=== PATIENT | male | born 1980 | race Caucasian/White ===

== ENCOUNTER → 2018-03-02 | Outpatient (CLI) | payer BC ==
--- NOTE | 2018-03-02 18:40 | CONS ---
"CONSULTATION REASON FOR CONSULTATION: Sleep apnea. This is a 37-year-old morbidly obese diabetic, type 1, male patient coming in for sleep apnea evaluation. He has loud snoring, witnessed apneas, excessive daytime somnolence and sleepiness, sleep fragmentation and chronic fatigue and tiredness. 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 He occasionally falls asleep while driving his vehicle. He wants to be further investigated for sleep apnea. PAST MEDICAL HISTORY: 1. Obesity. 2. Diabetes mellitus, type 1. PAST SURGICAL HISTORY: Past surgical history includes right knee surgery. DRUG ALLERGIES: NOT KNOWN. MEDICATIONS: 1. Lantus. 2. NovoLog. 3. Ibuprofen on a p.r.n. basis. SOCIAL HISTORY: Nonsmoker. No history of alcoholism. No history of IV drugs. FAMILY HISTORY: Negative for sleep apnea. REVIEW OF SYSTEMS: Twelve-point review of systems was done. No history of insomnia. No history of nocturia. No grinding of the teeth. No sleepwalking. No anxiety or panic attacks. No palpitation. No depression. Current [place] score is 14. PHYSICAL EXAMINATION: BP is 118/75, pulse 78, respirations 16, temperature 98.3, saturation 95% on room air. Weight is 339, height 6 feet 1 inch. BMI is 44.4. Neck size is 19-1/4 inches. [place] score is 14. GENERAL APPEARANCE: Calm, comfortable, obese. Head is atraumatic, normocephalic. NECK: Short, supple. Crowding of the posterior pharynx. Mallampati class 4. No goiter or neck masses. LUNGS: Diminished; otherwise clear. HEART: Heart sounds are regular rate and rhythm. Normal S1, S2. No S3, S4. No murmurs. ABDOMEN: Soft, non-tender. No organomegaly. EXTREMITIES: No edema. No cyanosis or clubbing. NEUROLOGIC: Alert and oriented x3. There is no focal neurological deficit. PSYCHIATRIC: Negative for anxiety or depression. IMPRESSION: 1. Obstructive sleep apnea, clinically suspected. Overall clinical suspicion is high. 2. Loud snoring. 3. Chronic hypersomnia. [place] score of 14. 4. Witnessed apneas. 5. Obesity with a body mass index of 44.4. 6. Type 1 diabetes mellitus. PLAN: High suspicion for obstructive sleep apnea. Proceed with a screening polysomnogram and treat accordingly. Encourage weight loss. Suggest not to drive, especially if feeling drowsy or sleepy. Implement good sleep hygiene measures. Will follow. MMODL / IJN: [id number] / "
== END | disposition home or self-care (01) ==
LOC: SLEEP 16:41
PROVIDERS: ATTEND Internal Medicine Critical Care Medicine
DX: G47.30 Sleep apnea, unspecified (principal); G47.19 Other hypersomnia; E66.01 Morbid (severe) obesity due to excess calories; E10.9 Type 1 diabetes mellitus without complications; R53.82 Chronic fatigue, unspecified; Z98.890 Other specified postprocedural states; Z79.4 Long term (current) use of insulin; Z79.1 Long term (current) use of non-steroidal anti-inflammatories (NSAID); Z68.41 Body mass index [BMI] 40.0-44.9, adult
CPT/HCPCS: 99211

== ENCOUNTER → 2020-05-14 | Outpatient (CLI) | payer BC ==
--- NOTE | 2020-05-14 11:16 | MR ---
EXAMINATION TYPE: MR knee RT wo con DATE OF EXAM: 05/14/2020 COMPARISON: None HISTORY: M 25.561, right knee pain TECHNIQUE: Multiplanar, multisequence imaging of the right knee is performed without IV contrast. FINDINGS: There is some artifact on the exam, [id number] ratio is not optimal MEDIAL MENISCUS: Linear increased signal is present within the posterior horn of the medial meniscus, questionable extension to the undersurface on coronal image #23, peripheral margin, sagittal image 7 LATERAL MENISCUS: Anterior and posterior horns are intact without tear. CRUCIATE LIGAMENTS: The anterior and posterior cruciate ligaments are intact and unremarkable. COLLATERAL LIGAMENTS: The medial collateral ligament and lateral collateral ligament complex are inta ct and unremarkable. EXTENSOR MECHANISM: Visualized quadriceps and patellar tendons are intact. EFFUSION: There is a suprapatellar joint effusion POPLITEAL CYST: No popliteal/street cyst. TRICOMPARTMENT SPACES: Joint space loss is suspected patellofemoral joint, there is some mild tricomp artmental marginal spurring CARTILAGE: Grade 3 to grade IV chondromalacia present at the posterior patella, grade II chondromalac ia suspected greater than the lateral compartment and medial BONE MARROW SIGNAL: Some minimal subchondral signal change present in the posterior patella, axial im age #26. OTHER: There is a T2 bright focus, T1 intermediate signal at the posterior aspect of the posterior c ruciate ligament insertion measuring 15 mm x 6 mm x 13 mm which may represent ganglion cyst or possib le meniscal cyst extending from the posterior margin of the posterior horn of the medial meniscus. Solis bcutaneous edema changes are present anteriorly in the medial lateral aspect of the knee. IMPRESSION: Osteoarthritis. Findings suspicious for tear of the posterior horn the medial meniscus. Possible gang lion cyst or meniscal cyst as described, joint effusion.
== END | disposition home or self-care (01) ==
LOC: RADMRIMAIN 06:56
PROVIDERS: ATTEND Orthopaedic Surgery Sports Medicine
DX: M17.11 Unilateral primary osteoarthritis, right knee (principal)

== ENCOUNTER → 2021-02-21 | Outpatient (CLI) | payer BC ==
--- NOTE | 2021-02-21 11:09 | XR ---
EXAMINATION TYPE: XR foot complete LT DATE OF EXAM: 02/21/2021 COMPARISON: NONE HISTORY: Pain and swelling TECHNIQUE: Three views are submitted. FINDINGS: The osseous structures are intact. There is no acute fracture or dislocation. Joint spaces are p reserved. Calcaneal spurs are noted. IMPRESSION: 1. No acute fracture or dislocation. If symptoms persist, follow-up exam in 7 to 10 days could be ob tained.
== END | disposition home or self-care (01) ==
LOC: RADXRMAIN 09:42
PROVIDERS: ATTEND Internal Medicine
DX: M79.89 Other specified soft tissue disorders (principal)

== ENCOUNTER → 2022-10-02 | Outpatient (CLI) | payer BC ==
[2022-10-02 12:53] VITALS: BP 143/86; PULSE 97; RESP 18
== END ==
LOC: PNWHC3 12:17
PROVIDERS: ATTEND Specialist
DX: M14.679 Charcot's joint, unspecified ankle and foot (principal)
CPT/HCPCS: 99211

== ENCOUNTER → 2022-11-08 | Outpatient (CLI) | payer BC ==
--- NOTE | 2022-11-17 00:21 | MR ---
EXAMINATION TYPE: MR ankle RT wo con, MR ankle LT wo con DATE OF EXAM: 11/08/2022 COMPARISON: NONE HISTORY: 42-year-old male Right foot/ankle pain, no trauma, diabetic. ( Left foot /ankle pain, hx fx going down steps, diabetic. ( TECHNIQUE: Multiplanar, multisequence images of the right ankle and left ankle were obtained without IV contrast. FINDINGS: RIGHT: Diffuse midfoot soft tissue swelling and extensive midfoot osseous edema. Associated osseous sclerosi s given the low signal intensity. There is dorsal capsular hypertrophy and joint effusion at the fabrice cular cuneiform joints. Additional effusion at the calcaneocuboid joint. Extensive edema along the plantar foot musculature Scattered debris over the patient's skin surface. Mild tenosynovial fluid along the lateral peroneal tendons. There is infra malleolar split tear of th e peroneus longus from the level of the peroneal tubercle and distally. Lateral ligamentous complex a ppears intact. The syndesmosis and anterior extensor tendons appear intact. Deltoid spring ligament complex as well as the medial flexor tendons appear intact. Small plantar heel spur. Severe thickening at the origin of the plantar fascia up to 1.5 cm with deep sided partial-thickness tear involving over 50% of the fascial thickness. Achilles tendon is intact. Preserved fatty signal within the sinus Tarsi. Tarsal tunnel is clear. LEFT: There is severe mid foot deformity with large erosions, bony fragmentation, midfoot malalignment, bon y debris, common areas of sclerosis, and effusions. There may be secondary early rocker-bottom foot d eformity. [id number] sized plantar heel spur. There is thickening of the plantar fascia to 8 mm without tear. Achilles tendon is well delineated. Diffuse atrophy of the plantar musculature. Tibiotalar joint shows moderate posterior joint effusion. There is the appearance of a short segment split tear of the Proteus longus along the cuboid tunnel. Lateral ligamentous complex appears grossly intact. The medial flexor tendons appear intact. Low-grade versus chronic sprain deep posterior fibers of the deltoid ligament. The syndesmosis and anterior extensor tendons appear satisfactory. IMPRESSION: RIGHT: 1. In the absence of any overlying ulcer, the extensive soft tissue, muscular, and osseous edema thro ughout the midfoot is suspected to relate to early neuropathic/Charcot arthropathy. Recommend radiogr aphic follow-up. 2. Inframalleolar split tear of the peroneus longus beginning at the peroneal tubercle. 3. Correlate for plantar fasciitis. There is a deep sided partial-thickness tear involving over 50% o f the fascial thickness. LEFT: 4. Endstage midfoot arthropathy, with extensive marrow edema, bony fragmentation, erosions, sclerosi s, and malalignment. In the absence of any overlying ulcer, findings favored to represent advanced [place] arthropathy and developing rocker-bottom foot deformity. 5. Short segment split tear of the peroneus longus along the cuboid tunnel.
== END | disposition home or self-care (01) ==
LOC: RADMRIMAIN 12:05
PROVIDERS: ATTEND Specialist
DX: S86.312A Strain of muscle(s) and tendon(s) of peroneal muscle group at lower leg level, left leg, initial encounter (principal); S86.311A Strain of muscle(s) and tendon(s) of peroneal muscle group at lower leg level, right leg, initial encounter; M14.671 Charcot's joint, right ankle and foot; E11.9 Type 2 diabetes mellitus without complications; R60.0 Localized edema

== ENCOUNTER 2023-01-06 14:32 | Inpatient (IN) | payer MEDICAID ==
--- NOTE | 2023-01-06 14:37 | ED ---
General Adult HPI - General Source: patient, RN notes reviewed Mode of arrival: ambulatory Limitations: no limitations <Anshul Scruggs - Last Filed: 01/06/23 14:36> <Kenyetta Stanley - Last Filed: 01/06/23 23:56> - General Stated complaint: Toe Ulcer Time Seen by Provider: 01/06/23 14:36 - History of Present Illness Initial comments: 6-year-old male presents emergency Department with chief complaint of right foot toe infection. Patient was sent in by his PCP today as a has rapidly worsened. Patient has a appointment with wound center but due to declining condition he was advised him today to be admitted. (Anshul Scruggs) 42-year-old male presenting with chief complaint of toe infection. History of type 1 diabetes. Patient states that he has had an ulceration to the right third toe for several weeks. He states that over the last 2 weeks the infection has been rapidly worsening. He admits to discharge and increasing surrounding redness. Patient sees jira developer Dr. Yung. He denies any fever, chills, nausea, vomiting. Patient does have bilateral neuropathy. (Kenyetta Stanley) - Related Data Home Medications Medication Instructions Recorded Confirmed Ascorbic Acid [Vitamin C] 1,000 mg PO DAILY 01/06/23 01/06/23 Atorvastatin [Lipitor] 80 mg PO HS 01/06/23 01/06/23 Gabapentin 600 mg PO BID 01/06/23 01/06/23 Insulin Glargine,Hum.rec.anlog 70 units SQ HS 01/06/23 01/06/23 [Lantus Solostar Pen] Insulin Lispro [humaLOG Kwikpen] 0 - 30 unit SQ AC-TID 01/06/23 01/06/23 Loratadine 20 mg PO DAILY 01/06/23 01/06/23 Omeprazole 40 mg PO DAILY 01/06/23 01/06/23 Tirzepatide [Mounjaro] 5 mg SQ Q7D 01/06/23 01/06/23 clindamycin HCL [Cleocin] 300 mg PO Q8H 01/06/23 01/06/23 metFORMIN HCL ER [Glucophage XR] 1,000 mg PO DAILY 01/06/23 01/06/23 Allergies Allergy/AdvReac Type Severity Reaction Status Date / Time No Known Allergies Allergy Verified 01/06/23 20:13 Review of Systems ROS Other: All systems not noted in ROS Statement are negative. <Anshul Scruggs - Last Filed: 01/06/23 14:36> ROS Other: All systems not noted in ROS Statement are negative. <Kenyetta Stanley - Last Filed: 01/06/23 23:56> ROS Statement: Those systems with pertinent positive or pertinent negative responses have been documented in the HPI. Past Medical History History of Any Multi-Drug Resistant Organisms: None Reported Smoking Status: Never smoker <Anshul Scruggs - Last Filed: 01/06/23 14:36> General Exam General appearance: alert, in no apparent distress <Anshul Scruggs - Last Filed: 01/06/23 14:36> Limitations: no limitations General appearance: alert, in no apparent distress Head exam: Present: atraumatic, normocephalic, normal inspection Eye exam: Present: normal appearance, EOMI Neck exam: Present: normal inspection, full ROM Respiratory exam: Absent: respiratory distress Right Foot/Toe exam: Present: erythema (Erythema and ulcer with purulent discharge to the right third toe) Neurological exam: Present: alert, oriented X3 Psychiatric exam: Present: normal affect, normal mood <Kenyetta Stanley - Last Filed: 01/06/23 23:56> - General Exam Comments Initial Comments: Visual Physical Exam Vital signs reviewed General: Well-appearing, nontoxic, no acute distress. Head: Normocephalic, atraumatic Eyes: PERRLA, EOMI ENT: Airway patent Chest: Nonlabored breathing Skin: No visual rash, normal skin tone Neuro: Alert and oriented 3 Musculoskeletal: No gross abnormalities (Anshul Scruggs) Course Vital Signs 01/06/23 01/06/23 14:42 19:50 Temperature 98.1 F Pulse Rate 54 L 99 Respiratory 16 18 Rate Blood Pressure 150/84 127/82 O2 Sat by Pulse 97 94 L Oximetry Medical Decision Making <Anshul Scruggs - Last Filed: 01/06/23 14:36> - Lab Data Result diagrams: 01/06/23 15:45 01/06/23 16:01 <Kenyetta Stanley - Last Filed: 01/06/23 23:56> - Medical Decision Making I performed the quick note portion of this chart signed Anshul Scruggs PA-C (Anshul Scruggs) Was pt. sent in by a medical professional or institution (, PA, ASSISTANT CLINICAL DIRECTOR, urgent care, hospital, or [place] health care facility...) When possible be specific @ -Sent by PCP Did you speak to anyone other than the patient for history (EMS, parent, family, police, friend...)? What history was obtained from this source @ -No Did you review nursing and triage notes (agree or disagree)? Why? @ -I reviewed and agree with nursing and triage notes Were old charts reviewed (outside hosp., previous admission, EMS record, old EKG, old radiological studies, urgent care reports/EKG's, [place] health care facility records)? Report findings @ -No old charts were reviewed Differential Diagnosis (chest pain, altered mental status, abdominal pain women, abdominal pain men, vaginal bleeding, weakness, fever, dyspnea, syncope, headache, dizziness, GI bleed, back pain, seizure, CVA, palpatations, mental health, musculoskeletal)? @ -Differential Musculoskeletal Muscular strain, contusion, ligament sprain, fracture, arthritis, septic arthritis, bursitis, cellulitis, muscle spasm, nerve compression, DVT, arterial occlusion, herpes zoster, electrolyte abnormality, tumor.... This is not meant to be in all inclusive list EKG interpreted by me (3pts min.). @ -As above X-rays interpreted by me (1pt min.). @ -Soft tissue edema with fracture tuft distal phalanx third digit possibly pathologic secondary to osteomyelitis CT interpreted by me (1pt min.). @ -None done U/S interpreted by me (1pt. min.). @ -None done What testing was considered but not performed or refused? (CT, X-rays, U/S, labs)? Why? @ -None What meds were considered but not given or refused? Why? @ -None Did you discuss the management of the patient with other professionals (professionals i.e. TIANNA Champagne, ASSISTANT CLINICAL DIRECTOR, lab, RT, psych nurse, social sciences professor, ssrs developer, teacher, medical officer, egg caser)? Give summary @ -I spoke with Dr. Holbrook who accepted admission Was smoking cessation discussed for >3mins.? @ -No Was critical care preformed (if so, how long)? @ -No Were there social determinants of health that impacted care today? How? (Homelessness, low income, unemployed, alcoholism, drug addiction, transportation, low edu. Level, literacy, decrease access to med. care, senior living, rehab)? @ -No Was there de-escalation of care discussed even if they declined (Discuss DNR or withdrawal of care, Hospice)? DNR status @ -No What co-morbidities impacted this encounter? (DM, HTN, Smoking, COPD, CAD, Cancer, CVA, ARF, Chemo, Hep., AIDS, mental health diagnosis, sleep apnea, m orbid obesity)? @ -None Was patient admitted / discharged? Hospital course, mention meds given and route, prescriptions, significant lab abnormalities, going to OR and other pertinent info. @ -42-year-old male presenting with chief complaint of worsening ulceration to the right third toe. [facility] P[facility]. On examination there is purulent d ischarge and surrounding erythema. No leukocytosis. X-ray shows pathologic fracture secondary to osteomyelitis. Patient is started on vancomycin and Rocephin. He is admitted with vascular surgery consult. Follow-up with PCP. Report back to ER with any new or worsening symptoms. Discussed return parameters and answered all questions. Patient conveyed verbal understanding an d agreed to the plan. I discussed this case in detail with my attending Dr. Rodriguez Undiagnosed new problem with uncertain prognosis? @ -No Drug Therapy requiring intensive monitoring for toxicity (Heparin, Nitro, Insulin, Cardizem)? @ -No Were any procedures done? @ -No Diagnosis/symptom? @ -Osteomyelitis Acute, or Chronic, or Acute on Chronic? @ -Acute Uncomplicated (without systemic symptoms) or Complicated (systemic symptoms)? @ -Complicated Side effects of treatment? @ -No Exacerbation, Progression, or Severe Exacerbation? @ -No Poses a threat to life or bodily function? How? (Chest pain, [place], [place], pneumonia, PE, COPD, DKA, ARF, appy, cholecystitis, CVA, Diverticulitis, Homicidal, Suicidal, threat to staff... and all critical care pts) @ -yes (Kenyetta Stanley) - Lab Data Lab Results 01/06/23 01/06/23 01/06/23 Range/Units 15:45 16:01 16:01 WBC 8.0 (3.8-10.6) k/uL RBC 5.56 (4.30-5.90) m/uL Hgb 15.1 (13.0-17.5) gm/dL Hct 46.5 (39.0-53.0) % MCV 83.6 (80.0-100.0) fL MCH 27.2 (25.0-35.0) pg MCHC 32.5 (31.0-37.0) g/dL RDW 13.8 (11.5-15.5) % Plt Count 211 (150-450) k/uL MPV 8.1 Neutrophils % 68 % Lymphocytes % 23 % Monocytes % 5 % Eosinophils % 3 % Basophils % 0 % Neutrophils # 5.5 (1.3-7.7) k/uL Lymphocytes # 1.9 (1.0-4.8) k/uL Monocytes # 0.4 (0-1.0) k/uL Eosinophils # 0.3 (0-0.7) k/uL Basophils # 0.0 (0-0.2) k/uL Hypochromasia Slight Sodium 134 L (137-145) mmol/L Potassium 4.4 (3.5-5.1) mmol/L Chloride 98 (98-107) mmol/L Carbon Dioxide 24 (22-30) mmol/L Anion Gap 12 mmol/L BUN 14 (9-20) mg/dL Creatinine 0.63 L (0.66-1.25) mg/dL Est GFR (CKD-EPI)AfAm >90 (>60 ml/min/1.73 sqM) Est GFR (CKD-EPI)NonAf >90 (>60 ml/min/1.73 sqM) Glucose 431 H (74-99) mg/dL Plasma Lactic Acid Jesus 1.2 (0.7-2.0) mmol/L Calcium 9.0 (8.4-10.2) mg/dL Total Bilirubin 0.6 (0.2-1.3) mg/dL AST 25 (17-59) U/L ALT 29 (4-49) U/L Alkaline Phosphatase 147 H (38-126) U/L C-Reactive Protein 1.5 H (<1.0) mg/dL Total Protein 6.9 (6.3-8.2) g/dL Albumin 3.7 (3.5-5.0) g/dL Disposition <Dedoe,Anshul M - Last Filed: 01/06/23 14:36> Time of Disposition: 19:06 <Kenyetta Stanley - Last Filed: 01/06/23 23:56> Clinical Impression: Osteomyelitis Disposition: ADMITTED IP TO THIS HOSP Condition: Fair
--- NOTE | 2023-01-06 15:34 | XR ---
EXAMINATION TYPE: XR foot complete RT DATE OF EXAM: 01/06/2023 COMPARISON: NONE HISTORY: Pain TECHNIQUE: Three views are submitted. FINDINGS: Soft tissue edema involving the right third digit with fracture of the tuft distal phalanx which coul d be pathologic secondary to osteomyelitis. Remaining osseous structures intact. Mild hypertrophic ar thropathy. AP. Ossification along the dorsum of foot adjacent to the tarsal bones is nonspecific. Lar ge calcaneal spurs. Slight widening of the distance between the base of first and second tarsal. IMPRESSION: 1. Soft tissue edema with fracture tuft distal phalanx third digit possibly pathologic secondary to o steomyelitis. 2. There is soft tissue ossification and edema overlying the dorsum of foot at the level of the tarsa l bones likely near the tarsal navicular articulation with the most medial cuneiform. Most likely chr onic rather than recent fracture. However, slight widening of the distance between the base of first and second tarsal. Correlate with MRI or CT scan to exclude a Lisfranc injury.
[2023-01-06 16:27] LABS: Basophils % (A) 0 %; Eosinophils # (A) 0.3 k/uL (0-0.7); Eosinophils % (A) 3 %; HCT 46.5 % (39.0-53.0); HGB 15.1 gm/dL (13.0-17.5); Hypochromasia Slight; Lymphocytes # (A) 1.9 k/uL (1.0-4.8); Lymphocytes % (A) 23 %; MCH 27.2 pg (25.0-35.0); MCHC 32.5 g/dL (31.0-37.0); MCV 83.6 fL (80.0-100.0); Mean Platelet Volume 8.1; Monocytes # (A) 0.4 k/uL (0-1.0); Monocytes % (A) 5 %; Neutrophils # (A) 5.5 k/uL (1.3-7.7); Neutrophils % (A) 68 %; Platelet Count 211 k/uL (150-450); RBC 5.56 m/uL (4.30-5.90); RDW 13.8 % (11.5-15.5)
[2023-01-06 17:07] LABS: ALT 29 U/L (4-49); AST 25 U/L (17-59); African American GFR (CKD) >90 (>60 ml/min/1.73 sqM); Albumin 3.7 g/dL (3.5-5.0); Alkaline Phosphatase 147 U/L (38-126); Anion Gap 12 mmol/L; Blood Urea Nitrogen 14 mg/dL (9-20); C Reactive Protein 1.5 mg/dL (<1.0); Carbon Dioxide 24 mmol/L (22-30); Chloride 98 mmol/L (98-107); Glucose 431 mg/dL (74-99); Non-African American GFR(CKD) >90 (>60 ml/min/1.73 sqM); Potassium 4.4 mmol/L (3.5-5.1); Sodium 134 mmol/L (137-145); Total Bilirubin 0.6 mg/dL (0.2-1.3); Total Protein 6.9 g/dL (6.3-8.2)
[2023-01-06] MEDS ORDERED: VANCOMYCIN IV PER PHARMACY 1 EACH MISC MISCELLANE PRN (18:58)
[2023-01-06] MEDS ORDERED: cefTRIAXone IN SWFI 1,000 MG/10 ML SYRINGE IVP SCH (19:00)
[2023-01-06] MEDS ORDERED: ACETAMINOPHEN TAB 325 MG TAB PO PRN (19:02)
[2023-01-06] MEDS ORDERED: NALOXONE 0.4 MG/ML 1 ML VIAL IV PRN (19:02)
[2023-01-06] MEDS ORDERED: VANCOMYCIN 2,250 MG in SODIUM CHLORIDE 0.9% 500 ML 500 ML IVPB STA (19:04)
[2023-01-06] MEDS ORDERED: INSULIN REGULAR 100 UNIT/ML VIAL (IV) IV ONE (19:05)
[2023-01-06] MEDS ORDERED: DEXTROSE 50% SYRINGE 50 ML IVP PRN ×2 (19:23)
[2023-01-06] MEDS: SODIUM CHLORIDE 0.9% 1,000 ML IV SCH (19:57)
[2023-01-06 20:27] LABS: Glucose,Whole Blood 379 mg/dL (70-110)
[2023-01-06] MEDS ORDERED: INSULIN DETEMIR (LEVEMIR) 100 UNIT/ML SYR SQ SCH (21:00)
[2023-01-06] MEDS: ATORVASTATIN 80 MG TAB PO SCH (22:12)
[2023-01-06] MEDS: INSULIN ASPART (NovoLOG) 100 UNIT/ML VIAL SQ SCH (22:12)
[2023-01-06] MEDS: CEFEPIME 2 GM in SODIUM CHLORIDE 0.9% 100 ML IVPB SCH (22:13)
[2023-01-07] MEDS: SODIUM CHLORIDE 0.9% 1,000 ML IV SCH ×3 (03:17→20:54)
[2023-01-07] MEDS: VANCOMYCIN 2,250 MG in SODIUM CHLORIDE 0.9% 500 ML 500 ML IVPB SCH ×3 (05:18→22:36)
[2023-01-07] MEDS: CEFEPIME 2 GM in SODIUM CHLORIDE 0.9% 100 ML IVPB SCH ×3 (05:19→20:18)
[2023-01-07 07:16] LABS: Glucose,Whole Blood 172 mg/dL (70-110)
[2023-01-07] MEDS: INSULIN ASPART (NovoLOG) 100 UNIT/ML VIAL SQ SCH ×7 (08:20→20:51)
[2023-01-07] MEDS: ENOXAPARIN 40 MG/0.4 ML SYRINGE SQ SCH (08:20)
[2023-01-07] MEDS: PANTOPRAZOLE 40 MG TABLET PO SCH (08:20)
[2023-01-07] MEDS: metFORMIN 500 MG TAB PO SCH ×3 (08:20→18:03)
--- NOTE | 2023-01-07 09:59 | P.CONS ---
History of Present Illness - Reason for Consult Consult date: 01/07/23 wound care - History of Present Illness This is a 42-year-old gentleman with history of diabetes being seen on 5 N. for a diabetic foot ulceration of the third digit with ostial. Patient had been following with podiatry however the ulceration has progressively gotten worse. Patient was seen by his PCP who instructed him to go to the emergency room for evaluation. Ulceration is noted to the plantar aspect of the third digit with significant amount of slough and nonviable tissue present. Ulceration measures approximately 1 x 1.4 x 0.5cm. The periwound shows erythema edema and deformity. Patient is being followed by vascular surgery with possible amputation. Review Of Systems: Constitutional: No fever, no chills, no night sweats. No weight change. No weakness, fatigue or lethargy. No daytime sleepiness. Integumentary:reports wounds, no lesions. No rash or pruritus. No unusual bruising. No change in hair or nails. Physical exam: General Appearance: Alert, cooperative, no distress, appears stated age. Skin: See HPI all other Skin color, texture, tugor normal, no rashes or lesions. Neurologic: Alert oriented x3 Assessment: 1. Nonhealing ulceration with necrosis of bone other part of right foot 2. Diabetic foot ulcer 3. Osteomyelitis Plan: 1. We'll await decision by the vascular surgeon for advanced wound care. At this time apply a dry gauze to the site. Changes daily. Nonweightbearing to the right forefoot. We will be happy to see the patient after discharge if continued advance wound care is needed. Thank you for the consultation any questions contact the wound care center DNP note has been reviewed and discussed with Dr. Shah and the impression and plan of care has been directed as dictated. Past Medical History Past Medical History: Diabetes Mellitus Additional Past Medical History / Comment(s): neuropathy History of Any Multi-Drug Resistant Organisms: None Reported Past Surgical History: Orthopedic Surgery Past Psychological History: No Psychological Hx Reported Smoking Status: Never smoker Past Alcohol Use History: None Reported Past Drug Use History: None Reported Medications and Allergies Home Medications Medication Instructions Recorded Confirmed Type Ascorbic Acid [Vitamin C] 1,000 mg PO DAILY 01/06/23 01/06/23 History Atorvastatin [Lipitor] 80 mg PO HS 01/06/23 01/06/23 History Gabapentin 600 mg PO BID 01/06/23 01/06/23 History Insulin Glargine,Hum.rec.anlog 70 units SQ HS 01/06/23 01/06/23 History [Lantus Solostar Pen] Insulin Lispro [humaLOG Kwikpen] 0 - 30 unit SQ AC-TID 01/06/23 01/06/23 History Loratadine 20 mg PO DAILY 01/06/23 01/06/23 History Omeprazole 40 mg PO DAILY 01/06/23 01/06/23 History Tirzepatide [Mounjaro] 5 mg SQ Q7D 01/06/23 01/06/23 History clindamycin HCL [Cleocin] 300 mg PO Q8H 01/06/23 01/06/23 History metFORMIN HCL ER [Glucophage XR] 1,000 mg PO DAILY 01/06/23 01/06/23 History Allergies Allergy/AdvReac Type Severity Reaction Status Date / Time No Known Allergies Allergy Verified 01/06/23 20:13 Physical Exam Vitals: Vital Signs Temp Pulse Pulse Resp BP BP Pulse Ox 01/07/23 08:00 97.9 F 77 18 155/83 98 01/07/23 01:32 97.9 F 91 19 121/71 96 01/06/23 22:28 84 18 01/06/23 21:51 97.7 F 84 18 136/82 94 L 01/06/23 19:50 99 18 127/82 94 L 01/06/23 14:42 98.1 F 54 L 16 150/84 97 Intake and Output 01/06/23 01/07/23 01/07/23 22:59 06:59 14:59 Intake Total 222 444 Balance 222 444 Intake: Oral 222 444 Other: Voiding Method Toilet # Voids 1 Weight 154.221 kg Results CBC & Chem 7: 01/06/23 15:45 01/06/23 16:01 Labs: Abnormal Lab Results - Last 24 Hours (Table) 01/06/23 01/06/23 01/07/23 Range/Units 16:01 20:24 07:15 Sodium 134 L (137-145) mmol/L Creatinine 0.63 L (0.66-1.25) mg/dL Glucose 431 H (74-99) mg/dL POC Glucose (mg/dL) 379 H 172 H (70-110) mg/dL Alkaline Phosphatase 147 H (38-126) U/L C-Reactive Protein 1.5 H (<1.0) mg/dL Assessment and Plan (1) Non-pressure chronic ulcer of other part of right foot with necrosis of bone Current Visit: Yes Status: Acute Code(s): L97.514 - NON-PRS CHRONIC ULCER OTH PRT RIGHT FOOT W NECROSIS OF BONE SNOMED Code(s): 11388886915620108 (2) Type 2 diabetes mellitus with foot ulcer Current Visit: Yes Status: Acute Code(s): E11.621 - TYPE 2 DIABETES MELLITUS WITH FOOT ULCER; L97.509 - NON-PRESSURE CHRONIC ULCER OTH PRT UNSP FOOT W UNSP SEVERITY SNOMED Code(s): 614981979 (3) Osteomyelitis Current Visit: Yes Status: Acute Code(s): M86.9 - OSTEOMYELITIS, UNSPECIFIED SNOMED Code(s): 35627650
[2023-01-07 11:00] LABS: Basophils # (A) 0.06 X 10*3/uL (0.00-0.10); Basophils % (A) 0.8 %; Eosinophils # (A) 0.28 X 10*3/uL (0.04-0.35); Eosinophils % (A) 3.8 %; HCT 44.9 % (39.6-50.0); HGB 14.2 d/dL (13.0-17.0); Lymphocytes # (A) 2.24 X 10*3/uL (0.90-5.00); Lymphocytes % (A) 30.1 %; MCH 26.4 pg (27.0-32.0); MCHC 31.6 d/dL (32.0-37.0); MCV 83.6 FL (80.0-97.0); Mean Platelet Volume 11.6 FL (9.5-12.2); Monocytes # (A) 0.56 X 10*3/uL (0.20-1.00); Monocytes % (A) 7.5 %; NRBC Per 100 WBC 0 X 10*3/uL (0.00-0.01); Neutrophils # (A) 4.27 X 10*3/uL (1.80-7.70); Neutrophils % (A) 57.5 %; Platelet Count 225 X 10*3/uL (140-440); RBC 5.37 X 10*6/uL (4.40-5.60); RDW 13.5 % (11.5-14.5); WBC 7.43 X 10*3/uL (4.50-10.00)
[2023-01-07 11:11] LABS: ALT 26 U/L (10-49); AST 16 U/L (14-35); Albumin 3.5 d/dL (3.8-4.9); Alkaline Phosphatase 119 U/L (41-126); BUN/Creat Ratio 20.43 Ratio (12.00-20.00); Blood Urea Nitrogen 14.3 mg/dL (9.0-27.0); Calcium 8.6 mg/dL (8.7-10.3); Carbon Dioxide 26.7 mmol/L (21.6-31.8); Chloride 104 mmol/L (96-109); Globulin 2.5 d/dL (1.6-3.3); Glucose 199 mg/dL (70-110); Potassium 3.9 mmol/L (3.5-5.5); Sodium 141 mmol/L (135-145); Total Bilirubin 0.3 mg/dL (0.3-1.2)
[2023-01-07 12:05] LABS: Glucose,Whole Blood 191 mg/dL (70-110)
[2023-01-07] MEDS: GABAPENTIN 300 MG CAP PO SCH ×2 (12:56→20:19)
--- NOTE | 2023-01-07 13:42 | P.GSCN ---
History of Present Illness Consult date: 01/07/23 Reason for Consult: Osteomyelitis Requesting physician: Siri Holbrook History of present illness: This is a 42-year-old male who presented to the emergency department with concerns for infected right toe. Patient has a past medical history including type 1 diabetes diagnosed at age 18 and peripheral neuropathy. Patient states he had surgery on his right second toe where his hosted services analyst cut the ligament. That healed well. He thinks while he was having wound care that and was having his nails clipped that he possibly had skin clipped on his right third toe. He has been since developed a wound. He has been seeing his hosted services analyst who has been doing some local wound care. They were concerned as the wound is getting worse and the toe swelling he came to the emergency department for further evaluation. He states wound started about 3 weeks ago. He was put on clindamycin with no improvement. He denies any pain in his feet he states that he has a little bit of peeling on the dorsal aspect of his foot only. Denies any fevers, chills, abdominal pain, nausea, vomiting or diarrhea. Review of Systems A 14 point review systems was completed all pertinent positives and negatives as stated in the HPI. Past Medical History Past Medical History: Diabetes Mellitus Additional Past Medical History / Comment(s): neuropathy History of Any Multi-Drug Resistant Organisms: None Reported Past Surgical History: Orthopedic Surgery Past Psychological History: No Psychological Hx Reported Smoking Status: Never smoker Past Alcohol Use History: None Reported Past Drug Use History: None Reported Medications and Allergies Home Medications Medication Instructions Recorded Confirmed Type Ascorbic Acid [Vitamin C] 1,000 mg PO DAILY 01/06/23 01/06/23 History Atorvastatin [Lipitor] 80 mg PO HS 01/06/23 01/06/23 History Gabapentin 600 mg PO BID 01/06/23 01/06/23 History Insulin Glargine,Hum.rec.anlog 70 units SQ HS 01/06/23 01/06/23 History [Lantus Solostar Pen] Insulin Lispro [humaLOG Kwikpen] 0 - 30 unit SQ AC-TID 01/06/23 01/06/23 History Loratadine 20 mg PO DAILY 01/06/23 01/06/23 History Omeprazole 40 mg PO DAILY 01/06/23 01/06/23 History Tirzepatide [Mounjaro] 5 mg SQ Q7D 01/06/23 01/06/23 History clindamycin HCL [Cleocin] 300 mg PO Q8H 01/06/23 01/06/23 History metFORMIN HCL ER [Glucophage XR] 1,000 mg PO DAILY 01/06/23 01/06/23 History Allergies Allergy/AdvReac Type Severity Reaction Status Date / Time No Known Allergies Allergy Verified 01/06/23 20:13 Surgical - Exam Vital Signs Temp Pulse Resp BP Pulse Ox 98.1 F 54 L 16 150/84 97 01/06/23 14:42 01/06/23 14:42 01/06/23 14:42 01/06/23 14:42 01/06/23 14:42 General appearance: The patient is alert, oriented, appears in no acute distress. HET: Head is normocephalic and atraumatic. Pupils are equal and reactive. Neck: Supple. Heart: Regular. Lungs: Equal expansion, normal respiratory effort. Abdomen: Soft, obese, nontender, nondistended. Extremities: Bilateral lower extremity edema. Bilateral palpable PT and DP pulses. Right third toe with diabetic ulcer with bone exposure. Neurological: No focal deficits. Decreased sensory to bilateral feet. Results - Labs 01/07/23 05:30 01/08/23 05:23 Abnormal Lab Results - Last 24 Hours (Table) 01/06/23 01/06/23 01/07/23 Range/Units 16:01 20:24 07:15 Sodium 134 L (137-145) mmol/L Creatinine 0.63 L (0.66-1.25) mg/dL Glucose 431 H (74-99) mg/dL POC Glucose (mg/dL) 379 H 172 H (70-110) mg/dL Alkaline Phosphatase 147 H (38-126) U/L C-Reactive Protein 1.5 H (<1.0) mg/dL Diabetes panel 01/06/23 Range/Units 16:01 Sodium 134 L (137-145) mmol/L Potassium 4.4 (3.5-5.1) mmol/L Chloride 98 (98-107) mmol/L Carbon Dioxide 24 (22-30) mmol/L BUN 14 (9-20) mg/dL Creatinine 0.63 L (0.66-1.25) mg/dL Glucose 431 H (74-99) mg/dL Calcium 9.0 (8.4-10.2) mg/dL AST 25 (17-59) U/L ALT 29 (4-49) U/L Alkaline Phosphatase 147 H (38-126) U/L Total Protein 6.9 (6.3-8.2) g/dL Albumin 3.7 (3.5-5.0) g/dL Calcium panel 01/06/23 Range/Units 16:01 Calcium 9.0 (8.4-10.2) mg/dL Albumin 3.7 (3.5-5.0) g/dL Pituitary panel 01/06/23 Range/Units 16:01 Sodium 134 L (137-145) mmol/L Potassium 4.4 (3.5-5.1) mmol/L Chloride 98 (98-107) mmol/L Carbon Dioxide 24 (22-30) mmol/L BUN 14 (9-20) mg/dL Creatinine 0.63 L (0.66-1.25) mg/dL Glucose 431 H (74-99) mg/dL Calcium 9.0 (8.4-10.2) mg/dL Adrenal panel 01/06/23 Range/Units 16:01 Sodium 134 L (137-145) mmol/L Potassium 4.4 (3.5-5.1) mmol/L Chloride 98 (98-107) mmol/L Carbon Dioxide 24 (22-30) mmol/L BUN 14 (9-20) mg/dL Creatinine 0.63 L (0.66-1.25) mg/dL Glucose 431 H (74-99) mg/dL Calcium 9.0 (8.4-10.2) mg/dL Total Bilirubin 0.6 (0.2-1.3) mg/dL AST 25 (17-59) U/L ALT 29 (4-49) U/L Alkaline Phosphatase 147 H (38-126) U/L Total Protein 6.9 (6.3-8.2) g/dL Albumin 3.7 (3.5-5.0) g/dL - Imaging Comments: Right foot x-ray report soft tissue edema with fracture tuft distal phalanx third digit possibly pathologic secondary to osteomyelitis. Soft tissue ossification and edema overlying the dorsum of foot at the level of the tarsal bones likely near the tarsal navicular articulation with the most medial cuneifo rm. Most likely chronic rather than recent fracture. However slight widening of the distance between the base of the first and second tarsal. Correlate with MRI or CT to exclude Lisfranc injury. Assessment and Plan Assessment: 1. Diabetic ulcer right third toe with osteomyelitis 2. Type 1 diabetes mellitus 3. Peripheral neuropathy Plan: 1. Continue antibiotics per medical team 2. Nothing by mouth after midnight 3. Plan for right third toe amputation with deep tissue cultures tentatively scheduled tomorrow 4. Consult to wound care Thank you for this consultation, we will continue to follow. The impression and plan of care has been dictated as directed. I performed a history and examination of this patient, discussed the same with the dictator. I agree with the dictator's note ,documented as a scribe. Any additional findings or plans will be noted.
[2023-01-07 17:07] LABS: Glucose,Whole Blood 231 mg/dL (70-110)
--- NOTE | 2023-01-07 17:07 | P.HPIM ---
History of Present Illness H&P Date: 01/06/23 Chief Complaint: Osteomyelitis of right third toe with bone exposure HISTORY OF PRESENT ILLNESS: This is a 42-year-old male with a previous medical history significant for hypertension and hypertensive cardiovascular disease, hyperlipidemia, obesity with obstructive sleep apnea and obesity hypoventilation syndrome,diabetes mellitus type 2 with daibetic polyneuropathy, has been doing better with diabtes care as a matter of fact his HBA1C is down to 9 fom 11.7 % and patient has lost quite a bit of weight since the addition of Mounjaro to his medical regimen that he was out off for the past 4 [place] due to insurance issues, patient has had diabetic foot ulcer with charcot feet has been following with from Podiatry and has had multiple visit for non healing ulcer on the right third toe, and over the last 2 days he had noticed increased swelling and that the bone is sticking out of the bottom of his toe, he was supposed to go to the wound center but I advised his to take him to the ER at [facility] where he was found to have osteomyelitis of the right 3rd toe, he was started on vancomycin and Cefepime and blood cultures were sent and consulted vascular surgery for amputation of the right 3rd toe, REVIEW OF SYSTEMS: Constitutional: No documented fever, no chills, no night sweats. No weight change. No weakness, fatigue or lethargy. No daytime sleepiness. HEENT: No headache. No blurred vision or double vision, no loss of vision. No loss of Hearing, no ringing in the ears, no dizziness. No nasal drainage or congestion. No epistaxis. No sore throat. Lungs: no shortness of breath, no cough, or sputum production. No wheezing. Reports no dyspnea with activity. Cardiovascular: positive for chest pain, positive for lower extremity edema. No palpitations. positive for paroxysmal nocturnal dyspnea. positive for orthopnea. No lightheadedness or dizziness. No syncopal episodes. Abdominal: Reports no abdominal pain. No nausea, vomiting. No diarrhea. No constipation. No bloody or tarry stools Genitourinary: No dysuria, increased frequency, urgency, Musculoskeletal: No myalgias, weakness, bilateral charcot feet Integumentary: right third toe with disbetic foot ulcer with bone sticking out. No rash or pruritus. No unusual bruising. No change in hair or nails. Neurologic: No aphasia. No facial droop. No change in mentation. No head injury. No headache. No paralysis. No paresthesia. Psychiatric: No depression. No anxiety. No mood swings. Endocrine: positive for abnormal blood sugars. positive for weight change. PAST MEDICAL HISTORY: Hypertension and hypertensive cardiovascular disease. Hyperlipidemia. Diabetes Mellitus type 2. Diabetic Polyneuropathy Obesity with SHERI and OHS. Bilateral charcot feet. PAST SURGICAL HISTORY: Right knee surgery 1999 Right Knee Meniscal tear repair 05/2020 Right second toe tendon surgery 10/27/2022 SOCIAL HISTORY: She used to smoke about pack every day he smoked for many years and quit years ago, he denies any alcohol ingestion, no drug use or abuse. FAMILY HISTORY: Father at age of 62 from PAD and had amputations, Mother is 62 with breast cancer, patient has one brother alive and well,2 sisters one with DM2, patient has 2 daughters ok PHYSICAL EXAMINATION: General: 42 year male sitting up in bed in no distress. HEENT: Head is atraumatic, normocephalic, pupils were equal round reactive to light and recommendation, extraocular muscle movement were intact, sclera nonicteric, conjunctivae were pale, mucous membranes of the mouth are somewhat dry. Neck: Supple, no JVP, normal carotid upstroke bilaterally, no lymphadenopathy. Chest: Decreased breath sounds at the bases, few rhonchi, no expiratory wheezes or intercostal retractions Heart: First heart sound is normal, second heart sound is normal, there is no gallop or murmur Abdomen: Soft, nontender, nondistended, positive bowel sounds, obese. Extremities: There is +1 edema no calf tenderness DP +2 bilaterally, positive for neuropathy and charcot feet , right 3rd toe with ulcer and bone sticking out of his toe Neurologic examination: Patient is awake alert and oriented X 3, cranial nerves II-12 appear grossly intact, muscle power were 5 out of 5 in upper extremities and 5/5 in bilateral lower extremities ASSESSMENT AND PLAN: 1. Acute Osteomyelitis of the right 3rd toe duet diabetic non healing ulcer and with bone exposure. we will check wound cultures, blood cultures, start Vancomnycin with pharmacy to dose its peak and trough. we will start Cefepime 2 gr IVPB Q8 hours and we will consult vascular surgery for amputations and deep cultures. 2. Diabetes Mellitustype 2 non controlled. we will continue with Levemir 50 units SC at bedtime along with SSI , has been off GLP_1 RA ( Mounjaro) for 4 weeks due to insurance reasons, we will continue with Metformin 500 mg po bid and we will continue with BGM AC HS. 3. Diabetic Polyneuropathy with charcot feet. we will continue with Gabapentin 600 mg po bid 4. Hyperlipidemnia. we will continue with Atorvastatin 80 mg po daily, keep LDL- c 55-70. 5. Hypertension and hypertensive cardiovascular disease. has bee off Lisinopril himself. 6. Obesity with OS and OHS. we will continue with weight loss, never made it for a sleep study. 7. DVT prophylaxis. we will use Lovenox 40 mg SC daily. 8. GI Prophylaxis. we will continue with PPI. 9. Admits to inpatient, estimated length of stay 2 midnights. 10. Full Code . Past Medical History Past Medical History: Diabetes Mellitus Additional Past Medical History / Comment(s): neuropathy History of Any Multi-Drug Resistant Organisms: None Reported Past Surgical History: Orthopedic Surgery Past Psychological History: No Psychological Hx Reported Smoking Status: Never smoker Past Alcohol Use History: None Reported Past Drug Use History: None Reported Medications and Allergies Home Medications Medication Instructions Recorded Confirmed Type Ascorbic Acid [Vitamin C] 1,000 mg PO DAILY 01/06/23 01/06/23 History Atorvastatin [Lipitor] 80 mg PO HS 01/06/23 01/06/23 History Gabapentin 600 mg PO BID 01/06/23 01/06/23 History Insulin Glargine,Hum.rec.anlog 70 units SQ HS 01/06/23 01/06/23 History [Lantus Solostar Pen] Insulin Lispro [humaLOG Kwikpen] 0 - 30 unit SQ AC-TID 01/06/23 01/06/23 History Loratadine 20 mg PO DAILY 01/06/23 01/06/23 History Omeprazole 40 mg PO DAILY 01/06/23 01/06/23 History Tirzepatide [Mounjaro] 5 mg SQ Q7D 01/06/23 01/06/23 History clindamycin HCL [Cleocin] 300 mg PO Q8H 01/06/23 01/06/23 History metFORMIN HCL ER [Glucophage XR] 1,000 mg PO DAILY 01/06/23 01/06/23 History Allergies Allergy/AdvReac Type Severity Reaction Status Date / Time No Known Allergies Allergy Verified 01/06/23 20:13 Physical Exam Vitals: Vital Signs Temp Pulse Resp BP Pulse Ox 01/06/23 14:42 98.1 F 54 L 16 150/84 97 Intake and Output 01/06/23 01/06/23 01/06/23 06:59 14:59 22:59 Other: Weight 154.221 kg Results CBC & Chem 7: 01/07/23 05:30 01/07/23 05:30 Labs: Abnormal Lab Results - Last 24 Hours (Table) 01/06/23 Range/Units 16:01 Sodium 134 L (137-145) mmol/L Creatinine 0.63 L (0.66-1.25) mg/dL Glucose 431 H (74-99) mg/dL Alkaline Phosphatase 147 H (38-126) U/L C-Reactive Protein 1.5 H (<1.0) mg/dL
[2023-01-07] MEDS: ATORVASTATIN 80 MG TAB PO SCH (20:19)
[2023-01-07 20:25] LABS: Glucose,Whole Blood 262 mg/dL (70-110)
[2023-01-07] MEDS ORDERED: INSULIN DETEMIR (LEVEMIR) 100 UNIT/ML SYR SQ SCH (21:00)
[2023-01-08] MEDS: VANCOMYCIN 2,250 MG in SODIUM CHLORIDE 0.9% 500 ML 500 ML IVPB SCH ×2 (05:53→16:23)
[2023-01-08] MEDS: CEFEPIME 2 GM in SODIUM CHLORIDE 0.9% 100 ML IVPB SCH ×3 (05:53→20:02)
[2023-01-08] MEDS: SODIUM CHLORIDE 0.9% 1,000 ML IV SCH ×3 (05:55→16:23)
[2023-01-08 06:40] LABS: African American GFR (CKD) >90 (>60 ml/min/1.73 sqM); Non-African American GFR(CKD) >90 (>60 ml/min/1.73 sqM)
[2023-01-08 07:10] LABS: Glucose,Whole Blood 194 mg/dL (70-110)
--- NOTE | 2023-01-08 07:37 | P.PN ---
Subjective Progress Note Date: 01/07/23 HISTORY OF PRESENT ILLNESS: This is a 42-year-old male with a previous medical history significant for hypertension and hypertensive cardiovascular disease, hyperlipidemia, obesity with obstructive sleep apnea and obesity hypoventilation syndrome,diabetes mellitus type 2 with daibetic polyneuropathy, has been doing better with diabtes care as a matter of fact his HBA1C is down to 9 fom 11.7 % and patient has lost quite a bit of weight since the addition of Mounjaro to his medical regimen that he was out off for the past 4 [place] due to insurance issues, patient has had diabetic foot ulcer with charcot feet has been following with from Podiatry and has had multiple visit for non healing ulcer on the right third toe, and over the last 2 days he had noticed increased swelling and that the bone is sticking out of the bottom of his toe, he was supposed to go to the wound center but I advised his to take him to the ER at [facility] where he was found to have osteomyelitis of the right 3rd toe, he was started on vancomycin and Cefepime and blood cultures were sent and consulted vascular surgery for amputation of the right 3rd toe, 01/07: Patient is seen today on the Medr floor. He remains afebrile, heart rate in the 70s to 90s, blood pressure 160/96 and pulse ox 90% on room air. Patient has been maintained on cefepime 2 g IV piggyback every 8 hours and vancomycin, pharmacy dosing. Repeat blood work reveals WBC 7.4, hemoglobin 14.2, platelet count 225. Electrolytes renal function are normal. With blood glucose running between 172 and 191. Patient has been seen by the wound care team and waiting for vascular surgery to address. Patient is to be nonweightbearing on the right forefoot. Patient has been seen by vascular surgery and scheduled for right third toe amputation tomorrow with Dr. Esparza. No new concerns from the patient. REVIEW OF SYSTEMS: Constitutional: No documented fever, no chills, no night sweats. No weight change. No weakness, fatigue or lethargy. No daytime sleepiness. HEENT: No headache. No blurred vision or double vision, no loss of vision. No loss of Hearing, no ringing in the ears, no dizziness. No nasal drainage or congestion. No epistaxis. No sore throat. Lungs: no shortness of breath, no cough, or sputum production. No wheezing. Reports no dyspnea with activity. Cardiovascular: positive for chest pain, positive for lower extremity edema. No palpitations. positive for paroxysmal nocturnal dyspnea. positive for orthopnea. No lightheadedness or dizziness. No syncopal episodes. Abdominal: Reports no abdominal pain. No nausea, vomiting. No diarrhea. No constipation. No bloody or tarry stools Genitourinary: No dysuria, increased frequency, urgency, Musculoskeletal: No myalgias, weakness, bilateral charcot feet Integumentary: right third toe with disbetic foot ulcer with bone sticking out. No rash or pruritus. No unusual bruising. No change in hair or nails. Neurologic: No aphasia. No facial droop. No change in mentation. No head injury. No headache. No paralysis. No paresthesia. Psychiatric: No depression. No anxiety. No mood swings. Endocrine: positive for abnormal blood sugars. positive for weight change. PHYSICAL EXAMINATION: General: 42 year male sitting up in bed in no distress. HEENT: Head is atraumatic, normocephalic, pupils were equal round reactive to light and recommendation, extraocular muscle movement were intact, sclera nonicteric, conjunctivae were pale, mucous membranes of the mouth are somewhat dry. Neck: Supple, no JVP, normal carotid upstroke bilaterally, no lymphadenopathy. Chest: Decreased breath sounds at the bases, few rhonchi, no expiratory wheezes or intercostal retractions Heart: First heart sound is normal, second heart sound is normal, there is no gallop or murmur Abdomen: Soft, nontender, nondistended, positive bowel sounds, obese. Extremities: There is +1 edema no calf tenderness DP +2 bilaterally, positive for neuropathy and charcot feet , right 3rd toe with ulcer and bone sticking out of his toe Neurologic examination: Patient is awake alert and oriented X 3, cranial nerves II-12 appear grossly intact, muscle power were 5 out of 5 in upper extremities and 5/5 in bilateral lower extremities ASSESSMENT AND PLAN: 1. Acute Osteomyelitis of the right 3rd toe duet diabetic non healing ulcer and with bone exposure. Continue to monitor wound cultures, blood cultures, continue patient on Vancomnycin with pharmacy to dose its peak and trough. Continue patient on Cefepime 2 gr IVPB Q8 hours. Consult with vascular surgery appreciated, patient is scheduled for amputation on . 2. Diabetes Mellitustype 2 non controlled. we will continue with Levemir 50 units SC at bedtime along with SSI , has been off GLP_1 RA ( Mounjaro) for 4 weeks due to insurance reasons, we will continue with Metformin 500 mg po bid and we will continue with BGM AC HS. 3. Diabetic Polyneuropathy with charcot feet. we will continue with Gabapentin 600 mg po bid 4. Hyperlipidemnia. we will continue with Atorvastatin 80 mg po daily, keep LDL- c 55-70. 5. Hypertension and hypertensive cardiovascular disease. has bee off Lisinopril himself. 6. Obesity with OS and OHS. we will continue with weight loss, never made it for a sleep study. 7. DVT prophylaxis. we will use Lovenox 40 mg SC daily. 8. GI Prophylaxis. we will continue with PPI. 9. Full Code Impression and plan of care have been directed as dictated by the signing physician. Mellissa Joseph nurse practitioner acting as scribe for signing oscar leal. Objective - Vital Signs Vital signs: Vital Signs Temp 97.9 F 01/07/23 08:00 Pulse 77 01/07/23 08:00 Resp 18 01/07/23 08:00 BP 155/83 01/07/23 08:00 Pulse Ox 98 01/07/23 08:00 FiO2 Intake & Output 01/06/23 01/07/23 01/07/23 18:59 06:59 18:59 Intake Total 666 Balance 666 Weight 154.221 kg 154.221 kg Intake: Oral 666 Other: Voiding Method Toilet # Voids 1 - Labs CBC & Chem 7: 01/07/23 05:30 01/08/23 05:23 Labs: Abnormal Lab Results - Last 24 Hours (Table) 01/06/23 01/06/23 01/07/23 Range/Units 16:01 20:24 05:30 MCH 26.4 L (27.0-32.0) pg MCHC 31.6 L (32.0-37.0) d/dL Sodium 134 L (137-145) mmol/L Creatinine 0.63 L (0.66-1.25) mg/dL BUN/Creatinine Ratio (12.00-20.00) Ratio Glucose 431 H (74-99) mg/dL POC Glucose (mg/dL) 379 H (70-110) mg/dL Calcium (8.7-10.3) mg/dL Alkaline Phosphatase 147 H (38-126) U/L C-Reactive Protein 1.5 H (<1.0) mg/dL Total Protein (6.2-8.2) d/dL Albumin (3.8-4.9) d/dL Albumin/Globulin Ratio (1.60-3.17) Ratio 01/07/23 01/07/23 Range/Units 05:30 07:15 MCH (27.0-32.0) pg MCHC (32.0-37.0) d/dL Sodium (137-145) mmol/L Creatinine (0.66-1.25) mg/dL BUN/Creatinine Ratio 20.43 H (12.00-20.00) Ratio Glucose 199 H (74-99) mg/dL POC Glucose (mg/dL) 172 H (70-110) mg/dL Calcium 8.6 L (8.7-10.3) mg/dL Alkaline Phosphatase (38-126) U/L C-Reactive Protein (<1.0) mg/dL Total Protein 6.0 L (6.2-8.2) d/dL Albumin 3.5 L (3.8-4.9) d/dL Albumin/Globulin Ratio 1.40 L (1.60-3.17) Ratio
[2023-01-08] MEDS: INSULIN ASPART (NovoLOG) 100 UNIT/ML VIAL SQ SCH ×7 (07:46→20:44)
[2023-01-08] MEDS: PANTOPRAZOLE 40 MG TABLET PO SCH (07:47)
[2023-01-08] MEDS: GABAPENTIN 300 MG CAP PO SCH ×2 (07:47→20:44)
[2023-01-08 11:46] LABS: Glucose,Whole Blood 215 mg/dL (70-110)
[2023-01-08] MEDS ORDERED: VANCOMYCIN TROUGH DUE 1 EACH MISC MISCELLANE ONE (12:00)
[2023-01-08] MEDS ORDERED: LACTATED RINGERS 1,000 ML IV ONE (12:58)
[2023-01-08] MEDS ORDERED: ONDANSETRON 4 MG/2 ML VIAL ONE (12:58)
[2023-01-08] MEDS ORDERED: ONDANSETRON 4 MG/2 ML VIAL IVP ONE (12:59)
[2023-01-08] MEDS: ENOXAPARIN 40 MG/0.4 ML SYRINGE SQ SCH (13:56)
[2023-01-08] MEDS ORDERED: ROCURONIUM 10 MG/ML (5 ML VIAL) IV ONE (14:12)
[2023-01-08] MEDS ORDERED: LIDOCAINE 1% INJ 10MG/ML (20 ML MDV) ONE (14:12)
[2023-01-08] MEDS ORDERED: SUCCINYLCHOLINE CHLORIDE 200 MG/10 ML VIAL IV ONE (14:12)
[2023-01-08] MEDS ORDERED: MIDAZOLAM 2 MG/2 ML VIAL ONE (14:12)
[2023-01-08] MEDS ORDERED: fentaNYL (PF) 50 MCG/ML 2 ML AMP ONE (14:12)
[2023-01-08] MEDS ORDERED: PROPOFOL 10 MG/ML 20 ML VIAL IV ONE (14:12)
[2023-01-08 15:25] LABS: Glucose,Whole Blood 270 mg/dL (70-110)
[2023-01-08] MEDS ORDERED: HYDROmorphone 0.5 MG/0.5 ML SYRINGE IVP ONE (15:30)
[2023-01-08] MEDS ORDERED: INSULIN ASPART (NovoLOG) 100 UNIT/ML VIAL SQ ONE (15:42)
--- NOTE | 2023-01-08 15:49 | P.OP ---
Date of Procedure: 01/08/23 Description of Procedure: DATE OF SERVICE: SURGEON: Maine Hua DO DRUG ABUSE TECHNICIAN: None PREOPERATIVE DIAGNOSIS: Diabetic foot ulceration, osteomyelitis right third toe POSTOPERATIVE DIAGNOSIS: Same OPERATION: Right third toe amputation. ANESTHESIA: Gen. endotracheal ESTIMATED BLOOD LOSS: Less than 5 mL SPECIMENS REMOVED: Right third toe COMPLICATIONS: None OPERATIVE FINDINGS: Patient is a 42-year-old diabetic male who has history of toe abnormalities and hammertoe. He has had an issue with a wound on his right third toe and subsequently has had worsening has not been amenable to oral antibiotics. Due to this was recommended he undergo right third toe amputation. Risks and benefits were discussed. He seemingly understood and was willing to proceed. DESCRIPTION OF PROCEDURE: The patient was bught to the opering rooplaced in supine position and per anesthesia Gen. endotracheal tube was induced. The right lower extremity is prepped and draped in usual sterile fashion, preprocedure timeout was performed and all parties in agreement. An elliptical incision was made at the middle interphalangeal joint , deepened through the skin, fat, and tendons. Tendons were divided prior to plantar and dorsal aspect of thethirdtoe. After that, proximal phalanx was Dislocated from the middle interphalangeal, and we took deep culture from the toe. It was sent for culture and sensitivity. Hemostasis was well controlled and incision was approximated with 3-0Vicryl and 4-0 nylonnterrupted suture. Dressing applied. The patient tolerated the procedure well.
[2023-01-08 17:08] LABS: Glucose,Whole Blood 213 mg/dL (70-110)
[2023-01-08] MEDS: metFORMIN 500 MG TAB PO SCH (18:18)
[2023-01-08] MEDS: HYDROcodone/APAP 5-325MG 1 EACH TAB PO PRN (18:19)
[2023-01-08 20:35] LABS: Glucose,Whole Blood 306 mg/dL (70-110)
[2023-01-08] MEDS: ATORVASTATIN 80 MG TAB PO SCH (20:44)
[2023-01-08] MEDS: INSULIN DETEMIR (LEVEMIR) 100 UNIT/ML SYR SQ SCH (20:45)
[2023-01-08] MEDS: HYDROmorphone 0.5 MG/0.5 ML SYRINGE IVP PRN (20:45)
[2023-01-09] MEDS: HYDROcodone/APAP 5-325MG 1 EACH TAB PO PRN ×2 (00:50→19:45)
[2023-01-09] MEDS: VANCOMYCIN 2,000 MG in SODIUM CHLORIDE 0.9% 500 ML 500 ML IVPB SCH ×3 (00:50→17:40)
[2023-01-09] MEDS ORDERED: VANCOMYCIN 2,250 MG in SODIUM CHLORIDE 0.9% 500 ML 500 ML IVPB SCH (01:00)
[2023-01-09] MEDS: CEFEPIME 2 GM in SODIUM CHLORIDE 0.9% 100 ML IVPB SCH ×3 (04:42→20:32)
[2023-01-09] MEDS: HYDROmorphone 0.5 MG/0.5 ML SYRINGE IVP PRN (05:13)
[2023-01-09 07:01] LABS: African American GFR (CKD) >90 (>60 ml/min/1.73 sqM); Non-African American GFR(CKD) >90 (>60 ml/min/1.73 sqM)
[2023-01-09 07:03] LABS: Glucose,Whole Blood 208 mg/dL (70-110)
[2023-01-09] MEDS: metFORMIN 500 MG TAB PO SCH ×2 (08:10→17:40)
[2023-01-09] MEDS: ENOXAPARIN 40 MG/0.4 ML SYRINGE SQ SCH (08:10)
[2023-01-09] MEDS: GABAPENTIN 300 MG CAP PO SCH ×2 (08:10→19:46)
[2023-01-09] MEDS: PANTOPRAZOLE 40 MG TABLET PO SCH (08:10)
[2023-01-09] MEDS: INSULIN ASPART (NovoLOG) 100 UNIT/ML VIAL SQ SCH ×7 (08:10→20:33)
[2023-01-09] MEDS: SODIUM CHLORIDE 0.9% 1,000 ML IV SCH (08:11)
--- NOTE | 2023-01-09 10:53 | P.PN ---
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, has been doing better with diabtes care as a matter of fact his HBA1C is down to 9 fom 11.7 % and patient has lost quite a bit of weight since the addition of Mounjaro to his medical regimen that he was out off for the past 4 [place] due to insurance issues, patient has had diabetic foot ulcer with charcot feet has been following with from Podiatry and has had multiple visit for non healing ulcer on the right third toe, and over the last 2 days he had noticed increased swelling and that the bone is sticking out of the bottom of his toe, he was supposed to go to the wound center but I advised his to take him to the ER at [facility] where he was found to have osteomyelitis of the right 3rd toe, he was started on vancomycin and Cefepime and blood cultures were sent and consulted vascular surgery for amputation of the right 3rd toe, 01/07: Patient is seen today on the MedSur floor. He remains afebrile, heart rate in the 70s to 90s, blood pressure 160/96 and pulse ox 90% on room air. Patient has been maintained on cefepime 2 g IV piggyback every 8 hours and vancomycin, pharmacy dosing. Repeat blood work reveals WBC 7.4, hemoglobin 14.2, platelet count 225. Electrolytes renal function are normal. With blood glucose running between 172 and 191. Patient has been seen by the wound care team and waiting for vascular surgery to address. Patient is to be nonweightbearing on the right forefoot. Patient has been seen by vascular surgery and scheduled for right third toe amputation tomorrow with Dr. Esparza. No new concerns from the patient. 01/08:patient remains afebrile, heart rate in the 70s and 80s, blood pressure running between 133/81-166/82.pulse ox is 98% on room air. Repeat blood work reveals creatinine 0.59. Capillary blood glucose running between 194 and 262.yesterday, Levemir was decreased to 30 units at bedtime as patient would be nothing by mouth today. He is status post right third toe amputation with Dr. Hua. Dressing in place to right foot. Deep tissue cultures were obtained in OR. REVIEW OF SYSTEMS: Constitutional: No documented fever, no chills, no night sweats. No weight change. No weakness, fatigue or lethargy. No daytime sleepiness. HEENT: No headache. No blurred vision or double vision, no loss of vision. No loss of Hearing, no ringing in the ears, no dizziness. No nasal drainage or congestion. No epistaxis. No sore throat. Lungs: no shortness of breath, no cough, or sputum production. No wheezing. Reports no dyspnea with activity. Cardiovascular: positive for chest pain, positive for lower extremity edema. No palpitations. positive for paroxysmal nocturnal dyspnea. positive for orth opnea. No lightheadedness or dizziness. No syncopal episodes. Abdominal: Reports no abdominal pain. No nausea, vomiting. No diarrhea. No constipation. No bloody or tarry stools Genitourinary: No dysuria, increased frequency, urgency, Musculoskeletal: No myalgias, weakness, bilateral charcot feet Integumentary: right third toe with disbetic foot ulcer with bone sticking out. No rash or pruritus. No unusual bruising. No change in hair or nails. Neurologic: No aphasia. No facial droop. No change in mentation. No head injury. No headache. No paralysis. No paresthesia. Psychiatric: No depression. No anxiety. No mood swings. Endocrine: positive for abnormal blood sugars. positive for weight change. PHYSICAL EXAMINATION: General: 42 year male sitting up in bed in no distress. HEENT: Head is atraumatic, normocephalic, pupils were equal round reactive to light and recommendation, extraocular muscle movement were intact, sclera nonicteric, conjunctivae were pale, mucous membranes of the mouth are somewhat dry. Neck: Supple, no JVP, normal carotid upstroke bilaterally, no lymphadenopathy. Chest: Decreased breath sounds at the bases, few rhonchi, no expiratory wheezes or intercostal retractions Heart: First heart sound is normal, second heart sound is normal, there is no gallop or murmur Abdomen: Soft, nontender, nondistended, positive bowel sounds, obese. Extremities: There is +1 edema no calf tenderness DP +2 bilaterally, positive for neuropathy and charcot feet , right 3rd toe amputation with dressing in place Neurologic examination: Patient is awake alert and oriented X 3, cranial nerves II-12 appear grossly intact, muscle power were 5 out of 5 in upper extremities and 5/5 in bilateral lower extremities ASSESSMENT AND PLAN: 1. Acute Osteomyelitis of the right 3rd toe due to diabetic non healing ulcer and with bone exposure s/p amputation of 3rd toe on 01/[address] Hua. Continue to monitor wound cultures, blood cultures, continue patient on Vancomnycin with pharmacy to dose its peak and trough. Continue patient on Cefepime 2 gr IVPB Q8 hours. 2. Diabetes Mellitustype 2 non controlled. we will continue with Levemir 50 units SC at bedtime along with SSI , has been off GLP_1 RA ( Mounjaro) for 4 weeks due to insurance reasons, we will continue with Metformin 500 mg po bid and we will continue with BGM AC HS. 3. Diabetic Polyneuropathy with charcot feet. we will continue with Gabapentin 600 mg po bid 4. Hyperlipidemnia. we will continue with Atorvastatin 80 mg po daily, keep LDL- c 55-70. 5. Hypertension and hypertensive cardiovascular disease. has bee off Lisinopril himself. 6. Obesity with OS and OHS. we will continue with weight loss, never made it for a sleep study. 7. DVT prophylaxis. we will use Lovenox 40 mg SC daily. 8. GI Prophylaxis. we will continue with PPI. 9. Full Code Impression and plan of care have been directed as dictated by the signing physician. Mellissa Joseph nurse practitioner acting as scribe for signing physician. Objective - Vital Signs Vital signs: Vital Signs Temp 97.8 F 01/08/23 07:45 Pulse 87 01/08/23 07:45 Resp 14 01/08/23 07:45 BP 133/81 01/08/23 07:45 Pulse Ox 98 01/08/23 07:45 FiO2 Intake & Output 01/07/23 01/08/23 01/08/23 18:59 06:59 18:59 Intake Total 1330 Balance 1330 Intake: Intake, IV Titration 1330 Amount Sodium Chloride 0.9% 1, 780 000 ml @ 130 mls/hr IV . [id number] [facility] Rx#:[id number] Vancomycin 2,250 mg In 500 Sodium Chloride 0.9% 500 ml 500 ml @ 167 mls/hr IVPB Q8H [facility] Rx#: [id number] cefTRIAXone 2 gm In 50 Sodium Chloride 0.9% 50 ml @ 100 mls/hr IVPB DAILY [facility] Rx#:[id number] Other: Voiding Method Toilet Toilet - Labs CBC & Chem 7: 01/07/23 05:30 01/09/23 06:19 Labs: Abnormal Lab Results - Last 24 Hours (Table) 01/07/23 01/07/23 01/07/23 Range/Units 05:30 12:03 17:06 Creatinine (0.66-1.25) mg/dL BUN/Creatinine Ratio 20.43 H (12.00-20.00) Ratio Glucose 199 H (70-110) mg/dL POC Glucose (mg/dL) 191 H 231 H (70-110) mg/dL Calcium 8.6 L (8.7-10.3) mg/dL Total Protein 6.0 L (6.2-8.2) d/dL Albumin 3.5 L (3.8-4.9) d/dL Albumin/Globulin Ratio 1.40 L (1.60-3.17) Ratio 01/07/23 01/08/23 01/08/23 Range/Units 20:23 05:23 07:08 Creatinine 0.59 L (0.66-1.25) mg/dL BUN/Creatinine Ratio (12.00-20.00) Ratio Glucose (70-110) mg/dL POC Glucose (mg/dL) 262 H 194 H (70-110) mg/dL Calcium (8.7-10.3) mg/dL Total Protein (6.2-8.2) d/dL Albumin (3.8-4.9) d/dL Albumin/Globulin Ratio (1.60-3.17) Ratio Microbiology - Last 24 Hours (Table) 01/06/23 15:45 Blood Culture - Preliminary Blood 01/06/23 16:01 Blood Culture - Preliminary Blood
--- NOTE | 2023-01-09 10:58 | P.PN ---
Subjective Progress Note Date: 01/09/23 HISTORY OF PRESENT ILLNESS: This is a 42-year-old male with a previous medical history significant for hypertension and hypertensive cardiovascular disease, hyperlipidemia, obesity with obstructive sleep apnea and obesity hypoventilation syndrome,diabetes mellitus type 2 with daibetic polyneuropathy, has been doing better with diabtes care as a matter of fact his HBA1C is down to 9 fom 11.7 % and patient has lost quite a bit of weight since the addition of Mounjaro to his medical regimen that he was out off for the past 4 [place] due to insurance issues, patient has had diabetic foot ulcer with charcot feet has been following with from Podiatry and has had multiple visit for non healing ulcer on the right third toe, and over the last 2 days he had noticed increased swelling and that the bone is sticking out of the bottom of his toe, he was supposed to go to the wound center but I advised his to take him to the ER at [facility] where he was found to have osteomyelitis of the right 3rd toe, he was started on vancomycin and Cefepime and blood cultures were sent and consulted vascular surgery for amputation of the right 3rd toe, 01/07: Patient is seen today on the MedSur floor. He remains afebrile, heart rate in the 70s to 90s, blood pressure 160/96 and pulse ox 90% on room air. Patient has been maintained on cefepime 2 g IV piggyback every 8 hours and vancomycin, pharmacy dosing. Repeat blood work reveals WBC 7.4, hemoglobin 14.2, platelet count 225. Electrolytes renal function are normal. With blood glucose running between 172 and 191. Patient has been seen by the wound care team and waiting for vascular surgery to address. Patient is to be nonweightbearing on the right forefoot. Patient has been seen by vascular surgery and scheduled for right third toe amputation tomorrow with Dr. Esparza. No new concerns from the patient. 01/08:patient remains afebrile, heart rate in the 70s and 80s, blood pressure running between 133/81-166/82.pulse ox is 98% on room air. Repeat blood work reveals creatinine 0.59. Capillary blood glucose running between 194 and 262.yesterday, Levemir was decreased to 30 units at bedtime as patient would be nothing by mouth today. He is status post right third toe amputation with Dr. Hua. Dressing in place to right foot. Deep tissue cultures were obtained in OR. 01/09: Patient's blood sugars were running high last evening and Levemir was increased to 50units. Deep tissue cultures are status received. Patient has been afebrile, BP 134/85, HR 80, PO 95%, afebrile. IV Fluids will be discontinued. Creat 0.57. Patient is continued on Cefepime and Vancomycin while waiting for cultures to be finalized. REVIEW OF SYSTEMS: Constitutional: No documented fever, no chills, no night sweats. No weight change. No weakness, fatigue or lethargy. No daytime sleepiness. HEENT: No headache. No blurred vision or double vision, no loss of vision. No loss of Hearing, no ringing in the ears, no dizziness. No nasal drainage or congestion. No epistaxis. No sore throat. Lungs: no shortness of breath, no cough, or sputum production. No wheezing. Reports no dyspnea with activity. Cardiovascular: positive for chest pain, positive for lower extremity edema. No palpitations. positive for paroxysmal nocturnal dyspnea. positive for orthopnea. No lightheadedness or dizziness. No syncopal episodes. Abdominal: Reports no abdominal pain. No nausea, vomiting. No diarrhea. No constipation. No bloody or tarry stools Genitourinary: No dysuria, increased frequency, urgency, Musculoskeletal: No myalgias, weakness, bilateral charcot feet Integumentary: right third toe amputation. No rash or pruritus. No unusual bruising. No change in hair or nails. Neurologic: No aphasia. No facial droop. No change in mentation. No head injury. No headache. No paralysis. No paresthesia. Psychiatric: No depression. No anxiety. No mood swings. Endocrine: positive for abnormal blood sugars. positive for weight change. PHYSICAL EXAMINATION: General: 42 year male sitting up in bed in no distress. HEENT: Head is atraumatic, normocephalic, pupils were equal round reactive to light and recommendation, extraocular muscle movement were intact, sclera nonicteric, conjunctivae were pale, mucous membranes of the mouth are somewhat dry. Neck: Supple, no JVP, normal carotid upstroke bilaterally, no lymphadenopathy. Chest: Decreased breath sounds at the bases, few rhonchi, no expiratory wheezes or intercostal retractions Heart: First heart sound is normal, second heart sound is normal, there is no gallop or murmur Abdomen: Soft, nontender, nondistended, positive bowel sounds, obese. Extremities: There is +1 edema no calf tenderness DP +2 bilaterally, positive for neuropathy and charcot feet , right 3rd toe amputation with dressing in place Neurologic examination: Patient is awake alert and oriented X 3, cranial nerves II-12 appear grossly intact, muscle power were 5 out of 5 in upper extremities and 5/5 in bilateral lower extremities ASSESSMENT AND PLAN: 1. Acute Osteomyelitis of the right 3rd toe due to diabetic non healing ulcer and with bone exposure s/p amputation of 3rd toe on 01/[address] Hua. Continue to monitor wound cultures, blood cultures, continue patient on Vancomnycin with pharmacy to dose its peak and trough. Continue patient on Cefepime 2 gr IVPB Q8 hours. 2. Diabetes Mellitustype 2 non controlled. we will continue with Levemir 50 units SC at bedtime along with SSI , has been off GLP_1 RA ( Mounjaro) for 4 weeks due to insurance reasons, we will continue with Metformin 500 mg po bid and we will continue with BGM AC HS. 3. Diabetic Polyneuropathy with charcot feet. we will continue with Gabapentin 600 mg po bid 4. Hyperlipidemnia. we will continue with Atorvastatin 80 mg po daily, keep LDL- c 55-70. 5. Hypertension and hypertensive cardiovascular disease. has bee off Lisinopril himself. 6. Obesity with OS and OHS. we will continue with weight loss, never made it for a sleep study. 7. DVT prophylaxis. we will use Lovenox 40 mg SC daily. 8. GI Prophylaxis. we will continue with PPI. 9. Full Code Impression and plan of care have been directed as dictated by the signing physician. Mellissa Joseph nurse practitioner acting as scribe for signing physician. Objective - Vital Signs Vital signs: Vital Signs Temp 98.4 F 01/09/23 07:02 Pulse 80 01/09/23 07:02 Resp 16 01/09/23 07:02 BP 134/85 01/09/23 07:02 Pulse Ox 95 01/09/23 07:02 FiO2 Intake & Output 1001/09/23 01/09/23 18:59 06:59 18:59 Intake Total 1870 Output Total 5 Balance 1865 Weight 154.221 kg Intake: IV 750 Intake, IV Titration 1120 Amount Cefepime 2 gm In Sodium 100 Chloride 0.9% 100 ml @ 25 mls/hr IVPB Q8H [facility] Rx#: [id number] Sodium Chloride 0.9% 1, 520 000 ml @ 75 mls/hr IV . [id number] [facility] Rx#:[id number] Vancomycin 2,000 mg In 500 Sodium Chloride 0.9% 500 ml 500 ml @ 167 mls/hr IVPB Q8H [facility] Rx#: [id number] Output: Estimated Blood Loss 5 Other: Voiding Method Toilet # Voids 2 - Labs CBC & Chem 7: 01/07/23 05:30 01/09/23 06:19 Labs: Abnormal Lab Results - Last 24 Hours (Table) 01/08/23 01/08/23 01/08/23 Range/Units 11:45 15:24 17:06 Creatinine (0.66-1.25) mg/dL POC Glucose (mg/dL) 215 H 270 H 213 H (70-110) mg/dL 01/08/23 01/09/23 01/09/23 Range/Units 20:33 06:19 07:01 Creatinine 0.57 L (0.66-1.25) mg/dL POC Glucose (mg/dL) 306 H 208 H (70-110) mg/dL Microbiology - Last 24 Hours (Table) 01/06/23 15:45 Blood Culture - Preliminary Blood 01/06/23 16:01 Blood Culture - Preliminary Blood
--- NOTE | 2023-01-09 11:51 | P.PN ---
Subjective Progress Note Date: 01/09/23 Principal diagnosis: Osteomyelitis right third toe Patient is status post amputation of right third toe. States pain is well controlled. No fevers or chills. Currently on IV vancomycin and Maxipime. Patient is afebrile. Objective - Vital Signs Vital signs: Vital Signs Temp 98.4 F 01/09/23 07:02 Pulse 80 01/09/23 07:02 Resp 16 01/09/23 07:02 BP 134/85 01/09/23 07:02 Pulse Ox 95 01/09/23 07:02 FiO2 Intake & Output 01/08/23 01/09/23 01/09/23 18:59 06:59 18:59 Intake Total 1870 Output Total 5 Balance 1865 Weight 154.221 kg Intake: IV 750 Intake, IV Titration 1120 Amount Cefepime 2 gm In Sodium 100 Chloride 0.9% 100 ml @ 25 mls/hr IVPB Q8H [facility] Rx#: [id number] Sodium Chloride 0.9% 1, 520 000 ml @ 75 mls/hr IV . [id number] [facility] Rx#:[id number] Vancomycin 2,000 mg In 500 Sodium Chloride 0.9% 500 ml 500 ml @ 167 mls/hr IVPB Q8H [facility] Rx#: [id number] Output: Estimated Blood Loss 5 Other: Voiding Method Toilet # Voids 2 - Exam General appearance: The patient is alert, oriented, appears in no acute distress. HET: Head is normocephalic and atraumatic. Pupils are equal and reactive. Neck: Supple. Abdomen: Soft, nondistended. Extremities: The right lower extremity with dressing clean dry and intact. Neurological: No focal deficits. Decreased sensory to bilateral feet. - Labs CBC & Chem 7: 01/07/23 05:30 01/09/23 06:19 Labs: Abnormal Lab Results - Last 24 Hours (Table) 01/08/23 01/08/23 01/08/23 Range/Units 11:45 15:24 17:06 Creatinine (0.66-1.25) mg/dL POC Glucose (mg/dL) 215 H 270 H 213 H (70-110) mg/dL 01/08/23 01/09/23 01/09/23 Range/Units 20:33 06:19 07:01 Creatinine 0.57 L (0.66-1.25) mg/dL POC Glucose (mg/dL) 306 H 208 H (70-110) mg/dL Microbiology - Last 24 Hours (Table) 01/06/23 15:45 Blood Culture - Preliminary Blood 01/06/23 16:01 Blood Culture - Preliminary Blood Assessment and Plan Assessment: 1. Diabetic ulcer right third toe with osteomyelitis status post amputation 2. Type 1 diabetes mellitus 3. Peripheral neuropathy Plan: 1. Antibiotics per medical team 2. Patient is status post amputation of right third toe. Keep dressing in place until Thursday. Then may change daily or as needed with Adaptic 4 x 4 and Kerlix. 3. Wound care was consulted however likely not needed at this time as wound was able to be closed. 4. Patient is cleared by vascular surgery for discharge. Follow-up in [address] Hua. Thank you for this consultation. The impression and plan of care has been dictated as directed. Dr. Hua I performed a history and examination of this patient, discussed the same with the dictator. I agree with the dictator's note ,documented as a scribe. Any additional findings or plans will be noted.
[2023-01-09 11:58] LABS: Glucose,Whole Blood 273 mg/dL (70-110)
[2023-01-09 17:19] LABS: Glucose,Whole Blood 336 mg/dL (70-110)
[2023-01-09] MEDS: ATORVASTATIN 80 MG TAB PO SCH (19:46)
[2023-01-09 20:27] LABS: Glucose,Whole Blood 252 mg/dL (70-110)
[2023-01-09] MEDS: INSULIN DETEMIR (LEVEMIR) 100 UNIT/ML SYR SQ SCH (20:33)
[2023-01-10] MEDS: VANCOMYCIN 2,000 MG in SODIUM CHLORIDE 0.9% 500 ML 500 ML IVPB SCH ×3 (00:56→17:30)
[2023-01-10] MEDS: HYDROcodone/APAP 5-325MG 1 EACH TAB PO PRN ×2 (02:50→21:09)
[2023-01-10] MEDS: CEFEPIME 2 GM in SODIUM CHLORIDE 0.9% 100 ML IVPB SCH ×3 (04:14→20:31)
[2023-01-10 08:19] LABS: Glucose,Whole Blood 245 mg/dL (70-110)
[2023-01-10] MEDS: GABAPENTIN 300 MG CAP PO SCH ×2 (08:43→21:07)
[2023-01-10] MEDS: PANTOPRAZOLE 40 MG TABLET PO SCH (08:43)
[2023-01-10] MEDS: INSULIN ASPART (NovoLOG) 100 UNIT/ML VIAL SQ SCH ×7 (08:43→21:07)
[2023-01-10] MEDS: ENOXAPARIN 40 MG/0.4 ML SYRINGE SQ SCH (08:43)
[2023-01-10] MEDS: metFORMIN 500 MG TAB PO SCH ×2 (08:43→17:27)
--- NOTE | 2023-01-10 12:17 | P.PN ---
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, admitted for diabetic foot infe ction unit patient is status post right third toe amputation, deep tissue cultures from OR pending * 01/10/23: Patient seen and evaluated bedside, care plan discussed in detail discharge planning discussed, requested infectious disease evaluation for discharge antibiotics at the moment patient [place] cefepime and vancomycin, continue wound care follow up on CBC and basic metabolic panel Objective - Vital Signs Vital signs: Vital Signs Temp 98.2 F 01/10/23 08:00 Pulse 92 01/10/23 08:45 Resp 18 01/10/23 08:45 BP 152/94 01/10/23 08:00 Pulse Ox 94 L 01/10/23 08:00 FiO2 Intake & Output 01/09/23 01/10/23 01/10/23 18:59 06:59 18:59 Intake Total 1150 1660 237 Balance 1150 1660 237 Intake: Intake, IV Titration 1150 940 Amount Cefepime 2 gm In Sodium 150 200 Chloride 0.9% 100 ml @ 25 mls/hr IVPB Q8H [facility] Rx#: [id number] Sodium Chloride 0.9% 1, 240 000 ml @ 75 mls/hr IV . [id number] [facility] Rx#:[id number] Vancomycin 2,000 mg In 1000 500 Sodium Chloride 0.9% 500 ml 500 ml @ 167 mls/hr IVPB Q8H [facility] Rx#: [id number] Oral 720 237 Other: Voiding Method Toilet Toilet # Voids 1 - Exam PHYSICAL EXAMINATION: GENERAL: The patient is alert and oriented x3, ill appearance HEENT: Pupils are round and equally reacting to light. EOMI. CARDIOVASCULAR: S1 and S2 present. No murmurs, rubs, or gallops. PULMONARY: Chest is clear to auscultation, no wheezing or crackles. ABDOMEN: Soft, nontender, nondistended, normoactive bowel sounds. No palpable organomegaly. MUSCULOSKELETAL: Right foot bandage is post amputation of right third toe, EXTREMITIES: No cyanosis, clubbing, or pedal edema. NEUROLOGICAL: Gross neurological examination did not reveal any focal deficits. - Labs CBC & Chem 7: 01/07/23 05:30 01/09/23 06:19 Labs: Abnormal Lab Results - Last 24 Hours (Table) 01/09/23 01/09/23 01/10/23 Range/Units 17:18 20:25 08:17 POC Glucose (mg/dL) 336 H 252 H 245 H (70-110) mg/dL Microbiology - Last 24 Hours (Table) 01/08/23 15:00 Gram Stain - Preliminary Toe - Right Third Wound Culture - Preliminary 01/06/23 15:45 Blood Culture - Preliminary Blood 01/06/23 16:01 Blood Culture - Preliminary Blood Assessment and Plan Assessment: Assessment and plan * Acute Osteomellitus right third toe with diabetic foot ulcer status post amputation third toe postoperative day 3 * Diabetes mellitus type 2 * Diabetic neuropathy * Hypertension * Hyperlipidemia * Obstructive sleep apnea * In regards to osteomyelitis, patient is status post amputation, continue with wound care, continue IV antibiotic cefepime and vancomycin follow-up on OR cultures * In regards to diabetes mellitus, continue NovoLog, continue NovoLog, and dose adjusted to 7 units before meals 3 times a day, continue Levemir 50 units daily at bedtime monitor for hypoglycemia, continue metformin * In regards to up her lipidemia, continue Lipitor * Discharge planning per primary, waiting on infectious disease recommendations as well
[2023-01-10 12:33] LABS: Glucose,Whole Blood 251 mg/dL (70-110)
[2023-01-10] MEDS ORDERED: VANCOMYCIN TROUGH DUE 1 EACH MISC MISCELLANE ONE (16:00)
[2023-01-10 16:11] LABS: African American GFR (CKD) >90 (>60 ml/min/1.73 sqM); Non-African American GFR(CKD) >90 (>60 ml/min/1.73 sqM)
[2023-01-10 17:09] LABS: Glucose,Whole Blood 258 mg/dL (70-110)
[2023-01-10 21:02] LABS: Glucose,Whole Blood 226 mg/dL (70-110)
[2023-01-10] MEDS: INSULIN DETEMIR (LEVEMIR) 100 UNIT/ML SYR SQ SCH (21:07)
[2023-01-10] MEDS: ATORVASTATIN 80 MG TAB PO SCH (21:07)
--- NOTE | 2023-01-10 21:44 | P.CONS ---
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 and did have trimming of his callus however a week or 2 before presentation to the hospital patient noticed to have worsening swelling redness and some drainage patient did have peripheral neuropathy has denies significant pain patient on presentation to the hospital did have a extra bone exposed to the right third toe was evaluated by vascular surgery patient did have a right third toe amputation completed on 01/08/2023 cultures has been obtained which are negative so far patient did not have any fever during this hospital stay patient did have a normal white count kidney function has been normal CRP was 1.5 patient has been treated with the cefepime and vancomycin infectious disease was consulted today for further management of antibiotic therapy, patient did mention overall improvement with swelling redness of the right foot however the third toe partial amputation site still swollen and red there is no foul-smelling drainage Past Medical History Past Medical History: Diabetes Mellitus Additional Past Medical History / Comment(s): neuropathy History of Any Multi-Drug Resistant Organisms: None Reported Past Surgical History: Orthopedic Surgery Past Psychological History: No Psychological Hx Reported Smoking Status: Never smoker Past Alcohol Use History: None Reported Past Drug Use History: None Reported Medications and Allergies Home Medications Medication Instructions Recorded Confirmed Type Ascorbic Acid [Vitamin C] 1,000 mg PO DAILY 01/06/23 01/06/23 History Atorvastatin [Lipitor] 80 mg PO HS 01/06/23 01/06/23 History Gabapentin 600 mg PO BID 01/06/23 01/06/23 History Insulin Glargine,Hum.rec.anlog 70 units SQ HS 01/06/23 01/06/23 History [Lantus Solostar Pen] Insulin Lispro [humaLOG Kwikpen] 0 - 30 unit SQ AC-TID 01/06/23 01/06/23 History Loratadine 20 mg PO DAILY 01/06/23 01/06/23 History Omeprazole 40 mg PO DAILY 01/06/23 01/06/23 History Tirzepatide [Mounjaro] 5 mg SQ Q7D 01/06/23 01/06/23 History clindamycin HCL [Cleocin] 300 mg PO Q8H 01/06/23 01/06/23 History metFORMIN HCL ER [Glucophage XR] 1,000 mg PO DAILY 01/06/23 01/06/23 History Allergies Allergy/AdvReac Type Severity Reaction Status Date / Time No Known Allergies Allergy Verified 01/06/23 20:13 Physical Exam Vitals: Vital Signs Temp Pulse Resp BP Pulse Ox 01/10/23 08:00 98.2 F 92 152/94 94 L 01/10/23 02:43 97.8 F 74 18 128/90 92 L 01/09/23 19:13 98.3 F 77 18 149/84 95 01/09/23 13:12 97.7 F 89 123/80 99 Intake and Output 01/09/23 01/10/23 01/10/23 22:59 06:59 14:59 Intake Total 1390 1420 237 Balance 1390 1420 237 Intake: Intake, IV Titration 1150 940 Amount Cefepime 2 gm In Sodium 150 200 Chloride 0.9% 100 ml @ 25 mls/hr IVPB Q8H [facility] Rx#: [id number] Sodium Chloride 0.9% 1, 240 000 ml @ 75 mls/hr IV . [id number] [facility] Rx#:[id number] Vancomycin 2,000 mg In 1000 500 Sodium Chloride 0.9% 500 ml 500 ml @ 167 mls/hr IVPB Q8H [facility] Rx#: [id number] Oral 240 480 237 Other: Voiding Method Toilet # Voids 1 Results CBC & Chem 7: 01/07/23 05:30 01/10/23 15:43 Labs: Abnormal Lab Results - Last 24 Hours (Table) 01/09/23 01/09/23 01/09/23 Range/Units 11:57 17:18 20:25 POC Glucose (mg/dL) 273 H 336 H 252 H (70-110) mg/dL 01/10/23 Range/Units 08:17 POC Glucose (mg/dL) 245 H (70-110) mg/dL Microbiology - Last 24 Hours (Table) 01/08/23 15:00 Gram Stain - Preliminary Toe - Right Third Wound Culture - Preliminary 01/06/23 15:45 Blood Culture - Preliminary Blood 01/06/23 16:01 Blood Culture - Preliminary Blood Assessment and Plan Plan: 1patient presented to hospital with right third toe diabetic foot infection in this patient who apparently did have a hammertoe deformity he did have a bone exposed on presentation the hospital and the patient s/p amputation of the distal phalanx of the right third toe he did have cultures obtained which are negative so far still have cementing and redness to the remainder of the right third toe and no foul-smelling drainage 2-we will discontinue vancomycin and cefepime 3-start the patient on Unasyn 3 g every 6 hours We will follow on clinical condition and cultures to further adjust medication if needed Thank you for this consultation we will follow the patient along with you Dictation was produced using [employer] dictation software. please excuse any grammatical, word or spelling errors. Time with Patient: Greater than 30
[2023-01-10] MEDS: AMPICILLIN-SULBACTAM 3 GM in SODIUM CHLORIDE 0.9% 100 ML IVPB SCH (23:24)
[2023-01-11] MEDS: AMPICILLIN-SULBACTAM 3 GM in SODIUM CHLORIDE 0.9% 100 ML IVPB SCH ×4 (05:31→23:44)
[2023-01-11 06:16] LABS: Glucose,Whole Blood 306 mg/dL (70-110)
[2023-01-11] MEDS: metFORMIN 500 MG TAB PO SCH ×2 (08:04→17:57)
[2023-01-11] MEDS: PANTOPRAZOLE 40 MG TABLET PO SCH (08:04)
[2023-01-11] MEDS: GABAPENTIN 300 MG CAP PO SCH ×2 (08:05→21:03)
[2023-01-11] MEDS: ENOXAPARIN 40 MG/0.4 ML SYRINGE SQ SCH (08:05)
[2023-01-11] MEDS: INSULIN ASPART (NovoLOG) 100 UNIT/ML VIAL SQ SCH ×7 (08:05→21:04)
[2023-01-11 12:10] LABS: Glucose,Whole Blood 240 mg/dL (70-110)
--- NOTE | 2023-01-11 12:43 | P.PN ---
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 Antibiotics adjusted per infectious disease. Remains afebrile, cultures negative Objective - Vital Signs Vital signs: Vital Signs Temp 97.8 F 01/11/23 12:05 Pulse 81 01/11/23 12:05 Resp 17 01/11/23 12:05 BP 128/90 01/11/23 12:05 Pulse Ox 95 01/11/23 12:05 FiO2 Intake & Output 01/10/23 01/11/23 01/11/23 18:59 06:59 18:59 Intake Total 597 1640 Balance 597 1640 Intake: Intake, IV Titration 100 Amount Ampicillin-Sulbactam 3 gm 100 In Sodium Chloride 0.9% 100 ml @ 200 mls/hr IVPB Q6HR [facility] Rx#:[id number] Oral 597 1540 Other: Voiding Method Toilet Toilet Toilet # Voids 2 2 1 - Exam PHYSICAL EXAMINATION: GENERAL: The patient is alert and oriented x3, ill appearance HEENT: Pupils are round and equally reacting to light. EOMI. CARDIOVASCULAR: S1 and S2 present. No murmurs, rubs, or gallops. PULMONARY: Chest is clear to auscultation, no wheezing or crackles. ABDOMEN: Soft, nontender, nondistended, normoactive bowel sounds. No palpable organomegaly. MUSCULOSKELETAL: Right foot bandage is post amputation of right third toe, EXTREMITIES: No cyanosis, clubbing, or pedal edema. NEUROLOGICAL: Gross neurological examination did not reveal any focal deficits. - Labs CBC & Chem 7: 01/07/23 05:30 01/10/23 15:43 Labs: Abnormal Lab Results - Last 24 Hours (Table) 01/10/23 01/10/23 01/11/23 Range/Units 17:08 21:01 06:15 POC Glucose (mg/dL) 258 H 226 H 306 H (70-110) mg/dL 01/11/23 Range/Units 12:09 POC Glucose (mg/dL) 240 H (70-110) mg/dL Microbiology - Last 24 Hours (Table) 01/08/23 15:00 Anaerobic Culture - Preliminary Toe - Right Third 01/08/23 15:00 Gram Stain - Final Toe - Right Third Wound Culture - Final Assessment and Plan Assessment: Assessment and plan * Acute Osteomellitus right third toe with diabetic foot ulcer status post amputation third toe postoperative day 4 * Diabetes mellitus type 2 * Diabetic neuropathy * Hypertension * Hyperlipidemia * Obstructive sleep apnea * In regards to osteomyelitis, patient is status post amputation, continue with wound care, continue IV antibiotic cefepime and vancomycin, transitioned to Unasyn by infectious disease follow-up on OR cultures * In regards to diabetes mellitus, continue NovoLog, continue NovoLog, and dose adjusted to 7 units before meals 3 times a day, continue Levemir 50 units daily at bedtime monitor for hypoglycemia, continue metformin * In regards to up her lipidemia, continue Lipitor
[2023-01-11 13:27] LABS: BUN/Creat Ratio 18.25 Ratio (12.00-20.00); Blood Urea Nitrogen 14.6 mg/dL (9.0-27.0); Calcium 9.2 mg/dL (8.7-10.3); Carbon Dioxide 31.7 mmol/L (21.6-31.8); Chloride 97 mmol/L (96-109); Glucose 291 mg/dL (70-110); Potassium 4.2 mmol/L (3.5-5.5); Sodium 138 mmol/L (135-145)
[2023-01-11 13:29] LABS: HCT 46.2 % (39.6-50.0); HGB 14.6 d/dL (13.0-17.0); MCH 26.4 pg (27.0-32.0); MCHC 31.6 d/dL (32.0-37.0); MCV 83.7 FL (80.0-97.0); Mean Platelet Volume 11.2 FL (9.5-12.2); NRBC Per 100 WBC 0 X 10*3/uL (0.00-0.01); Platelet Count 223 X 10*3/uL (140-440); RBC 5.52 X 10*6/uL (4.40-5.60); RDW 13.6 % (11.5-14.5); WBC 7.97 X 10*3/uL (4.50-10.00)
--- NOTE | 2023-01-11 15:11 | P.PN ---
Subjective Progress Note Date: 01/11/23 Principal diagnosis: Right third toe diabetic foot infection Patient is 42-year-old male with a past medical history significant for diabetes mellitus patient presenting to the ER for evaluation of worsening of his right third toe , patient did have bone exposed diagnosed with ostial/hammertoe deformity status post distal and middle phalanx amputation. On today's evaluation that is01/11/2023, the patient remains to be afebrile, the patient is breathing comfortably on room air without the need for supplemental oxygen , the patient denies chest pain or cough, patient denies nausea/vomiting or diarrhea and denies any abdominal pain, patient denies any pain to the right third toe amputation site. Patient did have white count is 7.97, creatinine 0.8 Objective - Vital Signs Vital signs: Vital Signs Temp 97.8 F 01/11/23 12:05 Pulse 81 01/11/23 12:05 Resp 17 01/11/23 12:05 BP 128/90 01/11/23 12:05 Pulse Ox 95 01/11/23 12:05 FiO2 Intake & Output 01/10/23 01/11/23 01/11/23 18:59 06:59 18:59 Intake Total 597 1640 Balance 597 1640 Intake: Intake, IV Titration 100 Amount Ampicillin-Sulbactam 3 gm 100 In Sodium Chloride 0.9% 100 ml @ 200 mls/hr IVPB Q6HR [facility] Rx#:[id number] Oral 597 1540 Other: Voiding Method Toilet Toilet Toilet # Voids 2 2 1 - Exam GENERAL DESCRIPTION: Middle-age male lying in bed in no distress RESPIRATORY SYSTEM: Unlabored breathing , clear to auscultation anteriorly HEART: S1 S2 regular rate and rhythm , ABDOMEN: Soft , no tenderness EXTREMITIES: Right third toe amputation site did have some redness and discoloration - Labs CBC & Chem 7: 01/11/23 05:54 01/11/23 05:54 Labs: Abnormal Lab Results - Last 24 Hours (Table) 01/10/23 01/10/23 01/11/23 Range/Units 17:08 21:01 05:54 MCH 26.4 L (27.0-32.0) pg MCHC 31.6 L (32.0-37.0) d/dL Glucose (70-110) mg/dL POC Glucose (mg/dL) 258 H 226 H (70-110) mg/dL 01/11/23 01/11/23 01/11/23 Range/Units 05:54 06:15 12:09 MCH (27.0-32.0) pg MCHC (32.0-37.0) d/dL Glucose 291 H (70-110) mg/dL POC Glucose (mg/dL) 306 H 240 H (70-110) mg/dL Microbiology - Last 24 Hours (Table) 01/08/23 15:00 Anaerobic Culture - Preliminary Toe - Right Third 01/08/23 15:00 Gram Stain - Final Toe - Right Third Wound Culture - Final Assessment and Plan (1) Osteomyelitis Current Visit: Yes Status: Acute Code(s): M86.9 - OSTEOMYELITIS, UNSPECIFIED SNOMED Code(s): 56552708 (2) Type 2 diabetes mellitus with foot ulcer Current Visit: Yes Status: Acute Code(s): E11.621 - TYPE 2 DIABETES MELLITUS WITH FOOT ULCER; L97.509 - NON-PRESSURE CHRONIC ULCER OTH PRT UNSP FOOT W UNSP SEVERITY SNOMED Code(s): 015278218 Plan: 1patient presented to hospital with right third toe diabetic foot infection in this patient who apparently did have a hammertoe deformity he did have a bone exposed on presentation the hospital and the patient s/p amputation of the distal phalanx of the right third toe he did have cultures obtained which are negative so far still have cementing and redness to the remainder of the right third toe and no foul-smelling drainage 2-we will continue the patient on Unasyn 3 g every 6 hours, will benefit from v ascular surgery evaluation before discharge Questions concerned were answered Dictation was produced using [employer] software. please excuse any grammatical, word or spelling errors. Time with Patient: Less than 30
[2023-01-11] MEDS: FLUCONAZOLE 100 MG TAB PO SCH (16:16)
[2023-01-11 17:00] LABS: Glucose,Whole Blood 306 mg/dL (70-110)
[2023-01-11 20:49] LABS: Glucose,Whole Blood 262 mg/dL (70-110)
[2023-01-11] MEDS: ATORVASTATIN 80 MG TAB PO SCH (21:03)
[2023-01-11] MEDS: INSULIN DETEMIR (LEVEMIR) 100 UNIT/ML SYR SQ SCH (21:04)
[2023-01-11] MEDS: HYDROcodone/APAP 5-325MG 1 EACH TAB PO PRN (21:11)
[2023-01-12] MEDS: AMPICILLIN-SULBACTAM 3 GM in SODIUM CHLORIDE 0.9% 100 ML IVPB SCH (06:03)
[2023-01-12 07:40] LABS: Glucose,Whole Blood 125 mg/dL (70-110)
[2023-01-12 07:49] VITALS: RESP 18
[2023-01-12] MEDS: INSULIN ASPART (NovoLOG) 100 UNIT/ML VIAL SQ SCH ×2 (07:58→08:05)
[2023-01-12] MEDS: ENOXAPARIN 40 MG/0.4 ML SYRINGE SQ SCH (08:05)
[2023-01-12] MEDS: FLUCONAZOLE 100 MG TAB PO SCH (08:05)
[2023-01-12] MEDS: GABAPENTIN 300 MG CAP PO SCH (08:05)
[2023-01-12] MEDS: metFORMIN 500 MG TAB PO SCH (08:06)
[2023-01-12] MEDS: PANTOPRAZOLE 40 MG TABLET PO SCH (08:06)
--- NOTE | 2023-01-12 09:18 | P.PN ---
Subjective Progress Note Date: 01/12/23 Principal diagnosis: Osteomyelitis right third toe Patient was seen and examined today as a follow-up. Apparently he has been awaiting final culture results. He is being seen by infectious disease and currently on Unasyn. He's been afebrile. No complaints. Objective - Vital Signs Vital signs: Vital Signs Temp 97.9 F 01/12/23 07:15 Pulse 95 01/12/23 07:15 Resp 18 01/12/23 07:15 BP 147/74 01/12/23 07:15 Pulse Ox 91 L 01/12/23 07:15 FiO2 Intake & Output 01/11/23 01/12/23 01/12/23 18:59 06:59 18:59 Intake Total 500 Balance 500 Intake: Oral 500 Other: Voiding Method Toilet Toilet # Voids 1 2 - Exam General appearance: The patient is alert, oriented, appears in no acute distress. HET: Head is normocephalic and atraumatic. Pupils are equal and reactive. Neck: Supple. Abdomen: Soft, nondistended. Extremities: Palpable DP pulse. With good capillary refill. The right lower extremity with dressing clean dry and intact. Right third toe amputation site with distal tip with ischemic tissue, scant amount of serosanguineous drainage. Sutures well approximated. Neurological: No focal deficits. Decreased sensory to bilateral feet. - Labs CBC & Chem 7: 01/11/23 05:54 01/11/23 05:54 Labs: Abnormal Lab Results - Last 24 Hours (Table) 01/11/23 01/11/23 01/11/23 Range/Units 05:54 05:54 12:09 MCH 26.4 L (27.0-32.0) pg MCHC 31.6 L (32.0-37.0) d/dL Glucose 291 H (70-110) mg/dL POC Glucose (mg/dL) 240 H (70-110) mg/dL 01/11/23 01/11/23 01/12/23 Range/Units 16:58 20:20 07:18 MCH (27.0-32.0) pg MCHC (32.0-37.0) d/dL Glucose (70-110) mg/dL POC Glucose (mg/dL) 306 H 262 H 125 H (70-110) mg/dL Microbiology - Last 24 Hours (Table) 01/06/23 15:45 Blood Culture - Final Blood 01/06/23 16:01 Blood Culture - Final Blood Assessment and Plan Assessment: 1. Diabetic ulcer right third toe with osteomyelitis status post amputation 2. Type 1 diabetes mellitus 3. Peripheral neuropathy Plan: 1. Antibiotics per recommendations from infectious disease 2. Daily dressing change with Adaptic 4 x 4 and Kerlix. 3. Patient is cleared by vascular surgery for discharge. Patient will follow-up with Dr. Hua next week. Likely will need outpatient wound care. Thank you for this consultation. The impression and plan of care has been dictated as directed. Dr. Hua I performed a history and examination of this patient, discussed the same with the dictator. I agree with the dictator's note ,documented as a scribe. Any additional findings or plans will be noted.
--- NOTE | 2023-01-12 10:58 | P.DS ---
Providers Date of admission: 01/06/23 18:41 Expected date of discharge: 01/12/23 Attending physician: Siri Holbrook Consults: 01/06/23 19:04 Consult Physician Urgent Consulting Provider: Maine Hua Consult Reason/Comments: osteomyelitis Do you want consulting provider notified?: Yes, Notify in am 01/10/23 10:06 Consult Physician Routine Consulting Provider: Zuleyma Armstrong Consult Reason/Comments: Diabetic foot ulcer, posterior mellitus right third toe Do you want consulting provider notified?: Yes Primary care physician: Siri Holbrook Hospital Course: * 42-year-old male with a previous medical history significant for hypertension and hypertensive cardiovascular disease, hyperlipidemia, obesity with obstructive sleep apnea and obesity hypoventilation syndrome,diabetes mellitus type 2 with daibetic polyneuropathy, admitted for diabetic foot infection unit patient is status post right third toe amputation, deep tissue cultures from OR pending * 01/10/23: Patient seen and evaluated bedside, care plan discussed in detail discharge planning discussed, requested infectious disease evaluation for discharge antibiotics at the moment patient [place] cefepime and vancomycin, continue wound care follow up on CBC and basic metabolic panel * 01/11/23: Patient seen and evaluated bedside, patient denies of any acute medical issues at this point. Antibiotics adjusted per infectious disease. Remains afebrile, cultures negative * 01/12/23; patient was seen and evaluated by vascular and cleared for discharge. K plan discussed with infectious disease recommended discharge on Augmentin and Diflucan to complete 10 day course. Patient given prescription for [place] prior to discharge PHYSICAL EXAMINATION: GENERAL: The patient is alert and oriented x3, ill appearance HEENT: Pupils are round and equally reacting to light. EOMI. CARDIOVASCULAR: S1 and S2 present. No murmurs, rubs, or gallops. PULMONARY: Chest is clear to auscultation, no wheezing or crackles. ABDOMEN: Soft, nontender, nondistended, normoactive bowel sounds. No palpable organomegaly. MUSCULOSKELETAL: Right foot bandage is post amputation of right third toe, EXTREMITIES: No cyanosis, clubbing, or pedal edema. NEUROLOGICAL: Gross neurological examination did not reveal any focal deficits. Assessment: Assessment and plan * Acute Osteomellitus right third toe with diabetic foot ulcer status post amputation third toe postoperative day 4 * Diabetes mellitus type 2 * Diabetic neuropathy * Hypertension * Hyperlipidemia * Obstructive sleep apnea * In regards to osteomyelitis, patient is status post amputation, continue with wound care, continue IV antibiotic cefepime and vancomycin, transitioned to Unasyn by infectious disease follow-up on OR cultures, discharge on Augmentin and Diflucan * In regards to diabetes mellitus, continue home regimen * In regards to up dyslipidemia, continue Lipitor * Regards to diabetic neuropathy continue gabapentin * Outpatient follow-up with infectious disease, primary care and vascular Plan - Discharge Summary New Discharge Prescriptions: New Amoxic-Pot Clav 875-125Mg [Augmentin 875-125] 1 tab PO Q12HR 10 Days #20 tab Fluconazole [Diflucan] 100 mg PO DAILY 10 Days #10 tab HYDROcodone/APAP 5-325MG [[place] 5-325] 1 each PO Q6HR PRN 3 Days #12 tab PRN Reason: Pain Scale 1 To 5 Continue Insulin Lispro [humaLOG Kwikpen] 0 - 30 unit SQ AC-TID metFORMIN HCL ER [Glucophage XR] 1,000 mg PO DAILY Omeprazole 40 mg PO DAILY Tirzepatide [Mounjaro] 5 mg SQ Q7D Atorvastatin [Lipitor] 80 mg PO HS Ascorbic Acid [Vitamin C] 1,000 mg PO DAILY Insulin Glargine,Hum.rec.anlog [Lantus Solostar Pen] 70 units SQ HS Gabapentin 600 mg PO BID Loratadine 20 mg PO DAILY Discontinued clindamycin HCL [Cleocin] 300 mg PO Q8H Discharge Medication List Ascorbic Acid [Vitamin C] 1,000 mg PO DAILY 01/06/23 [History] Atorvastatin [Lipitor] 80 mg PO HS 01/06/23 [History] Gabapentin 600 mg PO BID 01/06/23 [History] Insulin Glargine,Hum.rec.anlog [Lantus Solostar Pen] 70 units SQ HS 01/06/23 [History] Insulin Lispro [humaLOG Kwikpen] 0 - 30 unit SQ AC-TID 01/06/23 [History] Loratadine 20 mg PO DAILY 01/06/23 [History] Omeprazole 40 mg PO DAILY 01/06/23 [History] Tirzepatide [Mounjaro] 5 mg SQ Q7D 01/06/23 [History] metFORMIN HCL ER [Glucophage XR] 1,000 mg PO DAILY 01/06/23 [History] Amoxic-Pot Clav 875-125Mg [Augmentin 875-125] 1 tab PO Q12HR 10 Days #20 tab 01/12/23 [Rx] Fluconazole [Diflucan] 100 mg PO DAILY 10 Days #10 tab 01/12/23 [Rx] HYDROcodone/APAP 5-325MG [[place] 5-325] 1 each PO Q6HR PRN 3 Days #12 tab 01/12/23 [Rx] Follow up Appointment(s)/Referral(s): Siri Holbrook MD [Primary Care Provider] - 1-2 days Maine Hua DO [STAFF PHYSICIAN] - 1 Week
[2023-01-12 12:02] VITALS: BP 121/80; PULSE 91; TEMP 98.1
== END 2023-01-12 12:22 | disposition home or self-care (01) | DRG 617 ==
LOC: EC 14:32 → 4SSUR 18:41 → 5NMEDONC 19:46
PROVIDERS: ADMIT Internal Medicine; ATTEND Internal Medicine
PROC: 0Y6T0Z0 Detachment at Right 3rd Toe, Complete, Open Approach (ICD-10-PCS; principal; 2023-01-08 13:15)
DX: E10.69 Type 1 diabetes mellitus with other specified complication (principal); E66.2 Morbid (severe) obesity with alveolar hypoventilation; M86.171 Other acute osteomyelitis, right ankle and foot; Z68.41 Body mass index [BMI] 40.0-44.9, adult; M84.674A Pathological fracture in other disease, right foot, initial encounter for fracture; Z79.4 Long term (current) use of insulin; Z79.84 Long term (current) use of oral hypoglycemic drugs; E10.622 Type 1 diabetes mellitus with other skin ulcer; E10.621 Type 1 diabetes mellitus with foot ulcer; E10.42 Type 1 diabetes mellitus with diabetic polyneuropathy; I11.9 Hypertensive heart disease without heart failure; E78.5 Hyperlipidemia, unspecified; L97.514 Non-pressure chronic ulcer of other part of right foot with necrosis of bone; M14.671 Charcot's joint, right ankle and foot; M14.672 Charcot's joint, left ankle and foot; M20.40 Other hammer toe(s) (acquired), unspecified foot; Z83.3 Family history of diabetes mellitus
CPT/HCPCS: 36415; 80048; 80053; 80202; 82565; 83605; 85025; 85027; 86140; 87040; 87070; 87075; 87205; 96361; 96374; 99284

== ENCOUNTER → 2023-04-10 | Outpatient (CLI) | payer MEDICAID ==
--- NOTE | 2023-04-10 11:14 | XR ---
EXAMINATION TYPE: XR foot complete RT DATE OF EXAM: 04/10/2023 COMPARISON: 01/06/2023 HISTORY: Ulcer right foot TECHNIQUE: Three views are submitted. FINDINGS: There is a large calcaneal spurs. There is soft tissue ossification along the dorsum of the foot and there is widening of the space between the first and second metatarsals. Lisfranc injury in the diffe rential diagnosis. Mild hypertrophic arthropathy first MTP. Postsurgical changes suggestive of amputa tion third digit. There is diffuse soft tissue edema correlate for cellulitis. Other subtle erosion a long the base of the calcaneus. IMPRESSION: 1. Cellulitis. There is subtle erosion of the base of the calcaneus along the plantar surface. Osteom yelitis in the differential diagnosis recommend correlation with triple phase bone scan. 2. Widening of the distance between the base of the first and second tarsal and metatarsal stable can be associated with Lisfranc ligament injury.
== END | disposition home or self-care (01) ==
LOC: RADXRMAIN 10:19
PROVIDERS: ATTEND Podiatrist
DX: L97.514 Non-pressure chronic ulcer of other part of right foot with necrosis of bone (principal); M86.9 Osteomyelitis, unspecified; E11.621 Type 2 diabetes mellitus with foot ulcer

== ENCOUNTER 2023-05-30 07:00 | Emergency (ER) | payer MEDICAID ==
--- NOTE | 2023-05-30 07:16 | ED ---
Fever HPI - General Stated Complaint: Fever/Nausea Time Seen by Provider: 05/30/23 07:10 Source: patient, RN notes reviewed Mode of arrival: ambulatory - History of Present Illness Initial Comments: 42-year-old male with past medical history of type 1 diabetes, presents to ED with chief complaint of fever, nausea, vomiting. Patient states that his symptoms started on evening with bodyaches and chills. Yesterday patient states that he had a fever and this morning woke up with severe nausea and vomiting. has been cycling Tylenol and Motrin at home with his last dose at 6 PM yesterday. denies cough, runny nose, chest pain, dizziness, dyspnea, diarrhea, dysuria, hematuria. Patient admits that he has been feeling overall well after his partial amputation last week, and denies symptoms of nausea, vomiting, fever until evening. Patient underwent right toe amputation last week, and has followed up with wound care. 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 - Related Data Home Medications Medication Instructions Recorded Confirmed Ascorbic Acid [Vitamin C] 1,000 mg PO DAILY 01/06/23 05/22/23 Atorvastatin [Lipitor] 80 mg PO HS 01/06/23 05/22/23 Gabapentin 600 mg PO BID 01/06/23 05/22/23 Insulin Glargine,Hum.rec.anlog 70 units SQ HS 01/06/23 05/22/23 [Lantus Solostar Pen] Insulin Lispro [humaLOG Kwikpen] 0 - 30 unit SQ AC-TID 01/06/23 05/22/23 Loratadine 20 mg PO DAILY 01/06/23 05/22/23 Omeprazole 40 mg PO QAM 01/06/23 05/22/23 Tirzepatide [Mounjaro] 5 mg SQ SA 01/06/23 05/22/23 metFORMIN HCL ER [Glucophage XR] 1,000 mg PO DAILY 01/06/23 05/22/23 Previous Rx's Medication Instructions Recorded HYDROcodone/APAP 5-325MG [[place] 1 each PO Q6HR PRN 3 Days #12 tab 01/12/23 5-325] Allergies Allergy/AdvReac Type Severity Reaction Status Date / Time No Known Allergies Allergy Verified 05/22/23 07:39 Review of Systems ROS Statement: Those systems with pertinent positive or pertinent negative responses have been documented in the HPI. ROS Other: All systems not noted in ROS Statement are negative. Past Medical History Past Medical History: Diabetes Mellitus Additional Past Medical History / Comment(s): neuropathy History of Any Multi-Drug Resistant Organisms: None Reported Past Surgical History: Orthopedic Surgery Past Psychological History: No Psychological Hx Reported Smoking Status: Never smoker Past Alcohol Use History: None Reported Past Drug Use History: None Reported General Exam General appearance: alert, in no apparent distress Head exam: Present: atraumatic, normocephalic, normal inspection Eye exam: Present: normal appearance, PERRL, EOMI. Absent: scleral icterus, conjunctival injection, periorbital swelling ENT exam: Present: normal exam, mucous membranes moist Neck exam: Present: normal inspection. Absent: tenderness, meningismus, lymphadenopathy Respiratory exam: Present: normal lung sounds bilaterally. Absent: respiratory distress, wheezes, rales, rhonchi, stridor Cardiovascular Exam: Present: regular rate, normal rhythm, tachycardia GI/Abdominal exam: Present: soft, normal bowel sounds. Absent: distended, tenderness, guarding, rebound, rigid Extremities exam: Present: normal inspection, full ROM, normal capillary refill. Absent: tenderness, pedal edema, joint swelling, calf tenderness Right Ankle exam: Present: normal inspection, full ROM. Absent: tenderness, swelling Foot/Toe exam: Present: tenderness, swelling, erythema, amputation (partial amputation of right second toe) Neurovascular tendon exam: Absent: pulse deficit (1+ pedal pulse intact) Back exam: Present: normal inspection Neurological exam: Present: alert, oriented X3, CN II-XII intact Psychiatric exam: Present: normal affect, normal mood Skin exam: Present: other (right second toe partial amputation with erythema) Course Vital Signs 05/30/23 05/30/23 07:13 09:00 Temperature 103.0 F H 102.7 F H Pulse Rate 126 H 133 H Respiratory 18 18 Rate Blood Pressure 115/74 100/60 O2 Sat by Pulse 97 92 L Oximetry Medical Decision Making - Medical Decision Making Was pt. sent in by a medical professional or institution (, PA, BRAID FOLDER, urgent care, hospital, or jail...) When possible be specific @ -No Did you speak to anyone other than the patient for history (EMS, parent, family, police, friend...)? What history was obtained from this source @ -No Did you review nursing and triage notes (agree or disagree)? Why? @ -I reviewed and agree with nursing and triage notes Were old charts reviewed (outside hosp., previous admission, EMS record, old EKG, old radiological studies, urgent care reports/EKG's, jail records)? Report findings @ -Previous admission notes reviewed, patient has been hospitalized for osteomyelitis in the past and received IV antibiotics. Differential Diagnosis (chest pain, altered mental status, abdominal pain women, abdominal pain men, vaginal bleeding, weakness, fever, dyspnea, syncope, headache, dizziness, GI bleed, back pain, seizure, CVA, palpatations, mental health, musculoskeletal)? @ -Differential Fever: Pneumonia, viral URI, endocarditis, myocarditis, pericarditis, otitis, sinusitis, peritonsillar Abscess, retropharyngeal Abscess, epiglottitis, peritonitis, appendicitis, Analisa cystitis, diverticulitis, hepatitis, colitis, UTI, PID, TOA, pyelonephritis, prostatitis, epididymitis, meningitis, encephalitis, pulmonary embolism, CVA, thyroid storm, pancreatitis, adrenal crisis, cavernous sinus thrombosis, this is not meant to be an all-inclusive list. EKG interpreted by me (3pts min.). @ -None X-rays interpreted by me (1pt min.). @ -None done CT interpreted by me (1pt min.). @ -None done U/S interpreted by me (1pt. min.). @ -None done What testing was considered but not performed or refused? (CT, X-rays, U/S, labs)? Why? @ -None What meds were considered but not given or refused? Why? @ -None Did you discuss the management of the patient with other professionals (professionals i.e. , PA, BRAID FOLDER, lab, RT, psych nurse, social science analyst, glass silverer, teacher, equal opportunity officer, case planner)? Give summary @ -No Was smoking cessation discussed for >3mins.? @ -No Was critical care preformed (if so, how long)? @ -No Were there social determinants of health that impacted care today? How? (Homelessness, low income, unemployed, alcoholism, drug addiction, transportation, low edu. Level, literacy, decrease access to med. care, halfway, rehab)? @ -No Was there de-escalation of care discussed even if they declined (Discuss DNR or withdrawal of care, Hospice)? DNR status @ -No What co-morbidities impacted this encounter? (DM, HTN, Smoking, COPD, CAD, Cancer, CVA, ARF, Chemo, Hep., AIDS, mental health diagnosis, sleep apnea, morbid obesity)? @ -DM, obesity Was patient admitted / discharged? Hospital course, mention meds given and route, prescriptions, significant lab abnormalities, going to OR and other pertinent info. @ -Discharged. 42-year-old male presents to ED with chief complaint of bodyaches, fever, vomiting. Patient underwent partial right second toe amputation last week. Patient febrile upon ED arrival, 103. Patient given 1000 mg p.o. Tylenol, 600 mg p.o. Motrin, 4 mg p.o. Zofran, and 1000 mL fluid bolus. No leukocytosis, CMP unremarkable. Symptoms have improved since administration of Zofran and fluids. With patient's symptoms are likely due to a gastroenteritis. Patient to be sent home with Zofran. Instruct patient to cycle Tylenol and Motrin at home for symptomatic and fever relief. Discussed importance of oral rehydration. Undiagnosed new problem with uncertain prognosis? @ -No Drug Therapy requiring intensive monitoring for toxicity (Heparin, Nitro, Insulin, Cardizem)? @ -No Were any procedures done? @ -No Diagnosis/symptom? @ -Gastroenteritis Acute, or Chronic, or Acute on Chronic? @ -Acute Uncomplicated (without systemic symptoms) or Complicated (systemic symptoms)? @ -Unomplicated Side effects of treatment? @ -No Exacerbation, Progression, or Severe Exacerbation? @ -No Poses a threat to life or bodily function? How? (Chest pain, USA, [place], pneumonia, PE, COPD, DKA, ARF, appy, cholecystitis, CVA, Diverticulitis, Homicidal, Suicidal, threat to staff... and all critical care pts) @ -No - Lab Data Result diagrams: 05/30/23 07:30 05/30/23 07:30 Lab Results 05/30/23 05/30/23 05/30/23 Range/Units 07:30 07:30 07:30 WBC 9.6 (3.8-10.6) k/uL RBC 5.87 (4.30-5.90) m/uL Hgb 16.0 (13.0-17.5) gm/dL Hct 48.6 (39.0-53.0) % MCV 82.7 (80.0-100.0) fL MCH 27.3 (25.0-35.0) pg MCHC 33.0 (31.0-37.0) g/dL RDW 13.9 (11.5-15.5) % Plt Count 169 (150-450) k/uL MPV 8.7 Neutrophils % 81 % Lymphocytes % 10 % Monocytes % 7 % Eosinophils % 1 % Basophils % 1 % Neutrophils # 7.7 (1.3-7.7) k/uL Lymphocytes # 0.9 L (1.0-4.8) k/uL Monocytes # 0.7 (0-1.0) k/uL Eosinophils # 0.1 (0-0.7) k/uL Basophils # 0.1 (0-0.2) k/uL Sodium 139 (137-145) mmol/L Potassium 4.3 (3.5-5.1) mmol/L Chloride 100 (98-107) mmol/L Carbon Dioxide 29 (22-30) mmol/L Anion Gap 10 mmol/L BUN 17 (9-20) mg/dL Creatinine 0.88 (0.66-1.25) mg/dL Est GFR (CKD-EPI)AfAm >90 (>60 ml/min/1.73 sqM) Est GFR (CKD-EPI)NonAf >90 (>60 ml/min/1.73 sqM) Glucose 116 H (74-99) mg/dL Plasma Lactic Acid Jesus 2.4 H* (0.7-2.0) mmol/L Calcium 9.2 (8.4-10.2) mg/dL Total Bilirubin 1.1 (0.2-1.3) mg/dL AST 45 (17-59) U/L ALT 39 (4-49) U/L Alkaline Phosphatase 125 (38-126) U/L Total Protein 7.2 (6.3-8.2) g/dL Albumin 4.1 (3.5-5.0) g/dL Influenza Type A (PCR) (Not Detectd) Influenza Type B (PCR) (Not Detectd) RSV (PCR) (Not Detectd) SARS-CoV-2 (PCR) (Not Detectd) 05/30/23 Range/Units 07:30 WBC (3.8-10.6) k/uL RBC (4.30-5.90) m/uL Hgb (13.0-17.5) gm/dL Hct (39.0-53.0) % MCV (80.0-100.0) fL MCH (25.0-35.0) pg MCHC (31.0-37.0) g/dL RDW (11.5-15.5) % Plt Count (150-450) k/uL MPV Neutrophils % % Lymphocytes % % Monocytes % % Eosinophils % % Basophils % % Neutrophils # (1.3-7.7) k/uL Lymphocytes # (1.0-4.8) k/uL Monocytes # (0-1.0) k/uL Eosinophils # (0-0.7) k/uL Basophils # (0-0.2) k/uL Sodium (137-145) mmol/L Potassium (3.5-5.1) mmol/L Chloride (98-107) mmol/L Carbon Dioxide (22-30) mmol/L Anion Gap mmol/L BUN (9-20) mg/dL Creatinine (0.66-1.25) mg/dL Est GFR (CKD-EPI)AfAm (>60 ml/min/1.73 sqM) Est GFR (CKD-EPI)NonAf (>60 ml/min/1.73 sqM) Glucose (74-99) mg/dL Plasma Lactic Acid Jesus (0.7-2.0) mmol/L Calcium (8.4-10.2) mg/dL Total Bilirubin (0.2-1.3) mg/dL AST (17-59) U/L ALT (4-49) U/L Alkaline Phosphatase (38-126) U/L Total Protein (6.3-8.2) g/dL Albumin (3.5-5.0) g/dL Influenza Type A (PCR) Not Detected (Not Detectd) Influenza Type B (PCR) Not Detected (Not Detectd) RSV (PCR) Not Detected (Not Detectd) SARS-CoV-2 (PCR) Not Detected (Not Detectd) Disposition Clinical Impression: Gastroenteritis Narrative: Please return to the Emergency Department if symptoms worsen or any other concerns. Patient to continue cycling Tylenol and Motrin at home for symptomatic and fever relief. Disposition: HOME SELF-CARE Condition: Good Instructions (If sedation given, give patient instructions): Gastroenteritis (E D) Is patient prescribed a controlled substance at d/c from ED?: No Referrals: Siri Holbrook MD [Primary Care Provider] - 1-2 days Time of Disposition: 08:50
[2023-05-30 07:26] VITALS: RESP 18
[2023-05-30 07:46] LABS: Basophils # (A) 0.1 k/uL (0-0.2); Basophils % (A) 1 %; Eosinophils # (A) 0.1 k/uL (0-0.7); Eosinophils % (A) 1 %; HCT 48.6 % (39.0-53.0); Lymphocytes # (A) 0.9 k/uL (1.0-4.8); Lymphocytes % (A) 10 %; MCH 27.3 pg (25.0-35.0); MCV 82.7 fL (80.0-100.0); Mean Platelet Volume 8.7; Monocytes # (A) 0.7 k/uL (0-1.0); Monocytes % (A) 7 %; Neutrophils # (A) 7.7 k/uL (1.3-7.7); Neutrophils % (A) 81 %; Platelet Count 169 k/uL (150-450); RBC 5.87 m/uL (4.30-5.90); RDW 13.9 % (11.5-15.5); WBC 9.6 k/uL (3.8-10.6)
[2023-05-30] MEDS: ONDANSETRON ODT 4 MG TAB PO STA (07:52)
[2023-05-30] MEDS: IBUPROFEN 600 MG TAB PO STA (07:52)
[2023-05-30] MEDS: ACETAMINOPHEN TAB 500 MG TAB PO STA (07:53)
[2023-05-30] MEDS: SODIUM CHLORIDE 0.9% 1,000 ML IV STA (07:56)
[2023-05-30 08:00] LABS: ALT 39 U/L (4-49); AST 45 U/L (17-59); African American GFR (CKD) >90 (>60 ml/min/1.73 sqM); Albumin 4.1 g/dL (3.5-5.0); Alkaline Phosphatase 125 U/L (38-126); Anion Gap 10 mmol/L; Blood Urea Nitrogen 17 mg/dL (9-20); Calcium 9.2 mg/dL (8.4-10.2); Carbon Dioxide 29 mmol/L (22-30); Chloride 100 mmol/L (98-107); Glucose 116 mg/dL (74-99); Non-African American GFR(CKD) >90 (>60 ml/min/1.73 sqM); Potassium 4.3 mmol/L (3.5-5.1); Sodium 139 mmol/L (137-145); Total Bilirubin 1.1 mg/dL (0.2-1.3); Total Protein 7.2 g/dL (6.3-8.2)
[2023-05-30] MEDS: ONDANSETRON 4 MG ODT STARTER PACK 2 TAB BTL PO STA (08:45)
[2023-05-30 09:10] VITALS: BP 100/60; PULSE 133; TEMP 102.7
== END 2023-05-30 09:58 | disposition home or self-care (01) ==
LOC: EC 07:00
DX: K52.9 Noninfective gastroenteritis and colitis, unspecified (principal); E11.9 Type 2 diabetes mellitus without complications; Z79.4 Long term (current) use of insulin; Z79.84 Long term (current) use of oral hypoglycemic drugs; Z20.822 Contact with and (suspected) exposure to COVID-19
CPT/HCPCS: 36415; 80053; 83605; 85025; 87636; 99284; 96360; 96361; S0119

== ENCOUNTER 2023-05-31 12:53 | Inpatient (IN) | payer MEDICAID ==
[2023-05-31] MEDS ORDERED: VANCOMYCIN IV PER PHARMACY 1 EACH MISC MISCELLANE PRN (13:12)
--- NOTE | 2023-05-31 13:16 | ED ---
General Adult HPI - General Chief complaint: Recheck/Abnormal Lab/Rx Stated complaint: R toe/foot post op complications Time Seen by Provider: 05/31/23 13:00 Source: patient, RN notes reviewed, old records reviewed Mode of arrival: ambulatory Limitations: no limitations - History of Present Illness Initial comments: This is a 42-year-old male who presents to the emergency department after having had an amputated right second toe. Patient states since then has become more red tender and draining. Patient was seen in the emergency department yesterday here as well as [facility]. Patient states also on Thursday he fell and hurt his left foot is extremely swollen he said he had x-rays yesterday and they were negative but he cannot walk on it so both feet are giving him problems at this point. Patient states he also had a fever at home. Patient denies a fever currently. Patient denies any chest pain or difficulty breathing or shortness of breath the patient has a headache. Patient denies any other symptoms at this time - Related Data Home Medications Medication Instructions Recorded Confirmed Ascorbic Acid [Vitamin C] 1,000 mg PO DAILY 01/06/23 05/22/23 Atorvastatin [Lipitor] 80 mg PO HS 01/06/23 05/22/23 Gabapentin 600 mg PO BID 01/06/23 05/22/23 Insulin Glargine,Hum.rec.anlog 70 units SQ HS 01/06/23 05/22/23 [Lantus Solostar Pen] Insulin Lispro [humaLOG Kwikpen] 0 - 30 unit SQ AC-TID 01/06/23 05/22/23 Loratadine 20 mg PO DAILY 01/06/23 05/22/23 Omeprazole 40 mg PO QAM 01/06/23 05/22/23 Tirzepatide [Mounjaro] 5 mg SQ SA 01/06/23 05/22/23 metFORMIN HCL ER [Glucophage XR] 1,000 mg PO DAILY 01/06/23 05/22/23 Previous Rx's Medication Instructions Recorded HYDROcodone/APAP 5-325MG [[place] 1 each PO Q6HR PRN 3 Days #12 tab 01/12/23 5-325] Allergies Allergy/AdvReac Type Severity Reaction Status Date / Time No Known Allergies Allergy Verified 05/31/23 13:00 Review of Systems ROS Statement: Those systems with pertinent positive or pertinent negative responses have been documented in the HPI. ROS Other: All systems not noted in ROS Statement are negative. Past Medical History Past Medical History: Diabetes Mellitus Additional Past Medical History / Comment(s): neuropathy History of Any Multi-Drug Resistant Organisms: None Reported Past Surgical History: Orthopedic Surgery Additional Past Surgical History / Comment(s): 2nd and 3rd partial digit removed to right foot, Past Psychological History: No Psychological Hx Reported Smoking Status: Never smoker Past Alcohol Use History: None Reported Past Drug Use History: None Reported General Exam - General Exam Comments Initial Comments: GENERAL: Patient is well-developed and well-nourished. Patient is nontoxic and well- hydrated and is in mild distress. ENT: Neck is soft and supple. No significant lymphadenopathy is noted. Oropharynx is clear. Moist mucous membranes. Neck has full range of motion without eliciting any pain. EYES: The sclera were anicteric and conjunctiva were pink and moist. Extraocular movements were intact and pupils were equal round and reactive to light. Eyelids were unremarkable. PULMONARY: Unlabored respirations. Good breath sounds bilaterally. No audible rales rhonchi or wheezing was noted. CARDIOVASCULAR: There is a regular rate and rhythm without any murmurs gallops or rubs. ABDOMEN: Soft and nontender with normal bowel sounds. SKIN: Skin is clear with no lesions or rashes and otherwise unremarkable. NEUROLOGIC: Patient is alert and oriented x3. Cranial nerves II through XII are grossly intact. Motor and sensory are also intact. Normal speech, volume and content. Symmetrical smile. MUSCULOSKELETAL: Normal extremities with adequate strength and full range of motion. Left ankle and foot are swollen very tender to touch in the lateral and medial malleolus. Patient's right foot has an amputated second toe the area is extremely red tender and draining what appears to be some pus LYMPHATICS: No significant lymphadenopathy is noted PSYCHIATRIC: Normal psychiatric evaluation. Limitations: no limitations Course Vital Signs 05/31/23 05/31/23 05/31/23 12:58 13:37 14:45 Temperature 98.6 F 100.4 F H 99.3 F Pulse Rate 114 H Respiratory 20 Rate Blood Pressure 118/66 O2 Sat by Pulse 96 Oximetry 05/31/23 15:17 Temperature 100.3 F H Pulse Rate Respiratory Rate Blood Pressure O2 Sat by Pulse Oximetry Medical Decision Making - Medical Decision Making Was pt. sent in by a medical professional or institution (, [facility], [employer], urgent care, hospital, or fci...) When possible be specific @ -Dr. Holbrook sent the patient to the emergency department Did you speak to anyone other than the patient for history (EMS, parent, family, police, friend...)? What history was obtained from this source @ -No Did you review nursing and triage notes (agree or disagree)? Why? @ -I reviewed and agree with nursing and triage notes Were old charts reviewed (outside hosp., previous admission, EMS record, old EKG, old radiological studies, urgent care reports/EKG's, fci records)? Report findings @ -I reviewed prior charts and prior lab work on this patient Differential Diagnosis (chest pain, altered mental status, abdominal pain women, abdominal pain men, vaginal bleeding, weakness, fever, dyspnea, syncope, headache, dizziness, GI bleed, back pain, seizure, CVA, palpatations, mental health, musculoskeletal)? @ -Differential Fever: Pneumonia, viral URI, endocarditis, myocarditis, pericarditis, osteomyelitis, otitis, sinusitis, peritonsillar Abscess, retropharyngeal Abscess, epiglottitis, peritonitis, appendicitis, Analisa cystitis, diverticulitis, hepatitis, colitis, UTI, PID, TOA, pyelonephritis, prostatitis, epididymitis, meningitis, encephalitis, pulmonary embolism, CVA, thyroid storm, pancreatitis, adrenal crisis, cavernous sinus thrombosis, this is not meant to be an all-inclusive list. EKG interpreted by me (3pts min.). @ -As above X-rays interpreted by me (1pt min.). @ -None done CT interpreted by me (1pt min.). @ -None done U/S interpreted by me (1pt. min.). @ -None done What testing was considered but not performed or refused? (CT, X-rays, U/S, labs)? Why? @ -None What meds were considered but not given or refused? Why? @ -None Did you discuss the management of the patient with other professionals (professionals i.e. , [facility], [employer], lab, RT, psych nurse, social service worker, associate dean of women, teacher, first officer, patient case coordinator)? Give summary @ -I spoke with Dr. Holbrook to admit the patient agreed to admission Was smoking cessation discussed for >3mins.? @ -No Was critical care preformed (if so, how long)? @ -No Were there social determinants of health that impacted care today? How? (Ho melessness, low income, unemployed, alcoholism, drug addiction, transportation, low edu. Level, literacy, decrease access to med. care, [facility], rehab)? @ -No Was there de-escalation of care discussed even if they declined (Discuss DNR or withdrawal of care, Hospice)? DNR status @ -No What co-morbidities impacted this encounter? (DM, HTN, Smoking, COPD, CAD, Cancer, CVA, ARF, Chemo, Hep., AIDS, mental health diagnosis, sleep apnea, morbid obesity)? @ -None Was patient admitted / discharged? Hospital course, mention meds given and route, prescriptions, significant lab abnormalities, going to OR and other pertinent info. @ -Patient was given pain medications and that made him more comfortable. P atient also started on vancomycin and admitted to Dr. Holbrook Undiagnosed new problem with uncertain prognosis? @ -No Drug Therapy requiring intensive monitoring for toxicity (Heparin, Nitro, Insulin, Cardizem)? @ -No Were any procedures done? @ -No Diagnosis/symptom? @ -Postsurgical infection toe Acute, or Chronic, or Acute on Chronic? @ -Acute Uncomplicated (without systemic symptoms) or Complicated (systemic symptoms)? @ -Complicated Side effects of treatment? @ -No Exacerbation, Progression, or Severe Exacerbation? @ -No Poses a threat to life or bodily function? How? (Chest pain, USA, [place], pneumonia, PE, COPD, DKA, ARF, appy, cholecystitis, CVA, Diverticulitis, Homicidal, Suicidal, threat to staff... and all critical care pts) @ -Yes this could lead to sepsis and endorgan dysfunction Diagnosis/symptom? @ -Charcot ankle Acute, or Chronic, or Acute on Chronic? @ -Acute Uncomplicated (without systemic symptoms) or Complicated (systemic symptoms)? @ -Uncomplicated Side effects of treatment? @ -None Exacerbation, Progression, or Severe Exacerbation] @ -No Poses a threat to life or bodily function? @ -No - Lab Data Result diagrams: 05/31/23 13:50 05/31/23 13:50 Lab Results 05/31/23 05/31/23 05/31/23 Range/Units 13:50 13:50 13:50 WBC 13.0 H (3.8-10.6) k/uL RBC 5.43 (4.30-5.90) m/uL Hgb 14.9 (13.0-17.5) gm/dL Hct 45.6 (39.0-53.0) % MCV 84.0 (80.0-100.0) fL MCH 27.5 (25.0-35.0) pg MCHC 32.8 (31.0-37.0) g/dL RDW 13.8 (11.5-15.5) % Plt Count 159 (150-450) k/uL MPV 8.7 Neutrophils % 90 % Lymphocytes % 5 % Monocytes % 4 % Eosinophils % 1 % Basophils % 0 % Neutrophils # 11.8 H (1.3-7.7) k/uL Lymphocytes # 0.6 L (1.0-4.8) k/uL Monocytes # 0.5 (0-1.0) k/uL Eosinophils # 0.1 (0-0.7) k/uL Basophils # 0.0 (0-0.2) k/uL Sodium 136 L (137-145) mmol/L Potassium 4.3 (3.5-5.1) mmol/L Chloride 99 (98-107) mmol/L Carbon Dioxide 29 (22-30) mmol/L Anion Gap 8 mmol/L BUN 23 H (9-20) mg/dL Creatinine 0.97 (0.66-1.25) mg/dL Est GFR (CKD-EPI)AfAm >90 (>60 ml/min/1.73 sqM) Est GFR (CKD-EPI)NonAf >90 (>60 ml/min/1.73 sqM) Glucose 240 H (74-99) mg/dL Plasma Lactic Acid Jesus 1.8 (0.7-2.0) mmol/L Calcium 8.6 (8.4-10.2) mg/dL Total Bilirubin 1.9 H (0.2-1.3) mg/dL AST 32 (17-59) U/L ALT 36 (4-49) U/L Alkaline Phosphatase 119 (38-126) U/L Total Protein 6.1 L (6.3-8.2) g/dL Albumin 3.3 L (3.5-5.0) g/dL Disposition Clinical Impression: Postoperative infection, Charcot ankle Disposition: ADMITTED IP TO THIS HOSP Referrals: Siri Holbrook MD [Primary Care Provider] - 1-2 days Time of Disposition: 15:28
[2023-05-31] MEDS: IBUPROFEN 600 MG TAB PO STA (13:44)
[2023-05-31] MEDS: ACETAMINOPHEN TAB 500 MG TAB PO STA ×2 (13:44→15:10)
[2023-05-31] MEDS: HYDROmorphone 1 MG/ML 1 ML SYRINGE IVP STA (13:47)
[2023-05-31] MEDS: KETOROLAC 15 MG/ML 1 ML VIAL IVP STA (13:49)
[2023-05-31] MEDS: SODIUM CHLORIDE 0.9% 500 ML 500 ML IV SCH (13:53)
[2023-05-31 13:56] LABS: Basophils % (A) 0 %; Eosinophils # (A) 0.1 k/uL (0-0.7); Eosinophils % (A) 1 %; HCT 45.6 % (39.0-53.0); HGB 14.9 gm/dL (13.0-17.5); Lymphocytes # (A) 0.6 k/uL (1.0-4.8); Lymphocytes % (A) 5 %; MCH 27.5 pg (25.0-35.0); MCHC 32.8 g/dL (31.0-37.0); Mean Platelet Volume 8.7; Monocytes # (A) 0.5 k/uL (0-1.0); Monocytes % (A) 4 %; Neutrophils # (A) 11.8 k/uL (1.3-7.7); Neutrophils % (A) 90 %; Platelet Count 159 k/uL (150-450); RBC 5.43 m/uL (4.30-5.90); RDW 13.8 % (11.5-15.5)
[2023-05-31] MEDS ORDERED: VANCOMYCIN 2,500 MG in SODIUM CHLORIDE 0.9% 500 ML 500 ML IVPB ONE (14:00)
[2023-05-31] MEDS: PIPERACILLIN-TAZOBACTAM 3.375 GM in SODIUM CHLORIDE 0.9% 100 ML IVPB STA (14:01)
[2023-05-31 14:14] LABS: ALT 36 U/L (4-49); AST 32 U/L (17-59); African American GFR (CKD) >90 (>60 ml/min/1.73 sqM); Albumin 3.3 g/dL (3.5-5.0); Alkaline Phosphatase 119 U/L (38-126); Anion Gap 8 mmol/L; Blood Urea Nitrogen 23 mg/dL (9-20); Calcium 8.6 mg/dL (8.4-10.2); Carbon Dioxide 29 mmol/L (22-30); Chloride 99 mmol/L (98-107); Glucose 240 mg/dL (74-99); Non-African American GFR(CKD) >90 (>60 ml/min/1.73 sqM); Potassium 4.3 mmol/L (3.5-5.1); Sodium 136 mmol/L (137-145); Total Bilirubin 1.9 mg/dL (0.2-1.3); Total Protein 6.1 g/dL (6.3-8.2)
[2023-05-31] MEDS: VANCOMYCIN 2,500 MG in SODIUM CHLORIDE 0.9% 500 ML 500 ML IVPB ONE (14:59)
--- NOTE | 2023-05-31 15:19 | CT ---
EXAMINATION TYPE: CT left ankle and foot wo con DATE OF EXAM: 05/31/2023 COMPARISON: MRI 11/08/2022 HISTORY: 42-year-old male M79.672, pain and swelling for 2 weeks, trauma/pain TECHNIQUE: Contiguous axial scanning of the left ankle and foot without IV contrast. Coronal and sagi ttal reconstructions performed. 3 reconstructions generated on a dedicated workstation. CT DLP: 135.7 mGycm Automated exposure control for dose reduction was used. FINDINGS: There is osseous destruction of mid foot tarsal bones with bony fragmentation, extensive joint effusi ons,, subluxations, bony debris, and extensive soft tissue swelling. However, in addition, there are foci of air at the site of fluid and bony erosions. No discrete overlying ulcer is identified. The ov erall loss of bone appears relatively similar compared to the 11/08/2022 MRI. IMPRESSION: MID FOOT OSSEOUS DESTRUCTION WITH BONY DEBRIS, SUBLUXATIONS, EFFUSIONS, AND PROMINENT SOFT TISSUE SWE LLING. OVERALL BONE LOSS IS SIMILAR TO THE 11/08/2022 MRI. FINDINGS SUGGEST CHARCOT ARTHROPATHY. HOWEV ER, ON THE PRESENT EXAM, WE NOTE FOCI AIR WITHIN THE REGIONS OF BONY DESTRUCTION AND EFFUSIONS. UNABL E TO EXCLUDE SUPERIMPOSED INFECTION. FURTHER CLINICAL CORRELATION RECOMMENDED.
[2023-05-31] MEDS: SODIUM CHLORIDE 0.9% 1,000 ML IV ONE (15:45)
[2023-05-31] MEDS: CEFEPIME 2 GM in SODIUM CHLORIDE 0.9% 100 ML IVPB STA (18:31)
[2023-05-31 20:37] LABS: Glucose,Whole Blood 283 mg/dL (70-110)
[2023-05-31] MEDS: MORPHINE SULFATE 2 MG/ML SYRINGE IVP PRN (20:57)
[2023-05-31] MEDS: metFORMIN 500 MG TAB PO SCH (21:34)
[2023-05-31] MEDS: GABAPENTIN 300 MG CAP PO SCH (21:35)
[2023-05-31] MEDS: DULoxetine HCL 20 MG CAPSULE.DR PO SCH (21:35)
[2023-05-31] MEDS: ATORVASTATIN 80 MG TAB PO SCH (21:35)
[2023-05-31] MEDS: INSULIN ASPART (NovoLOG) 100 UNIT/ML VIAL SQ SCH (21:35)
[2023-05-31] MEDS: INSULIN DETEMIR (LEVEMIR) 100 UNIT/ML SYR SQ SCH (21:35)
[2023-05-31] MEDS: CEFEPIME 2 GM in SODIUM CHLORIDE 0.9% 100 ML IVPB SCH (23:03)
[2023-05-31] MEDS: VANCOMYCIN 2,000 MG in SODIUM CHLORIDE 0.9% 500 ML 500 ML IVPB SCH (23:03)
[2023-05-31] MEDS: FAMOTIDINE 20 MG TAB PO SCH (23:03)
[2023-05-31] MEDS: METOCLOPRAMIDE 5 MG TAB PO SCH (23:03)
[2023-06-01 01:23] LABS: Glucose,Whole Blood 212 mg/dL (70-110)
[2023-06-01] MEDS: ACETAMINOPHEN TAB 500 MG TAB PO PRN (01:35)
[2023-06-01] MEDS: ONDANSETRON 4 MG/2 ML VIAL IVP PRN (01:35)
[2023-06-01] MEDS: IBUPROFEN 800 MG TAB PO PRN (03:51)
[2023-06-01] MEDS: HYDROmorphone 1 MG/ML 1 ML SYRINGE IVP PRN (04:01)
[2023-06-01] MEDS ORDERED: KETOROLAC 15 MG/ML 1 ML VIAL IVP SCH (06:00)
[2023-06-01 06:40] LABS: Glucose,Whole Blood 199 mg/dL (70-110)
[2023-06-01] MEDS: PANTOPRAZOLE 40 MG TABLET PO SCH (06:51)
[2023-06-01] MEDS: KETOROLAC 15 MG/ML 1 ML VIAL IVP PRN (06:51)
[2023-06-01] MEDS: ASCORBIC ACID 500 MG TAB PO SCH (09:32)
[2023-06-01] MEDS: LORATADINE 10 MG TAB PO SCH (09:33)
[2023-06-01 11:50] LABS: Glucose,Whole Blood 236 mg/dL (70-110)
--- NOTE | 2023-06-01 14:23 | US ---
EXAMINATION TYPE: US venous doppler duplex LE LT DATE OF EXAM: 06/01/2023 1:34 PM COMPARISON: NONE CLINICAL INDICATION: Male, 42 years old with history of swelling; Left leg edema and pain SIDE PERFORMED: left TECHNIQUE: The lower extremity deep venous system is examined utilizing real time linear array sonog anastasiia with graded compression, doppler sonography and color-flow sonography. VESSELS IMAGED: Common Femoral Vein Deep Femoral Vein Greater Saphenous Vein * Femoral Vein Popliteal Vein Small Saphenous Vein * Proximal Calf Veins (* superficial vessels) *Limitations due to patient's body habitus Left Leg: No evidence of DVT as visualized IMPRESSION: Grayscale, color doppler, spectral doppler imaging performed of the deep veins of the lo wer extremities. There is normal flow, compressibility, vascular waveforms.
[2023-06-01 16:45] LABS: Glucose,Whole Blood 236 mg/dL (70-110)
[2023-06-01] MEDS: SODIUM CHLORIDE 0.9% 500 ML 500 ML IV ONE ×2 (20:04→22:51)
[2023-06-01] MEDS: METOPROLOL TARTRATE 25 MG TAB PO SCH (20:05)
[2023-06-01] MEDS: SODIUM CHLORIDE 0.9% 1,000 ML IV SCH (20:07)
--- NOTE | 2023-06-01 20:40 | P.HPIM ---
History of Present Illness H&P Date: 06/01/23 Chief Complaint: Infected right second toe amputation with cellulitis HISTORY OF PRESENT ILLNESS: This is a 42-year-old male with a previous medical history significant for hypertension and hypertensive cardiovascular disease, hyperlipidemia, obesity with obstructive sleep apnea and obesity hypoventilation syndrome,diabetes mellitus type 2 with daibetic polyneuropathy, has been doing better with diabtes care as a matter of fact his HBA1C is down to 9 fom 11.7 % and patient has lost quite a bit of weight since the addition of Mounjaro to his medical regimen that he was out off for the past 4 chipewwa due to insurance issues, patient has had diabetic foot ulcer with charcot feet, he underwent right third toe amputation by vascular surgery Dr. Hua back in December 2022, he has been following with Dr. Holguin who performed a right second toe amputation Thursday be fore last as an outpatient here at [facility], and he was seen and evaluated by him as a follow-up, he had minimal dehiscence and he ended up putting more sutures to his amputation site, apparently the patient was supposed to follow-up with the wound healing center at [facility] on this coming Thursday patient apparently was seen in the emergency department at [facility] on May 29 for increased redness and increased pain of the right second toe amputation, and at that time he was sent home he ended up going to the ER at [facility] nothing was done, and the patient was sent home as well, I received a call from his stating that the patient is not doing well he appears to be quite sick to his stomach, he has significant redness to the right second toe amputation site with increased fever and chills not able to keep anything down, he was directed to go back to the emergency department because of what appears to have a sepsis, patient was seen in the ER, patient also had fallen off his scooter and landed on his left foot, he has not been able to bear any weight on his left foot, his x-ray initially did not show any evidence of acute abnormalities, however a CT scan of the foot that was done in the ER did show evidence of air foci suggestive of infection on top of the destructive bones and subluxation with significant edema and effusion patient will be seen in consultation by orthopedic surgery, consulted Dr. Mcguire who declined the consult and send the consult back to Dr. Holguin REVIEW OF SYSTEMS: Constitutional: positive for documented fever, no chills, no night sweats. No weight change. positive for weakness, fatigue or lethargy. No daytime sleepiness. HEENT: No headache. No blurred vision or double vision, no loss of vision. No loss of Hearing, no ringing in the ears, no dizziness. No nasal drainage or congestion. No epistaxis. No sore throat. Lungs: no shortness of breath, no cough, or sputum production. No wheezing. Reports no dyspnea with activity. Cardiovascular: no chest pain, positive for lower extremity edema. positive for palpitations. negative for paroxysmal nocturnal dyspnea. negative for orthopnea. No lightheadedness or dizziness. No syncopal episodes. Abdominal: Reports no abdominal pain. positive for nausea,positive for vomiting. No diarrhea. No constipation. No bloody or tarry stools Genitourinary: No dysuria, increased frequency, urgency, Musculoskeletal: No myalgias, positive for weakness, bilateral charcot feet, left foot with severe swelling and tenderness, right foot post right second toe amputation and 3rd toe amputation Integumentary: right third toe amputation, right second toe amputation with suture in place, with increased erythema and tenderness No rash or pruritus. positive for unusual bruising. No change in hair or nails. Neurologic: No aphasia. No facial droop. No change in mentation. No head injury. No headache. No paralysis. No paresthesia. Psychiatric: positive for depression. No anxiety. No mood swings. Endocrine: positive for abnormal blood sugars. positive for weight change. PAST MEDICAL HISTORY: Hypertension and hypertensive cardiovascular disease. Hyperlipidemia. Diabetes Mellitus type 2. Uncontrolled Diabetic Polyneuropathy Obesity with SHERI and OHS. Bilateral charcot feet. PAST SURGICAL HISTORY: Right knee surgery 1999 Right Knee Meniscal tear repair 05/2020 Right second toe tendon surgery 10/27/2022 Right third toe amputation Right second toe amputation SOCIAL HISTORY: She used to smoke about pack every day he smoked for many years and quit years ago, he denies any alcohol ingestion, no drug use or abuse. FAMILY HISTORY: Father at age of 62 from PAD and had amputations, Mother is 62 with breast cancer, patient has one brother alive and well,2 sisters one with DM2, patient has 2 daughters ok PHYSICAL EXAMINATION: General: 42 year male sitting up in chair does appear to be in distress HEENT: Head is atraumatic, normocephalic, pupils were equal round reactive to light and recommendation, extraocular muscle movement were intact, sclera nonicteric, conjunctivae were pale, mucous membranes of the mouth are somewhat dry. Neck: Supple, no JVP, normal carotid upstroke bilaterally, no lymphadenopathy. Chest: Decreased breath sounds at the bases, few rhonchi, no expiratory wheezes or intercostal retractions Heart: First heart sound is normal, second heart sound is normal, tachycardic, there is no gallop or murmur. Abdomen: Soft, nontender, nondistended, positive bowel sounds, obese. Extremities: There is +1 edema no calf tenderness DP +2 bilaterally, positive for neuropathy and charcot feet , right third toe amputation, right second toe amputation with sutures in place with significant erythema and tenderness. Left foot severely swollen and severely tender to palpation Neurologic examination: Patient is awake alert and oriented X 3, cranial nerves II-12 appear grossly intact, muscle power were 5 out of 5 in upper extremities and 4/5 in right lower extremity ASSESSMENT AND PLAN: 1. Infected right second toe amputation site with cellulitis associated with MRSA bacteremia. Continue vancomycin with pharmacy to dose its peak and trough, continue cefepime 2 g every back every 8 hours, infectious disease consultation, consulted Dr. Mcguire however he sent a consult to Dr. Chelsie Holguin apparently is not available at this time, we will continue to monitor the patient very closely. Current management with Dilaudid 1 mg IV push every 4 hours, as well as Toradol 15 mg IV push every 6 hours as needed. 2. Severe tenderness in the left foot status post CT scan that showed evidence of Charcot at foot along with bony destruction with air foci suggestive of infectious process. Continue IV antibiotic, vancomycin and cefepime, consult orthopedic surgery Dr. Mcguire and if is not willing consult Dr. Holguin 3. Supraventricular tachycardia. Start the patient on IV fluid resuscitation in the form of normal saline 75 cc an hour, start the patient on metoprolol 25 m g orally twice every day, consult cardiology Dr. Guevara. 4. Diabetes Mellitustype 2 non controlled. we will continue with Levemir 80 units SC at bedtime along with SSI , has been off GLP_1 RA ( Mounjaro) , we will continue with Metformin 26808 mg po bid and we will continue with BGM AC HS. 5. Diabetic Polyneuropathy with charcot feet. we will continue with Gabapentin 600 mg po bid 6. Hyperlipidemnia. we will continue with Atorvastatin 80 mg po daily, keep LDL- c 55-70. 7. Hypertension and hypertensive cardiovascular disease. Start the patient on metoprolol 25 mg orally twice every day. 8. Obesity with OS and OHS. we will continue with weight loss, never made it for a sleep study. 9. DVT prophylaxis. we will use Lovenox 40 mg SC daily. 10. GI Prophylaxis. we will continue with famotidine 40 mg at bedtime. 11. Severe gastroparesis. Start the patient on metoclopramide 10 mg before each meal 3 times every day. 12. Major depressive disorder. Continue patient on duloxetine 20 mg orally once every day. 13. Admits to inpatient, estimated length of stay 2 midnights. 14. Full Code Past Medical History Past Medical History: Diabetes Mellitus Additional Past Medical History / Comment(s): neuropathy History of Any Multi-Drug Resistant Organisms: None Reported Past Surgical History: Orthopedic Surgery Additional Past Surgical History / Comment(s): 2nd and 3rd partial digit removed to right foot, Past Anesthesia/Blood Transfusion Reactions: No Reported Reaction Past Psychological History: No Psychological Hx Reported Smoking Status: Never smoker Past Alcohol Use History: None Reported Past Drug Use History: None Reported Medications and Allergies Home Medications Medication Instructions Recorded Confirmed Type Ascorbic Acid [Vitamin C] 1,000 mg PO DAILY 01/06/23 05/31/23 History Atorvastatin [Lipitor] 80 mg PO HS 01/06/23 05/31/23 History Gabapentin 600 mg PO BID 01/06/23 05/31/23 History Insulin Lispro [humaLOG Kwikpen] See Protocol SQ AC-TID 01/06/23 05/31/23 History Loratadine 20 mg PO DAILY 01/06/23 05/31/23 History Omeprazole 40 mg PO DAILY 01/06/23 05/31/23 History Tirzepatide [Mounjaro] 5 mg SQ SA 01/06/23 05/31/23 History metFORMIN HCL ER [Glucophage XR] 1,000 mg PO HS 01/06/23 05/31/23 History Acetaminophen [Tylenol Extra 1,000 mg PO Q4H PRN 05/31/23 05/31/23 History Strength] DULoxetine HCL [Cymbalta] 20 mg PO HS 05/31/23 05/31/23 History Ibuprofen [Motrin Ib] 800 mg PO Q4H PRN 05/31/23 05/31/23 History Insulin Glargine-Yfgn [Semglee 70 unit SQ HS 05/31/23 05/31/23 History (Yfgn) Pen] Sulfamethox-Tmp 800-160Mg [Bactrim 1 tab PO Q12HR 05/31/23 05/31/23 History DS 800-160 mg] Allergies Allergy/AdvReac Type Severity Reaction Status Date / Time No Known Allergies Allergy Verified 05/31/23 15:29 Physical Exam Vitals: Vital Signs Temp Pulse Resp BP BP Pulse Ox 06/01/23 13:44 99.9 F H 123 H 18 148/82 91 L 06/01/23 07:05 98.2 F 111 H 17 120/73 91 L 06/01/23 02:00 98.5 F 82 122/69 90 L Intake and Output 06/01/23 06/01/23 06/01/23 06:59 14:59 22:59 Intake Total 600 Output Total 500 Balance -500 600 Intake: Intake, IV Titration 600 Amount Cefepime 2 gm In Sodium 100 Chloride 0.9% 100 ml @ 25 mls/hr IVPB Q8HR PAL Rx# :[id number] Vancomycin 2,000 mg In 500 Sodium Chloride 0.9% 500 ml 500 ml @ 167 mls/hr IVPB Q8H PAL Rx#: [id number] Output: Urine 500 Other: # Voids 2 1 Results CBC & Chem 7: 05/31/23 13:50 05/31/23 13:50 Labs: Abnormal Lab Results - Last 24 Hours (Table) 05/31/23 06/01/23 06/01/23 Range/Units 20:36 01:22 06:29 POC Glucose (mg/dL) 283 H 212 H 199 H (70-110) mg/dL 06/01/23 06/01/23 Range/Units 11:42 16:44 POC Glucose (mg/dL) 236 H 236 H (70-110) mg/dL Microbiology - Last 24 Hours (Table) 05/31/23 13:45 Blood Culture Gram Stain - Preliminary Blood 05/31/23 13:30 Blood Culture Gram Stain - Preliminary Blood 05/31/23 13:37 Gram Stain - Preliminary Toe - Right Second Thrombosis Risk Factor Assmnt - Choose All That Apply Any of the Below Risk Factors Present?: Yes Each Factor Represents 1 point: Obesity (BMI >25) Thrombosis Risk Factor Assessment Total Risk Factor Score: 1 Thrombosis Risk Factor Assessment Level: Low Risk
--- NOTE | 2023-06-01 21:12 | XR ---
EXAMINATION TYPE: XR chest 1V DATE OF EXAM: 06/01/2023 8:58 PM CLINICAL INDICATION:Male, 42 years old with history of SOB; PH[facility] COMPARISON: None TECHNIQUE: XR chest 1V Frontal view of the chest. FINDINGS: Lungs/Pleura: Low lung volumes are present. There is no evidence of pleural effusion, focal consolida tion, or pneumothorax. Pulmonary vascularity: Unremarkable. Heart/mediastinum: Cardiomediastinal silhouette is unremarkable. Musculoskeletal: No acute osseous pathology. IMPRESSION: Low lung volumes with a generalized hazy appearance which could represent atelectasis.
[2023-06-01 21:16] LABS: Glucose,Whole Blood 239 mg/dL (70-110)
--- NOTE | 2023-06-01 22:48 | P.CONS ---
History of Present Illness - Reason for Consult Consult date: 06/01/23 Toe infection Requesting physician: Ramiro Rodriguez - Chief Complaint Pain and redness to the right second toe and foot x days - History of Present Illness Patient is a 42-year-old male with a past medical history significant for diabetes mellitus patient recently did have right second toe distal phalanx amputation completed by podiatry about 2 weeks ago last Thursday a week after surgery patient apparently did have a dehiscence of his wound and some of the st itches has been reapplied patient is a low presenting to the hospital increased redness and pain to the right second toe amputation site patient describes the pain to be sharp throbbing moderate to severe intensity without any deviation did have some swelling and redness to the right foot patient was evaluated the ER on May 29 subsequently discharged home and apparently afterwards has been evaluated at [facility] ER from where the patient was discharged as well patient presenting back to [facility] after he has follow-up with scooter and landing on his left foot and has been able to bear any weight on his left foot with the symptoms the patient has been evaluated on presentation to the hospital patient did have a low-grade fever 100.4 degrees for right patient was tachycardic but not hypotensive or hypoxic and no need for supplemental oxygen did have a white count of 13,000 kidney function has been normal liver enzymes are normal local cultures obtained as well as blood culture which are coming back positive for MRSA he did have a lower extremity CT to the left foot suspicious for Charcot deformity patient was started on cefepime and vancomycin infectious disease was consulted for further management of antibiotic therapy Review of Systems Positive point and negatives has been mentioned in the HPI, complete review of systems was performed and all other systems are negative Past Medical History Past Medical History: Diabetes Mellitus Additional Past Medical History / Comment(s): neuropathy History of Any Multi-Drug Resistant Organisms: None Reported Past Surgical History: Orthopedic Surgery Additional Past Surgical History / Comment(s): 2nd and 3rd partial digit removed to right foot, Past Anesthesia/Blood Transfusion Reactions: No Reported Reaction Past Psychological History: No Psychological Hx Reported Smoking Status: Never smoker Past Alcohol Use History: None Reported Past Drug Use History: None Reported Medications and Allergies Home Medications Medication Instructions Recorded Confirmed Type Ascorbic Acid [Vitamin C] 1,000 mg PO DAILY 01/06/23 05/31/23 History Atorvastatin [Lipitor] 80 mg PO HS 10/17/23 03/10/24 History Gabapentin 600 mg PO BID 01/06/23 05/31/23 History Insulin Lispro [humaLOG Kwikpen] See Protocol SQ AC-TID 01/06/23 05/31/23 History Loratadine 20 mg PO DAILY 01/06/23 05/31/23 History Omeprazole 40 mg PO DAILY 01/06/23 05/31/23 History Tirzepatide [Mounjaro] 5 mg SQ SA 01/06/23 05/31/23 History metFORMIN HCL ER [Glucophage XR] 1,000 mg PO HS 01/06/23 05/31/23 History Acetaminophen [Tylenol Extra 1,000 mg PO Q4H PRN 05/31/23 05/31/23 History Strength] DULoxetine HCL [Cymbalta] 20 mg PO HS 05/31/23 05/31/23 History Ibuprofen [Motrin Ib] 800 mg PO Q4H PRN 05/31/23 05/31/23 History Insulin Glargine-Yfgn [Semglee 70 unit SQ HS 05/31/23 05/31/23 History (Yfgn) Pen] Sulfamethox-Tmp 800-160Mg [Bactrim 1 tab PO Q12HR 05/31/23 05/31/23 History DS 800-160 mg] Allergies Allergy/AdvReac Type Severity Reaction Status Date / Time No Known Allergies Allergy Verified 05/31/23 15:29 Physical Exam Vitals: Vital Signs Temp Pulse Pulse Resp BP BP BP 06/01/23 07:05 98.2 F 111 H 17 120/73 06/01/23 02:00 98.5 F 82 122/69 05/31/23 20:00 98.8 F 117 H 115/67 05/31/23 15:48 99 F 05/31/23 15:17 100.3 F H 104 H 18 127/71 05/31/23 14:45 99.3 F 05/31/23 13:37 100.4 F H 05/31/23 12:58 98.6 F 114 H 20 118/66 Pulse Ox 06/01/23 07:05 91 L 06/01/23 02:00 90 L 05/31/23 20:00 92 L 05/31/23 15:48 05/31/23 15:17 94 L 03/10/24 14:45 05/31/23 13:37 05/31/23 12:58 96 Intake and Output 05/31/23 06/01/23 06/01/23 22:59 06:59 14:59 Output Total 500 Balance -500 Output: Urine 500 Other: Voiding Method Urinal # Voids 2 Weight 158.757 kg GENERAL DESCRIPTION: Middle-aged male lying in bed, no distress. No tachypnea or accessory muscle of respiration use. HEENT: Shows Pallor , no scleral icterus. Oral mucous membrane is dry. No pharyngeal erythema or thrush NECK: Trachea central, no thyromegaly. LUNGS: Unlabored breathing. Clear to auscultation anteriorly. No wheeze or c rackle. HEART: S1, S2, regular rate and rhythm. No loud murmur ABDOMEN: Soft, no tenderness , guarding or rigidity, no organomegaly EXTREMITIES: Right second toe tip wound he did have swelling and redness to the right second toe extending to the dorsum aspect of the right foot patient also have significant swelling to the left lower extremity especially the ankle area SKIN: No rash, no masses palpable. NEUROLOGICAL: The patient is awake, alert, oriented x3, mood and affect normal. Results CBC & Chem 7: 06/06/23 06:38 06/06/23 06:38 Labs: Abnormal Lab Results - Last 24 Hours (Table) 05/31/23 05/31/23 05/31/23 Range/Units 13:50 13:50 20:36 WBC 13.0 H (3.8-10.6) k/uL Neutrophils # 11.8 H (1.3-7.7) k/uL Lymphocytes # 0.6 L (1.0-4.8) k/uL Sodium 136 L (137-145) mmol/L BUN 23 H (9-20) mg/dL Glucose 240 H (74-99) mg/dL POC Glucose (mg/dL) 283 H (70-110) mg/dL Total Bilirubin 1.9 H (0.2-1.3) mg/dL Total Protein 6.1 L (6.3-8.2) g/dL Albumin 3.3 L (3.5-5.0) g/dL 06/01/23 06/01/23 Range/Units 01:22 06:29 WBC (3.8-10.6) k/uL Neutrophils # (1.3-7.7) k/uL Lymphocytes # (1.0-4.8) k/uL Sodium (137-145) mmol/L BUN (9-20) mg/dL Glucose (74-99) mg/dL POC Glucose (mg/dL) 212 H 199 H (70-110) mg/dL Total Bilirubin (0.2-1.3) mg/dL Total Protein (6.3-8.2) g/dL Albumin (3.5-5.0) g/dL Microbiology - Last 24 Hours (Table) 05/31/23 13:37 Gram Stain - Preliminary Toe - Right Second Assessment and Plan (1) Cellulitis of right foot Status: Acute Code(s): L03.115 - CELLULITIS OF RIGHT LOWER LIMB SNOMED Code(s): 81652226751663180 (2) Postoperative infection Status: Acute Code(s): T81.40XA - INFECTION FOLLOWING A PROCEDURE, UNSPECIFIED, INIT SNOMED Code(s): 07464810 (3) Sepsis Status: Acute Code(s): A41.9 - SEPSIS, UNSPECIFIED ORGANISM SNOMED Code(s): 92719740 (4) Type 2 diabetes mellitus with foot ulcer Status: Acute Code(s): E11.621 - TYPE 2 DIABETES MELLITUS WITH FOOT ULCER; L97.509 - NON-PRESSURE CHRONIC ULCER OTH PRT UNSP FOOT W UNSP SEVERITY SNOMED Code(s): 295122563 Plan: 1patient presented to hospital with increasing pain and swelling to the right second toe amputation site in this patient who did have features of sepsis with a fever elevated white count source is right second toe distal phalanx amputation site infection and concerning for secondary cellulitis likely from gram-positive skin torres gram-negative infection less likely but not excluded 2-patient also have a fall from his scooter landed on his left lower extremity CT suspicious for Charcot deformity did have significant swelling will need to rule out underlying DVT 3-we will check Doppler ultrasound of the left lower extremity 4-patient to continue with the vancomycin and cefepime while waiting for the workup to be completed We will follow on clinical condition and cultures to further adjust medication if needed Thank you for this consultation we will follow the patient along with you Dictation was produced using [employer] software. please excuse any grammatical, word or spelling errors. Time with Patient: Greater than 30
[2023-06-01] MEDS: INSULIN DETEMIR (LEVEMIR) 100 UNIT/ML SYR SQ SCH (23:22)
[2023-06-02 05:56] LABS: Glucose,Whole Blood 128 mg/dL (70-110)
[2023-06-02] MEDS: METOCLOPRAMIDE 10 MG TAB PO SCH (06:11)
--- NOTE | 2023-06-02 07:28 | CT ---
EXAMINATION TYPE: CT chest angio for PE DATE OF EXAM: 06/02/2023 COMPARISON: Radiograph 06/01/2023 HISTORY: 42-year-old male shortness of breath, rule out PE TECHNIQUE: Contiguous axial scanning of the chest performed with IV Contrast, patient injected with 1 00 mL of Isovue 370. Coronal and sagittal MIP reconstructions performed. CT DLP: 1318.2 mGycm Automated exposure control for dose reduction was used. FINDINGS: The heart is upper limits of normal in size without pericardial effusion. No flattening of interventr icular septum or reflux of contrast into hepatic veins. Aorta normal caliber with bovine configuration to the aortic arch. Prominent 1.2 cm left hilar lymph node. Prominent 1.4 cm subcarinal lymph node. Probably reactive/pos t inflammatory. Otherwise, no thoracic lymphadenopathy by CT size criteria. There is extensive breathing motion artifact throughout causing extensive heterogeneity of the pulmon mike arterial tree. In addition, there is suboptimal contrast bolus further limiting the evaluation. Mildly enlarged caliber to the main right and left pulmonary arteries measuring up to 2.6 cm may refl ect underlying pulmonary hypertension. No large central or saddle pulmonary embolus. Many of the loba r, segmental, and more distal arterial branches are entirely nondiagnostic due to the extensive heter ogeneity and emboli in these locations cannot be excluded on the basis of this exam. There is moderate diffuse bronchial wall thickening. Some patchy groundglass change upper lungs and l ower lungs along with some septal lines. Possible trace effusions. Spleen enlarged at 15.2 cm. Liver enlarged at 20.7 cm. Small endplate Schmorl's nodes and mild degenerative disc disease mid to lower thoracic spine. Slight levoconvex curvature upper third thoracic spine. IMPRESSION: 1. SUBOPTIMAL CONTRAST BOLUS WITH FURTHER LIMITATION THE PATIENT WAS BREATHING THROUGH THE SCAN. N O LARGE CENTRAL/SADDLE PULMONARY EMBOLUS. MANY OF THE LOBAR, SEGMENTAL, AND MORE DISTAL ARTERIAL BRAN CHES ARE ENTIRELY NONDIAGNOSTIC AND EMBOLI IN THESE LOCATIONS CANNOT BE EXCLUDED ON THE BASIS OF THIS EXAM. 2. There may be underlying pulmonary arterial hypertension. In addition, suggestion of trace effusion s and mild scattered groundglass in the upper and lower lungs with some septal lines. The constellati on of findings may reflect early CHF and pulmonary vascular congestion. Further clinical correlation advised. 3. Hepatosplenomegaly.
[2023-06-02] MEDS: ENOXAPARIN 40 MG/0.4 ML SYRINGE SQ SCH (08:01)
[2023-06-02] MEDS: FUROSEMIDE 10 MG/ML 4 ML VIAL IV STA (08:01)
[2023-06-02 08:48] LABS: Basophils # (A) 0.03 X 10*3/uL (0.00-0.10); Basophils % (A) 0.2 %; Eosinophils # (A) 0.02 X 10*3/uL (0.04-0.35); Eosinophils % (A) 0.2 %; HGB 13.5 g/dL (13.0-17.0); Lymphocytes # (A) 0.71 X 10*3/uL (0.90-5.00); Lymphocytes % (A) 5.9 %; MCH 26.1 pg (27.0-32.0); MCHC 30.7 g/dL (32.0-37.0); MCV 84.9 FL (80.0-97.0); Mean Platelet Volume 10.9 FL (9.5-12.2); Monocytes # (A) 1.04 X 10*3/uL (0.20-1.00); Monocytes % (A) 8.6 %; NRBC Per 100 WBC 0 X 10*3/uL (0.00-0.01); Neutrophils # (A) 10.23 X 10*3/uL (1.80-7.70); Neutrophils % (A) 84.5 %; Platelet Count 191 X 10*3/uL (140-440); RBC 5.18 X 10*6/uL (4.40-5.60); RDW 14.3 % (11.5-14.5)
[2023-06-02 09:23] LABS: Erythrocyte Sedimentation Rate 51 mm/Hr (0-15)
--- NOTE | 2023-06-02 10:52 | P.CRDCN ---
History of Present Illness History of present illness: HISTORY OF PRESENT ILLNESS: This is a 42-year-old male with a past medical history significant for hyperlipidemia, diabetes, morbid obesity, right third toe amputation, and recent right second toe amputation. Patient does not follow with a furniture inspector. We have been asked to see the patient in consultation for SVT. Patient examined this morning. Patient is sitting up in the chair. Patient is admitted to the hospital secondary to an infection of his right second toe amputation site. Patient does have MRSA bacteremia. He is receiving IV antibiotics. The patient also reports significant left lower extremity swelling. The patient denies any chest pain or pressure. He currently denies shortness of breath. EKG obtained yesterday reveals sinus tachycardia. Apparently there was some question of SVT. He was started on metoprolol by Dr. Seaman. Patient's telemetry this morning reveals sinus tachycardia. He denies having any palpitations. He denies any dizziness or lightheadedness. DIAGNOSTICS: - EKG reveals sinus tachycardia - Chest xray low lung volumes with generalized hazy appearance which could represent atelectasis -Chest CTA: Negative for pulmonary embolism. Pulmonary vascular congestion and trace bilateral effusions. - Laboratory data: WBC 12.10. Hemoglobin 13.5. Platelet count 191. Sodium 136. Potassium 4.3. BUN 23. Creatinine 0.97. Troponin negative x 1. Lactic acid 1.8. - Current home cardiac medications include Lipitor 80 mg at night. REVIEW OF SYSTEMS: At the time of my exam: CONSTITUTIONAL: Denies fever or chills. HEENT: Denies blurred vision, vision changes, or eye pain. Denies hemoptysis CARDIOVASCULAR: Denies chest pain. Denies orthopnea. Denies PND. Denies palpitations RESPIRATORY: Denies shortness of breath. GASTROINTESTINAL: Denies abdominal pain. Denies nausea or vomiting. HEMATOLOGIC: Denies bleeding disorders. GENITOURINARY: Denies any blood in urine. SKIN: Denies pruitis. Denies rash. PHYSICAL EXAM: VITAL SIGNS: Reviewed. GENERAL: Well-developed in no acute distress. HEENT: Head is normocephalic. Pupils are equal, round. Sclerae anicteric. Mucous membranes of the mouth are moist. Neck supple. No JVD or thyromegaly LUNGS: Respirations even and unlabored. Lungs essentially clear to auscultation bilaterally. HEART: Tachycardic. Regular rate and rhythm. S1 and S2 heard. ABDOMEN: Soft. Nondistended. Nontender. EXTREMITIES: Normal range of motion. No clubbing or cyanosis. Peripheral pulses intact. Significant left lower extremity edema. Right lower extremity with dressing noted. NEUROLOGIC: Awake and alert. Oriented x 3. ASSESSMENT: Infected right second toe amputation site with cellulitis and MRSA bacteremia Sinus tachycardia, SVT less likely Acute heart failure, type unknown, echo pending Hyperlipidemia Diabetes History of right third toe amputation Obstructive sleep apnea Morbid obesity PLAN: Obtain 2D echo to assess cardiac structure and function Continue current dose of metoprolol. Patient started on 25 mg twice a day per primary medicine Begin IV Lasix 40 mg every 12 hours Daily weights, accurate intake and output, and monitoring of kidney function Discontinue IV fluids Continue telemetry monitoring Further recommendations pending patient course Nurse practitioner note has been reviewed by physician. Signing provider agrees with the documented findings, assessment, and plan of care documented by CAMP HOUSEKEEPER as a scribe. Past Medical History Past Medical History: Diabetes Mellitus Additional Past Medical History / Comment(s): neuropathy History of Any Multi-Drug Resistant Organisms: None Reported Past Surgical History: Orthopedic Surgery Additional Past Surgical History / Comment(s): 2nd and 3rd partial digit removed to right foot, Past Anesthesia/Blood Transfusion Reactions: No Reported Reaction Past Psychological History: No Psychological Hx Reported Smoking Status: Never smoker Past Alcohol Use History: None Reported Past Drug Use History: None Reported Medications and Allergies Home Medications Medication Instructions Recorded Confirmed Type Ascorbic Acid [Vitamin C] 1,000 mg PO DAILY 01/06/23 05/31/23 History Atorvastatin [Lipitor] 80 mg PO HS 01/06/23 05/31/23 History Gabapentin 600 mg PO BID 01/06/23 05/31/23 History Insulin Lispro [humaLOG Kwikpen] See Protocol SQ AC-TID 01/06/23 05/31/23 History Loratadine 20 mg PO DAILY 01/06/23 05/31/23 History Omeprazole 40 mg PO DAILY 01/06/23 05/31/23 History Tirzepatide [Mounjaro] 5 mg SQ SA 01/06/23 05/31/23 History metFORMIN HCL ER [Glucophage XR] 1,000 mg PO HS 01/06/23 05/31/23 History Acetaminophen [Tylenol Extra 1,000 mg PO Q4H PRN 05/31/23 05/31/23 History Strength] DULoxetine HCL [Cymbalta] 20 mg PO HS 05/31/23 05/31/23 History Ibuprofen [Motrin Ib] 800 mg PO Q4H PRN 05/31/23 05/31/23 History Insulin Glargine-Yfgn [Semglee 70 unit SQ HS 05/31/23 05/31/23 History (Yfgn) Pen] Sulfamethox-Tmp 800-160Mg [Bactrim 1 tab PO Q12HR 05/31/23 05/31/23 History DS 800-160 mg] Allergies Allergy/AdvReac Type Severity Reaction Status Date / Time No Known Allergies Allergy Verified 05/31/23 15:29 Physical Exam Vitals: Vital Signs Temp Pulse Resp BP Pulse Ox 06/02/23 08:40 99.8 F H 116 H 06/02/23 08:00 100.1 F H 137 H 95 06/02/23 07:00 100.4 F H 135 H 18 141/64 95 06/02/23 00:22 98.1 F 114 H 20 128/73 96 06/01/23 23:53 98.9 F 108 H 18 118/60 95 06/01/23 19:09 101.6 F H 153 H 22 137/72 96 06/01/23 13:44 99.9 F H 123 H 18 148/82 91 L Intake and Output 06/01/23 06/02/23 06/02/23 22:59 06:59 14:59 Intake Total 600 Output Total 400 700 Balance 600 -400 -700 Intake: Intake, IV Titration 600 Amount Cefepime 2 gm In Sodium 100 Chloride 0.9% 100 ml @ 25 mls/hr IVPB Q8HR COUNTS INCLUDE 234 BEDS AT THE [facility] Rx# :[id number] Vancomycin 2,000 mg In 500 Sodium Chloride 0.9% 500 ml 500 ml @ 167 mls/hr IVPB Q8H COUNTS INCLUDE 234 BEDS AT THE [facility] Rx#: [id number] Output: Urine 400 700 Other: Voiding Method Urinal Results 06/02/23 06:19 05/31/23 13:50 Cardiac Enzymes 06/01/23 Range/Units 21:23 Troponin I <0.012 (0.000-0.034) ng/mL CBC 06/02/23 Range/Units 06:19 WBC 12.10 H (4.50-10.00) X 10*3/uL RBC 5.18 (4.40-5.60) X 10*6/uL Hgb 13.5 (13.0-17.0) g/dL Hct 44.0 (39.6-50.0) % Plt Count 191 (140-440) X 10*3/uL Current Medications Generic Name Dose Route Start Last Admin Trade Name Freq PRN Reason Stop Dose Admin Acetaminophen 1,000 mg 05/31/23 20:31 06/02/23 07:25 Acetaminophen Tab 500 Mg Tab PO 1,000 mg Q4H PRN Administration Fever and/ or Mild Pain Ascorbic Acid 1,000 mg 06/01/23 09:00 06/02/23 08:00 Ascorbic Acid 500 Mg Tab PO 1,000 mg DAILY PAL Administration Atorvastatin Calcium 80 mg 05/31/23 21:00 06/01/23 22:50 Atorvastatin 80 Mg Tab PO 80 mg HS PAL Administration Duloxetine HCl 20 mg 05/31/23 21:00 06/01/23 22:50 Duloxetine Hcl 20 Mg Capsule.Dr PO 20 mg HS PAL Administration Enoxaparin Sodium 40 mg 06/02/23 09:00 06/02/23 08:01 Enoxaparin 40 Mg/0.4 Ml Syringe SQ 40 mg DAILY PAL Administration Famotidine 40 mg 05/31/23 22:45 06/01/23 22:50 Famotidine 20 Mg Tab PO 40 mg HS PAL Administration Gabapentin 600 mg 05/31/23 21:00 06/02/23 07:59 Gabapentin 300 Mg Cap PO 600 mg BID PAL Administration Hydromorphone HCl 1 mg 06/01/23 03:55 06/02/23 00:48 Hydromorphone 1 Mg/Ml 1 Ml Syringe IVP 1 mg Q4HR PRN Administration Pain Vancomycin HCl 2,000 mg/ 500 mls @ 167 mls/hr 06/01/23 00:00 06/02/23 08:00 Sodium Chloride IVPB 167 mls/hr Q8H PAL Administration Cefepime HCl 2 gm/ Sodium 100 mls @ 25 mls/hr 06/01/23 00:00 06/02/23 08:01 Chloride IVPB 25 mls/hr Q8HR PAL Administration Protocol Sodium Chloride 1,000 mls @ 20 mls/hr 06/01/23 20:00 06/01/23 20:07 Saline 0.9% IV 75 mls/hr .Q24H PAL Administration Insulin Aspart 0 unit 05/31/23 21:00 06/02/23 05:57 Insulin Aspart (Novolog) 100 Unit/Ml Vial SQ Not Given ACHS COUNTS INCLUDE 234 BEDS AT THE [facility] Protocol Insulin Detemir 80 unit 06/01/23 21:00 06/01/23 23:22 Insulin Detemir (Levemir) 100 Unit/Ml Syr SQ 80 unit HS PAL Administration Ketorolac Tromethamine 15 mg 06/01/23 03:59 06/02/23 07:24 Ketorolac 15 Mg/Ml 1 Ml Vial IVP 06/06/23 03:56 15 mg Q6HR PRN Administration Pain Loratadine 10 mg 06/01/23 09:00 06/02/23 08:00 Loratadine 10 Mg Tab PO 10 mg DAILY PAL Administration Metformin HCl 1,000 mg 05/31/23 21:00 06/01/23 22:50 Metformin 500 Mg Tab PO 1,000 mg HS COUNTS INCLUDE 234 BEDS AT [facility] Administration Metoclopramide HCl 10 mg 06/02/23 07:30 06/02/23 06:11 Metoclopramide 10 Mg Tab PO 10 mg AC-TID PAL Administration Metoprolol Tartrate 25 mg 06/01/23 21:00 06/02/23 08:00 Metoprolol Tartrate 25 Mg Tab PO 25 mg BID PAL Administration Miscellaneous Information 0 each 06/02/23 15:00 Vancomycin Trough Due 1 Each Misc MISCELLANE 06/02/23 15:01 DIRECTED ONE Ondansetron HCl 6 mg 06/01/23 01:08 06/01/23 11:08 Ondansetron 4 Mg/2 Ml Vial IVP 6 mg Q6HR PRN Administration Nausea And Vomiting Pantoprazole Sodium 40 mg 06/01/23 07:30 06/02/23 06:11 Pantoprazole 40 Mg Tablet PO 40 mg AC-[id number] PAL Administration Intake and Output 06/01/23 06/02/23 06/02/23 22:59 06:59 14:59 Intake Total 600 Output Total 400 700 Balance 600 -400 -700 Intake: Intake, IV Titration 600 Amount Cefepime 2 gm In Sodium 100 Chloride 0.9% 100 ml @ 25 mls/hr IVPB Q8HR COUNTS INCLUDE 234 BEDS AT [facility] Rx# :[id number] Vancomycin 2,000 mg In 500 Sodium Chloride 0.9% 500 ml 500 ml @ 167 mls/hr IVPB Q8H COUNTS INCLUDE 234 BEDS AT THE [facility] Rx#: [id number] Output: Urine 400 700 Other: Voiding Method Urinal 06/02/23 06:19 05/31/23 13:50
[2023-06-02 11:25] LABS: ALT 38 U/L (10-49); AST 30 U/L (14-35); Albumin 3.3 g/dL (3.8-4.9); Albumin/Globulin Ratio 1.22 Ratio (1.60-3.17); Alkaline Phosphatase 169 U/L (41-126); Blood Urea Nitrogen 22.2 mg/dL (9.0-27.0); Calcium 8.8 mg/dL (8.7-10.3); Carbon Dioxide 28.4 mmol/L (21.6-31.8); Chloride 99 mmol/L (96-109); Globulin 2.7 g/dL (1.6-3.3); Glucose 176 mg/dL (70-110); Sodium 138 mmol/L (135-145)
[2023-06-02 11:45] LABS: Glucose,Whole Blood 169 mg/dL (70-110)
--- NOTE | 2023-06-02 11:58 | CA ---
Transthoracic Echo Report Name: David Stern Age: 42 Gender: M : 1980 Exam Date: 06/02/2023 10:22 Exam Location: [facility] Ht (in): 74 Wt (lb): 350 Ordering Physician: Francine Lundberg Attending/Referring Phys: [id number], [place]ño Roller Maker Kat Hinojosa RDCS Procedure CPT: Indications: LV function Cardiac Hx: Technical Quality: Technically difficult study Contrast 1: Total Dose (mL): Contrast 2: Total Dose (mL): MEASUREMENTS (Male / Female) Normal Values 2D ECHO LV Diastolic Diameter PLAX 5.5 cm 4.2 - 5.9 / 3.9 - 5.3 cm LV Systolic Diameter PLAX 3.9 cm IVS Diastolic Thickness 1.3 cm 0.6 - 1.0 / 0.6 - 0.9 cm LVPW Diastolic Thickness 1.3 cm 0.6 - 1.0 / 0.6 - 0.9 cm LV Relative Wall Thickness 0.5 RV Internal Dim ED PLAX 3.1 cm LA Systolic Diameter LX 4.1 cm 3.0 - 4.0 / 2.7 - 3.8 cm LV Diastolic Volume MOD BP 99.1 cm??? 67 - 155 / 56 - 104 cm??? LV Systolic Volume MOD BP 35.8 cm??? - 58 / 19 - 49 cm??? LV Ejection Fraction MOD BP 63.9 % >= 55 % LV Cardiac Index MOD BP 2359.1 cm???/min???m??? LV Diastolic Volume MOD 4C 120.5 cm??? LV Systolic Volume MOD 4C 35.3 cm??? LV Ejection Fraction MOD 4C 70.7 % LV Cardiac Index MOD 4C 3178.8 cm???/min???m??? LV Diastolic Length 4C 8.6 cm LV Systolic Length 4C 6.2 cm LV Diastolic Volume MOD 2C 62.0 cm??? LV Systolic Volume MOD 2C 36.5 cm??? LV Ejection Fraction MOD 2C 41.1 % LV Cardiac Index MOD 2C 949.0 cm???/min???m??? LV Diastolic Length 2C 6.4 cm LV Systolic Length 2C 6.2 cm LA Volume 53.0 cm??? 18 - 58 / 22 - 52 cm??? LA Volume Index 18.0 cm???/m??? 16 - 28 cm???/m??? M-MODE Aortic Root Diameter MM 3.9 cm DOPPLER AV Peak Velocity 118.0 cm/s AV Peak Gradient 5.6 mmHg MV Area PHT 10.1 cm??? TR Peak Velocity 272.7 cm/s TR Peak Gradient 29.7 mmHg Right Ventricular Systolic Press 39.9 mmHg FINDINGS Left Ventricle Left ventricular ejection fraction is estimated at 50 %. Mildly increased septal wall thickness. Left ventricular cavity size normal. Right Ventricle Normal right ventricular size. Mild pulmonary hypertension. Right Atrium Right atrium not well visualized. Left Atrium Mildly increased left atrial diameter. Mildly increased left atrial area. Mitral Valve Structurally normal mitral valve. No mitral stenosis, regurgitation or prolapse. Aortic Valve Trileaflet aortic valve. No aortic valve stenosis or regurgitation. Tricuspid Valve Structurally normal tricuspid valve. Mild tricuspid regurgitation. Pulmonic Valve Structurally normal pulmonic valve. No pulmonic regurgitation. Pericardium No pericardial effusion. Aorta Mild aortic dilatation at the level of the sinuses of valsalva 39 mm CONCLUSIONS Technically very difficult study for interpretation with poor acoustic windows Low-normal LV systolic function was EF at 50% Previewed by: Dr. Ricardo Barr MD (Electronically Signed) Final Date: 02 June 2023 11:58
--- NOTE | 2023-06-02 13:39 | P.PN ---
Progress Note - Text I was not drone operator yesterday to decline the consult. Primary orthopaedic call is being covered this week by [facility]. As I was not drone operator, I deferred the consult to the patient's established mechanical maintenance instructor, Dr. Holguin, or to the orthopaedic surgeon drone operator, Dr. Lew.
--- NOTE | 2023-06-02 15:49 | P.PN ---
Subjective Progress Note Date: 06/02/23 Principal diagnosis: Reason for follow-up is right second toe diabetic foot infection MRSA bacteremia Patient is a 42-year-old male with a past medical history significant for diabetes mellitus patient recently did have right second toe distal phalanx amputation completed by podiatry about 2 weeks ago, patient presented to the hospital with increasing swelling and discomfort to the left foot he was admitted also with increasing swelling redness to the right second toe. Patient did have CT of the left extremity concerning for significant Charcot deformity to the left foot. On today's evaluation that is 06/02/2023, the patient did spike a fever last evening of 101.6: Patient is afebrile this morning, the patient is on 2 L nasal cannula oxygen and breathing comfortably, the Pt denies having any chest pain or cough, the patient denies having any abdominal pain no vomiting or any diarrhea has been reported by the nursing staff, mention discomfort to the left foot has decreased in intensity. Patient white count is down to 12.10, creatinine is 1.0 blood culture with MRSA Objective - Vital Signs Vital signs: Vital Signs Temp 99.6 F 06/02/23 10:59 Pulse 115 H 06/02/23 10:59 Resp 16 06/02/23 10:59 BP 128/78 06/02/23 10:59 Pulse Ox 94 L 06/02/23 10:59 FiO2 Intake & Output 06/01/23 06/02/23 06/02/23 18:59 06:59 18:59 Intake Total 600 Output Total 400 700 Balance 600 -400 -700 Intake: Intake, IV Titration 600 Amount Cefepime 2 gm In Sodium 100 Chloride 0.9% 100 ml @ 25 mls/hr IVPB Q8HR PAL Rx# :[id number] Vancomycin 2,000 mg In 500 Sodium Chloride 0.9% 500 ml 500 ml @ 167 mls/hr IVPB Q8H PAL Rx#: [id number] Output: Urine 400 700 Other: Voiding Method Urinal # Voids 1 - Exam GENERAL DESCRIPTION: Young male lying in bed in no distress RESPIRATORY SYSTEM: Unlabored breathing , decreased breath sounds at bases HEART: S1 S2 regular rate and rhythm , ABDOMEN: Soft , no tenderness EXTREMITIES: Right foot is currently dressed no drainage patient has significant swelling to the left foot with erythema to the left lateral border which is warm and tender to touch - Labs CBC & Chem 7: 06/02/23 06:19 06/02/23 06:19 Labs: Abnormal Lab Results - Last 24 Hours (Table) 06/01/23 06/01/23 06/01/23 Range/Units 16:44 21:06 21:23 WBC (4.50-10.00) X 10*3/uL MCH (27.0-32.0) pg MCHC (32.0-37.0) g/dL Immature Gran # (0.00-0.04) X 10*3/uL Neutrophils # (1.80-7.70) X 10*3/uL Lymphocytes # (0.90-5.00) X 10*3/uL Monocytes # (0.20-1.00) X 10*3/uL Eosinophils # (0.04-0.35) X 10*3/uL ESR (0-15) mm/Hr D-Dimer 4.58 H (<0.60) mg/L FEU BUN/Creatinine Ratio (12.00-20.00) Ratio Glucose (70-110) mg/dL POC Glucose (mg/dL) 236 H 239 H (70-110) mg/dL Alkaline Phosphatase (41-126) U/L Total Protein (6.2-8.2) g/dL Albumin (3.8-4.9) g/dL Albumin/Globulin Ratio (1.60-3.17) Ratio 06/02/23 06/02/23 06/02/23 Range/Units 05:54 06:19 06:19 WBC 12.10 H (4.50-10.00) X 10*3/uL MCH 26.1 L (27.0-32.0) pg MCHC 30.7 L (32.0-37.0) g/dL Immature Gran # 0.07 H (0.00-0.04) X 10*3/uL Neutrophils # 10.23 H (1.80-7.70) X 10*3/uL Lymphocytes # 0.71 L (0.90-5.00) X 10*3/uL Monocytes # 1.04 H (0.20-1.00) X 10*3/uL Eosinophils # 0.02 L (0.04-0.35) X 10*3/uL ESR 51 H (0-15) mm/Hr D-Dimer (<0.60) mg/L FEU BUN/Creatinine Ratio 22.20 H (12.00-20.00) Ratio Glucose 176 H (70-110) mg/dL POC Glucose (mg/dL) 128 H (70-110) mg/dL Alkaline Phosphatase 169 H (41-126) U/L Total Protein 6.0 L (6.2-8.2) g/dL Albumin 3.3 L (3.8-4.9) g/dL Albumin/Globulin Ratio 1.22 L (1.60-3.17) Ratio 06/02/23 Range/Units 11:44 WBC (4.50-10.00) X 10*3/uL MCH (27.0-32.0) pg MCHC (32.0-37.0) g/dL Immature Gran # (0.00-0.04) X 10*3/uL Neutrophils # (1.80-7.70) X 10*3/uL Lymphocytes # (0.90-5.00) X 10*3/uL Monocytes # (0.20-1.00) X 10*3/uL Eosinophils # (0.04-0.35) X 10*3/uL ESR (0-15) mm/Hr D-Dimer (<0.60) mg/L FEU BUN/Creatinine Ratio (12.00-20.00) Ratio Glucose (70-110) mg/dL POC Glucose (mg/dL) 169 H (70-110) mg/dL Alkaline Phosphatase (41-126) U/L Total Protein (6.2-8.2) g/dL Albumin (3.8-4.9) g/dL Albumin/Globulin Ratio (1.60-3.17) Ratio Microbiology - Last 24 Hours (Table) 05/31/23 13:45 Blood Culture Gram Stain - Preliminary Blood Blood Culture - Preliminary Presumptive MRSA 05/31/23 13:30 Blood Culture Gram Stain - Preliminary Blood Blood Culture - Preliminary Presumptive MRSA 05/31/23 13:37 Gram Stain - Preliminary Toe - Right Second Wound Culture - Preliminary Presumptive MRSA Assessment and Plan (1) MRSA bacteremia Current Visit: Yes Status: Acute Code(s): R78.81 - BACTEREMIA; B95.62 - METHICILLIN RESIS STAPH INFCT CAUSING DISEASES CLASSD ELSR SNOMED Code(s): 88521687468338505 (2) Leukocytosis Current Visit: Yes Status: Acute Code(s): D72.829 - ELEVATED WHITE BLOOD CELL COUNT, UNSPECIFIED SNOMED Code(s): 031501799 (3) Type 2 diabetes mellitus with foot ulcer Current Visit: No Status: Acute Code(s): E11.621 - TYPE 2 DIABETES MELLITUS WITH FOOT ULCER; L97.509 - NON-PRESSURE CHRONIC ULCER OTH PRT UNSP FOOT W UNSP SEVERITY SNOMED Code(s): 413183049 Plan: 1patient presented to hospital with increasing pain and swelling to the right second toe amputation site in this patient who did have features of sepsis with a fever elevated white count source is right second toe distal phalanx amputation site infection and concerning for secondary cellulitis likely from gram-positive skin torres gram-negative infection less likely but not excluded 2-patient also have a fall from his scooter landed on his left lower extremity CT suspicious for Charcot deformity and also noticed to have increasing swelling and some redness and tenderness to the lateral aspect of the left foot concerning for possible left foot septic arthritis 3-patient did have a positive blood culture with MRSA right second toe tip culture growing MRSA as well 4-patient to continue with the vancomycin however discontinue cefepime awaiting orthopedic/podiatry evaluation Dictation was produced using [employer] dictation software. please excuse any grammatical, word or spelling errors. Time with Patient: Less than 30
[2023-06-02] MEDS: VANCOMYCIN TROUGH DUE 1 EACH MISC MISCELLANE ONE (16:21)
[2023-06-02 16:58] LABS: Glucose,Whole Blood 239 mg/dL (70-110)
--- NOTE | 2023-06-02 19:24 | P.PN ---
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 Hua back in December 2022, he has been following with Dr. Holguin who performed a right second toe amputation Thursday as an outpatient here at [facility], and he was seen and evaluated by him as a follow-up, he had minimal dehiscence and he ended up putting more sutures to his amputation site, apparently the patient was supposed to follow-up with the wound healing center at [facility] on this coming Thursday patient apparently was seen in the emergency department at [facility] on May 29 for increased redness and increased pain of the right second toe amputation, and at that time he was sent home he ended up going to the ER at [facility] nothing was done, and the patient was sent home as well, I received a call from his stating that the patient is not doing well he appears to be quite sick to his stomach, he has significant redness to the right second toe amputation site with increased fever and chills not able to keep anything down, he was directed to go back to the emergency department because of what appears to have a sepsis, patient was seen in the ER, patient also had fallen off his scooter and landed on his left foot, he has not been able to bear any weight on his left foot, his x-ray initially did not show any evidence of acute abnormalities, however a CT scan of the foot that was done in the ER did show evidence of air foci suggestive of infection on top of the destructive bones and subluxation with significant edema and effusion patient will be seen in consultation by orthopedic surgery, consulted Dr. Mcguire who declined the consult and send the consult back to Dr. Holguin 06/01: Patient is sitting up in bed he is feeling better today, he denies any chest pain, he is less short of breath, he did receive 2 doses of Lasix 40 mg IV push every 12 hours, he had a CTA of the chest that was negative for pulmonary embolism but did show pulmonary hypertension, minimal pulmonary vascular congestion, he was seen in consultation by cardiology recommended to continue metoprolol 25 mg orally twice every day as well as Lasix 40 mg IV push every 12 hours, discontinue IV fluid, continue IV antibiotic, blood cultures are positive for possible MRSA, ID is following, continue cefepime and vancomycin for now, cancel the consult to Dr. Mcguire and consult Dr. Mcintosh for evaluation of the left foot. REVIEW OF SYSTEMS: Constitutional: positive for documented fever, no chills, no night sweats. No weight change. positive for weakness, fatigue or lethargy. No daytime sleepiness. HEENT: No headache. No blurred vision or double vision, no loss of vision. No loss of Hearing, no ringing in the ears, no dizziness. No nasal drainage or congestion. No epistaxis. No sore throat. Lungs: no shortness of breath, no cough, or sputum production. No wheezing. Reports no dyspnea with activity. Cardiovascular: no chest pain, positive for lower extremity edema. positive for palpitations. negative for paroxysmal nocturnal dyspnea. negative for orthopnea. No lightheadedness or dizziness. No syncopal episodes. Abdominal: Reports no abdominal pain. positive for nausea,positive for vomiting. No diarrhea. No constipation. No bloody or tarry stools Genitourinary: No dysuria, increased frequency, urgency, Musculoskeletal: No myalgias, positive for weakness, bilateral charcot feet, left foot with severe swelling and tenderness, right foot post right second toe amputation and 3rd toe amputation Integumentary: right third toe amputation, right second toe amputation with suture in place, with increased erythema and tenderness No rash or pruritus. positive for unusual bruising. No change in hair or nails. Neurologic: No aphasia. No facial droop. No change in mentation. No head injury. No headache. No paralysis. No paresthesia. Psychiatric: positive for depression. No anxiety. No mood swings. Endocrine: positive for abnormal blood sugars. positive for weight change. PHYSICAL EXAMINATION: General: 42 year male sitting up in chair does appear to be in distress HEENT: Head is atraumatic, normocephalic, pupils were equal round reactive to light and recommendation, extraocular muscle movement were intact, sclera nonicteric, conjunctivae were pale, mucous membranes of the mouth are somewhat d ry. Neck: Supple, no JVP, normal carotid upstroke bilaterally, no lymphadenopathy. Chest: Decreased breath sounds at the bases, few rhonchi, no expiratory wheezes or intercostal retractions Heart: First heart sound is normal, second heart sound is normal, tachycardic, there is no gallop or murmur. Abdomen: Soft, nontender, nondistended, positive bowel sounds, obese. Extremities: There is +1 edema no calf tenderness DP +2 bilaterally, positive for neuropathy and charcot feet , right third toe amputation, right second toe amputation with sutures in place with significant erythema and tenderness. Left foot severely swollen and severely tender to palpation Neurologic examination: Patient is awake alert and oriented X 3, cranial nerves II-12 appear grossly intact, muscle power were 5 out of 5 in upper extremities and 4/5 in right lower extremity ASSESSMENT AND PLAN: 1. Infected right second toe amputation site with cellulitis associated with MRSA bacteremia. Continue vancomycin with pharmacy to dose its peak and trough, continue cefepime 2 g every back every 8 hours, infectious disease consultation, consulted Dr. Mcguire however he sent a consult to Dr. Chelsie lin is not available at this time, we will continue to monitor the patient very closely. Current management with Dilaudid 1 mg IV push every 4 hours, as well as Toradol 15 mg IV push every 6 hours as needed. 2. Severe tenderness in the left foot status post CT scan that showed evidence of Charcot at foot along with bony destruction with air foci suggestive of infectious process. Continue IV antibiotic, vancomycin and cefepime, consult orthopedic 3. Sinus tachycardia likely related to underlying sepsis with IV fluid resuscitation that was done yesterday, discontinue IV fluid, start the patient on metoprolol 25 mg orally twice every day. 4. Diabetes Mellitustype 2 non controlled. we will continue with Levemir 80 units SC at bedtime along with SSI , has been off GLP_1 RA ( Mounjaro) , Hold Metformin due to CTA and we will continue with BGM AC HS. 5. Diabetic Polyneuropathy with charcot feet. we will continue with Gabapentin 600 mg po bid 6. Hyperlipidemnia. we will continue with Atorvastatin 80 mg po daily, keep LDL- c 55-70. 7. Hypertension and hypertensive cardiovascular disease. Start the patient on metoprolol 25 mg orally twice every day. 8. Obesity with OS and OHS. we will continue with weight loss, never made it for a sleep study. 9. DVT prophylaxis. we will use Lovenox 40 mg SC daily. 10. GI Prophylaxis. we will continue with famotidine 40 mg at bedtime. 11. Severe gastroparesis. Start the patient on metoclopramide 10 mg before each meal 3 times every day. 12. Major depressive disorder. Continue patient on duloxetine 20 mg orally once every day. 13. Sinus headache. Started the patient on loratadine 10 mg orally once every day, as well as nasal saline spray 2 sprays in each nostril 3 times every day. 14. Overall prognosis is guarded. Objective - Vital Signs Vital signs: Vital Signs Temp 99.6 F 06/02/23 10:59 Pulse 115 H 06/02/23 10:59 Resp 16 06/02/23 10:59 BP 128/78 06/02/23 10:59 Pulse Ox 94 L 06/02/23 10:59 FiO2 Intake & Output 06/01/23 06/02/23 06/02/23 18:59 06:59 18:59 Intake Total 600 Output Total 400 700 Balance 600 -400 -700 Intake: Intake, IV Titration 600 Amount Cefepime 2 gm In Sodium 100 Chloride 0.9% 100 ml @ 25 mls/hr IVPB Q8HR PAL Rx# :[id number] Vancomycin 2,000 mg In 500 Sodium Chloride 0.9% 500 ml 500 ml @ 167 mls/hr IVPB Q8H PAL Rx#: [id number] Output: Urine 400 700 Other: Voiding Method Urinal # Voids 1 - Labs CBC & Chem 7: 06/02/23 06:19 06/02/23 06:19 Labs: Abnormal Lab Results - Last 24 Hours (Table) 06/01/23 06/01/23 06/01/23 Range/Units 16:44 21:06 21:23 WBC (4.50-10.00) X 10*3/uL MCH (27.0-32.0) pg MCHC (32.0-37.0) g/dL Immature Gran # (0.00-0.04) X 10*3/uL Neutrophils # (1.80-7.70) X 10*3/uL Lymphocytes # (0.90-5.00) X 10*3/uL Monocytes # (0.20-1.00) X 10*3/uL Eosinophils # (0.04-0.35) X 10*3/uL ESR (0-15) mm/Hr D-Dimer 4.58 H (<0.60) mg/L FEU BUN/Creatinine Ratio (12.00-20.00) Ratio Glucose (70-110) mg/dL POC Glucose (mg/dL) 236 H 239 H (70-110) mg/dL Alkaline Phosphatase (41-126) U/L Total Protein (6.2-8.2) g/dL Albumin (3.8-4.9) g/dL Albumin/Globulin Ratio (1.60-3.17) Ratio 06/02/23 06/02/23 06/02/23 Range/Units 05:54 06:19 06:19 WBC 12.10 H (4.50-10.00) X 10*3/uL MCH 26.1 L (27.0-32.0) pg MCHC 30.7 L (32.0-37.0) g/dL Immature Gran # 0.07 H (0.00-0.04) X 10*3/uL Neutrophils # 10.23 H (1.80-7.70) X 10*3/uL Lymphocytes # 0.71 L (0.90-5.00) X 10*3/uL Monocytes # 1.04 H (0.20-1.00) X 10*3/uL Eosinophils # 0.02 L (0.04-0.35) X 10*3/uL ESR 51 H (0-15) mm/Hr D-Dimer (<0.60) mg/L FEU BUN/Creatinine Ratio 22.20 H (12.00-20.00) Ratio Glucose 176 H (70-110) mg/dL POC Glucose (mg/dL) 128 H (70-110) mg/dL Alkaline Phosphatase 169 H (41-126) U/L Total Protein 6.0 L (6.2-8.2) g/dL Albumin 3.3 L (3.8-4.9) g/dL Albumin/Globulin Ratio 1.22 L (1.60-3.17) Ratio 06/02/23 Range/Units 11:44 WBC (4.50-10.00) X 10*3/uL MCH (27.0-32.0) pg MCHC (32.0-37.0) g/dL Immature Gran # (0.00-0.04) X 10*3/uL Neutrophils # (1.80-7.70) X 10*3/uL Lymphocytes # (0.90-5.00) X 10*3/uL Monocytes # (0.20-1.00) X 10*3/uL Eosinophils # (0.04-0.35) X 10*3/uL ESR (0-15) mm/Hr D-Dimer (<0.60) mg/L FEU BUN/Creatinine Ratio (12.00-20.00) Ratio Glucose (70-110) mg/dL POC Glucose (mg/dL) 169 H (70-110) mg/dL Alkaline Phosphatase (41-126) U/L Total Protein (6.2-8.2) g/dL Albumin (3.8-4.9) g/dL Albumin/Globulin Ratio (1.60-3.17) Ratio Microbiology - Last 24 Hours (Table) 05/31/23 13:45 Blood Culture Gram Stain - Preliminary Blood Blood Culture - Preliminary Presumptive MRSA 05/31/23 13:30 Blood Culture Gram Stain - Preliminary Blood Blood Culture - Preliminary Presumptive MRSA 05/31/23 13:37 Gram Stain - Preliminary Toe - Right Second Wound Culture - Preliminary Presumptive MRSA
[2023-06-02 19:54] LABS: Glucose,Whole Blood 226 mg/dL (70-110)
[2023-06-02] MEDS: FUROSEMIDE 10 MG/ML 4 ML VIAL IV SCH (20:44)
[2023-06-03] MEDS: HYDROmorphone 0.5 MG/0.5 ML SYRINGE IVP PRN (05:21)
[2023-06-03 05:46] LABS: Glucose,Whole Blood 175 mg/dL (70-110)
--- NOTE | 2023-06-03 10:08 | P.PN ---
Subjective HISTORY OF PRESENT ILLNESS: This is a 42-year-old male with a past medical history significant for hyperlipidemia, diabetes, morbid obesity, right third toe amputation, and recent right second toe amputation. Patient does not follow with a greens keeper. We have been asked to see the patient in consultation for SVT. Patient examined this morning. Patient is sitting up in the chair. Patient is admitted to the hospital secondary to an infection of his right second toe amputation site. Patient does have MRSA bacteremia. He is receiving IV antibiotics. The patient also reports significant left lower extremity swelling. The patient denies any chest pain or pressure. He currently denies shortness of breath. EKG obtained yesterday reveals sinus tachycardia. Apparently there was some question of SVT. He was started on metoprolol by Dr. Seaman. Patient's telemetry this morning reveals sinus tachycardia. He denies having any palpitations. He denies any dizziness or lightheadedness. DIAGNOSTICS: - EKG reveals sinus tachycardia - Chest xray low lung volumes with generalized hazy appearance which could represent atelectasis -Chest CTA: Negative for pulmonary embolism. Pulmonary vascular congestion and trace bilateral effusions. - Laboratory data: WBC 12.10. Hemoglobin 13.5. Platelet count 191. Sodium 136. Potassium 4.3. BUN 23. Creatinine 0.97. Troponin negative x 1. Lactic acid 1.8. - Current home cardiac medications include Lipitor 80 mg at night. 06/03/2023 Patient examined this morning at the bedside. Patient reports having a significant headache this morning. Patient denies chest pain or pressure. He denies shortness of breath. Patient remains on IV Lasix. Kidney function from this morning remains pending. He continues to have lower extremity edema. Telemetry reveals sinus tachycardia. Patient was febrile this morning. Echocardiogram obtained revealing ejection fraction 50%, mild pulmonary hypertension PHYSICAL EXAM: VITAL SIGNS: Reviewed. GENERAL: Well-developed in no acute distress. HEENT: Head is normocephalic. Pupils are equal, round. Sclerae anicteric. Mucous membranes of the mouth are moist. Neck supple. No JVD or thyromegaly LUNGS: Respirations even and unlabored. Lungs essentially clear to auscultation bilaterally. HEART: Tachycardic. Regular rate and rhythm. S1 and S2 heard. ABDOMEN: Soft. Nondistended. Nontender. EXTREMITIES: Normal range of motion. No clubbing or cyanosis. Peripheral pulses intact. Significant left lower extremity edema. Right lower extremity with dressing noted. NEUROLOGIC: Awake and alert. Oriented x 3. ASSESSMENT: Infected right second toe amputation site with cellulitis and MRSA bacteremia Sinus tachycardia, SVT less likely, likely physiological in response to fever and infectious process Acute heart failure with preserved EF, 50% Hyperlipidemia Diabetes History of right third toe amputation Obstructive sleep apnea Morbid obesity PLAN: Continue IV Lasix Daily weights, accurate intake and output, and monitoring of kidney function. Still awaiting labs from this morning Continue current dose of metoprolol. Anticipate improvement in heart rate with resolution of fever and infectious process Continue telemetry monitoring Further recommendations pending patient course Nurse practitioner note has been reviewed by physician. Signing provider agrees with the documented findings, assessment, and plan of care documented by BUS PERSON DISHWASHER as a scribe. Objective - Vital Signs Vital signs: Vital Signs Temp 98.9 F 06/03/23 08:53 Pulse 97 06/03/23 08:53 Resp 18 06/03/23 08:53 BP 125/77 06/03/23 08:53 Pulse Ox 95 06/03/23 08:00 FiO2 Intake & Output 06/02/23 06/03/23 06/03/23 18:59 06:59 18:59 Output Total 700 Balance -700 Output: Urine 700 Other: Voiding Method Urinal # Voids 2 - Labs CBC & Chem 7: 06/02/23 06:19 06/02/23 06:19 Labs: Abnormal Lab Results - Last 24 Hours (Table) 06/02/23 06/02/23 06/02/23 Range/Units 06:19 11:44 16:56 BUN/Creatinine Ratio 22.20 H (12.00-20.00) Ratio Glucose 176 H (70-110) mg/dL POC Glucose (mg/dL) 169 H 239 H (70-110) mg/dL Alkaline Phosphatase 169 H (41-126) U/L Total Protein 6.0 L (6.2-8.2) g/dL Albumin 3.3 L (3.8-4.9) g/dL Albumin/Globulin Ratio 1.22 L (1.60-3.17) Ratio 06/02/23 06/03/23 Range/Units 19:52 05:44 BUN/Creatinine Ratio (12.00-20.00) Ratio Glucose (70-110) mg/dL POC Glucose (mg/dL) 226 H 175 H (70-110) mg/dL Alkaline Phosphatase (41-126) U/L Total Protein (6.2-8.2) g/dL Albumin (3.8-4.9) g/dL Albumin/Globulin Ratio (1.60-3.17) Ratio Microbiology - Last 24 Hours (Table) 06/01/23 21:30 Blood Culture - Preliminary Blood 05/31/23 13:37 Gram Stain - Final Toe - Right Second Wound Culture - Final Methicillin resist S. aureus 05/31/23 13:45 Blood Culture Gram Stain - Preliminary Blood Blood Culture - Preliminary Presumptive MRSA 05/31/23 13:30 Blood Culture Gram Stain - Preliminary Blood Blood Culture - Preliminary Presumptive MRSA
[2023-06-03 11:14] LABS: Basophils # (A) 0.06 X 10*3/uL (0.00-0.10); Basophils % (A) 0.4 %; Eosinophils # (A) 0.08 X 10*3/uL (0.04-0.35); Eosinophils % (A) 0.5 %; HCT 38.6 % (39.6-50.0); HGB 11.8 g/dL (13.0-17.0); Lymphocytes # (A) 0.81 X 10*3/uL (0.90-5.00); Lymphocytes % (A) 5.5 %; MCHC 30.6 g/dL (32.0-37.0); MCV 85.2 FL (80.0-97.0); Mean Platelet Volume 11.5 FL (9.5-12.2); Monocytes # (A) 1.34 X 10*3/uL (0.20-1.00); Monocytes % (A) 9.1 %; NRBC Per 100 WBC 0 X 10*3/uL (0.00-0.01); Neutrophils # (A) 12.36 X 10*3/uL (1.80-7.70); Neutrophils % (A) 83.9 %; Platelet Count 183 X 10*3/uL (140-440); RBC 4.53 X 10*6/uL (4.40-5.60); RDW 14.3 % (11.5-14.5); WBC 14.74 X 10*3/uL (4.50-10.00)
[2023-06-03 11:24] LABS: ALT 39 U/L (10-49); AST 37 U/L (14-35); Albumin 2.9 g/dL (3.8-4.9); Albumin/Globulin Ratio 1.07 Ratio (1.60-3.17); Alkaline Phosphatase 187 U/L (41-126); Blood Urea Nitrogen 22.5 mg/dL (9.0-27.0); Calcium 8.4 mg/dL (8.7-10.3); Carbon Dioxide 28.5 mmol/L (21.6-31.8); Chloride 97 mmol/L (96-109); Globulin 2.7 g/dL (1.6-3.3); Glucose 182 mg/dL (70-110); Potassium 3.5 mmol/L (3.5-5.5); Sodium 136 mmol/L (135-145); Total Bilirubin 0.9 mg/dL (0.3-1.2); Total Protein 5.6 g/dL (6.2-8.2)
[2023-06-03 11:51] LABS: Glucose,Whole Blood 185 mg/dL (70-110)
[2023-06-03] MEDS: BUTALB/APAP/CAFF 50-325-40MG TAB PO PRN (15:24)
--- NOTE | 2023-06-03 15:27 | P.PN ---
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 Hua back in December 2022, he has been following with Dr. Holguin who performed a right second toe amputation Thursday as an outpatient here at [facility], and he was seen and evaluated by him as a follow-up, he had minimal dehiscence and he ended up putting more sutures to his amputation site, apparently the patient was supposed to follow-up with the wound healing center at [facility] on this coming Thursday patient apparently was seen in the emergency department at [facility] on May 29 for increased redness and increased pain of the right second toe amputation, and at that time he was sent home he ended up going to the ER at [facility] nothing was done, and the patient was sent home as well, I received a call from his stating that the patient is not doing well he appears to be quite sick to his stomach, he has significant redness to the right second toe amputation site with increased fever and chills not able to keep anything down, he was directed to go back to the emergency department because of what appears to have a sepsis, patient was seen in the ER, patient also had fallen off his scooter and landed on his left foot, he has not been able to bear any weight on his left foot, his x-ray initially did not show any evidence of acute abnormalities, however a CT scan of the foot that was done in the ER did show evidence of air foci suggestive of infection on top of the destructive bones and subluxation with significant edema and effusion patient will be seen in consultation by orthopedic surgery, consulted Dr. Mcguire who declined the consult and send the consult back to Dr. Holguin 06/01: Patient is sitting up in bed he is feeling better today, he denies any chest pain, he is less short of breath, he did receive 2 doses of Lasix 40 mg IV push every 12 hours, he had a CTA of the chest that was negative for pulmonary embolism but did show pulmonary hypertension, minimal pulmonary vascular congestion, he was seen in consultation by cardiology recommended to continue metoprolol 25 mg orally twice every day as well as Lasix 40 mg IV push every 12 hours, discontinue IV fluid, continue IV antibiotic, blood cultures are positive for possible MRSA, ID is following, continue cefepime and vancomycin for now, cancel the consult to Dr. Mcguire and consult Dr. Mcintosh for evaluation of the left foot. 06/02: Patient is sitting at the edge of the bed, he is feeling a bit better today, he continues to have significant sinus headache, he denies any chest pain at this time he continues to be somewhat short of breath, he is currently on 5 L nasal cannula, will try to wean his oxygen down, he is currently on Lasix 40 mg IV push every 12 hours, his family is requesting for the patient to be seen by vascular surgery we will consult Dr. Hua since the patient was seen by her in the past, will continue IV antibiotic at this time, monitor the patient very closely, patient underwent a swab for influenza AB as well as RSV along with COVID came back negative will continue with loratadine 10 mg once every day continue current treatment plan, increase activity, patient was instructed to use the incentive spirometer to reduce the incidence of atelectasis and healthcare associated pneumonia meanwhile he is currently on cefepime and vanco mycin. REVIEW OF SYSTEMS: Constitutional: positive for documented fever, no chills, no night sweats. No weight change. positive for weakness, fatigue or lethargy. No daytime sleepiness. HEENT: No headache. No blurred vision or double vision, no loss of vision. No loss of Hearing, no ringing in the ears, no dizziness. No nasal drainage or congestion. No epistaxis. No sore throat. Lungs: no shortness of breath, no cough, or sputum production. No wheezing. Reports no dyspnea with activity. Cardiovascular: no chest pain, positive for lower extremity edema. positive for palpitations. negative for paroxysmal nocturnal dyspnea. negative for orthopnea. No lightheadedness or dizziness. No syncopal episodes. Abdominal: Reports no abdominal pain. positive for nausea,positive for vomiting. No diarrhea. No constipation. No bloody or tarry stools Genitourinary: No dysuria, increased frequency, urgency, Musculoskeletal: No myalgias, positive for weakness, bilateral charcot feet, left foot with severe swelling and tenderness, right foot post right second toe amputation and 3rd toe amputation Integumentary: right third toe amputation, right second toe amputation with sutu re in place, with increased erythema and tenderness No rash or pruritus. positive for unusual bruising. No change in hair or nails. Neurologic: No aphasia. No facial droop. No change in mentation. No head injury. No headache. No paralysis. No paresthesia. Psychiatric: positive for depression. No anxiety. No mood swings. Endocrine: positive for abnormal blood sugars. positive for weight change. PHYSICAL EXAMINATION: General: 42 year male sitting up in chair does appear to be in distress HEENT: Head is atraumatic, normocephalic, pupils were equal round reactive to light and recommendation, extraocular muscle movement were intact, sclera nonicteric, conjunctivae were pale, mucous membranes of the mouth are somewhat dry. Neck: Supple, no JVP, normal carotid upstroke bilaterally, no lymphadenopathy. Chest: Decreased breath sounds at the bases, few rhonchi, no expiratory wheezes or intercostal retractions Heart: First heart sound is normal, second heart sound is normal, tachycardic, there is no gallop or murmur. Abdomen: Soft, nontender, nondistended, positive bowel sounds, obese. Extremities: There is +1 edema no calf tenderness DP +2 bilaterally, positive for neuropathy and charcot feet , right third toe amputation, right second toe amputation with sutures in place with significant erythema and tenderness. Left foot severely swollen and severely tender to palpation Neurologic examination: Patient is awake alert and oriented X 3, cranial nerves II-12 appear grossly intact, muscle power were 5 out of 5 in upper extremities and 4/5 in right lower extremity ASSESSMENT AND PLAN: 1. Infected right second toe amputation site with cellulitis associated with MRSA bacteremia. Continue vancomycin with pharmacy to dose its peak and trough, continue cefepime 2 g every back every 8 hours, infectious disease consultation, consulted Dr. Mcguire however he sent a consult to Dr. Chelsie Holguin apparently is not available at this time, we will continue to monitor the patient very closely. Current management with Dilaudid 1 mg IV push every 4 hours, as well as Toradol 15 mg IV push every 6 hours as needed. 2. Severe tenderness in the left foot status post CT scan that showed evidence of Charcot at foot along with bony destruction with air foci suggestive of infectious process. Continue IV antibiotic, vancomycin and cefepime, consult orthopedic 3. Sinus tachycardia likely related to underlying sepsis with IV fluid resuscitation that was done yesterday, discontinue IV fluid, start the patient on metoprolol 25 mg orally twice every day. 4. Diabetes Mellitustype 2 non controlled. we will continue with Levemir 80 units SC at bedtime along with SSI , has been off GLP_1 RA ( Mounjaro) , Hold Metformin due to CTA and we will continue with BGM AC HS. 5. Diabetic Polyneuropathy with charcot feet. we will continue with Gabapentin 600 mg po bid 6. Hyperlipidemnia. we will continue with Atorvastatin 80 mg po daily, keep LDL- c 55-70. 7. Hypertension and hypertensive cardiovascular disease. Start the patient on metoprolol 25 mg orally twice every day. 8. Obesity with OS and OHS. we will continue with weight loss, never made it for a sleep study. 9. DVT prophylaxis. we will use Lovenox 40 mg SC daily. 10. GI Prophylaxis. we will continue with famotidine 40 mg at bedtime. 11. Severe gastroparesis. Start the patient on metoclopramide 10 mg before each meal 3 times every day. 12. Major depressive disorder. Continue patient on duloxetine 20 mg orally once every day. 13. Sinus headache. Started the patient on loratadine 10 mg orally once every day, as well as nasal saline spray 2 sprays in each nostril 3 times every day. 14. Overall prognosis is guarded. 15. Vascular surgery consultation Dr. Hua. Objective - Vital Signs Vital signs: Vital Signs Temp 98.1 F 06/03/23 14:00 Pulse 109 H 06/03/23 14:00 Resp 17 06/03/23 14:00 BP 139/84 06/03/23 14:00 Pulse Ox 95 06/03/23 14:00 FiO2 Intake & Output 06/02/23 06/03/23 06/03/23 18:59 06:59 18:59 Output Total 700 Balance -700 Output: Urine 700 Other: Voiding Method Urinal # Voids 2 - Labs CBC & Chem 7: 06/03/23 06:36 06/03/23 06:36 Labs: Abnormal Lab Results - Last 24 Hours (Table) 06/02/23 06/02/23 06/03/23 Range/Units 16:56 19:52 05:44 WBC (4.50-10.00) X 10*3/uL Hgb (13.0-17.0) g/dL Hct (39.6-50.0) % MCH (27.0-32.0) pg MCHC (32.0-37.0) g/dL Immature Gran # (0.00-0.04) X 10*3/uL Neutrophils # (1.80-7.70) X 10*3/uL Lymphocytes # (0.90-5.00) X 10*3/uL Monocytes # (0.20-1.00) X 10*3/uL BUN/Creatinine Ratio (12.00-20.00) Ratio Glucose (70-110) mg/dL POC Glucose (mg/dL) 239 H 226 H 175 H (70-110) mg/dL Calcium (8.7-10.3) mg/dL AST (14-35) U/L Alkaline Phosphatase (41-126) U/L Total Protein (6.2-8.2) g/dL Albumin (3.8-4.9) g/dL Albumin/Globulin Ratio (1.60-3.17) Ratio 06/03/23 06/03/23 06/03/23 Range/Units 06:36 06:36 11:49 WBC 14.74 H (4.50-10.00) X 10*3/uL Hgb 11.8 L (13.0-17.0) g/dL Hct 38.6 L (39.6-50.0) % MCH 26.0 L (27.0-32.0) pg MCHC 30.6 L (32.0-37.0) g/dL Immature Gran # 0.09 H (0.00-0.04) X 10*3/uL Neutrophils # 12.36 H (1.80-7.70) X 10*3/uL Lymphocytes # 0.81 L (0.90-5.00) X 10*3/uL Monocytes # 1.34 H (0.20-1.00) X 10*3/uL BUN/Creatinine Ratio 25.00 H (12.00-20.00) Ratio Glucose 182 H (70-110) mg/dL POC Glucose (mg/dL) 185 H (70-110) mg/dL Calcium 8.4 L (8.7-10.3) mg/dL AST 37 H (14-35) U/L Alkaline Phosphatase 187 H (41-126) U/L Total Protein 5.6 L (6.2-8.2) g/dL Albumin 2.9 L (3.8-4.9) g/dL Albumin/Globulin Ratio 1.07 L (1.60-3.17) Ratio Microbiology - Last 24 Hours (Table) 05/31/23 13:30 Blood Culture Gram Stain - Final Blood Blood Culture - Final Methicillin resist S. aureus 05/31/23 13:45 Blood Culture Gram Stain - Final Blood Blood Culture - Final Methicillin resist S. aureus 06/02/23 06:19 Blood Culture Gram Stain - Preliminary Blood 06/01/23 21:30 Blood Culture Gram Stain - Preliminary Blood Blood Culture - Preliminary 05/31/23 13:37 Gram Stain - Final Toe - Right Second Wound Culture - Final Methicillin resist S. aureus
--- NOTE | 2023-06-03 15:58 | P.GSCN ---
History of Present Illness Consult date: 06/03/23 Reason for Consult: Right toe amputation Requesting physician: Siri Holbrook History of present illness: This a 42-year-old male with a history of not well-controlled diabetes mellitus, Charcot foot and previous right toe infection as well as hammertoe. He is known to vascular surgery and was seen during her last hospitalization and underwent right foot third toe amputation on 01/08/[address] Hua for [facility] er[facility]. He has history of toe deformity and hammertoe, he opted to follow with podiatry and has seen Dr. Holguin in his office and underwent amputation of the second toe on 05/22/2023. Apparently patient started having increased swelling pain fevers and chills and was concern for infection. He came into the emergency department and was admitted for right foot infection. Patient also had a fall recently and injured his left ankle. He has cellulitis and bruising to the left ankle and a CT scan that was done reporting focal air consider possible infection. Blood cultures were positive for MRSA as well as surgical site was positive for MRSA. Apparently Dr. Holguin is on vacation and vascular surgery was consulted for further evaluation. Patient currently denies any shortness of breath, chest pain, abdominal pain, nausea or vomiting. Fevers have improved. Still has leukocytosis. He is being followed by infectious disease and has on IV antibiotics. Review of Systems A 14 point review systems was completed all pertinent positives and negatives as stated in the HPI. Past Medical History Past Medical History: Diabetes Mellitus Additional Past Medical History / Comment(s): neuropathy History of Any Multi-Drug Resistant Organisms: None Reported Past Surgical History: Orthopedic Surgery Additional Past Surgical History / Comment(s): 2nd and 3rd partial digit removed to right foot, Past Anesthesia/Blood Transfusion Reactions: No Reported Reaction Past Psychological History: No Psychological Hx Reported Smoking Status: Never smoker Past Alcohol Use History: None Reported Past Drug Use History: None Reported Medications and Allergies Home Medications Medication Instructions Recorded Confirmed Type Ascorbic Acid [Vitamin C] 1,000 mg PO DAILY 01/06/23 05/31/23 History Atorvastatin [Lipitor] 80 mg PO HS 01/06/23 05/31/23 History Gabapentin 600 mg PO BID 01/06/23 05/31/23 History Insulin Lispro [humaLOG Kwikpen] See Protocol SQ AC-TID 01/06/23 05/31/23 History Loratadine 20 mg PO DAILY 01/06/23 05/31/23 History Omeprazole 40 mg PO DAILY 01/06/23 05/31/23 History Tirzepatide [Mounjaro] 5 mg SQ SA 01/06/23 05/31/23 History metFORMIN HCL ER [Glucophage XR] 1,000 mg PO HS 01/06/23 05/31/23 History Acetaminophen [Tylenol Extra 1,000 mg PO Q4H PRN 05/31/23 05/31/23 History Strength] DULoxetine HCL [Cymbalta] 20 mg PO HS 05/31/23 05/31/23 History Ibuprofen [Motrin Ib] 800 mg PO Q4H PRN 05/31/23 05/31/23 History Insulin Glargine-Yfgn [Semglee 70 unit SQ HS 05/31/23 05/31/23 History (Yfgn) Pen] Sulfamethox-Tmp 800-160Mg [Bactrim 1 tab PO Q12HR 05/31/23 05/31/23 History DS 800-160 mg] Allergies Allergy/AdvReac Type Severity Reaction Status Date / Time No Known Allergies Allergy Verified 05/31/23 15:29 Surgical - Exam Vital Signs Temp Pulse Resp BP Pulse Ox 98.6 F 114 H 20 118/66 96 05/31/23 12:58 05/31/23 12:58 05/31/23 12:58 05/31/23 12:58 05/31/23 12:58 General appearance: The patient is alert, oriented, appears in no acute distress. Obese. HET: Head is normocephalic and atraumatic. Pupils are equal and reactive. Neck: Supple. Heart: Regular. Lungs: Equal expansion, normal respiratory effort. Abdomen: Soft, nondistended. Extremities: Bilateral lower extremity swelling. Right second toe amputation site with sutures, swollen. Left medial aspect of ankle with surrounding redness. Good capillary refill bilaterally. With palpable DP pulses. Neurological: No focal deficits. Alert and oriented. Results - Labs 06/03/23 06:36 06/03/23 06:36 Abnormal Lab Results - Last 24 Hours (Table) 06/02/23 06/02/23 06/03/23 Range/Units 16:56 19:52 05:44 WBC (4.50-10.00) X 10*3/uL Hgb (13.0-17.0) g/dL Hct (39.6-50.0) % MCH (27.0-32.0) pg MCHC (32.0-37.0) g/dL Immature Gran # (0.00-0.04) X 10*3/uL Neutrophils # (1.80-7.70) X 10*3/uL Lymphocytes # (0.90-5.00) X 10*3/uL Monocytes # (0.20-1.00) X 10*3/uL BUN/Creatinine Ratio (12.00-20.00) Ratio Glucose (70-110) mg/dL POC Glucose (mg/dL) 239 H 226 H 175 H (70-110) mg/dL Calcium (8.7-10.3) mg/dL AST (14-35) U/L Alkaline Phosphatase (41-126) U/L Total Protein (6.2-8.2) g/dL Albumin (3.8-4.9) g/dL Albumin/Globulin Ratio (1.60-3.17) Ratio 06/03/23 06/03/23 06/03/23 Range/Units 06:36 06:36 11:49 WBC 14.74 H (4.50-10.00) X 10*3/uL Hgb 11.8 L (13.0-17.0) g/dL Hct 38.6 L (39.6-50.0) % MCH 26.0 L (27.0-32.0) pg MCHC 30.6 L (32.0-37.0) g/dL Immature Gran # 0.09 H (0.00-0.04) X 10*3/uL Neutrophils # 12.36 H (1.80-7.70) X 10*3/uL Lymphocytes # 0.81 L (0.90-5.00) X 10*3/uL Monocytes # 1.34 H (0.20-1.00) X 10*3/uL BUN/Creatinine Ratio 25.00 H (12.00-20.00) Ratio Glucose 182 H (70-110) mg/dL POC Glucose (mg/dL) 185 H (70-110) mg/dL Calcium 8.4 L (8.7-10.3) mg/dL AST 37 H (14-35) U/L Alkaline Phosphatase 187 H (41-126) U/L Total Protein 5.6 L (6.2-8.2) g/dL Albumin 2.9 L (3.8-4.9) g/dL Albumin/Globulin Ratio 1.07 L (1.60-3.17) Ratio Microbiology - Last 24 Hours (Table) 05/31/23 13:30 Blood Culture Gram Stain - Final Blood Blood Culture - Final Methicillin resist S. aureus 05/31/23 13:45 Blood Culture Gram Stain - Final Blood Blood Culture - Final Methicillin resist S. aureus 06/02/23 06:19 Blood Culture Gram Stain - Preliminary Blood 06/01/23 21:30 Blood Culture Gram Stain - Preliminary Blood Blood Culture - Preliminary 05/31/23 13:37 Gram Stain - Final Toe - Right Second Wound Culture - Final Methicillin resist S. aureus Diabetes panel 06/03/23 Range/Units 06:36 Sodium 136 (135-145) mmol/L Potassium 3.5 (3.5-5.5) mmol/L Chloride 97 (96-109) mmol/L Carbon Dioxide 28.5 (21.6-31.8) mmol/L BUN 22.5 (9.0-27.0) mg/dL Creatinine 0.9 (0.6-1.5) mg/dL Glucose 182 H (70-110) mg/dL Calcium 8.4 L (8.7-10.3) mg/dL AST 37 H (14-35) U/L ALT 39 (10-49) U/L Alkaline Phosphatase 187 H (41-126) U/L Total Protein 5.6 L (6.2-8.2) g/dL Albumin 2.9 L (3.8-4.9) g/dL Calcium panel 06/03/23 Range/Units 06:36 Calcium 8.4 L (8.7-10.3) mg/dL Albumin 2.9 L (3.8-4.9) g/dL Pituitary panel 06/03/23 Range/Units 06:36 Sodium 136 (135-145) mmol/L Potassium 3.5 (3.5-5.5) mmol/L Chloride 97 (96-109) mmol/L Carbon Dioxide 28.5 (21.6-31.8) mmol/L BUN 22.5 (9.0-27.0) mg/dL Creatinine 0.9 (0.6-1.5) mg/dL Glucose 182 H (70-110) mg/dL Calcium 8.4 L (8.7-10.3) mg/dL Adrenal panel 06/03/23 Range/Units 06:36 Sodium 136 (135-145) mmol/L Potassium 3.5 (3.5-5.5) mmol/L Chloride 97 (96-109) mmol/L Carbon Dioxide 28.5 (21.6-31.8) mmol/L BUN 22.5 (9.0-27.0) mg/dL Creatinine 0.9 (0.6-1.5) mg/dL Glucose 182 H (70-110) mg/dL Calcium 8.4 L (8.7-10.3) mg/dL Total Bilirubin 0.9 (0.3-1.2) mg/dL AST 37 H (14-35) U/L ALT 39 (10-49) U/L Alkaline Phosphatase 187 H (41-126) U/L Total Protein 5.6 L (6.2-8.2) g/dL Albumin 2.9 L (3.8-4.9) g/dL - Imaging Comments: CT left lower extremity reports midfoot osseous destruction with bony debris, subluxations, effusions, and prominent soft tissue swelling. Overall bone loss is similar to the 11/08/2022 MRI. Findings suggest Charcot arthropathy however on the present exam we note foci of air within the regions of the bony destruction and effusions. Unable to exclude superimposed infection. Further clinical correlation recommended. Venous duplex left lower extremity negative for DVT Assessment and Plan Assessment: 1. Recent right second toe amputation site, surgical infection 2. Charcot feet 3. History of toe deformities 4. Left ankle/foot injury 5. Diabetes mellitus 6. Obesity Plan: 1. Continue IV antibiotics per recommendations from infectious disease 2. No plans at this time for any vascular surgical intervention 3. Further recommendations forthcoming per vascular surgeon 4. Patient to follow-up with his truck hopper Dr. Holguin who did toe amputation Thank you for this consultation. The impression and plan of care has been dictated as directed. Dr. Hua I performed a history and examination of this patient, discussed the same with the dictator. I agree with the dictator's note ,documented as a scribe. Any additional findings or plans will be noted.
[2023-06-03 16:29] LABS: Glucose,Whole Blood 231 mg/dL (70-110)
[2023-06-03 20:06] LABS: Glucose,Whole Blood 284 mg/dL (70-110)
[2023-06-03] MEDS: ACETAMINOPHEN TAB 500 MG TAB PO PRN (20:40)
[2023-06-04 05:59] LABS: Glucose,Whole Blood 198 mg/dL (70-110)
[2023-06-04] MEDS: METOPROLOL TARTRATE 50 MG TAB PO SCH (09:06)
--- NOTE | 2023-06-04 09:41 | P.PN ---
Subjective HISTORY OF PRESENT ILLNESS: This is a 42-year-old male with a past medical history significant for hyperlipidemia, diabetes, morbid obesity, right third toe amputation, and recent right second toe amputation. 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 We have been asked to see the patient in consultation for SVT. Patient examined this morning. Patient is sitting up in the chair. Patient is admitted to the hospital secondary to an infection of his right second toe amputation site. Patient does have MRSA bacteremia. He is receiving IV antibiotics. The patient also reports significant left lower extremity swelling. The patient denies any chest pain or pressure. He currently denies shortness of breath. EKG obtained yesterday reveals sinus tachycardia. Apparently there was some question of SVT. He was started on metoprolol by Dr. Seaman. Patient's telemetry this morning reveals sinus tachycardia. He denies having any palpitations. He denies any dizziness or lightheadedness. DIAGNOSTICS: - EKG reveals sinus tachycardia - Chest xray low lung volumes with generalized hazy appearance which could represent atelectasis -Chest CTA: Negative for pulmonary embolism. Pulmonary vascular congestion and trace bilateral effusions. - Laboratory data: WBC 12.10. Hemoglobin 13.5. Platelet count 191. Sodium 136. Potassium 4.3. BUN 23. Creatinine 0.97. Troponin negative x 1. Lactic acid 1.8. - Current home cardiac medications include Lipitor 80 mg at night. 06/03/2023 Patient examined this morning at the bedside. Patient reports having a significant headache this morning. Patient denies chest pain or pressure. He denies shortness of breath. Patient remains on IV Lasix. Kidney function from this morning remains pending. He continues to have lower extremity edema. Telemetry reveals sinus tachycardia. Patient was febrile this morning. Echocardiogram obtained revealing ejection fraction 50%, mild pulmonary hypertension 06/04/2023 Patient examined this morning at the bedside. Patient denies chest pain or pressure. Patient denies shortness of breath. He is afebrile this morning. He remains tachycardic with heart rate around 115. He continues to have lower extremity edema. He remains on IV Lasix. Kidney function from this morning is currently pending PHYSICAL EXAM: VITAL SIGNS: Reviewed. GENERAL: Well-developed in no acute distress. HEENT: Head is normocephalic. Pupils are equal, round. Sclerae anicteric. Mucous membranes of the mouth are moist. Neck supple. No JVD or thyromegaly LUNGS: Respirations even and unlabored. Lungs essentially clear to auscultation bilaterally. HEART: Tachycardic. Regular rate and rhythm. S1 and S2 heard. ABDOMEN: Soft. Nondistended. Nontender. EXTREMITIES: Normal range of motion. No clubbing or cyanosis. Peripheral pulses intact. Significant left lower extremity edema. Right lower extremity with erythema and edema at the amputation site. NEUROLOGIC: Awake and alert. Oriented x 3. ASSESSMENT: Infected right second toe amputation site with cellulitis and MRSA bacteremia Sinus tachycardia, SVT less likely, likely physiological in response to fever and infectious process Acute heart failure with preserved EF, 50% Hyperlipidemia Diabetes History of right third toe amputation Obstructive sleep apnea Morbid obesity PLAN: Continue IV Lasix Daily weights, accurate intake and output, and monitoring of kidney function. Still awaiting labs from this morning Increase metoprolol to 50 mg twice a day. Anticipate improvement in heart rate with resolution of infectious process Continue telemetry monitoring Further recommendations pending patient course Nurse practitioner note has been reviewed by physician. Signing provider agrees with the documented findings, assessment, and plan of care documented by INSTRUCTIONAL TECHNOLOGY FACILITATOR as a scribe. Objective - Vital Signs Vital signs: Vital Signs Temp 99.0 F 06/04/23 07:25 Pulse 119 H 06/04/23 07:25 Resp 18 06/04/23 07:25 BP 148/66 06/04/23 07:25 Pulse Ox 93 L 06/04/23 07:25 FiO2 Intake & Output 06/03/23 06/04/23 06/04/23 18:59 06:59 18:59 Output Total 100 400 Balance -100 -400 Output: Urine 100 400 Other: Voiding Method Urinal - Labs CBC & Chem 7: 06/03/23 06:36 06/03/23 06:36 Labs: Abnormal Lab Results - Last 24 Hours (Table) 06/03/23 06/03/23 06/03/23 Range/Units 06:36 06:36 11:49 WBC 14.74 H (4.50-10.00) X 10*3/uL Hgb 11.8 L (13.0-17.0) g/dL Hct 38.6 L (39.6-50.0) % MCH 26.0 L (27.0-32.0) pg MCHC 30.6 L (32.0-37.0) g/dL Immature Gran # 0.09 H (0.00-0.04) X 10*3/uL Neutrophils # 12.36 H (1.80-7.70) X 10*3/uL Lymphocytes # 0.81 L (0.90-5.00) X 10*3/uL Monocytes # 1.34 H (0.20-1.00) X 10*3/uL BUN/Creatinine Ratio 25.00 H (12.00-20.00) Ratio Glucose 182 H (70-110) mg/dL POC Glucose (mg/dL) 185 H (70-110) mg/dL Calcium 8.4 L (8.7-10.3) mg/dL AST 37 H (14-35) U/L Alkaline Phosphatase 187 H (41-126) U/L Total Protein 5.6 L (6.2-8.2) g/dL Albumin 2.9 L (3.8-4.9) g/dL Albumin/Globulin Ratio 1.07 L (1.60-3.17) Ratio 06/03/23 06/03/23 06/04/23 Range/Units 16:27 20:04 05:58 WBC (4.50-10.00) X 10*3/uL Hgb (13.0-17.0) g/dL Hct (39.6-50.0) % MCH (27.0-32.0) pg MCHC (32.0-37.0) g/dL Immature Gran # (0.00-0.04) X 10*3/uL Neutrophils # (1.80-7.70) X 10*3/uL Lymphocytes # (0.90-5.00) X 10*3/uL Monocytes # (0.20-1.00) X 10*3/uL BUN/Creatinine Ratio (12.00-20.00) Ratio Glucose (70-110) mg/dL POC Glucose (mg/dL) 231 H 284 H 198 H (70-110) mg/dL Calcium (8.7-10.3) mg/dL AST (14-35) U/L Alkaline Phosphatase (41-126) U/L Total Protein (6.2-8.2) g/dL Albumin (3.8-4.9) g/dL Albumin/Globulin Ratio (1.60-3.17) Ratio Microbiology - Last 24 Hours (Table) 06/02/23 06:19 Blood Culture Gram Stain - Preliminary Blood Blood Culture - Preliminary Presumptive MRSA 06/01/23 21:30 Blood Culture Gram Stain - Preliminary Blood Blood Culture - Preliminary Presumptive MRSA 05/31/23 13:30 Blood Culture Gram Stain - Final Blood Blood Culture - Final Methicillin resist S. aureus 05/31/23 13:45 Blood Culture Gram Stain - Final Blood Blood Culture - Final Methicillin resist S. aureus
--- NOTE | 2023-06-04 11:04 | P.PN ---
Subjective Progress Note Date: 06/04/23 Principal diagnosis: Right foot infection Patient was seen and examined today as a follow-up. He is lying in bed. Pain is improved to the right foot as well as swelling and redness. He has been afebrile now for 24 hours. Objective - Vital Signs Vital signs: Vital Signs Temp 98.6 F 06/04/23 00:37 Pulse 116 H 06/04/23 00:37 Resp 16 06/04/23 00:37 BP 138/79 06/04/23 00:37 Pulse Ox 92 L 06/04/23 00:37 FiO2 Intake & Output 06/03/23 06/04/23 06/04/23 18:59 06:59 18:59 Output Total 100 400 Balance -100 -400 Output: Urine 100 400 Other: Voiding Method Urinal - Exam General appearance: The patient is alert, oriented, appears in no acute distress. Obese. HET: Head is normocephalic and atraumatic. Pupils are equal and reactive. Neck: Supple. Heart: Regular. Lungs: Equal expansion, normal respiratory effort. Abdomen: Soft, nondistended. Extremities: Bilateral lower extremity swelling. Right second toe amputation site with sutures, swollen. Left medial aspect of ankle with surrounding redness. Good capillary refill bilaterally. With palpable DP pulses. Neurological: No focal deficits. Alert and oriented. - Labs CBC & Chem 7: 06/03/23 06:36 06/03/23 06:36 Labs: Abnormal Lab Results - Last 24 Hours (Table) 06/03/23 06/03/23 06/03/23 Range/Units 06:36 06:36 11:49 WBC 14.74 H (4.50-10.00) X 10*3/uL Hgb 11.8 L (13.0-17.0) g/dL Hct 38.6 L (39.6-50.0) % MCH 26.0 L (27.0-32.0) pg MCHC 30.6 L (32.0-37.0) g/dL Immature Gran # 0.09 H (0.00-0.04) X 10*3/uL Neutrophils # 12.36 H (1.80-7.70) X 10*3/uL Lymphocytes # 0.81 L (0.90-5.00) X 10*3/uL Monocytes # 1.34 H (0.20-1.00) X 10*3/uL BUN/Creatinine Ratio 25.00 H (12.00-20.00) Ratio Glucose 182 H (70-110) mg/dL POC Glucose (mg/dL) 185 H (70-110) mg/dL Calcium 8.4 L (8.7-10.3) mg/dL AST 37 H (14-35) U/L Alkaline Phosphatase 187 H (41-126) U/L Total Protein 5.6 L (6.2-8.2) g/dL Albumin 2.9 L (3.8-4.9) g/dL Albumin/Globulin Ratio 1.07 L (1.60-3.17) Ratio 06/03/23 06/03/23 06/04/23 Range/Units 16:27 20:04 05:58 WBC (4.50-10.00) X 10*3/uL Hgb (13.0-17.0) g/dL Hct (39.6-50.0) % MCH (27.0-32.0) pg MCHC (32.0-37.0) g/dL Immature Gran # (0.00-0.04) X 10*3/uL Neutrophils # (1.80-7.70) X 10*3/uL Lymphocytes # (0.90-5.00) X 10*3/uL Monocytes # (0.20-1.00) X 10*3/uL BUN/Creatinine Ratio (12.00-20.00) Ratio Glucose (70-110) mg/dL POC Glucose (mg/dL) 231 H 284 H 198 H (70-110) mg/dL Calcium (8.7-10.3) mg/dL AST (14-35) U/L Alkaline Phosphatase (41-126) U/L Total Protein (6.2-8.2) g/dL Albumin (3.8-4.9) g/dL Albumin/Globulin Ratio (1.60-3.17) Ratio Microbiology - Last 24 Hours (Table) 06/02/23 06:19 Blood Culture Gram Stain - Preliminary Blood Blood Culture - Preliminary Presumptive MRSA 06/01/23 21:30 Blood Culture Gram Stain - Preliminary Blood Blood Culture - Preliminary Presumptive MRSA 05/31/23 13:30 Blood Culture Gram Stain - Final Blood Blood Culture - Final Methicillin resist S. aureus 05/31/23 13:45 Blood Culture Gram Stain - Final Blood Blood Culture - Final Methicillin resist S. aureus Assessment and Plan Assessment: 1. Recent right second toe amputation site, surgical infection 2. Charcot feet 3. History of toe deformities 4. Left ankle/foot injury 5. Diabetes mellitus 6. Obesity Plan: 1. Continue IV antibiotics per recommendations from infectious disease 2. No plans at this time for any vascular surgical intervention 3. We will continue to follow 4. 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 Holguin who did toe amputation 5. Offload pressure to ball of foot 6. Strict glycemic control Thank you for this consultation. The impression and plan of care has been dictated as directed. Dr. Esparza I performed a history and examination of this patient, discussed the same with the dictator. I agree with the dictator's note ,documented as a scribe. Any additional findings or plans will be noted.
[2023-06-04 11:26] LABS: Basophils # (A) 0.06 X 10*3/uL (0.00-0.10); Basophils % (A) 0.5 %; Eosinophils % (A) 1.5 %; HCT 36.3 % (39.6-50.0); HGB 11.5 g/dL (13.0-17.0); Lymphocytes # (A) 0.97 X 10*3/uL (0.90-5.00); Lymphocytes % (A) 7.5 %; MCH 26.3 pg (27.0-32.0); MCHC 31.7 g/dL (32.0-37.0); MCV 83.1 FL (80.0-97.0); Mean Platelet Volume 11.1 FL (9.5-12.2); Monocytes # (A) 1.36 X 10*3/uL (0.20-1.00); Monocytes % (A) 10.5 %; NRBC Per 100 WBC 0 X 10*3/uL (0.00-0.01); Neutrophils # (A) 10.21 X 10*3/uL (1.80-7.70); Neutrophils % (A) 78.9 %; Platelet Count 187 X 10*3/uL (140-440); RBC 4.37 X 10*6/uL (4.40-5.60); RDW 14.5 % (11.5-14.5); WBC 12.94 X 10*3/uL (4.50-10.00)
[2023-06-04 11:38] LABS: Glucose,Whole Blood 214 mg/dL (70-110)
[2023-06-04 11:54] LABS: ALT 56 U/L (10-49); AST 72 U/L (14-35); Albumin 2.8 g/dL (3.8-4.9); Albumin/Globulin Ratio 1.08 Ratio (1.60-3.17); Alkaline Phosphatase 208 U/L (41-126); BUN/Creat Ratio 22.44 Ratio (12.00-20.00); Blood Urea Nitrogen 20.2 mg/dL (9.0-27.0); Calcium 8.2 mg/dL (8.7-10.3); Carbon Dioxide 32.7 mmol/L (21.6-31.8); Chloride 94 mmol/L (96-109); Globulin 2.6 g/dL (1.6-3.3); Glucose 192 mg/dL (70-110); Potassium 3.2 mmol/L (3.5-5.5); Sodium 137 mmol/L (135-145); Total Protein 5.4 g/dL (6.2-8.2)
--- NOTE | 2023-06-04 15:47 | P.PN ---
Subjective Progress Note Date: 06/03/23 Principal diagnosis: Reason for follow-up is right second toe diabetic foot infection MRSA bacteremia Patient is a 42-year-old male with a past medical history significant for diabetes mellitus patient recently did have right second toe distal phalanx amputation completed by podiatry about 2 weeks ago, patient presented to the hospital with increasing swelling and discomfort to the left foot he was admitted also with increasing swelling redness to the right second toe. Patient did have CT of the left extremity concerning for significant Charcot deformity to the left foot. On today's evaluation that is 06/03/2023, Patient did have improvement in his fever pattern and did have a low-grade fever 100.3 this morning patient is currently on 5 L nasal cannula oxygen and denies having any shortness of breath, the patient denies any chest pain or cough, the patient denies any nausea vomiting did not have any abdominal pain and no diarrhea, discomfort to the left ankle area has decreased in intensity Patient white count is slightly up to 14.74 today, creatinine 0.9 Objective - Vital Signs Vital signs: Vital Signs Temp 98.9 F 06/03/23 08:53 Pulse 116 H 06/03/23 10:18 Resp 18 06/03/23 10:18 BP 125/77 06/03/23 08:53 Pulse Ox 95 06/03/23 08:00 FiO2 Intake & Output 06/02/23 06/03/23 06/03/23 18:59 06:59 18:59 Output Total 700 Balance -700 Output: Urine 700 Other: Voiding Method Urinal # Voids 2 - Exam GENERAL DESCRIPTION: Young male lying in bed in no distress RESPIRATORY SYSTEM: Unlabored breathing , decreased breath sounds at bases HEART: S1 S2 regular rate and rhythm , ABDOMEN: Soft , no tenderness EXTREMITIES: Right foot is currently dressed no drainage patient has significant swelling to the left foot with erythema to the left lateral border which is warm and tender to touch - Labs CBC & Chem 7: 06/04/23 05:51 06/04/23 05:51 Labs: Abnormal Lab Results - Last 24 Hours (Table) 06/02/23 06/02/23 06/03/23 Range/Units 16:56 19:52 05:44 WBC (4.50-10.00) X 10*3/uL Hgb (13.0-17.0) g/dL Hct (39.6-50.0) % MCH (27.0-32.0) pg MCHC (32.0-37.0) g/dL Immature Gran # (0.00-0.04) X 10*3/uL Neutrophils # (1.80-7.70) X 10*3/uL Lymphocytes # (0.90-5.00) X 10*3/uL Monocytes # (0.20-1.00) X 10*3/uL BUN/Creatinine Ratio (12.00-20.00) Ratio Glucose (70-110) mg/dL POC Glucose (mg/dL) 239 H 226 H 175 H (70-110) mg/dL Calcium (8.7-10.3) mg/dL AST (14-35) U/L Alkaline Phosphatase (41-126) U/L Total Protein (6.2-8.2) g/dL Albumin (3.8-4.9) g/dL Albumin/Globulin Ratio (1.60-3.17) Ratio 06/03/23 06/03/23 06/03/23 Range/Units 06:36 06:36 11:49 WBC 14.74 H (4.50-10.00) X 10*3/uL Hgb 11.8 L (13.0-17.0) g/dL Hct 38.6 L (39.6-50.0) % MCH 26.0 L (27.0-32.0) pg MCHC 30.6 L (32.0-37.0) g/dL Immature Gran # 0.09 H (0.00-0.04) X 10*3/uL Neutrophils # 12.36 H (1.80-7.70) X 10*3/uL Lymphocytes # 0.81 L (0.90-5.00) X 10*3/uL Monocytes # 1.34 H (0.20-1.00) X 10*3/uL BUN/Creatinine Ratio 25.00 H (12.00-20.00) Ratio Glucose 182 H (70-110) mg/dL POC Glucose (mg/dL) 185 H (70-110) mg/dL Calcium 8.4 L (8.7-10.3) mg/dL AST 37 H (14-35) U/L Alkaline Phosphatase 187 H (41-126) U/L Total Protein 5.6 L (6.2-8.2) g/dL Albumin 2.9 L (3.8-4.9) g/dL Albumin/Globulin Ratio 1.07 L (1.60-3.17) Ratio Microbiology - Last 24 Hours (Table) 05/31/23 13:30 Blood Culture Gram Stain - Final Blood Blood Culture - Final Methicillin resist S. aureus 05/31/23 13:45 Blood Culture Gram Stain - Final Blood Blood Culture - Final Methicillin resist S. aureus 06/02/23 06:19 Blood Culture Gram Stain - Preliminary Blood 06/01/23 21:30 Blood Culture Gram Stain - Preliminary Blood Blood Culture - Preliminary 05/31/23 13:37 Gram Stain - Final Toe - Right Second Wound Culture - Final Methicillin resist S. aureus Assessment and Plan (1) MRSA bacteremia Current Visit: Yes Status: Acute Code(s): R78.81 - BACTEREMIA; B95.62 - METHICILLIN RESIS STAPH [facility] Code(s): 70382554378875774 (2) Leukocytosis Current Visit: Yes Status: Acute Code(s): D72.829 - ELEVATED WHITE BLOOD CELL COUNT, UNSPECIFIED SNOMED Code(s): 384977882 (3) Type 2 diabetes mellitus with foot ulcer Current Visit: No Status: Acute Code(s): E11.621 - TYPE 2 DIABETES MELLITUS WITH FOOT ULCER; L97.509 - NON-PRESSURE CHRONIC ULCER OTH PRT UNSP FOOT W UNSP SEVERITY SNOMED Code(s): 000800283 Plan: 1patient presented to hospital with increasing pain and swelling to the right second toe amputation site in this patient who did have features of sepsis with a fever elevated white count source is right second toe distal phalanx amputation site infection and concerning for secondary cellulitis likely from gram-positive skin torres gram-negative infection less likely but not excluded 2-patient also have a fall from his scooter landed on his left lower extremity CT suspicious for Charcot deformity and also noticed to have increasing swelling and some redness and tenderness to the lateral aspect of the left foot concerning for possible left foot septic arthritis 3-patient did have a positive blood culture with MRSA right second toe tip culture growing MRSA as well 4-patient to continue with the vancomycin awaiting orthopedic/podiatry evaluation and need for any surgical intervention Dictation was produced using [employer] dictation software. please excuse any grammatical, word or spelling errors. Time with Patient: Less than 30
--- NOTE | 2023-06-04 15:48 | P.PN ---
Subjective Progress Note Date: 06/04/23 Principal diagnosis: Reason for follow-up is right second toe diabetic foot infection MRSA bacteremia Patient is a 42-year-old male with a past medical history significant for diabetes mellitus patient recently did have right second toe distal phalanx amputation completed by podiatry about 2 weeks ago, patient presented to the hospital with increasing swelling and discomfort to the left foot he was admitted also with increasing swelling redness to the right second toe. Patient did have CT of the left extremity concerning for significant Charcot deformity to the left foot. On today's evaluation that is 06/04/2023, patient did have a low-grade fever 100.1 this afternoon, patient is breathing comfortably and is currently on room air, patient denies having any significant cough no chest pain shortness of breath, patient denies nausea vomiting or diarrhea and no abdominal pain patient swelling redness to the right foot and discomfort to the left lateral ankle has slightly decreased intensity. Patient white count is down to 12.94, creatinine 0 point 9 repeat blood culture positive as well Objective - Vital Signs Vital signs: Vital Signs Temp 100.1 F H 06/04/23 14:00 Pulse 118 H 06/04/23 14:00 Resp 18 06/04/23 14:00 BP 138/71 06/04/23 14:00 Pulse Ox 95 06/04/23 14:00 FiO2 Intake & Output 06/03/23 06/04/23 06/04/23 18:59 06:59 18:59 Output Total 100 400 Balance -100 -400 Output: Urine 100 400 Other: Voiding Method Urinal Toilet Urinal - Exam GENERAL DESCRIPTION: Young male lying in bed in no distress RESPIRATORY SYSTEM: Unlabored breathing , decreased breath sounds at bases HEART: S1 S2 regular rate and rhythm , ABDOMEN: Soft , no tenderness EXTREMITIES: Right foot is currently dressed no drainage patient has significant swelling to the left foot with erythema to the left lateral border which is warm and tender to touch - Labs CBC & Chem 7: 06/04/23 05:51 06/04/23 05:51 Labs: Abnormal Lab Results - Last 24 Hours (Table) 06/03/23 06/03/23 06/04/23 Range/Units 16:27 20:04 05:51 WBC (4.50-10.00) X 10*3/uL RBC (4.40-5.60) X 10*6/uL Hgb (13.0-17.0) g/dL Hct (39.6-50.0) % MCH (27.0-32.0) pg MCHC (32.0-37.0) g/dL Immature Gran # (0.00-0.04) X 10*3/uL Neutrophils # (1.80-7.70) X 10*3/uL Monocytes # (0.20-1.00) X 10*3/uL Potassium 3.2 L (3.5-5.5) mmol/L Chloride 94 L (96-109) mmol/L Carbon Dioxide 32.7 H (21.6-31.8) mmol/L BUN/Creatinine Ratio 22.44 H (12.00-20.00) Ratio Glucose 192 H (70-110) mg/dL POC Glucose (mg/dL) 231 H 284 H (70-110) mg/dL Calcium 8.2 L (8.7-10.3) mg/dL AST 72 H (14-35) U/L ALT 56 H (10-49) U/L Alkaline Phosphatase 208 H (41-126) U/L Total Protein 5.4 L (6.2-8.2) g/dL Albumin 2.8 L (3.8-4.9) g/dL Albumin/Globulin Ratio 1.08 L (1.60-3.17) Ratio 06/04/23 06/04/23 06/04/23 Range/Units 05:51 05:58 11:37 WBC 12.94 H (4.50-10.00) X 10*3/uL RBC 4.37 L (4.40-5.60) X 10*6/uL Hgb 11.5 L (13.0-17.0) g/dL Hct 36.3 L (39.6-50.0) % MCH 26.3 L (27.0-32.0) pg MCHC 31.7 L (32.0-37.0) g/dL Immature Gran # 0.14 H (0.00-0.04) X 10*3/uL Neutrophils # 10.21 H (1.80-7.70) X 10*3/uL Monocytes # 1.36 H (0.20-1.00) X 10*3/uL Potassium (3.5-5.5) mmol/L Chloride (96-109) mmol/L Carbon Dioxide (21.6-31.8) mmol/L BUN/Creatinine Ratio (12.00-20.00) Ratio Glucose (70-110) mg/dL POC Glucose (mg/dL) 198 H 214 H (70-110) mg/dL Calcium (8.7-10.3) mg/dL AST (14-35) U/L ALT (10-49) U/L Alkaline Phosphatase (41-126) U/L Total Protein (6.2-8.2) g/dL Albumin (3.8-4.9) g/dL Albumin/Globulin Ratio (1.60-3.17) Ratio Microbiology - Last 24 Hours (Table) 06/02/23 06:19 Blood Culture Gram Stain - Preliminary Blood Blood Culture - Preliminary Presumptive MRSA 06/01/23 21:30 Blood Culture Gram Stain - Preliminary Blood Blood Culture - Preliminary Presumptive MRSA 05/31/23 13:30 Blood Culture Gram Stain - Final Blood Blood Culture - Final Methicillin resist S. aureus 05/31/23 13:45 Blood Culture Gram Stain - Final Blood Blood Culture - Final Methicillin resist S. aureus Assessment and Plan (1) MRSA bacteremia Current Visit: Yes Status: Acute Code(s): R78.81 - BACTEREMIA; B95.62 - METHICILLIN RESIS STAPH INFCT CAUSING DISEASES CLASSD [facility] SNOMED Code(s): 41590685018361186 (2) Leukocytosis Current Visit: Yes Status: Acute Code(s): D72.829 - ELEVATED WHITE BLOOD CELL COUNT, UNSPECIFIED SNOMED Code(s): 870321489 (3) Type 2 diabetes mellitus with foot ulcer Current Visit: No Status: Acute Code(s): E11.621 - TYPE 2 DIABETES MELLITUS WITH FOOT ULCER; L97.509 - NON-PRESSURE CHRONIC ULCER OTH PRT UNSP FOOT W UNSP SEVERITY SNOMED Code(s): 012225622 Plan: 1patient presented to hospital with increasing pain and swelling to the right second toe amputation site in this patient who did have features of sepsis with a fever elevated white count source is right second toe distal phalanx amputation site infection and concerning for secondary cellulitis likely from gram-positive skin torres gram-negative infection less likely but not excluded 2-patient also have a fall from his scooter landed on his left lower extremity CT suspicious for Charcot deformity and also noticed to have increasing swelling and some redness and tenderness to the lateral aspect of the left foot concernin g for possible left foot septic arthritis, MRI has been ordered for further workup 3-patient did have a positive blood culture with MRSA right second toe tip culture growing MRSA as well 4-patient to continue with the vancomycin we will wait for the MRI to be completed blood cultures will be repeated to document clearance of bacteremia Case discussed with the family and attending physician on the floor Dictation was produced using [employer] software. please excuse any grammatical, word or spelling errors.
[2023-06-04] MEDS: diazePAM 5 MG TAB PO STA (15:59)
[2023-06-04 16:15] LABS: Glucose,Whole Blood 321 mg/dL (70-110)
--- NOTE | 2023-06-04 17:44 | P.PN ---
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 Hua back in December 2022, he has been following with Dr. Holguin who performed a right second toe amputation Thursday as an outpatient here at [facility], and he was seen and evaluated by him as a follow-up, he had minimal dehiscence and he ended up putting more sutures to his amputation site, apparently the patient was supposed to follow-up with the wound healing center at [facility] on this coming Thursday patient apparently was seen in the emergency department at [facility] on May 29 for increased redness and increased pain of the right second toe amputation, and at that time he was sent home he ended up going to the ER at [facility] nothing was done, and the patient was sent home as well, I received a call from his stating that the patient is not doing well he appears to be quite sick to his stomach, he has significant redness to the right second toe amputation site with increased fever and chills not able to keep anything down, he was directed to go back to the emergency department because of what appears to have a sepsis, patient was seen in the ER, patient also had fallen off his scooter and landed on his left foot, he has not been able to bear any weight on his left foot, his x-ray initially did not show any evidence of acute abnormalities, however a CT scan of the foot that was done in the ER did show evidence of air foci suggestive of infection on top of the destructive bones and subluxation with significant edema and effusion patient will be seen in consultation by orthopedic surgery, consulted Dr. Mcguire who declined the consult and send the consult back to Dr. Holguin 06/01: Patient is sitting up in bed he is feeling better today, he denies any chest pain, he is less short of breath, he did receive 2 doses of Lasix 40 mg IV push every 12 hours, he had a CTA of the chest that was negative for pulmonary embolism but did show pulmonary hypertension, minimal pulmonary vascular congestion, he was seen in consultation by cardiology recommended to continue metoprolol 25 mg orally twice every day as well as Lasix 40 mg IV push every 12 hours, discontinue IV fluid, continue IV antibiotic, blood cultures are positive for possible MRSA, ID is following, continue cefepime and vancomycin for now, cancel the consult to Dr. Mcguire and consult Dr. Mcintosh for evaluation of the left foot. 06/02: Patient is sitting at the edge of the bed, he is feeling a bit better today, he continues to have significant sinus headache, he denies any chest pain at this time he continues to be somewhat short of breath, he is currently on 5 L nasal cannula, will try to wean his oxygen down, he is currently on Lasix 40 mg IV push every 12 hours, his family is requesting for the patient to be seen by vascular surgery we will consult Dr. Hua since the patient was seen by her in the past, will continue IV antibiotic at this time, monitor the patient very closely, patient underwent a swab for influenza AB as well as RSV along with COVID came back negative will continue with loratadine 10 mg once every day continue current treatment plan, increase activity, patient was instructed to use the incentive spirometer to reduce the incidence of atelectasis and healthcare associated pneumonia meanwhile he is currently on cefepime and vanco mycin. 06/03: Patient is lying down in bed in no apparent distress, he denies any chest pain, shortness of breath, he continues to be somewhat tachycardic, he continues to be on oxygen, he continues to have significant edema and swelling of the left foot/ankle with increased pain on the side of the left foot, discussed with infectious disease the possibility of osteomyelitis in the left foot, will continue IV antibiotic for now for the next 6 weeks in the form of vancomycin, continue patient on bedrest, we will obtain MRI of the left foot left ankle with and without reg, and if there is evidence of significant destruction of the bone we may consider transferring the patient to [facility] for further evaluation as there is no orthopedic service available for the foot and ankle at this time. REVIEW OF SYSTEMS: Constitutional: positive for documented fever, no chills, no night sweats. No weight change. positive for weakness, fatigue or lethargy. No daytime sleepiness. HEENT: No headache. No blurred vision or double vision, no loss of vision. No loss of Hearing, no ringing in the ears, no dizziness. No nasal drainage or congestion. No epistaxis. No sore throat. Lungs: no shortness of breath, no cough, or sputum production. No wheezing. Reports no dyspnea with activity. Cardiovascular: no chest pain, positive for lower extremity edema. positive for palpitations. negative for paroxysmal nocturnal dyspnea. negative for orthopnea. No lightheadedness or dizziness. No syncopal episodes. Abdominal: Reports no abdominal pain. positive for nausea,positive for vomiting. No diarrhea. No constipation. No bloody or tarry stools Genitourinary: No dysuria, increased frequency, urgency, Musculoskeletal: No myalgias, positive for weakness, bilateral charcot feet, left foot with severe swelling and tenderness, right foot post right second toe amputation and 3rd toe amputation Integumentary: right third toe amputation, right second toe amputation with s uture in place, with increased erythema and tenderness No rash or pruritus. positive for unusual bruising. No change in hair or nails. Neurologic: No aphasia. No facial droop. No change in mentation. No head injury. No headache. No paralysis. No paresthesia. Psychiatric: positive for depression. No anxiety. No mood swings. Endocrine: positive for abnormal blood sugars. positive for weight change. PHYSICAL EXAMINATION: General: 42 year male sitting up in chair does appear to be in distress HEENT: Head is atraumatic, normocephalic, pupils were equal round reactive to light and recommendation, extraocular muscle movement were intact, sclera nonicteric, conjunctivae were pale, mucous membranes of the mouth are somewhat dry. Neck: Supple, no JVP, normal carotid upstroke bilaterally, no lymphadenopathy. Chest: Decreased breath sounds at the bases, few rhonchi, no expiratory wheezes or intercostal retractions Heart: First heart sound is normal, second heart sound is normal, tachycardic, there is no gallop or murmur. Abdomen: Soft, nontender, nondistended, positive bowel sounds, obese. Extremities: There is +1 edema no calf tenderness DP +2 bilaterally, positive for neuropathy and charcot feet , right third toe amputation, right second toe amputation with sutures in place with significant erythema and tenderness. Left foot severely swollen and severely tender to palpation Neurologic examination: Patient is awake alert and oriented X 3, cranial nerves II-12 appear grossly intact, muscle power were 5 out of 5 in upper extremities and 4/5 in right lower extremity ASSESSMENT AND PLAN: 1. Infected right second toe amputation site with cellulitis associated with MRSA bacteremia and osteomyelitis of the left foot with underlying Charcot foot continue vancomycin with pharmacy dosing, infectious disease team is following, keep watching bilateral feet closely, we will obtain MRI of the left ankle left foot for further evaluation of the osteomyelitis, if there is significant derangement of left foot we will transfer to [facility] for orthopedic evaluation. 2. Severe tenderness in the left foot status post CT scan that showed evidence of Charcot at foot along with bony destruction with air foci suggestive of infectious process. Continue patient on IV antibiotic in the form of vancomycin with pharmacy to dose the peak and trough, obtain MRI of the left foot left ankle with and without reg, likely if there is significant obstruction patient will need to be transferred to [facility]. This was discussed with the patient and his at the bedside. 3. Sinus tachycardia likely related to underlying sepsis . Continue to treat underlying cause continue metoprolol 50 mg orally twice every day. 4. Diabetes Mellitustype 2 non controlled. we will continue with Levemir 80 units SC at bedtime along with SSI , has been off GLP_1 RA ( Mounjaro) , restart the patient metformin 1000 mg at bedtime and add NovoLog 8 units before each meal plus the sliding scale. 5. Diabetic Polyneuropathy with charcot feet. we will continue with Gabapentin 600 mg po bid 6. Hyperlipidemnia. we will continue with Atorvastatin 80 mg po daily, keep LDL- c 55-70. 7. Hypertension and hypertensive cardiovascular disease. Start the patient on metoprolol 50 mg orally twice every day. 8. Obesity with OS and OHS. we will continue with weight loss, never made it for a sleep study. 9. DVT prophylaxis. we will use Lovenox 40 mg SC daily. 10. GI Prophylaxis. we will continue with famotidine 40 mg at bedtime. 11. Severe gastroparesis. Continue patient on metoclopramide 10 mg before each meal 3 times every day. 12. Major depressive disorder. Continue patient on duloxetine 20 mg orally once every day. 13. Sinus headache. on loratadine 10 mg orally once every day, as well as nasal saline spray 2 sprays in each nostril 3 times every day. 14. Overall prognosis is guarded. 15. Vascular surgery consultation Dr. Hua. 16. Overall prognosis is guarded. Objective - Vital Signs Vital signs: Vital Signs Temp 100.1 F H 06/04/23 14:00 Pulse 118 H 06/04/23 14:00 Resp 18 06/04/23 14:00 BP 138/71 06/04/23 14:00 Pulse Ox 95 06/04/23 14:00 FiO2 Intake & Output 06/03/23 06/04/23 06/04/23 18:59 06:59 18:59 Output Total 100 400 Balance -100 -400 Output: Urine 100 400 Other: Voiding Method Urinal Toilet Urinal - Labs CBC & Chem 7: 06/04/23 05:51 06/04/23 05:51 Labs: Abnormal Lab Results - Last 24 Hours (Table) 06/03/23 06/04/23 06/04/23 Range/Units 20:04 05:51 05:51 WBC 12.94 H (4.50-10.00) X 10*3/uL RBC 4.37 L (4.40-5.60) X 10*6/uL Hgb 11.5 L (13.0-17.0) g/dL Hct 36.3 L (39.6-50.0) % MCH 26.3 L (27.0-32.0) pg MCHC 31.7 L (32.0-37.0) g/dL Immature Gran # 0.14 H (0.00-0.04) X 10*3/uL Neutrophils # 10.21 H (1.80-7.70) X 10*3/uL Monocytes # 1.36 H (0.20-1.00) X 10*3/uL Potassium 3.2 L (3.5-5.5) mmol/L Chloride 94 L (96-109) mmol/L Carbon Dioxide 32.7 H (21.6-31.8) mmol/L BUN/Creatinine Ratio 22.44 H (12.00-20.00) Ratio Glucose 192 H (70-110) mg/dL POC Glucose (mg/dL) 284 H (70-110) mg/dL Calcium 8.2 L (8.7-10.3) mg/dL AST 72 H (14-35) U/L ALT 56 H (10-49) U/L Alkaline Phosphatase 208 H (41-126) U/L Total Protein 5.4 L (6.2-8.2) g/dL Albumin 2.8 L (3.8-4.9) g/dL Albumin/Globulin Ratio 1.08 L (1.60-3.17) Ratio 06/04/23 06/04/23 06/04/23 Range/Units 05:58 11:37 16:12 WBC (4.50-10.00) X 10*3/uL RBC (4.40-5.60) X 10*6/uL Hgb (13.0-17.0) g/dL Hct (39.6-50.0) % MCH (27.0-32.0) pg MCHC (32.0-37.0) g/dL Immature Gran # (0.00-0.04) X 10*3/uL Neutrophils # (1.80-7.70) X 10*3/uL Monocytes # (0.20-1.00) X 10*3/uL Potassium (3.5-5.5) mmol/L Chloride (96-109) mmol/L Carbon Dioxide (21.6-31.8) mmol/L BUN/Creatinine Ratio (12.00-20.00) Ratio Glucose (70-110) mg/dL POC Glucose (mg/dL) 198 H 214 H 321 H (70-110) mg/dL Calcium (8.7-10.3) mg/dL AST (14-35) U/L ALT (10-49) U/L Alkaline Phosphatase (41-126) U/L Total Protein (6.2-8.2) g/dL Albumin (3.8-4.9) g/dL Albumin/Globulin Ratio (1.60-3.17) Ratio Microbiology - Last 24 Hours (Table) 06/02/23 06:19 Blood Culture Gram Stain - Preliminary Blood Blood Culture - Preliminary Presumptive MRSA 06/01/23 21:30 Blood Culture Gram Stain - Preliminary Blood Blood Culture - Preliminary Presumptive MRSA
[2023-06-04] MEDS: metFORMIN 500 MG TAB PO SCH (18:21)
[2023-06-04 20:26] LABS: Glucose,Whole Blood 263 mg/dL (70-110)
[2023-06-04] MEDS: LACTULOSE 20 GM/30 ML CUP PO SCH (21:21)
[2023-06-04] MEDS: SENNOSIDES-DOCUSATE SODIUM 1 EACH TAB PO SCH (21:21)
[2023-06-05 06:03] LABS: Glucose,Whole Blood 221 mg/dL (70-110)
[2023-06-05 07:23] LABS: ALT 81 U/L (4-49); AST 118 U/L (17-59); African American GFR (CKD) >90 (>60 ml/min/1.73 sqM); Albumin 2.7 g/dL (3.5-5.0); Albumin/Globulin Ratio 0.9; Alkaline Phosphatase 269 U/L (38-126); Anion Gap 5 mmol/L; Blood Urea Nitrogen 18 mg/dL (9-20); Calcium 8.2 mg/dL (8.4-10.2); Carbon Dioxide 40 mmol/L (22-30); Chloride 91 mmol/L (98-107); Globulin 3.1 g/dL; Glucose 214 mg/dL (74-99); Non-African American GFR(CKD) >90 (>60 ml/min/1.73 sqM); Sodium 136 mmol/L (137-145); Total Bilirubin 1.1 mg/dL (0.2-1.3); Total Protein 5.8 g/dL (6.3-8.2)
[2023-06-05] MEDS: INSULIN ASPART (NovoLOG) 100 UNIT/ML VIAL SQ SCH (08:04)
[2023-06-05] MEDS: VANCOMYCIN TROUGH DUE 1 EACH MISC MISCELLANE ONE (08:08)
[2023-06-05] MEDS ORDERED: FUROSEMIDE 10 MG/ML 10 ML VIAL IV SCH (09:45)
[2023-06-05 10:25] LABS: Basophils % (A) 0.8 %; Eosinophils # (A) 0.39 X 10*3/uL (0.04-0.35); Eosinophils % (A) 3.3 %; HCT 38.5 % (39.6-50.0); HGB 11.9 g/dL (13.0-17.0); Lymphocytes # (A) 1.29 X 10*3/uL (0.90-5.00); MCH 26.2 pg (27.0-32.0); MCHC 30.9 g/dL (32.0-37.0); MCV 84.6 FL (80.0-97.0); Mean Platelet Volume 11.2 FL (9.5-12.2); Monocytes # (A) 1.11 X 10*3/uL (0.20-1.00); Monocytes % (A) 9.4 %; NRBC Per 100 WBC 0 X 10*3/uL (0.00-0.01); Neutrophils # (A) 8.64 X 10*3/uL (1.80-7.70); Neutrophils % (A) 73.4 %; Platelet Count 227 X 10*3/uL (140-440); RBC 4.55 X 10*6/uL (4.40-5.60); RDW 14.5 % (11.5-14.5); WBC 11.78 X 10*3/uL (4.50-10.00)
[2023-06-05] MEDS: FUROSEMIDE 10 MG/ML 4 ML VIAL IV SCH (10:32)
[2023-06-05] MEDS: POTASSIUM CHLORIDE ER 20 MEQ TAB.ER PO SCH (10:32)
[2023-06-05 11:14] VITALS: BMI 44.9
[2023-06-05 11:37] LABS: Glucose,Whole Blood 218 mg/dL (70-110)
--- NOTE | 2023-06-05 11:55 | P.PN ---
Subjective HISTORY OF PRESENT ILLNESS: This is a 42-year-old male with a past medical history significant for hyperlipidemia, diabetes, morbid obesity, right third toe amputation, and recent right second toe amputation. 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 We have been asked to see the patient in consultation for SVT. Patient examined this morning. Patient is sitting up in the chair. Patient is admitted to the hospital secondary to an infection of his right second toe amputation site. Patient does have MRSA bacteremia. He is receiving IV antibiotics. The patient also reports significant left lower extremity swelling. The patient denies any chest pain or pressure. He currently denies shortness of breath. EKG obtained yesterday reveals sinus tachycardia. Apparently there was some question of SVT. He was started on metoprolol by Dr. Holbrook. Patient's telemetry this morning reveals sinus tachycardia. He denies having any palpitations. He denies any dizziness or lightheadedness. DIAGNOSTICS: - EKG reveals sinus tachycardia - Chest xray low lung volumes with generalized hazy appearance which could represent atelectasis -Chest CTA: Negative for pulmonary embolism. Pulmonary vascular congestion and trace bilateral effusions. - Laboratory data: WBC 12.10. Hemoglobin 13.5. Platelet count 191. Sodium 136. Potassium 4.3. BUN 23. Creatinine 0.97. Troponin negative x 1. Lactic acid 1.8. - Current home cardiac medications include Lipitor 80 mg at night. 06/03/2023 Patient examined this morning at the bedside. Patient reports having a significant headache this morning. Patient denies chest pain or pressure. He d enies shortness of breath. Patient remains on IV Lasix. Kidney function from this morning remains pending. He continues to have lower extremity edema. Telemetry reveals sinus tachycardia. Patient was febrile this morning. Echocardiogram obtained revealing ejection fraction 50%, mild pulmonary hypertension 06/04/2023 Patient examined this morning at the bedside. Patient denies chest pain or pressure. Patient denies shortness of breath. He is afebrile this morning. He remains tachycardic with heart rate around 115. He continues to have lower extremity edema. He remains on IV Lasix. Kidney function from this morning is currently pending 06/04/2023 Patient examined this morning at the bedside. Patient family member is present. Patient currently denies any chest pain or pressure. He denies shortness of breath. He continues to have significant lower extremity edema. He remains on IV Lasix. [place] [id number]. He remains in sinus mechanism. Patient is complaining about his nasal cannula this morning and states it is not comfortable. However the patient had an oxygen saturation of 80% on room air. PHYSICAL EXAM: VITAL SIGNS: Reviewed. GENERAL: Well-developed in no acute distress. HEENT: Head is normocephalic. Pupils are equal, round. Sclerae anicteric. Mucous membranes of the mouth are moist. Neck supple. No JVD or thyromegaly LUNGS: Respirations even and unlabored. Lungs essentially clear to auscultation bilaterally. HEART: Tachycardic. Regular rate and rhythm. S1 and S2 heard. ABDOMEN: Soft. Nondistended. Nontender. EXTREMITIES: Normal range of motion. No clubbing or cyanosis. Peripheral pulses intact. Significant left lower extremity edema. Right lower extremity with erythema and edema at the amputation site. NEUROLOGIC: Awake and alert. Oriented x 3. ASSESSMENT: Infected right second toe amputation site with cellulitis and MRSA bacteremia Sinus tachycardia, SVT less likely, likely physiological in response to fever and infectious process Acute heart failure with preserved EF, 50% Acute hypoxic respiratory failure requiring supplemental oxygen Hyperlipidemia Diabetes History of right third toe amputation Obstructive sleep apnea Morbid obesity Hypokalemia PLAN: Continue IV Lasix 40 mg every 12 hours Daily weights, accurate intake and output, and monitoring of kidney function. Metoprolol increased yesterday. Anticipate improvement in heart rate with resolution of infectious process Continue telemetry monitoring Replace potassium Further recommendations pending patient course Nurse practitioner note has been reviewed by physician. Signing provider agrees with the documented findings, assessment, and plan of care documented by POOL PLAYER as a scribe. Objective - Vital Signs Vital signs: Vital Signs Temp 98.0 F 06/05/23 08:00 Pulse 108 H 06/05/23 08:00 Resp 18 06/05/23 08:00 BP 119/75 06/05/23 08:00 Pulse Ox 95 06/05/23 09:12 FiO2 Intake & Output 06/04/23 06/05/23 06/05/23 18:59 06:59 18:59 Weight 158.757 kg Other: Voiding Method Toilet Urinal # Voids 3 4 # Bowel Movements 1 - Labs CBC & Chem 7: 06/05/23 06:48 06/05/23 06:48 Labs: Abnormal Lab Results - Last 24 Hours (Table) 06/04/23 06/04/23 06/04/23 Range/Units 05:51 16:12 20:24 WBC (4.50-10.00) X 10*3/uL Hgb (13.0-17.0) g/dL Hct (39.6-50.0) % MCH (27.0-32.0) pg MCHC (32.0-37.0) g/dL Immature Gran # (0.00-0.04) X 10*3/uL Neutrophils # (1.80-7.70) X 10*3/uL Monocytes # (0.20-1.00) X 10*3/uL Eosinophils # (0.04-0.35) X 10*3/uL Sodium (137-145) mmol/L Potassium 3.2 L (3.5-5.5) mmol/L Chloride 94 L (96-109) mmol/L Carbon Dioxide 32.7 H (21.6-31.8) mmol/L BUN/Creatinine Ratio 22.44 H (12.00-20.00) Ratio Glucose 192 H (70-110) mg/dL POC Glucose (mg/dL) 321 H 263 H (70-110) mg/dL Calcium 8.2 L (8.7-10.3) mg/dL AST 72 H (14-35) U/L ALT 56 H (10-49) U/L Alkaline Phosphatase 208 H (41-126) U/L Total Protein 5.4 L (6.2-8.2) g/dL Albumin 2.8 L (3.8-4.9) g/dL Albumin/Globulin Ratio 1.08 L (1.60-3.17) Ratio 06/05/23 06/05/23 06/05/23 Range/Units 06:02 06:48 06:48 WBC 11.78 H (4.50-10.00) X 10*3/uL Hgb 11.9 L (13.0-17.0) g/dL Hct 38.5 L (39.6-50.0) % MCH 26.2 L (27.0-32.0) pg MCHC 30.9 L (32.0-37.0) g/dL Immature Gran # 0.25 H (0.00-0.04) X 10*3/uL Neutrophils # 8.64 H (1.80-7.70) X 10*3/uL Monocytes # 1.11 H (0.20-1.00) X 10*3/uL Eosinophils # 0.39 H (0.04-0.35) X 10*3/uL Sodium 136 L (137-145) mmol/L Potassium 3.0 L (3.5-5.5) mmol/L Chloride 91 L (96-109) mmol/L Carbon Dioxide 40 H (21.6-31.8) mmol/L BUN/Creatinine Ratio (12.00-20.00) Ratio Glucose 214 H (70-110) mg/dL POC Glucose (mg/dL) 221 H (70-110) mg/dL Calcium 8.2 L (8.7-10.3) mg/dL AST 118 H (14-35) U/L ALT 81 H (10-49) U/L Alkaline Phosphatase 269 H (41-126) U/L Total Protein 5.8 L (6.2-8.2) g/dL Albumin 2.7 L (3.8-4.9) g/dL Albumin/Globulin Ratio (1.60-3.17) Ratio / Range/Units 11:36 WBC (4.50-10.00) X 10*3/uL Hgb (13.0-17.0) g/dL Hct (39.6-50.0) % MCH (27.0-32.0) pg MCHC (32.0-37.0) g/dL Immature Gran # (0.00-0.04) X 10*3/uL Neutrophils # (1.80-7.70) X 10*3/uL Monocytes # (0.20-1.00) X 10*3/uL Eosinophils # (0.04-0.35) X 10*3/uL Sodium (137-145) mmol/L Potassium (3.5-5.5) mmol/L Chloride (96-109) mmol/L Carbon Dioxide (21.6-31.8) mmol/L BUN/Creatinine Ratio (12.00-20.00) Ratio Glucose (70-110) mg/dL POC Glucose (mg/dL) 218 H (70-110) mg/dL Calcium (8.7-10.3) mg/dL AST (14-35) U/L ALT (10-49) U/L Alkaline Phosphatase (41-126) U/L Total Protein (6.2-8.2) g/dL Albumin (3.8-4.9) g/dL Albumin/Globulin Ratio (1.60-3.17) Ratio Microbiology - Last 24 Hours (Table) 06/02/23 06:19 Blood Culture Gram Stain - Final Blood Blood Culture - Final Methicillin resist S. aureus 06/01/23 21:30 Blood Culture Gram Stain - Final Blood Blood Culture - Final Methicillin resist S. aureus
--- NOTE | 2023-06-05 12:23 | P.PN ---
Subjective Progress Note Date: 06/05/23 Principal diagnosis: Reason for follow-up is right second toe diabetic foot infection MRSA bacteremia Patient is a 42-year-old male with a past medical history significant for diabetes mellitus patient recently did have right second toe distal phalanx amputation completed by podiatry about 2 weeks ago, patient presented to the hospital with increasing swelling and discomfort to the left foot he was admitted also with increasing swelling redness to the right second toe. Patient did have CT of the left extremity concerning for significant Charcot deformity to the left foot. On today's evaluation that is 06/05/2023,the patient denies any fever or any chills, patient is breathing comfortably on 3 L nasal cannula oxygen, the patient denies chest pain shortness of breath and no significant cough, patient denies abdominal pain, no nausea vomiting or diarrhea. Pain to the left ankle decreased in intensity. Patient white count is down to 11.78, creatinine 0.69 vancomycin trough is 18.3 blood culture repeat pending MRI is pending Objective - Vital Signs Vital signs: Vital Signs Temp 98.0 F 06/05/23 08:00 Pulse 108 H 06/05/23 08:00 Resp 18 06/05/23 08:00 BP 119/75 06/05/23 08:00 Pulse Ox 95 06/05/23 09:12 FiO2 Intake & Output 06/04/23 06/05/23 06/05/23 18:59 06:59 18:59 Weight 158.757 kg Other: Voiding Method Toilet Urinal # Voids 3 4 # Bowel Movements 1 - Exam GENERAL DESCRIPTION: Young male lying in bed in no distress RESPIRATORY SYSTEM: Unlabored breathing , decreased breath sounds at bases HEART: S1 S2 regular rate and rhythm , ABDOMEN: Soft , no tenderness EXTREMITIES: Right foot is currently dressed no drainage patient has significant swelling to the left foot with erythema to the left lateral border which is warm and tender to touch - Labs CBC & Chem 7: 06/05/23 06:48 06/05/23 06:48 Labs: Abnormal Lab Results - Last 24 Hours (Table) 06/04/23 06/04/23 06/04/23 Range/Units 05:51 05:51 11:37 WBC 12.94 H (4.50-10.00) X 10*3/uL RBC 4.37 L (4.40-5.60) X 10*6/uL Hgb 11.5 L (13.0-17.0) g/dL Hct 36.3 L (39.6-50.0) % MCH 26.3 L (27.0-32.0) pg MCHC 31.7 L (32.0-37.0) g/dL Immature Gran # 0.14 H (0.00-0.04) X 10*3/uL Neutrophils # 10.21 H (1.80-7.70) X 10*3/uL Monocytes # 1.36 H (0.20-1.00) X 10*3/uL Eosinophils # (0.04-0.35) X 10*3/uL Sodium (137-145) mmol/L Potassium 3.2 L (3.5-5.5) mmol/L Chloride 94 L (96-109) mmol/L Carbon Dioxide 32.7 H (21.6-31.8) mmol/L BUN/Creatinine Ratio 22.44 H (12.00-20.00) Ratio Glucose 192 H (70-110) mg/dL POC Glucose (mg/dL) 214 H (70-110) mg/dL Calcium 8.2 L (8.7-10.3) mg/dL AST 72 H (14-35) U/L ALT 56 H (10-49) U/L Alkaline Phosphatase 208 H (41-126) U/L Total Protein 5.4 L (6.2-8.2) g/dL Albumin 2.8 L (3.8-4.9) g/dL Albumin/Globulin Ratio 1.08 L (1.60-3.17) Ratio 06/04/23 06/04/23 06/05/23 Range/Units 16:12 20:24 06:02 WBC (4.50-10.00) X 10*3/uL RBC (4.40-5.60) X 10*6/uL Hgb (13.0-17.0) g/dL Hct (39.6-50.0) % MCH (27.0-32.0) pg MCHC (32.0-37.0) g/dL Immature Gran # (0.00-0.04) X 10*3/uL Neutrophils # (1.80-7.70) X 10*3/uL Monocytes # (0.20-1.00) X 10*3/uL Eosinophils # (0.04-0.35) X 10*3/uL Sodium (137-145) mmol/L Potassium (3.5-5.5) mmol/L Chloride (96-109) mmol/L Carbon Dioxide (21.6-31.8) mmol/L BUN/Creatinine Ratio (12.00-20.00) Ratio Glucose (70-110) mg/dL POC Glucose (mg/dL) 321 H 263 H 221 H (70-110) mg/dL Calcium (8.7-10.3) mg/dL AST (14-35) U/L ALT (10-49) U/L Alkaline Phosphatase (41-126) U/L Total Protein (6.2-8.2) g/dL Albumin (3.8-4.9) g/dL Albumin/Globulin Ratio (1.60-3.17) Ratio 06/05/23 06/05/23 Range/Units 06:48 06:48 WBC 11.78 H (4.50-10.00) X 10*3/uL RBC (4.40-5.60) X 10*6/uL Hgb 11.9 L (13.0-17.0) g/dL Hct 38.5 L (39.6-50.0) % MCH 26.2 L (27.0-32.0) pg MCHC 30.9 L (32.0-37.0) g/dL Immature Gran # 0.25 H (0.00-0.04) X 10*3/uL Neutrophils # 8.64 H (1.80-7.70) X 10*3/uL Monocytes # 1.11 H (0.20-1.00) X 10*3/uL Eosinophils # 0.39 H (0.04-0.35) X 10*3/uL Sodium 136 L (137-145) mmol/L Potassium 3.0 L (3.5-5.5) mmol/L Chloride 91 L (96-109) mmol/L Carbon Dioxide 40 H (21.6-31.8) mmol/L BUN/Creatinine Ratio (12.00-20.00) Ratio Glucose 214 H (70-110) mg/dL POC Glucose (mg/dL) (70-110) mg/dL Calcium 8.2 L (8.7-10.3) mg/dL AST 118 H (14-35) U/L ALT 81 H (10-49) U/L Alkaline Phosphatase 269 H (41-126) U/L Total Protein 5.8 L (6.2-8.2) g/dL Albumin 2.7 L (3.8-4.9) g/dL Albumin/Globulin Ratio (1.60-3.17) Ratio Microbiology - Last 24 Hours (Table) 06/02/23 06:19 Blood Culture Gram Stain - Final Blood Blood Culture - Final Methicillin resist S. aureus 06/01/23 21:30 Blood Culture Gram Stain - Final Blood Blood Culture - Final Methicillin resist S. aureus Assessment and Plan (1) MRSA bacteremia Current Visit: Yes Status: Acute Code(s): R78.81 - BACTEREMIA; B95.62 - METHICILLIN RESIS STAPH INFCT CAUSING DISEASES [facility]SD [facility] SNOMED Code(s): 15101035870125982 (2) Leukocytosis Current Visit: Yes Status: Acute Code(s): D72.829 - ELEVATED WHITE BLOOD CELL COUNT, UNSPECIFIED SNOMED Code(s): 927848889 (3) Type 2 diabetes mellitus with foot ulcer Current Visit: No Status: Acute Code(s): E11.621 - TYPE 2 DIABETES MELLITUS WITH FOOT ULCER; L97.509 - NON-PRESSURE CHRONIC ULCER OTH PRT UNSP FOOT W UNSP SEVERITY SNOMED Code(s): 731162486 Plan: 1patient presented to hospital with increasing pain and swelling to the right second toe amputation site in this patient who did have features of sepsis with a fever elevated white count source is right second toe distal phalanx amputation site infection and concerning for secondary cellulitis likely from gram-positive skin torres gram-negative infection less likely but not excluded 2-patient also have a fall from his scooter landed on his left lower extremity CT suspicious for Charcot deformity and also noticed to have increasing swelling and some redness and tenderness to the lateral aspect of the left foot concerning for possible left foot septic arthritis, MRI has been ordered which will be completed this afternoon results will be followed 3-patient did have a positive blood culture with MRSA right second toe tip culture growing MRSA as well, repeat blood culture currently pending 4-patient to continue with the vancomycin await MRI and monitor his kidney function and vancomycin trough closely Dictation was produced using [employer] dictation software. please excuse any grammatical, word or spelling errors. Time with Patient: Less than 30
--- NOTE | 2023-06-05 12:49 | P.PN ---
Subjective Progress Note Date: 06/05/23 Principal diagnosis: Right foot infection Patient was seen and examined today as a follow-up. He is sitting up at side of the bed. Left leg has increased in pain, swelling and redness at the ankle and up to mid calf. He said he is scheduled for an MRI of the left lower extremity. He spiked another fever through the night yesterday up to 102 Objective - Vital Signs Vital signs: Vital Signs Temp 97.7 F 06/05/23 00:37 Pulse 72 06/05/23 00:37 Resp 18 06/05/23 00:37 BP 138/89 06/05/23 00:37 Pulse Ox 95 06/05/23 00:37 FiO2 Intake & Output 06/04/23 06/05/23 06/05/23 18:59 06:59 18:59 Other: Voiding Method Toilet Urinal # Voids 3 4 # Bowel Movements 1 - Exam General appearance: The patient is alert, oriented, appears in no acute distress. Obese. HET: Head is normocephalic and atraumatic. Neck: Supple. Abdomen: Soft, nondistended. Extremities: Bilateral lower extremity swelling. Right second toe amputation site with sutures, pink, swelling has improved. Left lower extremity foot and ankle swollen and red. Tenderness to palpation. Good capillary refill bilaterally. With palpable DP pulses. Neurological: No focal deficits. Alert and oriented. - Labs CBC & Chem 7: 06/05/23 06:48 06/05/23 06:48 Labs: Abnormal Lab Results - Last 24 Hours (Table) 06/04/23 06/04/23 06/04/23 Range/Units 05:51 05:51 11:37 WBC 12.94 H (4.50-10.00) X 10*3/uL RBC 4.37 L (4.40-5.60) X 10*6/uL Hgb 11.5 L (13.0-17.0) g/dL Hct 36.3 L (39.6-50.0) % MCH 26.3 L (27.0-32.0) pg MCHC 31.7 L (32.0-37.0) g/dL Immature Gran # 0.14 H (0.00-0.04) X 10*3/uL Neutrophils # 10.21 H (1.80-7.70) X 10*3/uL Monocytes # 1.36 H (0.20-1.00) X 10*3/uL Sodium (137-145) mmol/L Potassium 3.2 L (3.5-5.5) mmol/L Chloride 94 L (96-109) mmol/L Carbon Dioxide 32.7 H (21.6-31.8) mmol/L BUN/Creatinine Ratio 22.44 H (12.00-20.00) Ratio Glucose 192 H (70-110) mg/dL POC Glucose (mg/dL) 214 H (70-110) mg/dL Calcium 8.2 L (8.7-10.3) mg/dL AST 72 H (14-35) U/L ALT 56 H (10-49) U/L Alkaline Phosphatase 208 H (41-126) U/L Total Protein 5.4 L (6.2-8.2) g/dL Albumin 2.8 L (3.8-4.9) g/dL Albumin/Globulin Ratio 1.08 L (1.60-3.17) Ratio 06/04/23 06/04/23 06/05/23 Range/Units 16:12 20:24 06:02 WBC (4.50-10.00) X 10*3/uL RBC (4.40-5.60) X 10*6/uL Hgb (13.0-17.0) g/dL Hct (39.6-50.0) % MCH (27.0-32.0) pg MCHC (32.0-37.0) g/dL Immature Gran # (0.00-0.04) X 10*3/uL Neutrophils # (1.80-7.70) X 10*3/uL Monocytes # (0.20-1.00) X 10*3/uL Sodium (137-145) mmol/L Potassium (3.5-5.5) mmol/L Chloride (96-109) mmol/L Carbon Dioxide (21.6-31.8) mmol/L BUN/Creatinine Ratio (12.00-20.00) Ratio Glucose (70-110) mg/dL POC Glucose (mg/dL) 321 H 263 H 221 H (70-110) mg/dL Calcium (8.7-10.3) mg/dL AST (14-35) U/L ALT (10-49) U/L Alkaline Phosphatase (41-126) U/L Total Protein (6.2-8.2) g/dL Albumin (3.8-4.9) g/dL Albumin/Globulin Ratio (1.60-3.17) Ratio 06/05/23 Range/Units 06:48 WBC (4.50-10.00) X 10*3/uL RBC (4.40-5.60) X 10*6/uL Hgb (13.0-17.0) g/dL Hct (39.6-50.0) % MCH (27.0-32.0) pg MCHC (32.0-37.0) g/dL Immature Gran # (0.00-0.04) X 10*3/uL Neutrophils # (1.80-7.70) X 10*3/uL Monocytes # (0.20-1.00) X 10*3/uL Sodium 136 L (137-145) mmol/L Potassium 3.0 L (3.5-5.5) mmol/L Chloride 91 L (96-109) mmol/L Carbon Dioxide 40 H (21.6-31.8) mmol/L BUN/Creatinine Ratio (12.00-20.00) Ratio Glucose 214 H (70-110) mg/dL POC Glucose (mg/dL) (70-110) mg/dL Calcium 8.2 L (8.7-10.3) mg/dL AST 118 H (14-35) U/L ALT 81 H (10-49) U/L Alkaline Phosphatase 269 H (41-126) U/L Total Protein 5.8 L (6.2-8.2) g/dL Albumin 2.7 L (3.8-4.9) g/dL Albumin/Globulin Ratio (1.60-3.17) Ratio Microbiology - Last 24 Hours (Table) 06/02/23 06:19 Blood Culture Gram Stain - Final Blood Blood Culture - Final Methicillin resist S. aureus 06/01/23 21:30 Blood Culture Gram Stain - Final Blood Blood Culture - Final Methicillin resist S. aureus Assessment and Plan Assessment: 1. Recent right second toe amputation site, surgical infection. MRSA 2. Bacteremia, MRSA 3. Charcot feet 4. Left ankle pain 5. History of toe deformities 6. Left ankle/foot injury 7. Diabetes mellitus 8. Obesity Plan: 1. Continue IV antibiotics per recommendations from infectious disease 2. No plans at this time for any vascular surgical intervention 3. We will continue to follow 4. 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 Holguin who did toe amputation 5. Offload pressure to ball of foot 6. Strict glycemic control 7. Patient is scheduled for MRI left foot and ankle Thank you for this consultation. We will continue to follow The impression and plan of care has been dictated as directed. Dr. Hua I performed a history and examination of this patient, discussed the same with the dictator. I agree with the dictator's note ,documented as a scribe. Any additional findings or plans will be noted.
--- NOTE | 2023-06-05 14:04 | P.PN ---
Subjective Progress Note Date: 06/05/23 HISTORY OF PRESENT ILLNESS: This is a 42-year-old male with a previous medical history significant for hypertension and hypertensive cardiovascular disease, hyperlipidemia, obesity with obstructive sleep apnea and obesity hypoventilation syndrome,diabetes mellitus type 2 with daibetic polyneuropathy, has been doing better with diabtes care as a matter of fact his HBA1C is down to 9 fom 11.7 % and patient has lost quite a bit of weight since the addition of Mounjaro to his medical regimen that he was out off for the past 4 [place] due to insurance issues, patient has had diabetic foot ulcer with charcot feet, he underwent right third toe amputation by vascular surgery Dr. Hua back in December 2022, he has been following with Dr. Holguin who performed a right second toe amputation Thursday as an outpatient here at [facility], and he was seen and evaluated by him as a follow-up, he had minimal dehiscence and he ended up putting more sutures to his amputation site, apparently the patient was supposed to follow-up with the wound healing center at [facility] on this coming Thursday patient apparently was seen in the emergency department at [facility] on May 29 for increased redness and increased pain of the right second toe amputation, and at that time he was sent home he ended up going to the ER at [facility] nothing was done, and the patient was sent home as well, I received a call from his stating that the patient is not doing well he appears to be quite sick to his stomach, he has significant redness to the right second toe amputation site with increased fever and chills not able to keep anything down, he was directed to go back to the emergency department because of what appears to have a sepsis, patient was seen in the ER, patient also had fallen off his scooter and landed on his left foot, he has not been able to bear any weight on his left foot, his x-ray initially did not show any evidence of acute abnormalities, however a CT scan of the foot that was done in the ER did show evidence of air foci suggestive of infection on top of the destructive bones and subluxation with significant edema and effusion patient will be seen in consultation by orthopedic surgery, consulted Dr. Mcguire who declined the consult and send the consult back to Dr. Holguin 06/01: Patient is sitting up in bed he is feeling better today, he denies any chest pain, he is less short of breath, he did receive 2 doses of Lasix 40 mg IV push every 12 hours, he had a CTA of the chest that was negative for pulmonary embolism but did show pulmonary hypertension, minimal pulmonary vascular congestion, he was seen in consultation by cardiology recommended to continue metoprolol 25 mg orally twice every day as well as Lasix 40 mg IV push every 12 hours, discontinue IV fluid, continue IV antibiotic, blood cultures are positive for possible MRSA, ID is following, continue cefepime and vancomycin for now, cancel the consult to Dr. Mcguire and consult Dr. Mcintosh for evaluation of the left foot. 06/02: Patient is sitting at the edge of the bed, he is feeling a bit better today, he continues to have significant sinus headache, he denies any chest pain at this time he continues to be somewhat short of breath, he is currently on 5 L nasal cannula, will try to wean his oxygen down, he is currently on Lasix 40 mg IV push every 12 hours, his family is requesting for the patient to be seen by vascular surgery we will consult Dr. Hua since the patient was seen by her in the past, will continue IV antibiotic at this time, monitor the patient very closely, patient underwent a swab for influenza AB as well as RSV along with COVID came back negative will continue with loratadine 10 mg once every day continue current treatment plan, increase activity, patient was instructed to use the incentive spirometer to reduce the incidence of atelectasis and healthcare associated pneumonia meanwhile he is currently on cefepime and vanco mycin. 06/03: Patient is lying down in bed in no apparent distress, he denies any chest pain, shortness of breath, he continues to be somewhat tachycardic, he continues to be on oxygen, he continues to have significant edema and swelling of the left foot/ankle with increased pain on the side of the left foot, discussed with infectious disease the possibility of osteomyelitis in the left foot, will continue IV antibiotic for now for the next 6 weeks in the form of vancomycin, continue patient on bedrest, we will obtain MRI of the left foot left ankle with and without reg, and if there is evidence of significant destruction of the bone we may consider transferring the patient to [facility] for further evaluation as there is no orthopedic service available for the foot and ankle at this time. 06/04: Patient is lying down in bed in no apparent distress, his pain is a bit better today, his blood glucose level in the range of 200s, we just added NovoLog 8 units before each meal continue with Levemir and increase the dose to 85 units at bedtime, just added metformin 1000 mg at bedtime, patient has been off Mounjaro due to his intractable nausea and sepsis beside they do not have it in the hospital, MRI of the left foot and left ankle is ordered with and without reg still pending at the time of dictation, we will continue to monitor the patient very closely, infectious diseases following, patient has been diagnosed with MRSA from the wound at the right second toe amputation as well as the blood repeated blood culture still pending at the time of dictation, monitor the jose ent kidney function test as well as vancomycin peak and trough. REVIEW OF SYSTEMS: Constitutional: positive for documented fever, no chills, no night sweats. No weight change. positive for weakness, fatigue or lethargy. No daytime sleepiness. HEENT: No headache. No blurred vision or double vision, no loss of vision. No loss of Hearing, no ringing in the ears, no dizziness. No nasal drainage or congestion. No epistaxis. No sore throat. Lungs: no shortness of breath, no cough, or sputum production. No wheezing. Reports no dyspnea with activity. Cardiovascular: no chest pain, positive for lower extremity edema. positive for palpitations. negative for paroxysmal nocturnal dyspnea. negative for orthopnea. No lightheadedness or dizziness. No syncopal episodes. Abdominal: Reports no abdominal pain. positive for nausea,positive for vomiting. No diarrhea. No constipation. No bloody or tarry stools Genitourinary: No dysuria, increased frequency, urgency, Musculoskeletal: No myalgias, positive for weakness, bilateral charcot feet, left foot with severe swelling and tenderness, right foot post right second toe amputation and 3rd toe amputation Integumentary: right third toe amputation, right second toe amputation with suture in place, with increased erythema and tenderness No rash or pruritus. positive for unusual bruising. No change in hair or nails. Neurologic: No aphasia. No facial droop. No change in mentation. No head injury. No headache. No paralysis. No paresthesia. Psychiatric: positive for depression. No anxiety. No mood swings. Endocrine: positive for abnormal blood sugars. positive for weight change. PHYSICAL EXAMINATION: General: 42 year male sitting up in chair does appear to be in distress HEENT: Head is atraumatic, normocephalic, pupils were equal round reactive to light and recommendation, extraocular muscle movement were intact, sclera nonicteric, conjunctivae were pale, mucous membranes of the mouth are somewhat dry. Neck: Supple, no JVP, normal carotid upstroke bilaterally, no lymphadenopathy. Chest: Decreased breath sounds at the bases, few rhonchi, no expiratory wheezes or intercostal retractions Heart: First heart sound is normal, second heart sound is normal, tachycardic, there is no gallop or murmur. Abdomen: Soft, nontender, nondistended, positive bowel sounds, obese. Extremities: There is +1 edema no calf tenderness DP +2 bilaterally, positive for neuropathy and charcot feet , right third toe amputation, right second toe amputation with sutures in place with significant erythema and tenderness. Left foot severely swollen and severely tender to palpation Neurologic examination: Patient is awake alert and oriented X 3, cranial nerves II-12 appear grossly intact, muscle power were 5 out of 5 in upper extremities and 4/5 in right lower extremity ASSESSMENT AND PLAN: 1. Infected right second toe amputation site with cellulitis associated with MRSA bacteremia and osteomyelitis of the left foot with underlying Charcot foot continue vancomycin with pharmacy dosing, infectious disease team is following, keep watching bilateral feet closely, we will obtain MRI of the left ankle left foot for further evaluation of the osteomyelitis, if there is significant derangement of left foot we will transfer to [facility] for orthopedic evaluation. 2. Severe tenderness in the left foot status post CT scan that showed evidence of Charcot at foot along with bony destruction with air foci suggestive of infectious process. Continue patient on IV antibiotic in the form of vancomycin with pharmacy to dose the peak and trough, obtain MRI of the left foot left ankle with and without reg, likely if there is significant obstruction patient will need to be transferred to [facility]. This was discussed with the patient and his at the bedside. 3. Sinus tachycardia likely related to underlying sepsis . Continue to treat underlying cause continue metoprolol 50 mg orally twice every day. 4. Diabetes Mellitus type 2 non controlled. we will continue with Levemir 85 units SC at bedtime along with SSI , has been off GLP_1 RA ( Mounjaro) , restart the patient metformin 1000 mg at bedtime and NovoLog 8 units before each meal plus the sliding scale. 5. Diabetic Polyneuropathy with charcot feet. we will continue with Gabapentin 600 mg po bid 6. Hyperlipidemnia. we will continue with Atorvastatin 80 mg po daily, keep LDL- c 55-70. 7. Hypertension and hypertensive cardiovascular disease. Start the patient on metoprolol 50 mg orally twice every day. 8. Obesity with OS and OHS. we will continue with weight loss, never made it for a sleep study. 9. Contraction alkalosis due to aggressive diuresis. Discontinue IV Lasix start the patient on Lasix 40 mg orally once a day to start him tomorrow and potassium supplementation 20 mill equivalent once every day. 10. Hypokalemia. Patient will be given potassium chloride 40 mill equivalent x 1. Check CMP and magnesium level tomorrow morning. 11. DVT prophylaxis. we will use Lovenox 40 mg SC daily. 12. GI Prophylaxis. we will continue with famotidine 40 mg at bedtime. 13. Severe gastroparesis. Continue patient on metoclopramide 10 mg before each meal 3 times every day. 14. Major depressive disorder. Continue patient on duloxetine 20 mg orally once every day. 15. Sinus headache. on loratadine 10 mg orally once every day, as well as nasal saline spray 2 sprays in each nostril 3 times every day. 16. Overall prognosis is guarded. 17. Vascular surgery consultation Dr. Hua. 18. Overall prognosis is guarded. Objective - Vital Signs Vital signs: Vital Signs Temp 98.0 F 06/05/23 08:00 Pulse 108 H 06/05/23 11:46 Resp 18 06/05/23 11:46 BP 119/75 06/05/23 08:00 Pulse Ox 95 06/05/23 09:12 FiO2 Intake & Output 06/04/23 06/05/23 06/05/23 18:59 06:59 18:59 Weight 158.757 kg Other: Voiding Method Toilet Urinal # Voids 3 4 # Bowel Movements 1 - Labs CBC & Chem 7: 06/05/23 06:48 06/05/23 06:48 Labs: Abnormal Lab Results - Last 24 Hours (Table) 06/04/23 06/04/23 06/05/23 Range/Units 16:12 20:24 06:02 WBC (4.50-10.00) X 10*3/uL Hgb (13.0-17.0) g/dL Hct (39.6-50.0) % MCH (27.0-32.0) pg MCHC (32.0-37.0) g/dL Immature Gran # (0.00-0.04) X 10*3/uL Neutrophils # (1.80-7.70) X 10*3/uL Monocytes # (0.20-1.00) X 10*3/uL Eosinophils # (0.04-0.35) X 10*3/uL Sodium (137-145) mmol/L Potassium (3.5-5.1) mmol/L Chloride (98-107) mmol/L Carbon Dioxide (22-30) mmol/L Glucose (74-99) mg/dL POC Glucose (mg/dL) 321 H 263 H 221 H (70-110) mg/dL Calcium (8.4-10.2) mg/dL AST (17-59) U/L ALT (4-49) U/L Alkaline Phosphatase (38-126) U/L Total Protein (6.3-8.2) g/dL Albumin (3.5-5.0) g/dL 06/05/23 06/05/23 06/05/23 Range/Units 06:48 06:48 11:36 WBC 11.78 H (4.50-10.00) X 10*3/uL Hgb 11.9 L (13.0-17.0) g/dL Hct 38.5 L (39.6-50.0) % MCH 26.2 L (27.0-32.0) pg MCHC 30.9 L (32.0-37.0) g/dL Immature Gran # 0.25 H (0.00-0.04) X 10*3/uL Neutrophils # 8.64 H (1.80-7.70) X 10*3/uL Monocytes # 1.11 H (0.20-1.00) X 10*3/uL Eosinophils # 0.39 H (0.04-0.35) X 10*3/uL Sodium 136 L (137-145) mmol/L Potassium 3.0 L (3.5-5.1) mmol/L Chloride 91 L (98-107) mmol/L Carbon Dioxide 40 H (22-30) mmol/L Glucose 214 H (74-99) mg/dL POC Glucose (mg/dL) 218 H (70-110) mg/dL Calcium 8.2 L (8.4-10.2) mg/dL AST 118 H (17-59) U/L ALT 81 H (4-49) U/L Alkaline Phosphatase 269 H (38-126) U/L Total Protein 5.8 L (6.3-8.2) g/dL Albumin 2.7 L (3.5-5.0) g/dL Microbiology - Last 24 Hours (Table) 06/02/23 06:19 Blood Culture Gram Stain - Final Blood Blood Culture - Final Methicillin resist S. aureus 06/01/23 21:30 Blood Culture Gram Stain - Final Blood Blood Culture - Final Methicillin resist S. aureus
--- NOTE | 2023-06-05 15:15 | MR ---
EXAMINATION TYPE: MR ankle/foot LT wo/w con DATE OF EXAM: 06/05/2023 COMPARISON: CT 05/31/2023 and prior MRI 11/08/2022 HISTORY: 42-year-old male Osteomyelitis. Technique: Multiplanar, multisequence images of the left ankle an left foot were obtained before and after administration of 15 mL intravenous Gadavist gadolinium contrast. FINDINGS: There is diffuse osseous edema and marrow replacement throughout the mid and hindfoot regions with la rge areas of osseous destruction, subluxations, bony displacement and agree and marked diffuse soft t issue swelling. Several areas of new marrow edema have developed whereas other areas have improved. T he overall degree of osseous destruction and midfoot malalignment appears relatively similar. However, soft tissue swelling has worsened and there are new fluid collections such as dorsolaterally measuring up to 8.2 cm wide by 3.7 cm craniocaudal by 3.3 cm long. This overlies the midfoot bones a nd this seems to be interspersed along the extensor tendons. Some of the fluid tracks up along the extensor myotendinous junctions at the upper ankle with fluid h ere measuring up to 5.2 cm craniocaudal by 4.1 cm wide by 1.1 cm thick. Additional abnormal fluid extending from the sinus tarsi measuring 2.5 cm. There is mild to moderate posterior subtalar joint effusion and synovitis. IMPRESSION: 1. Overall severe bony changes throughout the mid and hindfoot suggestive of Charcot arthropathy is f airly similar with large areas of osseous destruction, joint displacement, and bony debris. However, there may be greater degree of low signal marrow replacement which may be concerning for infection/os teomyelitis. Abnormal signal involves osseous structures posterior to the TMT joints. 2. In addition, diffuse soft tissue swelling has markedly increased and there are new fluid collectio ns particularly along the dorsolateral mid to hindfoot in the region of the extensor tendons and also tracking up the anterolateral upper ankle with fluid collections measuring up to 8.2 cm. Given the a ir on patient's CT exam, superimposed osteomyelitis/septic arthritis should be considered. Consider f luid analysis after percutaneous sampling.
[2023-06-05 16:43] LABS: Glucose,Whole Blood 229 mg/dL (70-110)
[2023-06-05] MEDS: POTASSIUM CHLORIDE ER 20 MEQ TAB.ER PO STA (17:45)
[2023-06-05 20:27] LABS: Glucose,Whole Blood 271 mg/dL (70-110)
[2023-06-05] MEDS: INSULIN DETEMIR (LEVEMIR) 100 UNIT/ML SYR SQ SCH (21:30)
[2023-06-05] MEDS: SODIUM CHLORIDE 0.65% NASAL SPRAY 44 ML BTL NASAL PRN (22:46)
[2023-06-06 06:05] LABS: Glucose,Whole Blood 93 mg/dL (70-110)
[2023-06-06 07:47] LABS: Basophils # (A) 0.1 k/uL (0-0.2); Basophils % (A) 1 %; Eosinophils # (A) 0.5 k/uL (0-0.7); Eosinophils % (A) 4 %; HCT 40.5 % (39.0-53.0); HGB 12.7 gm/dL (13.0-17.5); Hypochromasia Slight; Lymphocytes # (A) 1.4 k/uL (1.0-4.8); Lymphocytes % (A) 11 %; MCH 26.8 pg (25.0-35.0); MCHC 31.3 g/dL (31.0-37.0); MCV 85.6 fL (80.0-100.0); Mean Platelet Volume 8.2; Monocytes # (A) 0.7 k/uL (0-1.0); Monocytes % (A) 6 %; Neutrophils # (A) 9.4 k/uL (1.3-7.7); Neutrophils % (A) 76 %; Platelet Count 295 k/uL (150-450); RBC 4.73 m/uL (4.30-5.90); RDW 14.1 % (11.5-15.5); WBC 12.4 k/uL (3.8-10.6)
[2023-06-06 08:10] LABS: ALT 99 U/L (4-49); AST 124 U/L (17-59); African American GFR (CKD) >90 (>60 ml/min/1.73 sqM); Albumin 2.9 g/dL (3.5-5.0); Albumin/Globulin Ratio 0.9; Alkaline Phosphatase 314 U/L (38-126); Anion Gap 7 mmol/L; Blood Urea Nitrogen 16 mg/dL (9-20); Calcium 8.7 mg/dL (8.4-10.2); Carbon Dioxide 39 mmol/L (22-30); Chloride 92 mmol/L (98-107); Globulin 3.3 g/dL; Glucose 113 mg/dL (74-99); Magnesium 2.2 mg/dL (1.6-2.3); Non-African American GFR(CKD) >90 (>60 ml/min/1.73 sqM); Potassium 3.2 mmol/L (3.5-5.1); Sodium 138 mmol/L (137-145); Total Bilirubin 0.8 mg/dL (0.2-1.3); Total Protein 6.2 g/dL (6.3-8.2)
[2023-06-06] MEDS: POTASSIUM CHLORIDE ER 20 MEQ TAB.ER PO SCH (08:21)
[2023-06-06] MEDS: FUROSEMIDE 40 MG TAB PO SCH (08:22)
[2023-06-06] MEDS: POTASSIUM CHLORIDE ER 20 MEQ TAB.ER PO STA (11:03)
--- NOTE | 2023-06-06 11:04 | P.PN ---
Subjective Progress Note Date: 06/06/23 HISTORY OF PRESENT ILLNESS: This is a 42-year-old male with a previous medical history significant for hypertension and hypertensive cardiovascular disease, hyperlipidemia, obesity with obstructive sleep apnea and obesity hypoventilation syndrome,diabetes mellitus type 2 with daibetic polyneuropathy, has been doing better with diabtes care as a matter of fact his HBA1C is down to 9 fom 11.7 % and patient has lost quite a bit of weight since the addition of Mounjaro to his medical regimen that he was out off for the past [place] due to insurance issues, patient has had diabetic foot ulcer with charcot feet, he underwent right third toe amputation by vascular surgery Dr. Hua back in December 2022, he has been following with Dr. Holguin who performed a right second toe amputation Thursday as an outpatient here at [facility], and he was seen and evaluated by him as a follow-up, he had minimal dehiscence and he ended up putting more sutures to his amputation site, apparently the patient was supposed to follow-up with the wound healing center at [facility] on this coming Thursday patient apparently was seen in the emergency department at [facility] on May 29 for increased redness and increased pain of the right second toe amputation, and at that time he was sent home he ended up going to the ER at [facility] nothing was done, and the patient was sent home as well, I received a call from his stating that the patient is not doing well he appears to be quite sick to his stomach, he has significant redness to the right second toe amputation site with increased fever and chills not able to keep anything down, he was directed to go back to the emergency department because of what appears to have a sepsis, patient was seen in the ER, patient also had fallen off his scooter and landed on his left foot, he has not been able to bear any weight on his left foot, his x-ray initially did not show any evidence of acute abnormalities, however a CT scan of the foot that was done in the ER did show evidence of air foci suggestive of infection on top of the destructive bones and subluxation with significant edema and effusion patient will be seen in consultation by orthopedic surgery, consulted Dr. Mcguire who declined the consult and send the consult back to Dr. Holguin 06/01: Patient is sitting up in bed he is feeling better today, he denies any chest pain, he is less short of breath, he did receive 2 doses of Lasix 40 mg IV push every 12 hours, he had a CTA of the chest that was negative for pulmonary embolism but did show pulmonary hypertension, minimal pulmonary vascular congestion, he was seen in consultation by cardiology recommended to continue metoprolol 25 mg orally twice every day as well as Lasix 40 mg IV push every 12 hours, discontinue IV fluid, continue IV antibiotic, blood cultures are positive for possible MRSA, ID is following, continue cefepime and vancomycin for now, cancel the consult to Dr. Mcguire and consult Dr. Mcintosh for evaluation of the left foot. 06/02: Patient is sitting at the edge of the bed, he is feeling a bit better today, he continues to have significant sinus headache, he denies any chest pain at this time he continues to be somewhat short of breath, he is currently on 5 L nasal cannula, will try to wean his oxygen down, he is currently on Lasix 40 mg IV push every 12 hours, his family is requesting for the patient to be seen by vascular surgery we will consult Dr. Hua since the patient was seen by her in the past, will continue IV antibiotic at this time, monitor the patient very closely, patient underwent a swab for influenza AB as well as RSV along with COVID came back negative will continue with loratadine 10 mg once every day continue current treatment plan, increase activity, patient was instructed to use the incentive spirometer to reduce the incidence of atelectasis and healthcare associated pneumonia meanwhile he is currently on cefepime and vanco mycin. 06/03: Patient is lying down in bed in no apparent distress, he denies any chest pain, shortness of breath, he continues to be somewhat tachycardic, he continues to be on oxygen, he continues to have significant edema and swelling of the left foot/ankle with increased pain on the side of the left foot, discussed with infectious disease the possibility of osteomyelitis in the left foot, will continue IV antibiotic for now for the next 6 weeks in the form of vancomycin, continue patient on bedrest, we will obtain MRI of the left foot left ankle with and without reg, and if there is evidence of significant destruction of the bone we may consider transferring the patient to [facility] for further evaluation as there is no orthopedic service available for the foot and ankle at this time. 06/04: Patient is lying down in bed in no apparent distress, his pain is a bit better today, his blood glucose level in the range of 200s, we just added NovoLog 8 units before each meal continue with Levemir and increase the dose to 85 units at bedtime, just added metformin 1000 mg at bedtime, patient has been off Mounjaro due to his intractable nausea and sepsis beside they do not have it in the hospital, MRI of the left foot and left ankle is ordered with and without reg still pending at the time of dictation, we will continue to monitor the patient very closely, infectious diseases following, patient has been diagnosed with MRSA from the wound at the right second toe amputation as well as the blood repeated blood culture still pending at the time of dictation, monitor the jose ent kidney function test as well as vancomycin peak and trough. 06/05: Patient blood sugar is much better today, reviewed the MRI of the left foot and left ankle suggestive of osteomyelitis and possible septic arthritis with fluid collection about 8.5 cm with tendinitis, I will make arrangement for the patient be transferred to [facility] because we do not have any orthopedic surgeon that could sample his fluid, continue IV antibiotic at this point in time, I will speak with the family about transferring the patient to [facility] because we do not have an orthopedic ankle surgeon at this point in time. REVIEW OF SYSTEMS: Constitutional: positive for documented fever, no chills, no night sweats. No weight change. positive for weakness, fatigue or lethargy. No daytime sleepiness. HEENT: No headache. No blurred vision or double vision, no loss of vision. No loss of Hearing, no ringing in the ears, no dizziness. No nasal drainage or congestion. No epistaxis. No sore throat. Lungs: no shortness of breath, no cough, or sputum production. No wheezing. Reports no dyspnea with activity. Cardiovascular: no chest pain, positive for lower extremity edema. positive for palpitations. negative for paroxysmal nocturnal dyspnea. negative for orthopnea. No lightheadedness or dizziness. No syncopal episodes. Abdominal: Reports no abdominal pain. positive for nausea,positive for vomiting. No diarrhea. No constipation. No bloody or tarry stools Genitourinary: No dysuria, increased frequency, urgency, Musculoskeletal: No myalgias, positive for weakness, bilateral charcot feet, left foot with severe swelling and tenderness, right foot post right second toe amputation and 3rd toe amputation Integumentary: right third toe amputation, right second toe amputation with suture in place, with increased erythema and tenderness No rash or pruritus. positive for unusual bruising. No change in hair or nails. Neurologic: No aphasia. No facial droop. No change in mentation. No head injury. No headache. No paralysis. No paresthesia. Psychiatric: positive for depression. No anxiety. No mood swings. Endocrine: positive for abnormal blood sugars. positive for weight change. PHYSICAL EXAMINATION: General: 42 year male sitting up in chair does appear to be in distress HEENT: Head is atraumatic, normocephalic, pupils were equal round reactive to light and recommendation, extraocular muscle movement were intact, sclera nonicteric, conjunctivae were pale, mucous membranes of the mouth are somewhat dry. Neck: Supple, no JVP, normal carotid upstroke bilaterally, no lymphadenopathy. Chest: Decreased breath sounds at the bases, few rhonchi, no expiratory wheezes or intercostal retractions Heart: First heart sound is normal, second heart sound is normal, tachycardic, there is no gallop or murmur. Abdomen: Soft, nontender, nondistended, positive bowel sounds, obese. Extremities: There is +1 edema no calf tenderness DP +2 bilaterally, positive for neuropathy and charcot feet , right third toe amputation, right second toe amputation with sutures in place with significant erythema and tenderness. Left foot severely swollen and severely tender to palpation Neurologic examination: Patient is awake alert and oriented X 3, cranial nerves II-12 appear grossly intact, muscle power were 5 out of 5 in upper extremities and 4/5 in right lower extremity ASSESSMENT AND PLAN: 1. Infected right second toe amputation site with cellulitis associated with MRSA bacteremia and osteomyelitis of the left foot with underlying Charcot foot continue vancomycin with pharmacy dosing, infectious disease team is following, keep watching bilateral feet closely, we will obtain MRI of the left ankle left foot for further evaluation of the osteomyelitis, if there is significant derangement of left foot we will transfer to [facility] for orthopedic evaluation. 2. Severe tenderness in the left foot status post CT scan that showed evidence of Charcot at foot along with bony destruction with air foci suggestive of infectious process. Continue patient on IV antibiotic in the form of vancomycin with pharmacy to dose the peak and trough, obtain MRI of the left foot left ankle with and without reg, likely if there is significant obstruction patient will need to be transferred to [facility]. This was discussed with the patient and his at the bedside. 3. Sinus tachycardia likely related to underlying sepsis . Continue to treat underlying cause continue metoprolol 50 mg orally twice every day. 4. Diabetes Mellitus type 2 non controlled. we will continue with Levemir 85 units SC at bedtime along with SSI , has been off GLP_1 RA ( Mounjaro) , restart the patient metformin 1000 mg at bedtime and NovoLog 8 units before each meal plus the sliding scale. 5. Diabetic Polyneuropathy with charcot feet. we will continue with Gabapentin 600 mg po bid 6. Hyperlipidemnia. we will continue with Atorvastatin 80 mg po daily, keep LDL- c 55-70. 7. Hypertension and hypertensive cardiovascular disease. Start the patient on metoprolol 50 mg orally twice every day. 8. Obesity with OS and OHS. we will continue with weight loss, never made it for a sleep study. 9. Contraction alkalosis due to aggressive diuresis. Discontinue IV Lasix start the patient on Lasix 40 mg orally once a day to start him tomorrow and potassium supplementation 20 mill equivalent once every day. 10. Hypokalemia. Patient will be given potassium chloride 40 mill equivalent x 1. Check CMP and magnesium level tomorrow morning. 11. DVT prophylaxis. we will use Lovenox 40 mg SC daily. 12. GI Prophylaxis. we will continue with famotidine 40 mg at bedtime. 13. Severe gastroparesis. Continue patient on metoclopramide 10 mg before each meal 3 times every day. 14. Major depressive disorder. Continue patient on duloxetine 20 mg orally once every day. 15. Sinus headache. on loratadine 10 mg orally once every day, as well as nasal saline spray 2 sprays in each nostril 3 times every day. 16. Overall prognosis is guarded. 17. Vascular surgery consultation Dr. Hua. 18. Overall prognosis is guarded. 19. We will transfer to [facility] for evaluation by orthopedic ankle and foot surgeon due to septic arthritis and osteomyelitis of the tarsometatarsal joint with fluid collection suggestive of an abscess, rule out acute compartment syndrome. Objective - Vital Signs Vital signs: Vital Signs Temp 97.9 F 06/06/23 07:03 Pulse 93 06/06/23 07:03 Resp 17 06/06/23 07:03 BP 117/64 06/06/23 07:03 Pulse Ox 98 06/06/23 07:03 FiO2 Intake & Output 06/05/23 06/06/23 06/06/23 18:59 06:59 18:59 Intake Total 1460 Balance 1460 Weight 158.757 kg Intake: Intake, IV Titration 500 Amount Vancomycin 2,000 mg In 500 Sodium Chloride 0.9% 500 ml 500 ml @ 167 mls/hr IVPB Q8H [facility] Rx#: [id number] Oral 960 Other: # Voids 3 2 # Bowel Movements 1 - Labs CBC & Chem 7: 06/06/23 06:38 06/06/23 06:38 Labs: Abnormal Lab Results - Last 24 Hours (Table) 06/05/23 06/05/23 06/05/23 Range/Units 06:48 11:36 16:42 WBC 11.78 H (4.50-10.00) X 10*3/uL Hgb 11.9 L (13.0-17.0) g/dL Hct 38.5 L (39.6-50.0) % MCH 26.2 L (27.0-32.0) pg MCHC 30.9 L (32.0-37.0) g/dL Immature Gran # 0.25 H (0.00-0.04) X 10*3/uL Neutrophils # 8.64 H (1.80-7.70) X 10*3/uL Monocytes # 1.11 H (0.20-1.00) X 10*3/uL Eosinophils # 0.39 H (0.04-0.35) X 10*3/uL Potassium (3.5-5.1) mmol/L Chloride (98-107) mmol/L Carbon Dioxide (22-30) mmol/L Creatinine (0.66-1.25) mg/dL Glucose (74-99) mg/dL POC Glucose (mg/dL) 218 H 229 H (70-110) mg/dL AST (17-59) U/L ALT (4-49) U/L Alkaline Phosphatase (38-126) U/L Total Protein (6.3-8.2) g/dL Albumin (3.5-5.0) g/dL 06/05/23 06/06/23 06/06/23 Range/Units 20:24 06:38 06:38 WBC 12.4 H (4.50-10.00) X 10*3/uL Hgb 12.7 L (13.0-17.0) g/dL Hct (39.6-50.0) % MCH (27.0-32.0) pg MCHC (32.0-37.0) g/dL Immature Gran # (0.00-0.04) X 10*3/uL Neutrophils # 9.4 H (1.80-7.70) X 10*3/uL Monocytes # (0.20-1.00) X 10*3/uL Eosinophils # (0.04-0.35) X 10*3/uL Potassium 3.2 L (3.5-5.1) mmol/L Chloride 92 L (98-107) mmol/L Carbon Dioxide 39 H (22-30) mmol/L Creatinine 0.62 L (0.66-1.25) mg/dL Glucose 113 H (74-99) mg/dL POC Glucose (mg/dL) 271 H (70-110) mg/dL AST 124 H (17-59) U/L ALT 99 H (4-49) U/L Alkaline Phosphatase 314 H (38-126) U/L Total Protein 6.2 L (6.3-8.2) g/dL Albumin 2.9 L (3.5-5.0) g/dL Microbiology - Last 24 Hours (Table) 06/04/23 16:25 Blood Culture - Preliminary Blood
--- NOTE | 2023-06-06 11:08 | P.DS ---
Providers Date of admission: 05/31/23 15:29 Expected date of discharge: 06/06/23 Attending physician: Siri Holbrook Consults: 05/31/23 15:28 Consult Physician Urgent Consulting Provider: Zuleyma Armstrong Consult Reason/Comments: Toe infection Do you want consulting provider notified?: Yes 06/01/23 14:25 Consult Physician Routine Consulting Provider: Abebe Holguin Consult Reason/Comments: known post op patient, infection Do you want consulting provider notified?: Yes 06/01/23 20:29 Consult Physician Routine Consulting Provider: Ricardo Barr Consult Reason/Comments: SVT Do you want consulting provider notified?: Yes 06/03/23 12:51 Consult Physician Routine Consulting Provider: Maine Hua Consult Reason/Comments: right toe amputation Do you want consulting provider notified?: Yes Primary care physician: Siri Holbrook [facility] Course: HISTORY OF PRESENT ILLNESS: This is a 42-year-old male with a previous medical history significant for hypertension and hypertensive cardiovascular disease, hyperlipidemia, obesity with obstructive sleep apnea and obesity hypoventilation syndrome,diabetes mellitus type 2 with daibetic polyneuropathy, has been doing better with diabtes care as a matter of fact his HBA1C is down to 9 fom 11.7 % and patient has lost quite a bit of weight since the addition of Mounjaro to his medical regimen that he was out off for the past 4 [place] due to insurance issues, patient has had diabetic foot ulcer with charcot feet, he underwent right third toe amputation by vascular surgery Dr. Hua back in December 2022, he has been following with Dr. Holguin who performed a right second toe amputation Thursday before last as an outpatient here at [facility], and he was seen and evaluated by him as a follow-up, he had minimal dehiscence and he ended up putting more sutures to his amputation site, apparently the patient was supposed to follow-up with the wound healing center at [facility] on this coming Thursday patient apparently was seen in the emergency department at [facility] on May 29 for increased redness and increased pain of the right second toe amputation, and at that time he was sent home he ended up going to the ER at [facility] nothing was done, and the patient was sent home as well, I received a call from his stating that the patient is not doing well he appears to be quite sick to his stomach, he has significant redness to the right second toe amputation site with increased fever and chills not able to keep anything down, he was directed to go back to the emergency department because of what appears to have a sepsis, patient was seen in the ER, patient also had fallen off his scooter and landed on his left foot, he has not been able to bear any weight on his left foot, his x-ray initially did not show any evidence of acute abnormalities, however a CT scan of the foot that was done in the ER did show evidence of air foci suggestive of infection on top of the destructive bones and subluxation with significant edema and effusion patient will be seen in consultation by orthopedic surgery, consulted Dr. Mcguire who declined the consult and send the consult back to Dr. Holguin 06/01: Patient is sitting up in bed he is feeling better today, he denies any chest pain, he is less short of breath, he did receive 2 doses of Lasix 40 mg IV push every 12 hours, he had a CTA of the chest that was negative for pulmonary embolism but did show pulmonary hypertension, minimal pulmonary vascular congestion, he was seen in consultation by cardiology recommended to continue metoprolol 25 mg orally twice every day as well as Lasix 40 mg IV push every 12 hours, discontinue IV fluid, continue IV antibiotic, blood cultures are positive for possible MRSA, ID is following, continue cefepime and vancomycin for now, cancel the consult to Dr. Mcguire and consult Dr. Mcintosh for evaluation of the left foot. 06/02: Patient is sitting at the edge of the bed, he is feeling a bit better today, he continues to have significant sinus headache, he denies any chest pain at this time he continues to be somewhat short of breath, he is currently on 5 L nasal cannula, will try to wean his oxygen down, he is currently on Lasix 40 mg IV push every 12 hours, his family is requesting for the patient to be seen by vascular surgery we will consult Dr. Hua since the patient was seen by her in the past, will continue IV antibiotic at this time, monitor the patient very closely, patient underwent a swab for influenza AB as well as RSV along with COVID came back negative will continue with loratadine 10 mg once every day continue current treatment plan, increase activity, patient was instructed to use the incentive spirometer to reduce the incidence of atelectasis and healthcare associated pneumonia meanwhile he is currently on cefepime and vancomycin. 06/03: Patient is lying down in bed in no apparent distress, he denies any chest pain, shortness of breath, he continues to be somewhat tachycardic, he continues to be on oxygen, he continues to have significant edema and swelling of the left foot/ankle with increased pain on the side of the left foot, discussed with infectious disease the possibility of osteomyelitis in the left foot, will continue IV antibiotic for now for the next 6 weeks in the form of vancomycin, continue patient on bedrest, we will obtain MRI of the left foot left ankle with and without reg, and if there is evidence of significant destruction of the bone we may consider transferring the patient to [facility] for further claudia luation as there is no orthopedic service available for the foot and ankle at this time. 06/04: Patient is lying down in bed in no apparent distress, his pain is a bit better today, his blood glucose level in the range of 200s, we just added NovoLog 8 units before each meal continue with Levemir and increase the dose to 85 units at bedtime, just added metformin 1000 mg at bedtime, patient has been off Mounjaro due to his intractable nausea and sepsis beside they do not have it in the hospital, MRI of the left foot and left ankle is ordered with and without reg still pending at the time of dictation, we will continue to monitor the patient very closely, infectious diseases following, patient has been diagnosed with MRSA from the wound at the right second toe amputation as well as the blood repeated blood culture still pending at the time of dictation, monitor the patient kidney function test as well as vancomycin peak and trough. 06/05: Patient blood sugar is much better today, reviewed the MRI of the left foot and left ankle suggestive of osteomyelitis and possible septic arthritis with fluid collection about 8.5 cm with tendinitis, I will make arrangement for the patient be transferred to [facility] because we do not have any orthopedic surgeon that could sample his fluid, continue IV antibiotic at this point in time, I will speak with the family about transferring the patient to [facility] because we do not have an orthopedic ankle surgeon at this point in time, we activated the transfer team at [facility] I spoke with Dr. Sauceda from orthopedic surgery and the accepting inspector aluminum boat on-call as well and I had discussed with both of them the urgency of the matter and the patient needs an urgent treatment and that waiting for insurance authorization could result in the potential loss of limb for this young gentleman. Discharge diagnoses: 1. Infected right second toe amputation site with cellulitis associated with MRSA bacteremia and osteomyelitis of the left foot with underlying Charcot foot with left ankle abscess suggestive of septic arthritis and possible compartment syndrome.. 2. Left ankle septic arthritis specially at the tarsal metatarsal joints and fluid collection about 8.5 cm in the lateral aspect of the left ankle suggestive of possible abscess and septic arthritis rule out compartment syndrome. 3. Sinus tachycardia likely related to underlying sepsis . 4. Diabetes Mellitus type 2 non controlled. 5. Diabetic Polyneuropathy with charcot feet. 6. Hyperlipidemnia. 7. Hypertension and hypertensive cardiovascular disease. 8. Obesity with OS and OHS. we will continue with weight loss, never made it for a sleep study. 9. Contraction alkalosis due to aggressive diuresis. Better. 10. Hypokalemia. Status post replacement. 11. Severe gastroparesis. 12. Major depressive disorder. 13. Sinus headache. Patient Condition at Discharge: Serious Plan - Discharge Summary Discharge Rx Participant: Yes New Discharge Prescriptions: No Action Insulin Lispro [humaLOG Kwikpen] See Protocol SQ AC-TID metFORMIN HCL ER [Glucophage XR] 1,000 mg PO HS Omeprazole 40 mg PO DAILY Sulfamethox-Tmp 800-160Mg [Bactrim DS 800-160 mg] 1 tab PO Q12HR Insulin Glargine-Yfgn [Semglee (Yfgn) Pen] 70 unit SQ HS Tirzepatide [Mounjaro] 5 mg SQ SA Atorvastatin [Lipitor] 80 mg PO HS Ascorbic Acid [Vitamin C] 1,000 mg PO DAILY Gabapentin 600 mg PO BID Loratadine 20 mg PO DAILY DULoxetine HCL [Cymbalta] 20 mg PO HS Ibuprofen [Motrin Ib] 800 mg PO Q4H PRN PRN Reason: Fever And/ Or Pain Acetaminophen [Tylenol Extra Strength] 1,000 mg PO Q4H PRN PRN Reason: Fever And/ Or Pain Discharge Medication List Ascorbic Acid [Vitamin C] 1,000 mg PO DAILY 01/06/23 [History] Atorvastatin [Lipitor] 80 mg PO HS 01/06/23 [History] Gabapentin 600 mg PO BID 01/06/23 [History] Insulin Lispro [humaLOG Kwikpen] See Protocol SQ AC-TID 01/06/23 [History] Loratadine 20 mg PO DAILY 01/06/23 [History] Omeprazole 40 mg PO DAILY 01/06/23 [History] Tirzepatide [Mounjaro] 5 mg SQ SA 01/06/23 [History] metFORMIN HCL ER [Glucophage XR] 1,000 mg PO HS 01/06/23 [History] Acetaminophen [Tylenol Extra Strength] 1,000 mg PO Q4H PRN 05/31/23 [History] DULoxetine HCL [Cymbalta] 20 mg PO HS 05/31/23 [History] Ibuprofen [Motrin Ib] 800 mg PO Q4H PRN 05/31/23 [History] Insulin Glargine-Yfgn [Semglee (Yfgn) Pen] 70 unit SQ HS 05/31/23 [History] Sulfamethox-Tmp 800-160Mg [Bactrim DS 800-160 mg] 1 tab PO Q12HR 05/31/23 [History] Follow up Appointment(s)/Referral(s): Siri Holbrook MD [Primary Care Provider] - 1-2 days Activity/Diet/Wound Care/Special Instructions: Patient requires a wheelchair to manage his ADLS which cannot be done with a walker or cane due to toe amputation. Patient is able to self propel.
[2023-06-06 12:02] LABS: Glucose,Whole Blood 123 mg/dL (70-110)
--- NOTE | 2023-06-06 13:14 | P.PN ---
Subjective Progress Note Date: 06/06/23 This is a 42-year-old male with a past medical history significant for hyperlipidemia, diabetes, morbid obesity, right third toe amputation, and recent right second toe amputation. Patient does not follow with a certified legal secretary specialist. We have been asked to see the patient in consultation for SVT. Patient examined t his morning. Patient is sitting up in the chair. Patient is admitted to the hospital secondary to an infection of his right second toe amputation site. Patient does have MRSA bacteremia. He is receiving IV antibiotics. The patient also reports significant left lower extremity swelling. The patient denies any chest pain or pressure. He currently denies shortness of breath. EKG obtained yesterday reveals sinus tachycardia. Apparently there was some question of SVT. He was started on metoprolol by Dr. Holbrook. Patient's telemetry this morning reveals sinus tachycardia. He denies having any palpitations. He denies any dizziness or lightheadedness. DIAGNOSTICS: - EKG reveals sinus tachycardia - Chest xray low lung volumes with generalized hazy appearance which could represent atelectasis -Chest CTA: Negative for pulmonary embolism. Pulmonary vascular congestion and trace bilateral effusions. - Laboratory data: WBC 12.10. Hemoglobin 13.5. Platelet count 191. Sodium 136. Potassium 4.3. BUN 23. Creatinine 0.97. Troponin negative x 1. Lactic acid 1.8. - Current home cardiac medications include Lipitor 80 mg at night. 06/03/2023 Patient examined this morning at the bedside. Patient reports having a significant headache this morning. Patient denies chest pain or pressure. He denies shortness of breath. Patient remains on IV Lasix. Kidney function from this morning remains pending. He continues to have lower extremity edema. Telemetry reveals sinus tachycardia. Patient was febrile this morning. Echocardiogram obtained revealing ejection fraction 50%, mild pulmonary hypertension 06/04/2023 Patient examined this morning at the bedside. Patient denies chest pain or pressure. Patient denies shortness of breath. He is afebrile this morning. He remains tachycardic with heart rate around 115. He continues to have lower extremity edema. He remains on IV Lasix. Kidney function from this morning is currently pending 06/04/2023 Patient examined this morning at the bedside. Patient family member is present. Patient currently denies any chest pain or pressure. He denies shortness of breath. He continues to have significant lower extremity edema. He remains on IV Lasix. [place] [address]. He remains in sinus mechanism. Patient is complaining about his nasal cannula this morning and states it is not comfortable. However the patient had an oxygen saturation of 80% on room air. 06/06/2023 Patient was seen and examined sitting up at the bedside. Family is present at the bedside. Dr. Holbrook was in this morning to see the patient and is planning for transfer for to [facility]. He remains on IV Lasix. Currently being treated for possibility of heart failure with preserved ejection fraction. He remains in sinus mechanism. His breathing has been stable. Oxygen saturations continued to drop into the 80s on room air patient does verbalize history of sleep apnea. Objective - Vital Signs Vital signs: Vital Signs Temp 97.9 F 06/06/23 07:03 Pulse 93 06/06/23 07:03 Resp 17 06/06/23 07:03 BP 117/64 06/06/23 07:03 Pulse Ox 98 06/06/23 07:03 FiO2 Intake & Output 06/05/23 06/06/23 06/06/23 18:59 06:59 18:59 Intake Total 1460 Balance 1460 Weight 158.757 kg Intake: Intake, IV Titration 500 Amount Vancomycin 2,000 mg In 500 Sodium Chloride 0.9% 500 ml 500 ml @ 167 mls/hr IVPB Q[facility]H [facility] Rx#: [id number] Oral 960 Other: # Voids 3 2 # Bowel Movements 1 - Exam VITAL SIGNS: Reviewed. GENERAL: Well-developed in no acute distress. HEENT: Head is normocephalic. Pupils are equal, round. Sclerae anicteric. Mucous membranes of the mouth are moist. Neck supple. No JVD or thyromegaly LUNGS: Respirations even and unlabored. Lungs essentially clear to auscultation bilaterally. HEART: Tachycardic. Regular rate and rhythm. S1 and S2 heard. ABDOMEN: Soft. Nondistended. Nontender. EXTREMITIES: Normal range of motion. No clubbing or cyanosis. Peripheral pulses intact. Significant left lower extremity edema. Right lower extremity with discoloration but no significant edema. NEUROLOGIC: Awake and alert. Oriented x 3. - Labs CBC & Chem 7: 03/16/24 06:38 06/06/23 06:38 Labs: Abnormal Lab Results - Last 24 Hours (Table) 06/05/23 06/05/23 06/06/23 Range/Units 16:42 20:24 06:38 WBC (3.8-10.6) k/uL Hgb (13.0-17.5) gm/dL Neutrophils # (1.3-7.7) k/uL Potassium 3.2 L (3.5-5.1) mmol/L Chloride 92 L (98-107) mmol/L Carbon Dioxide 39 H (22-30) mmol/L Creatinine 0.62 L (0.66-1.25) mg/dL Glucose 113 H (74-99) mg/dL POC Glucose (mg/dL) 229 H 271 H (70-110) mg/dL AST 124 H (17-59) U/L ALT 99 H (4-49) U/L Alkaline Phosphatase 314 H (38-126) U/L Total Protein 6.2 L (6.3-8.2) g/dL Albumin 2.9 L (3.5-5.0) g/dL 06/06/23 06/06/23 Range/Units 06:38 12:01 WBC 12.4 H (3.8-10.6) k/uL Hgb 12.7 L (13.0-17.5) gm/dL Neutrophils # 9.4 H (1.3-7.7) k/uL Potassium (3.5-5.1) mmol/L Chloride (98-107) mmol/L Carbon Dioxide (22-30) mmol/L Creatinine (0.66-1.25) mg/dL Glucose (74-99) mg/dL POC Glucose (mg/dL) 123 H (70-110) mg/dL AST (17-59) U/L ALT (4-49) U/L Alkaline Phosphatase (38-126) U/L Total Protein (6.3-8.2) g/dL Albumin (3.5-5.0) g/dL Microbiology - Last 24 Hours (Table) 06/05/23 06:48 Blood Culture - Preliminary Blood 06/04/23 16:25 Blood Culture - Preliminary Blood Assessment and Plan Assessment: Infected right second toe amputation site with cellulitis and MRSA bacteremia Sinus tachycardia, SVT less likely, likely physiological in response to fever and infectious process Possible Acute heart failure with preserved EF, 50% Acute hypoxic respiratory failure requiring supplemental oxygen Hyperlipidemia Diabetes History of right third toe amputation Obstructive sleep apnea Morbid obesity Hypokalemia Plan: From cardiology perspective patient appears to be hypovolemic with localized ed savita in the lower extremities likely secondary to infection. We will get a BNP. We will continue to follow the patient until transfer to [facility]. [employer] WARRANT OFFICER note has been reviewed, I agree with a documented findings and plan of care. Patient was seen and examined.
--- NOTE | 2023-06-06 15:45 | P.PN ---
Subjective Progress Note Date: 06/06/23 Principal diagnosis: Reason for follow-up is right second toe diabetic foot infection MRSA bacteremia Patient is a 42-year-old male with a past medical history significant for diabetes mellitus patient recently did have right second toe distal phalanx amputation completed by podiatry about 2 weeks ago, patient presented to the hospital with increasing swelling and discomfort to the left foot he was admitted also with increasing swelling redness to the right second toe. Patient did have CT of the left extremity concerning for significant Charcot deformity to the left foot. On today's evaluation that is 06/06/2023,the patient remains to be afebrile, patient is on 3 L nasal cannula supplemental oxygen and denies any shortness of breath no chest pain or cough.Patient denies having any nausea or vomiting, no abdominal pain and no diarrhea has been reported, pain to the left foot and ankle has decreased in intensity. Patient white count is 12.4, creatinine 0.62 blood culture repeat 06/04/2023 as well as 06/05/2023 so far negative MRI of the foot ankle concerning for possible osteomyelitis/septic arthritis Objective - Vital Signs Vital signs: Vital Signs Temp 97.9 F 06/06/23 07:03 Pulse 93 06/06/23 07:03 Resp 17 06/06/23 07:03 BP 117/64 06/06/23 07:03 Pulse Ox 98 06/06/23 07:03 FiO2 Intake & Output 06/05/23 06/06/23 06/06/23 18:59 06:59 18:59 Intake Total 1460 Balance 1460 Weight 158.757 kg Intake: Intake, IV Titration 500 Amount Vancomycin 2,000 mg In 500 Sodium Chloride 0.9% 500 ml 500 ml @ 167 mls/hr IVPB Q8H [facility] Rx#: [id number] Oral 960 Other: # Voids 3 2 # Bowel Movements 1 - Exam GENERAL DESCRIPTION: Young male lying in bed in no distress RESPIRATORY SYSTEM: Unlabored breathing , decreased breath sounds at bases HEART: S1 S2 regular rate and rhythm , ABDOMEN: Soft , no tenderness EXTREMITIES: Right foot is currently dressed no drainage patient has significant swelling to the left foot with erythema to the left lateral border which is warm and tender to touch - Labs CBC & Chem 7: 06/06/23 06:38 06/06/23 06:38 Labs: Abnormal Lab Results - Last 24 Hours (Table) 06/05/23 06/05/23 06/06/23 Range/Units 16:42 20:24 06:38 WBC (3.8-10.6) k/uL Hgb (13.0-17.5) gm/dL Neutrophils # (1.3-7.7) k/uL Potassium 3.2 L (3.5-5.1) mmol/L Chloride 92 L (98-107) mmol/L Carbon Dioxide 39 H (22-30) mmol/L Creatinine 0.62 L (0.66-1.25) mg/dL Glucose 113 H (74-99) mg/dL POC Glucose (mg/dL) 229 H 271 H (70-110) mg/dL AST 124 H (17-59) U/L ALT 99 H (4-49) U/L Alkaline Phosphatase 314 H (38-126) U/L Total Protein 6.2 L (6.3-8.2) g/dL Albumin 2.9 L (3.5-5.0) g/dL 06/06/23 06/06/23 Range/Units 06:38 12:01 WBC 12.4 H (3.8-10.6) k/uL Hgb 12.7 L (13.0-17.5) gm/dL Neutrophils # 9.4 H (1.3-7.7) k/uL Potassium (3.5-5.1) mmol/L Chloride (98-107) mmol/L Carbon Dioxide (22-30) mmol/L Creatinine (0.66-1.25) mg/dL Glucose (74-99) mg/dL POC Glucose (mg/dL) 123 H (70-110) mg/dL AST (17-59) U/L ALT (4-49) U/L Alkaline Phosphatase (38-126) U/L Total Protein (6.3-8.2) g/dL Albumin (3.5-5.0) g/dL Microbiology - Last 24 Hours (Table) 06/05/23 06:48 Blood Culture - Preliminary Blood 06/04/23 16:25 Blood Culture - Preliminary Blood Assessment and Plan (1) MRSA bacteremia Current Visit: Yes Status: Acute Code(s): R78.81 - BACTEREMIA; B95.62 - METHICILLIN RESIS STAPH INFCT CAUSING DISEASES CLASSD [id number] SNOMED Code(s): 24796809660364154 (2) Leukocytosis Current Visit: Yes Status: Acute Code(s): D72.829 - ELEVATED WHITE BLOOD CELL COUNT, UNSPECIFIED SNOMED Code(s): 023966989 (3) Type 2 diabetes mellitus with foot ulcer Current Visit: No Status: Acute Code(s): E11.621 - TYPE 2 DIABETES MELLITUS WITH FOOT ULCER; L97.509 - NON-PRESSURE CHRONIC ULCER OTH PRT UNSP FOOT W UNSP SEVERITY SNOMED Code(s): 937452710 Plan: 1patient presented to hospital with increasing pain and swelling to the right second toe amputation site in this patient who did have features of sepsis with a fever elevated white count source is right second toe distal phalanx amputation site infection and concerning for secondary cellulitis likely from gram-positive skin torres gram-negative infection less likely but not excluded 2-patient also have a fall from his scooter landed on his left lower extremity CT suspicious for Charcot deformity and also noticed to have increasing swelling and some redness and tenderness to the lateral aspect of the left foot concerning for possible left foot septic arthritis, MRI has been ordered which will be completed this afternoon results will be followed 3-patient did have a positive blood culture with MRSA right second toe tip culture growing MRSA as well, repeat blood culture 06/04/2023 as well as 06/05/2023 so far negative 4-patient to continue with the vancomycin, MRI did show significant finding suspicious for septic arthritis and osteomyelitis currently waiting for transfer to tertiary care to be evaluated by foot and ankle surgeon Dictation was produced using [email or web address] dictation software. please excuse any grammatical, word or spelling errors. Time with Patient: Less than 30
[2023-06-06 16:16] LABS: Glucose,Whole Blood 205 mg/dL (70-110)
[2023-06-06 20:05] LABS: Glucose,Whole Blood 192 mg/dL (70-110)
[2023-06-06] MEDS ORDERED: NON FORMULARY DRUG (Tirzepatide [Mounjaro] 5 MG/0.5 ML Pen.Injctr) SQ SCH (20:31)
[2023-06-06 20:32] VITALS: BP 121/83; PULSE 94; TEMP 98.6
[2023-06-06 23:22] VITALS: RESP 16
[2023-06-08] MEDS ORDERED: VANCOMYCIN TROUGH DUE 1 EACH MISC MISCELLANE ONE (07:00)
== END 2023-06-07 00:41 | disposition short-term general hospital (02) | DRG 564 ==
LOC: EC 12:53 → 4SSUR 15:29
PROVIDERS: ADMIT Internal Medicine; ATTEND Internal Medicine
DX: T87.43 Infection of amputation stump, right lower extremity (principal); A41.02 Sepsis due to Methicillin resistant Staphylococcus aureus; I50.31 Acute diastolic (congestive) heart failure; J96.01 Acute respiratory failure with hypoxia; R65.20 Severe sepsis without septic shock; Z68.41 Body mass index [BMI] 40.0-44.9, adult; E87.3 Alkalosis; I47.10 Supraventricular tachycardia, unspecified; M00.9 Pyogenic arthritis, unspecified; E66.2 Morbid (severe) obesity with alveolar hypoventilation; L03.115 Cellulitis of right lower limb; L02.416 Cutaneous abscess of left lower limb; M86.8X7 Other osteomyelitis, ankle and foot; E11.610 Type 2 diabetes mellitus with diabetic neuropathic arthropathy; E11.42 Type 2 diabetes mellitus with diabetic polyneuropathy; E78.5 Hyperlipidemia, unspecified; F32.9 Major depressive disorder, single episode, unspecified; E87.6 Hypokalemia; I11.0 Hypertensive heart disease with heart failure; E11.43 Type 2 diabetes mellitus with diabetic autonomic (poly)neuropathy; K31.84 Gastroparesis; E11.621 Type 2 diabetes mellitus with foot ulcer; E11.628 Type 2 diabetes mellitus with other skin complications; E11.69 Type 2 diabetes mellitus with other specified complication; L97.509 Non-pressure chronic ulcer of other part of unspecified foot with unspecified severity; Z79.4 Long term (current) use of insulin; Z79.84 Long term (current) use of oral hypoglycemic drugs; Z79.899 Other long term (current) drug therapy; Z83.3 Family history of diabetes mellitus; Z89.421 Acquired absence of other right toe(s)
CPT/HCPCS: 36415; 71045; 71275; 80053; 80202; 83605; 83735; 83880; 84484; 85025; 85379; 85652; 87040; 87070; 87077; 87186; 87205; 87635; 87636; 93005; 93306; 94760; 96361; 96365; 96366; 96367; 96375; 99285

== ENCOUNTER 2023-07-01 15:34 | Emergency (ER) | payer MEDICAID ==
[2023-07-01 16:01] VITALS: RESP 18
[2023-07-01] MEDS ORDERED: VANCOMYCIN IV PER PHARMACY 1 EACH MISC MISCELLANE PRN (16:09)
--- NOTE | 2023-07-01 16:15 | ED ---
General Adult HPI - General Chief complaint: Recheck/Abnormal Lab/Rx Stated complaint: Abnormal CT-L foot Time Seen by Provider: 07/01/23 15:48 Source: patient Mode of arrival: ambulatory Limitations: no limitations - History of Present Illness Initial comments: This patient is 42-year-old man with history of left foot fracture, complicated by infection who was sent here from outpatient imaging to have further evaluation for suspected left foot infection. The patient had initially fallen from his knee scooter and injured his left foot. He was admitted here in the hospital from May 30 to and was subsequently transferred to [facility] where he stayed until June 10 when he was discharged. The patient had follow- up and then was sent here for additional imaging. He went for CT scan of the left foot and then was called back because there was gas found in the soft tissue. The patient is currently denying systemic symptoms he is not having fever or chills. No chest pain, dyspnea, palpitations. He does have some pain but states that it has not markedly changed. -: week(s) Location: left, lower extremity Radiation: non-radiation Quality: aching Consistency: constant Improves with: none Worsens with: none Associated Symptoms: denies other symptoms Treatments Prior to Arrival: other (Above) - Related Data Home Medications Medication Instructions Recorded Confirmed Ascorbic Acid [Vitamin C] 1,000 mg PO DAILY 01/06/23 07/01/23 Atorvastatin [Lipitor] 80 mg PO HS 01/06/23 07/01/23 Gabapentin 600 mg PO BID 01/06/23 07/01/23 Insulin Lispro [humaLOG Kwikpen] See Protocol SQ AC-TID 01/06/23 07/01/23 Loratadine 20 mg PO DAILY 01/06/23 07/01/23 Omeprazole 40 mg PO DAILY 01/06/23 07/01/23 metFORMIN HCL ER [Glucophage XR] 1,000 mg PO HS 01/06/23 07/01/23 Acetaminophen [Tylenol Extra 1,000 mg PO Q4H PRN 05/31/23 07/01/23 Strength] DULoxetine HCL [Cymbalta] 20 mg PO HS 05/31/23 07/01/23 Ibuprofen [Motrin Ib] 800 mg PO Q4H PRN 05/31/23 07/01/23 Insulin Glargine-Yfgn [Semglee 80 unit SQ HS 05/31/23 07/01/23 (Yfgn) Pen] Linezolid [Zyvox] 600 mg PO BID 07/01/23 07/01/23 Tirzepatide [Mounjaro] 2.5 mg SQ WE 07/01/23 07/01/23 Allergies Allergy/AdvReac Type Severity Reaction Status Date / Time No Known Allergies Allergy Verified 07/01/23 17:28 Review of Systems ROS Statement: Those systems with pertinent positive or pertinent negative responses have been documented in the HPI. ROS Other: All systems not noted in ROS Statement are negative. Constitutional: Denies: fever, chills, weakness Respiratory: Denies: cough, dyspnea Cardiovascular: Denies: chest pain, palpitations, edema Gastrointestinal: Denies: abdominal pain, vomiting Genitourinary: Denies: dysuria, frequency Musculoskeletal: Denies: back pain Skin: Denies: rash Neurological: Denies: headache, weakness, numbness Past Medical History Past Medical History: Diabetes Mellitus Additional Past Medical History / Comment(s): neuropathy History of Any Multi-Drug Resistant Organisms: None Reported Past Surgical History: Orthopedic Surgery Additional Past Surgical History / Comment(s): 2nd and 3rd partial digit removed to right foot, Past Anesthesia/Blood Transfusion Reactions: No Reported Reaction Past Psychological History: No Psychological Hx Reported Smoking Status: Never smoker Past Alcohol Use History: None Reported Past Drug Use History: None Reported General Exam Limitations: no limitations General appearance: alert, in no apparent distress Head exam: Present: atraumatic, normocephalic Eye exam: Present: normal appearance Respiratory exam: Present: normal lung sounds bilaterally. Absent: respiratory distress, wheezes, rales, rhonchi, stridor, accessory muscle use Cardiovascular Exam: Present: regular rate, normal rhythm, normal heart sounds. Absent: systolic murmur, diastolic murmur, rubs, gallop GI/Abdominal exam: Present: soft. Absent: distended, tenderness, guarding, rebound, rigid, mass Extremities exam: Present: other (Patient has cast boot on left lower leg/ankle) Back exam: Present: normal inspection Neurological exam: Present: alert Skin exam: Present: warm, dry, intact. Absent: rash Course Vital Signs 07/01/23 07/01/23 07/01/23 15:39 17:11 19:51 Temperature 98.2 F 98.1 F Pulse Rate 89 93 98 Respiratory 18 18 18 Rate Blood Pressure 151/88 143/83 141/88 O2 Sat by Pulse 96 97 97 Oximetry EKG Findings - EKG Results: EKG: interpreted by ANDREI, sinus rhythm (With occasional premature ventricular contraction, rate 96 bpm) - Blocks, [place], Hypertrophy, ST Abn: QRS axis and voltage: low voltage (<0.5 MV total QRS and <1.0 MV in each precordial lead) Medical Decision Making - Medical Decision Making Patient is 42-year-old man who was directed here after having had CT scan of his lower extremity. There was concern about possibility of infection and gas formation in the soft tissue. On my evaluation of the patient there are not really signs and symptoms of active infection. The patient does not have warmth or redness. No drainage from his surgical incision. The patient is continuing antibiotics currently. Lab studies not indicative of current active infection Discussed the patient's case with his project scheduler who will have close follow-up. The project scheduler did review the CT scan and believes that the result may be an over read, but he will have close follow-up nonetheless. Case also discussed with patient's primary physician who will have the patient in for close follow-up as well. Was pt. sent in by a medical professional or institution (TIANNA Champagne, AUXILIARY PLANT OPERATOR, urgent care, hospital, or [facility]...) When possible be specific @ -[Patient was advised to come in by his foot physician Did you speak to anyone other than the patient for history (EMS, parent, family, police, friend...)? What history was obtained from this source @ -[No] Did you review nursing and triage notes (agree or disagree)? Why? @ -[I reviewed and agree with nursing and triage notes] Were old charts reviewed (outside hosp., previous admission, EMS record, old EKG, old radiological studies, urgent care reports/EKG's, [facility] records)? Report findings @ -[No old charts were reviewed] Differential Diagnosis (chest pain, altered mental status, abdominal pain women, abdominal pain men, vaginal bleeding, weakness, fever, dyspnea, syncope, headach e, dizziness, GI bleed, back pain, seizure, CVA, palpatations, mental health, musculoskeletal)? @ -[Differential Musculoskeletal Muscular strain, contusion, ligament sprain, fracture, arthritis, septic arthritis, bursitis, cellulitis, muscle spasm, nerve compression, DVT, arterial occlusion, herpes zoster, electrolyte abnormality, tumor.... This is not meant to be in all inclusive list EKG interpreted by me (3pts min.). @ -[As above] X-rays interpreted by me (1pt min.). @ -[None done] CT interpreted by me (1pt min.). @ -[None done] U/S interpreted by me (1pt. min.). @ -[None done] What testing was considered but not performed or refused? (CT, X-rays, U/S, labs)? Why? @ -[None] What meds were considered but not given or refused? Why? @ -[None] Did you discuss the management of the patient with other professionals (professionals i.e. , PA, AUXILIARY PLANT OPERATOR, lab, RT, psych nurse, psychiatric social worker supervisor, make ready worker, teacher, aboriginal home school liaison officer, test case developer)? Give summary @ -[As above s smoking cessation discussed for >3mins.? @ -[No] Was critical care preformed (if so, how long)? @ -[No] Were there social determinants of health that impacted care today? How? (Homelessness, low income, unemployed, alcoholism, drug addiction, transportation, low edu. Level, literacy, decrease access to med. care, long-term, rehab)? @ -[No] Was there de-escalation of care discussed even if they declined (Discuss DNR or withdrawal of care, Hospice)? DNR status @ -[No] What co-morbidities impacted this encounter? (DM, HTN, Smoking, COPD, CAD, Cancer, CVA, ARF, Chemo, Hep., AIDS, mental health diagnosis, sleep apnea, m orbid obesity)? @ -[None] Was patient admitted / discharged? Hospital course, mention meds given and route, prescriptions, significant lab abnormalities, going to OR and other pertinent info. @ -[As above Undiagnosed new problem with uncertain prognosis? @ -[No] Drug Therapy requiring intensive monitoring for toxicity (Heparin, Nitro, Insulin, Cardizem)? @ -[No] Were any procedures done? @ -[No] Diagnosis/symptom? @ -[Hyperglycemia Chronic foot infection versus Charcot foot Acute, or Chronic, or Acute on Chronic? @ -[Chronic Uncomplicated (without systemic symptoms) or Complicated (systemic symptoms)? @ -[Complicated Side effects of treatment? @ -[No] Exacerbation, Progression, or Severe Exacerbation? @ -[No] Poses a threat to life or bodily function? How? (Chest pain, [place], MA, pneumonia, PE, COPD, DKA, ARF, appy, cholecystitis, CVA, Diverticulitis, Homicidal, Suicidal, threat to staff... and all critical care pts) @ -[Yes, there is risk of worsening infection leading to amputation or sepsis, therefore patient to have close follow-up - Lab Data Result diagrams: 07/01/23 16:47 07/01/23 16:47 Lab Results 07/01/23 07/01/23 07/01/23 Range/Units 16:47 16:47 16:47 WBC 7.5 (3.8-10.6) k/uL RBC 4.79 (4.30-5.90) m/uL Hgb 12.8 L (13.0-17.5) gm/dL Hct 40.4 (39.0-53.0) % MCV 84.4 (80.0-100.0) fL MCH 26.7 (25.0-35.0) pg MCHC 31.7 (31.0-37.0) g/dL RDW 15.2 (11.5-15.5) % Plt Count 212 (150-450) k/uL MPV 7.5 Neutrophils % 66 % Lymphocytes % 23 % Monocytes % 6 % Eosinophils % 3 % Basophils % 1 % Neutrophils # 4.9 (1.3-7.7) k/uL Lymphocytes # 1.7 (1.0-4.8) k/uL Monocytes # 0.4 (0-1.0) k/uL Eosinophils # 0.3 (0-0.7) k/uL Basophils # 0.1 (0-0.2) k/uL Hypochromasia Slight PT 9.9 L (10.0-12.5) sec INR 0.9 (<1.2) APTT 28.0 (22.0-30.0) sec Sodium 136 L (137-145) mmol/L Potassium 4.5 (3.5-5.1) mmol/L Chloride 98 (98-107) mmol/L Carbon Dioxide 28 (22-30) mmol/L Anion Gap 10 mmol/L BUN 19 (9-20) mg/dL Creatinine 0.72 (0.66-1.25) mg/dL Est GFR (CKD-EPI)AfAm >90 (>60 ml/min/1.73 sqM) Est GFR (CKD-EPI)NonAf >90 (>60 ml/min/1.73 sqM) Glucose 341 H (74-99) mg/dL Plasma Lactic Acid Jesus (0.7-2.0) mmol/L Calcium 9.2 (8.4-10.2) mg/dL Total Bilirubin 0.5 (0.2-1.3) mg/dL AST 21 (17-59) U/L ALT 28 (4-49) U/L Alkaline Phosphatase 139 H (38-126) U/L Total Protein 7.2 (6.3-8.2) g/dL Albumin 3.8 (3.5-5.0) g/dL Procalcitonin (0.02-0.09) ng/mL 07/01/23 07/01/23 Range/Units 16:47 16:47 WBC (3.8-10.6) k/uL RBC (4.30-5.90) m/uL Hgb (13.0-17.5) gm/dL Hct (39.0-53.0) % MCV (80.0-100.0) fL MCH (25.0-35.0) pg MCHC (31.0-37.0) g/dL RDW (11.5-15.5) % Plt Count (150-450) k/uL MPV Neutrophils % % Lymphocytes % % Monocytes % % Eosinophils % % Basophils % % Neutrophils # (1.3-7.7) k/uL Lymphocytes # (1.0-4.8) k/uL Monocytes # (0-1.0) k/uL Eosinophils # (0-0.7) k/uL Basophils # (0-0.2) k/uL Hypochromasia PT (10.0-12.5) sec INR (<1.2) APTT (22.0-30.0) sec Sodium (137-145) mmol/L Potassium (3.5-5.1) mmol/L Chloride (98-107) mmol/L Carbon Dioxide (22-30) mmol/L Anion Gap mmol/L BUN (9-20) mg/dL Creatinine (0.66-1.25) mg/dL Est GFR (CKD-EPI)AfAm (>60 ml/min/1.73 sqM) Est GFR (CKD-EPI)NonAf (>60 ml/min/1.73 sqM) Glucose (74-99) mg/dL Plasma Lactic Acid Jesus 2.0 (0.7-2.0) mmol/L Calcium (8.4-10.2) mg/dL Total Bilirubin (0.2-1.3) mg/dL AST (17-59) U/L ALT (4-49) U/L Alkaline Phosphatase (38-126) U/L Total Protein (6.3-8.2) g/dL Albumin (3.5-5.0) g/dL Procalcitonin 0.06 (0.02-0.09) ng/mL Disposition Clinical Impression: Encounter for wound re-check Disposition: HOME SELF-CARE Condition: Good Instructions (If sedation given, give patient instructions): Wound Infection (DC) Is patient prescribed a controlled substance at d/c from ED?: No Referrals: Siri Holbrook MD [Primary Care Provider] - 1-2 days Abebe Holguin DPM [STAFF PHYSICIAN] - 1-2 days
[2023-07-01] MEDS: PIPERACILLIN-TAZOBACTAM 3.375 GM in SODIUM CHLORIDE 0.9% 100 ML IVPB STA (16:49)
[2023-07-01] MEDS: SODIUM CHLORIDE 0.9% 500 ML 500 ML IV SCH (16:50)
[2023-07-01 17:29] LABS: Basophils # (A) 0.1 k/uL (0-0.2); Basophils % (A) 1 %; Eosinophils # (A) 0.3 k/uL (0-0.7); Eosinophils % (A) 3 %; HCT 40.4 % (39.0-53.0); HGB 12.8 gm/dL (13.0-17.5); Hypochromasia Slight; Lymphocytes # (A) 1.7 k/uL (1.0-4.8); Lymphocytes % (A) 23 %; MCH 26.7 pg (25.0-35.0); MCHC 31.7 g/dL (31.0-37.0); MCV 84.4 fL (80.0-100.0); Mean Platelet Volume 7.5; Monocytes # (A) 0.4 k/uL (0-1.0); Monocytes % (A) 6 %; Neutrophils # (A) 4.9 k/uL (1.3-7.7); Neutrophils % (A) 66 %; Platelet Count 212 k/uL (150-450); RBC 4.79 m/uL (4.30-5.90); RDW 15.2 % (11.5-15.5); WBC 7.5 k/uL (3.8-10.6)
[2023-07-01 17:50] LABS: ALT 28 U/L (4-49); AST 21 U/L (17-59); African American GFR (CKD) >90 (>60 ml/min/1.73 sqM); Albumin 3.8 g/dL (3.5-5.0); Alkaline Phosphatase 139 U/L (38-126); Anion Gap 10 mmol/L; Blood Urea Nitrogen 19 mg/dL (9-20); Calcium 9.2 mg/dL (8.4-10.2); Carbon Dioxide 28 mmol/L (22-30); Chloride 98 mmol/L (98-107); Glucose 341 mg/dL (74-99); INR 0.9 (<1.2); Non-African American GFR(CKD) >90 (>60 ml/min/1.73 sqM); Potassium 4.5 mmol/L (3.5-5.1); Prothrombin Time 9.9 sec (10.0-12.5); Sodium 136 mmol/L (137-145); Total Bilirubin 0.5 mg/dL (0.2-1.3); Total Protein 7.2 g/dL (6.3-8.2)
[2023-07-01] MEDS: VANCOMYCIN 2,250 MG in SODIUM CHLORIDE 0.9% 500 ML 500 ML IVPB STA (18:20)
[2023-07-01] MEDS: SODIUM CHLORIDE 0.9% 1,000 ML IV SCH (18:20)
[2023-07-01] MEDS: INSULIN REGULAR 100 UNIT/ML VIAL (IV) SQ STA (18:59)
[2023-07-01 20:55] VITALS: BP 141/88; PULSE 98; TEMP 98.1
[2023-07-02] MEDS ORDERED: VANCOMYCIN 2,000 MG in SODIUM CHLORIDE 0.9% 500 ML 500 ML IVPB SCH (02:00)
== END 2023-07-01 19:55 | disposition home or self-care (01) ==
LOC: EC 15:34
DX: Z48.01 Encounter for change or removal of surgical wound dressing (principal); E11.65 Type 2 diabetes mellitus with hyperglycemia; E11.40 Type 2 diabetes mellitus with diabetic neuropathy, unspecified; Z79.4 Long term (current) use of insulin; Z79.84 Long term (current) use of oral hypoglycemic drugs; Z79.85 Long-term (current) use of injectable non-insulin antidiabetic drugs
CPT/HCPCS: 36415; 93005; 80053; 83605; 85025; 85610; 85730; 87040; 84145; 99283; 96365; 96367; J2543; J3370

== ENCOUNTER → 2023-07-01 | Outpatient (CLI) | payer MEDICAID ==
--- NOTE | 2023-07-01 12:02 | CT ---
"EXAMINATION TYPE: CT foot RT wo con DATE OF EXAM: 07/01/2023 COMPARISON: X-ray 04/10/2023 HISTORY: OSTEOMYELITIS CT DLP: 215 mGycm Automated exposure control for dose reduction was used. FINDINGS: There is interval lytic and sclerotic changes with destructive changes involving virtually all of the visualized tarsal bones, anterior talus and calcaneus. Pes planus deformity with calcaneal spur. Chr onic appearing erosion is stable along the base of the calcaneus. Arthropathy of the first MCP joint. Diffuse osteopenia. Soft tissue ossification is seen adjacent to the lateral margin of reflux. BE related to adjacent destructive changes or heterotopic ossification. Pes planus deformity Diffuse soft tissue edema with a pocket of air seen along the dorsum of foot near the destructive mich nges of the talus and calcaneus. Air forming bacterial infection in the differential diagnosis. These findings appear new relative to the x-ray of 04/10/2023. Achilles tendon appears intact although there is enthesophyte or spur at the insertion on the calcane us. There is arthropathy of the tarsal metatarsal junction of all digits. Ankle mortise is symmetric. Cystic change involving the distal fibula and tibia likely relating to sm all geodes. IMPRESSION: 1. Destructive change and fragmentation at of the talus, calcaneus and all tarsal bones. Differential diagnosis would include osteomyelitis. Charcot joint or superimposed Charcot joint in the differenti al diagnosis. 2. Diffuse soft tissue edema with couple air bubbles noted in the soft tissues adjacent to the latera l margin of the foot reference image 45 series 4. Cellulitis with airforming bacterial infection in t he differential diagnosis. A discrete abscess not seen. A [place] level critical message alert has been initiated for Abebe Holguin DPM via the [employer] 36 0 | Critical Results System on 07/01/2023 11:53 AM. This message alert has been sent to Abebe Holguin DPM via the preferences provided by the clinician for the receipt of Radiology Critical Findings. Mo ssage ID [id number]."
--- NOTE | 2023-07-02 11:10 | NM ---
EXAMINATION TYPE: NM WBC limited DATE OF EXAM: 07/01/2023 COMPARISON: CT 07/01/2023 CLINICAL INDICATION: Male, 42 years old with history of M86.9 OSTEOMYELITIS UNSPECIFIED; TECHNIQUE: Following administration of 16.2 mCi Tc99m Ceretec. Images obtained 4 hours post injecti on. FINDINGS: There is increased uptake in the bilateral midfoot and hindfoot greater on the left.. IMPRESSION: Bilateral increased uptake greater on the left involving the mid hindfoot. Infectious etiology /Osteomyelitis in the differential diagnosis
== END | disposition home or self-care (01) ==
LOC: RADNMMAIN 07:08
PROVIDERS: ATTEND Podiatrist
DX: M86.171 Other acute osteomyelitis, right ankle and foot (principal); M14.671 Charcot's joint, right ankle and foot; R60.9 Edema, unspecified; L97.514 Non-pressure chronic ulcer of other part of right foot with necrosis of bone; E11.621 Type 2 diabetes mellitus with foot ulcer
CPT/HCPCS: 73700; 78300; A9569

== ENCOUNTER 2023-07-13 04:58 | Inpatient (IN) | payer MEDICAID ==
[2023-07-13] MEDS: ACETAMINOPHEN TAB 500 MG TAB PO STA (05:35)
[2023-07-13] MEDS: ONDANSETRON 4 MG/2 ML VIAL IVP STA (05:37)
[2023-07-13] MEDS: SODIUM CHLORIDE 0.9% 1,000 ML IV ONE (05:45)
[2023-07-13] MEDS: HYDROmorphone 0.5 MG/0.5 ML SYRINGE IVP STA (05:50)
[2023-07-13 06:00] LABS: Basophils # (A) 0.1 k/uL (0-0.2); Basophils % (A) 1 %; Eosinophils # (A) 0.2 k/uL (0-0.7); Eosinophils % (A) 2 %; HCT 38.1 % (39.0-53.0); HGB 12.1 gm/dL (13.0-17.5); Hypochromasia Slight; Lymphocytes # (A) 1.2 k/uL (1.0-4.8); Lymphocytes % (A) 12 %; MCH 26.2 pg (25.0-35.0); MCHC 31.7 g/dL (31.0-37.0); MCV 82.8 fL (80.0-100.0); Mean Platelet Volume 7.4; Monocytes # (A) 0.7 k/uL (0-1.0); Monocytes % (A) 7 %; Neutrophils # (A) 7.7 k/uL (1.3-7.7); Neutrophils % (A) 77 %; Platelet Count 217 k/uL (150-450); RDW 15.4 % (11.5-15.5); WBC 9.9 k/uL (3.8-10.6)
[2023-07-13 06:18] LABS: ALT 19 U/L (4-49); AST 21 U/L (17-59); African American GFR (CKD) >90 (>60 ml/min/1.73 sqM); Albumin 3.5 g/dL (3.5-5.0); Alkaline Phosphatase 105 U/L (38-126); Anion Gap 6 mmol/L; Blood Urea Nitrogen 16 mg/dL (9-20); Calcium 8.8 mg/dL (8.4-10.2); Carbon Dioxide 31 mmol/L (22-30); Chloride 101 mmol/L (98-107); Glucose 179 mg/dL (74-99); Non-African American GFR(CKD) >90 (>60 ml/min/1.73 sqM); Potassium 4.5 mmol/L (3.5-5.1); Sodium 138 mmol/L (137-145); Total Bilirubin 0.7 mg/dL (0.2-1.3); Total Protein 6.5 g/dL (6.3-8.2)
--- NOTE | 2023-07-13 06:26 | ED ---
General Adult HPI - General Chief complaint: Fever Stated complaint: Post-Op Infection Time Seen by Provider: 07/13/23 05:00 Source: patient, RN notes reviewed Mode of arrival: ambulatory Limitations: no limitations - History of Present Illness Initial comments: 42-year-old male presents emergency department with chief complaint of right foot infection. He states that he of recent has been on antibiotics because he had an infected left foot which was opened and has been followed by Dr. Holguin currently he was seen at [facility] for that foot he states he is worried about his right foot second digit that has become red, more swollen. Patient states that he is followed by the wound center and has had prior amputation on that foot by Dr. Holguin and by Dr. Hua. Patient states he noticed he had some bodyaches and knew he had a fever. He denies any URI symptoms or any other reasons for his fever other than his right foot he states there is an open wound on the bottom portion of the second digit - Related Data Home Medications Medication Instructions Recorded Confirmed Ascorbic Acid [Vitamin C] 1,000 mg PO DAILY 01/06/23 07/13/23 Atorvastatin [Lipitor] 80 mg PO HS 01/06/23 07/13/23 Gabapentin 600 mg PO BID 01/06/23 07/13/23 Insulin Lispro [humaLOG Kwikpen] See Protocol SQ AC-TID 01/06/23 07/13/23 Loratadine 20 mg PO DAILY 01/06/23 07/13/23 Omeprazole 40 mg PO DAILY 01/06/23 07/13/23 metFORMIN HCL ER [Glucophage XR] 1,000 mg PO HS 01/06/23 07/13/23 Acetaminophen [Tylenol Extra 1,000 mg PO Q4H PRN 05/31/23 07/13/23 Strength] DULoxetine HCL [Cymbalta] 20 mg PO HS 05/31/23 07/13/23 Ibuprofen [Motrin Ib] 800 mg PO Q4H PRN 05/31/23 07/13/23 Insulin Glargine-Yfgn [Semglee 80 unit SQ HS 05/31/23 07/13/23 (Yfgn) Pen] Linezolid [Zyvox] 600 mg PO BID 07/01/23 07/13/23 Tirzepatide [Mounjaro] 2.5 mg SQ WE 07/01/23 07/13/23 Allergies Allergy/AdvReac Type Severity Reaction Status Date / Time No Known Allergies Allergy Verified 07/13/23 08:54 Review of Systems ROS Statement: Those systems with pertinent positive or pertinent negative responses have been documented in the HPI. ROS Other: All systems not noted in ROS Statement are negative. Past Medical History Past Medical History: Diabetes Mellitus Additional Past Medical History / Comment(s): neuropathy History of Any Multi-Drug Resistant Organisms: MRSA Date of last positivie culture/infection: 06/22/23 MDRO Source:: body throughout Past Surgical History: Orthopedic Surgery Additional Past Surgical History / Comment(s): 2nd and 3rd partial digit removed to right foot, Past Anesthesia/Blood Transfusion Reactions: No Reported Reaction Past Psychological History: No Psychological Hx Reported Smoking Status: Never smoker Past Alcohol Use History: None Reported Past Drug Use History: None Reported General Exam Limitations: no limitations General appearance: alert, in no apparent distress Head exam: Present: atraumatic, normocephalic, normal inspection Eye exam: Present: normal appearance, PERRL, EOMI. Absent: scleral icterus, conjunctival injection, periorbital swelling ENT exam: Present: normal exam, normal oropharynx, mucous membranes moist Neck exam: Present: normal inspection, full ROM. Absent: tenderness, me ningismus, lymphadenopathy Respiratory exam: Present: normal lung sounds bilaterally. Absent: respiratory distress, wheezes, rales, rhonchi, stridor Cardiovascular Exam: Present: normal rhythm, tachycardia, normal heart sounds. Absent: systolic murmur, diastolic murmur, rubs, gallop, clicks Extremities exam: Present: other (Right foot there are 2 partial amputations of the second and third digit there is erythema, swelling increased warmth from the second digit to midfoot pulses equal bilaterally there is a suture noted in the left foot there is no erythema or increased warmth of the left foot there is some moderate sw) Course Vital Signs 07/13/23 07/13/23 07/13/23 05:00 05:52 06:44 Temperature 101.2 F H 99.4 F Pulse Rate 112 H 105 H Respiratory 20 18 Rate Blood Pressure 159/93 148/92 O2 Sat by Pulse 96 97 Oximetry 07/13/23 09:06 Temperature Pulse Rate 101 H Respiratory 18 Rate Blood Pressure 146/86 O2 Sat by Pulse 94 L Oximetry Medical Decision Making - Medical Decision Making Was pt. sent in by a medical professional or institution (, [facility], CAR DEALER, urgent care, hospital, or fdc...) When possible be specific @ -No Did you speak to anyone other than the patient for history (EMS, parent, family, police, friend...)? What history was obtained from this source @ -No Did you review nursing and triage notes (agree or disagree)? Why? @ -I reviewed and agree with nursing and triage notes Were old charts reviewed (outside hosp., previous admission, EMS record, old EKG, old radiological studies, urgent care reports/EKG's, fdc records)? Report findings @ -[Reviewed prior blood cultures, wound culture Differential Diagnosis (chest pain, altered mental status, abdominal pain women, abdominal pain men, vaginal bleeding, weakness, fever, dyspnea, syncope, headache, dizziness, GI bleed, back pain, seizure, CVA, palpatations, mental health, musculoskeletal)? @ -Osteomyelitis, cellulitis, diabetic foot ulcer EKG interpreted by me (3pts min.). @ -None X-rays interpreted by me (1pt min.). @ -X-ray of bilateral foot shows no evidence of osteomyelitis there is Charcot foot noted CT interpreted by me (1pt min.). @ -[None done U/S interpreted by me (1pt. min.). @ -None done What testing was considered but not performed or refused? (CT, X-rays, U/S, labs)? Why? @ -None What meds were considered but not given or refused? Why? @ -None Did you discuss the management of the patient with other professionals (professionals i.e. , TIANNA, CAR DEALER, lab, RT, psych nurse, home health care social worker, sail repairer, teacher, tactical debriefer officer, shoe caser)? Give summary @ -Dr. Holbrook for admission secondary to open wound with noted fever, diabetic infection Was smoking cessation discussed for >3mins.? @ -No Was critical care preformed (if so, how long)? @ -No Were there social determinants of health that impacted care today? How? (Homelessness, low income, unemployed, alcoholism, drug addiction, transportation, low edu. Level, literacy, decrease access to med. care, retirement, rehab)? @ -No Was there de-escalation of care discussed even if they declined (Discuss DNR or withdrawal of care, Hospice)? DNR status @ -No What co-morbidities impacted this encounter? (DM, HTN, Smoking, COPD, CAD, Cancer, CVA, ARF, Chemo, Hep., AIDS, mental health diagnosis, sleep apnea, morbid obesity)? @ -Diabetes Was patient admitted / discharged? Hospital course, mention meds given and route, prescriptions, significant lab abnormalities, going to OR and other pertinent info. @ -Patient is found to be febrile, patient does not have evidence of osteomyelitis but does have noted worsening cellulitic, diabetic ulcer patient started on cefepime and vancomycin as instructed by PCP. Patient will have consult to infectious disease and podiatry Undiagnosed new problem with uncertain prognosis? @ -No Drug Therapy requiring intensive monitoring for toxicity (Heparin, Nitro, Insulin, Cardizem)? @ -No Were any procedures done? @ -No Diagnosis/symptom? @ -Right foot cellulitis, diabetic infection Acute, or Chronic, or Acute on Chronic? @ -Acute Uncomplicated (without systemic symptoms) or Complicated (systemic symptoms)? @ -Complicated Side effects of treatment? @ -No Exacerbation, Progression, or Severe Exacerbation? @ -No Poses a threat to life or bodily function? How? (Chest pain, USA, DC, pneumonia, PE, COPD, DKA, ARF, appy, cholecystitis, CVA, Diverticulitis, Homicidal, Suicidal, threat to staff... and all critical care pts) @ -Yes possible bacteremia - Lab Data Result diagrams: 07/13/23 05:35 07/13/23 05:35 Lab Results 07/13/23 07/13/23 07/13/23 Range/Units 05:35 05:35 05:35 WBC 9.9 (3.8-10.6) k/uL RBC 4.60 (4.30-5.90) m/uL Hgb 12.1 L (13.0-17.5) gm/dL Hct 38.1 L (39.0-53.0) % MCV 82.8 (80.0-100.0) fL MCH 26.2 (25.0-35.0) pg MCHC 31.7 (31.0-37.0) g/dL RDW 15.4 (11.5-15.5) % Plt Count 217 (150-450) k/uL MPV 7.4 Neutrophils % 77 % Lymphocytes % 12 % Monocytes % 7 % Eosinophils % 2 % Basophils % 1 % Neutrophils # 7.7 (1.3-7.7) k/uL Lymphocytes # 1.2 (1.0-4.8) k/uL Monocytes # 0.7 (0-1.0) k/uL Eosinophils # 0.2 (0-0.7) k/uL Basophils # 0.1 (0-0.2) k/uL Hypochromasia Slight ESR (0-15) mm/Hr Sodium 138 (137-145) mmol/L Potassium 4.5 (3.5-5.1) mmol/L Chloride 101 (98-107) mmol/L Carbon Dioxide 31 H (22-30) mmol/L Anion Gap 6 mmol/L BUN 16 (9-20) mg/dL Creatinine 0.65 L (0.66-1.25) mg/dL Est GFR (CKD-EPI)AfAm >90 (>60 ml/min/1.73 sqM) Est GFR (CKD-EPI)NonAf >90 (>60 ml/min/1.73 sqM) Glucose 179 H (74-99) mg/dL Plasma Lactic Acid Jesus 1.1 (0.7-2.0) mmol/L Calcium 8.8 (8.4-10.2) mg/dL Total Bilirubin 0.7 (0.2-1.3) mg/dL AST 21 (17-59) U/L ALT 19 (4-49) U/L Alkaline Phosphatase 105 (38-126) U/L C-Reactive Protein (<1.0) mg/dL Total Protein 6.5 (6.3-8.2) g/dL Albumin 3.5 (3.5-5.0) g/dL 07/13/23 07/13/23 Range/Units 05:35 05:35 WBC (3.8-10.6) k/uL RBC (4.30-5.90) m/uL Hgb (13.0-17.5) gm/dL Hct (39.0-53.0) % MCV (80.0-100.0) fL MCH (25.0-35.0) pg MCHC (31.0-37.0) g/dL RDW (11.5-15.5) % Plt Count (150-450) k/uL MPV Neutrophils % % Lymphocytes % % Monocytes % % Eosinophils % % Basophils % % Neutrophils # (1.3-7.7) k/uL Lymphocytes # (1.0-4.8) k/uL Monocytes # (0-1.0) k/uL Eosinophils # (0-0.7) k/uL Basophils # (0-0.2) k/uL Hypochromasia ESR 66 H (0-15) mm/Hr Sodium (137-145) mmol/L Potassium (3.5-5.1) mmol/L Chloride (98-107) mmol/L Carbon Dioxide (22-30) mmol/L Anion Gap mmol/L BUN (9-20) mg/dL Creatinine (0.66-1.25) mg/dL Est GFR (CKD-EPI)AfAm (>60 ml/min/1.73 sqM) Est GFR (CKD-EPI)NonAf (>60 ml/min/1.73 sqM) Glucose (74-99) mg/dL Plasma Lactic Acid Jesus (0.7-2.0) mmol/L Calcium (8.4-10.2) mg/dL Total Bilirubin (0.2-1.3) mg/dL AST (17-59) U/L ALT (4-49) U/L Alkaline Phosphatase (38-126) U/L C-Reactive Protein 5.7 H (<1.0) mg/dL Total Protein (6.3-8.2) g/dL Albumin (3.5-5.0) g/dL Disposition Clinical Impression: Diabetic infection of right foot, Cellulitis Disposition: ADMITTED IP TO THIS HOSP Condition: Fair Time of Disposition: 08:06
--- NOTE | 2023-07-13 07:45 | XR ---
EXAMINATION TYPE: XR foot limited bilateral DATE OF EXAM: 07/13/2023 CLINICAL HISTORY: pain TECHNIQUE: Frontal, lateral and oblique images of the right foot are obtained. COMPARISON: 04/10/2023 FINDINGS: Postoperative changes of partial amputation right second and third digits. Severe soft tiss ue swelling about the second toe and to a lesser extent the third toe. Slight irregularity involving the head of the proximal phalanx right second digit with soft tissue calcifications. Underlying osteo myelitis is not excluded. Bony fragmentation redemonstrated involving the mid foot. Plantar and dorsa l calcaneal spur redemonstrated unchanged from prior study. No acute fracture identified. IMPRESSION: Cellulitis of the second and third toes with postoperative changes seen. Vague lucency and irregulari ty involving head of the proximal phalanx left second toe may reflect underlying osteomyelitis. EXAMINATION TYPE: XR foot limited bilateral DATE OF EXAM: 07/13/2023 CLINICAL HISTORY: pain TECHNIQUE: Frontal, lateral and oblique images of the left foot are obtained. COMPARISON: None. FINDINGS: There is no acute fracture/dislocation evident. Bony fragmentation and disorganization inv olving the midfoot felt to reflect underlying Charcot joint. Associated soft tissue swelling. No acut e fracture identified. IMPRESSION: Bony fragmentation and disorganization involving the midfoot felt to reflect underlying Charcot joint . Associated soft tissue swelling.
[2023-07-13] MEDS ORDERED: VANCOMYCIN IV PER PHARMACY 1 EACH MISC MISCELLANE PRN (07:48)
[2023-07-13] MEDS: PIPERACILLIN-TAZOBACTAM 3.375 GM in SODIUM CHLORIDE 0.9% 100 ML IVPB SCH (08:05)
[2023-07-13] MEDS ORDERED: NALOXONE 0.4 MG/ML 1 ML VIAL IV PRN (08:06)
[2023-07-13] MEDS: GABAPENTIN 300 MG CAP PO SCH (08:52)
[2023-07-13] MEDS: LORATADINE 10 MG TAB PO SCH (08:52)
[2023-07-13] MEDS: PANTOPRAZOLE 40 MG TABLET PO SCH (08:52)
[2023-07-13] MEDS: CEFEPIME 2 GM in SODIUM CHLORIDE 0.9% 100 ML IVPB SCH (08:53)
[2023-07-13] MEDS: VANCOMYCIN 2,000 MG in SODIUM CHLORIDE 0.9% 500 ML 500 ML IVPB STA (09:33)
--- NOTE | 2023-07-13 09:45 | P.GSCN ---
History of Present Illness Consult date: 07/13/23 Reason for Consult: infected right second toe Requesting physician: Anshul Scruggs History of present illness: This is a pleasant 42-year-old male with a history of diabetes mellitus, diabetic wounds and infected left second toe status post amputation done with Dr. Abebe Holguin. Presented to the emergency department this morning with concerns of increased swelling and redness to his right second toe accompanied by fevers and chills. Patient has been seen by vascular surgery in the past however he follows with Dr. Holguin in the outpatient setting as well as wound care. He does have a wound to the plantar aspect of the second toe where he had a previous partial amputation states that he has been following with Dr. Holguin and suspected that there may be infection at the surgical site. Apparently Dr. Holguin had ordered some imaging on the outpatient setting. He did have an x-ray of the right foot during this admission which reported bony fragmentation and disc organization involving the midfoot felt to reflect underlying Charcot joint. Associated soft tissue swelling. Denies any pain to the left second t oe. States that he had seen wound care center on Thursday and stated that the wound had looked well. He was on outpatient IV antibiotics that were discontinued on July 09, 2023. He is currently on IV Cefepime and Vancomycin. He states he woke up yesterday with increased redness and swelling, he then started having fevers and chills and was concerned so came in. On admission he had a temperature of 101.2 F. He currently denies any shortness of breath, chest pain, abdominal pain, nausea or vomiting. No cough or congestion. Again no pain to the right foot or right second toe. Review of Systems A 14 point review systems was completed all pertinent positives and negatives as stated in the HPI. Past Medical History Past Medical History: Diabetes Mellitus Additional Past Medical History / Comment(s): neuropathy History of Any Multi-Drug Resistant Organisms: MRSA Year Discovered:: 06/22/23 MDRO Source:: body throughout Past Surgical History: Orthopedic Surgery Additional Past Surgical History / Comment(s): 2nd and 3rd partial digit removed to right foot, Past Anesthesia/Blood Transfusion Reactions: No Reported Reaction Past Psychological History: No Psychological Hx Reported Smoking Status: Never smoker Past Alcohol Use History: None Reported Past Drug Use History: None Reported Medications and Allergies Home Medications Medication Instructions Recorded Confirmed Type Ascorbic Acid [Vitamin C] 1,000 mg PO DAILY 01/06/23 07/13/23 History Atorvastatin [Lipitor] 80 mg PO HS 01/06/23 07/13/23 History Gabapentin 600 mg PO BID 01/06/23 07/13/23 History Insulin Lispro [humaLOG Kwikpen] See Protocol SQ AC-TID 01/06/23 07/13/23 History Loratadine 20 mg PO DAILY 01/06/23 07/13/23 History Omeprazole 40 mg PO DAILY 01/06/23 07/13/23 History metFORMIN HCL ER [Glucophage XR] 1,000 mg PO HS 01/06/23 07/13/23 History Acetaminophen [Tylenol Extra 1,000 mg PO Q4H PRN 05/31/23 07/13/23 History Strength] DULoxetine HCL [Cymbalta] 20 mg PO HS 05/31/23 07/13/23 History Ibuprofen [Motrin Ib] 800 mg PO Q4H PRN 05/31/23 07/13/23 History Insulin Glargine-Yfgn [Semglee 80 unit SQ HS 05/31/23 07/13/23 History (Yfgn) Pen] Linezolid [Zyvox] 600 mg PO BID 07/01/23 07/13/23 History Tirzepatide [Mounjaro] 2.5 mg SQ WE 07/01/23 07/13/23 History Allergies Allergy/AdvReac Type Severity Reaction Status Date / Time No Known Allergies Allergy Verified 07/13/23 08:54 Surgical - Exam Vital Signs Temp Pulse Resp BP Pulse Ox 101.2 F H 112 H 20 159/93 96 07/13/23 05:00 07/13/23 05:00 07/13/23 05:00 07/13/23 05:00 07/13/23 05:00 General appearance: The patient is alert, oriented, appears in no acute distress. Obese. HET: Head is normocephalic and atraumatic. Pupils are equal and reactive. Neck: Supple. Heart: Regular. Lungs: Equal expansion, normal respiratory effort. Abdomen: Soft, nontender, nondistended. Extremities: Bilateral lower extremity swelling, Charcot feet. Right second and third toe partial amputation. Second toe with swelling and redness, healing wound to the plantar aspect of second toe. Nontender, palpable DP pulse. Neurological: No focal deficits. Strength and sensation are grossly intact. Results - Labs 07/13/23 05:35 07/13/23 05:35 Abnormal Lab Results - Last 24 Hours (Table) 07/13/23 07/13/23 07/13/23 Range/Units 05:35 05:35 05:35 Hgb 12.1 L (13.0-17.5) gm/dL Hct 38.1 L (39.0-53.0) % ESR 66 H (0-15) mm/Hr Carbon Dioxide 31 H (22-30) mmol/L Creatinine 0.65 L (0.66-1.25) mg/dL Glucose 179 H (74-99) mg/dL C-Reactive Protein (<1.0) mg/dL 07/13/23 Range/Units 05:35 Hgb (13.0-17.5) gm/dL Hct (39.0-53.0) % ESR (0-15) mm/Hr Carbon Dioxide (22-30) mmol/L Creatinine (0.66-1.25) mg/dL Glucose (74-99) mg/dL C-Reactive Protein 5.7 H (<1.0) mg/dL Diabetes panel 07/13/23 Range/Units 05:35 Sodium 138 (137-145) mmol/L Potassium 4.5 (3.5-5.1) mmol/L Chloride 101 (98-107) mmol/L Carbon Dioxide 31 H (22-30) mmol/L BUN 16 (9-20) mg/dL Creatinine 0.65 L (0.66-1.25) mg/dL Glucose 179 H (74-99) mg/dL Calcium 8.8 (8.4-10.2) mg/dL AST 21 (17-59) U/L ALT 19 (4-49) U/L Alkaline Phosphatase 105 (38-126) U/L Total Protein 6.5 (6.3-8.2) g/dL Albumin 3.5 (3.5-5.0) g/dL Calcium panel 07/13/23 Range/Units 05:35 Calcium 8.8 (8.4-10.2) mg/dL Albumin 3.5 (3.5-5.0) g/dL Pituitary panel 07/13/23 Range/Units 05:35 Sodium 138 (137-145) mmol/L Potassium 4.5 (3.5-5.1) mmol/L Chloride 101 (98-107) mmol/L Carbon Dioxide 31 H (22-30) mmol/L BUN 16 (9-20) mg/dL Creatinine 0.65 L (0.66-1.25) mg/dL Glucose 179 H (74-99) mg/dL Calcium 8.8 (8.4-10.2) mg/dL Adrenal panel 07/13/23 Range/Units 05:35 Sodium 138 (137-145) mmol/L Potassium 4.5 (3.5-5.1) mmol/L Chloride 101 (98-107) mmol/L Carbon Dioxide 31 H (22-30) mmol/L BUN 16 (9-20) mg/dL Creatinine 0.65 L (0.66-1.25) mg/dL Glucose 179 H (74-99) mg/dL Calcium 8.8 (8.4-10.2) mg/dL Total Bilirubin 0.7 (0.2-1.3) mg/dL AST 21 (17-59) U/L ALT 19 (4-49) U/L Alkaline Phosphatase 105 (38-126) U/L Total Protein 6.5 (6.3-8.2) g/dL Albumin 3.5 (3.5-5.0) g/dL Assessment and Plan Assessment: 1. Right second toe cellulitis 2. Right second toe wound, healing 3. Right second toe partial amputation 4. Diabetes mellitus 5. Charcot feet 6. Obesity Plan: 1. Antibiotics per recommendations from infectious disease 2. Consult to Dr. Holguin who is patient's merchandise marker and performed the right second toe amputation. Patient following in the outpatient setting 3. Vascular surgery will be on standby if further needed Thank you for this consultation. The impression and plan of care has been dictated as directed. Dr. Vaca I performed a history and examination of this patient, discussed the same with the dictator. I agree with the dictator's note ,documented as a scribe. Any additional findings or plans will be noted.
[2023-07-13 12:25] LABS: Glucose,Whole Blood 164 mg/dL (70-110)
[2023-07-13] MEDS: INSULIN ASPART (NovoLOG) 100 UNIT/ML VIAL SQ SCH ×2 (12:32→12:41)
[2023-07-13] MEDS: ACETAMINOPHEN TAB 325 MG TAB PO PRN (15:16)
[2023-07-13] MEDS: HYDROmorphone 0.5 MG/0.5 ML SYRINGE IVP PRN (16:11)
[2023-07-13] MEDS: VANCOMYCIN 2,000 MG in SODIUM CHLORIDE 0.9% 500 ML 500 ML IVPB SCH (16:45)
[2023-07-13 17:11] LABS: Glucose,Whole Blood 255 mg/dL (70-110)
[2023-07-13] MEDS: metFORMIN 500 MG TAB PO SCH (17:52)
--- NOTE | 2023-07-13 19:11 | P.HPIM ---
History of Present Illness H&P Date: 07/13/23 Chief Complaint: infected right second toe amputation HISTORY OF PRESENT ILLNESS: This is a 42-year-old male with a previous medical history significant for hypertension and hypertensive cardiovascular disease, hyperlipidemia, obesity with obstructive sleep apnea and obesity hypoventilation syndrome,diabetes mellitus type 2 with daibetic polyneuropathy, has been doing better with diabtes care as a matter of fact his HBA1C is down and patient has lost quite a bit of weight since the addition of Mounjaro to his medical regimen that he was out off for the past 4 chemehuevi due to insurance issues, patient has had diabetic foot ulcer with charcot feet, he underwent right third toe amputation by vascular surgery Dr. Hua back in December 2022, he has been following with Dr. Holguin who performed a right second toe amputation before patient also was treated at [facility] for osteomyelitis of the left foot and he was treated with 28-day course of Zyvox 600 mg orally twice every day for MRSA bacteremia, this was done on the , and the patient had called the pharmacy to see if he can renew his Zyvox the patient developed to have an increased redness of the right second toe amputation with a sore at the bottom of the amputation site, with increased erythema and swelling in the right foot, patient ended up coming to the emergency department at [facility] today for increased pain and swelling and low-grade temperature his temperature was at 1101.2, patient did have a blood cultures drawn as well as culture from the sore from the bottom of the second toe amputation and he was started on cefepime and vancomycin, and infectious disease consultation was obtained from Dr. Armstrong, patient also was admitted to the hospital for evaluation and treatment, he was seen in consultation by vascular surgery it was recommended for the patient to follow-up with Dr. Holguin and vascular surgery to stay on standby for now. Patient will be started on IV antibiotic as stated earlier, and he will likely require to have a PICC line if the blood cultures are negative for IV antibiotic the duration of it will be decided by the infectious disease Dr. Armstrong. REVIEW OF SYSTEMS: Constitutional: positive for documented fever, no chills, no night sweats. No weight change. positive for weakness, fatigue or lethargy. No daytime sleepiness. HEENT: No headache. No blurred vision or double vision, no loss of vision. No loss of Hearing, no ringing in the ears, no dizziness. No nasal drainage or congestion. No epistaxis. No sore throat. Lungs: no shortness of breath, no cough, or sputum production. No wheezing. Reports no dyspnea with activity. Cardiovascular: no chest pain, positive for lower extremity edema. positive for palpitations. negative for paroxysmal nocturnal dyspnea. negative for orthopnea. No lightheadedness or dizziness. No syncopal episodes. Abdominal: Reports no abdominal pain. No nausea or vomiting. No diarrhea. No constipation. No bloody or tarry stools Genitourinary: No dysuria, increased frequency, urgency, Musculoskeletal: No myalgias, positive for weakness, bilateral charcot feet, left foot with swelling and tenderness, right foot post right second toe amputation and 3rd toe amputation with a sore at the bottom of the right second toe amputation and increased redness and swelling Integumentary: right third toe amputation, right second toe amputation with sore to the bottom of the amputation site with increased swelling and with increased erythema and tenderness No rash or pruritus. positive for unusual bruising. No change in hair or nails. Neurologic: No aphasia. No facial droop. No change in mentation. No head injury. No headache. No paralysis. No paresthesia. Psychiatric: positive for depression. No anxiety. No mood swings. Endocrine: positive for abnormal blood sugars. positive for weight change. PAST MEDICAL HISTORY: Hypertension and hypertensive cardiovascular disease. Hyperlipidemia. Diabetes Mellitus type 2. Uncontrolled Diabetic Polyneuropathy Obesity with SHERI and OHS. Bilateral charcot feet. PAST SURGICAL HISTORY: Right knee surgery 1999 Right Knee Meniscal tear repair 05/2020 Right second toe tendon surgery 10/27/2022 Right third toe amputation Right second toe amputation SOCIAL HISTORY: She used to smoke about pack every day he smoked for many years and quit years ago, he denies any alcohol ingestion, no drug use or abuse. FAMILY HISTORY: Father at age of 62 from PAD and had amputations, Mother is 62 with breast cancer, patient has one brother alive and well,2 sisters one with DM2, patient has 2 daughters ok PHYSICAL EXAMINATION: General: 42 year male sitting up in chair does appear to be in distress HEENT: Head is atraumatic, normocephalic, pupils were equal round reactive to light and recommendation, extraocular muscle movement were intact, sclera nonicteric, conjunctivae were pale, mucous membranes of the mouth are somewhat dry. Neck: Supple, no JVP, normal carotid upstroke bilaterally, no lymphadenopathy. Chest: Decreased breath sounds at the bases, few rhonchi, no expiratory wheezes or intercostal retractions Heart: First heart sound is normal, second heart sound is normal, tachycardic, there is no gallop or murmur. Abdomen: Soft, nontender, nondistended, positive bowel sounds, obese. Extremities: There is +1 edema no calf tenderness DP +2 bilaterally, positive for neuropathy and charcot feet , right third toe amputation, right second toe amputation with wound at the bottom of the second toe amputation with significant erythema and tenderness. Left foot with Charcot foot and minimally dehisced sized wound at the dorsal aspect of the foot. Neurologic examination: Patient is awake alert and oriented X 3, cranial nerves II-12 appear grossly intact, muscle power were 5 out of 5 in upper extremities and 4/5 in right lower extremity ASSESSMENT AND PLAN: 1. Infected right second toe amputation site with cellulitis with a prior history of MRSA bacteremia. Start the patient on vancomycin as well as cefepime, blood cultures, wound culture aerobic and anaerobic, infectious disease consultation from Dr. Armstrong. 2. Status post amputation of the right second toe with a sore at the bottom of the amputation site with increased erythema and tenderness. Continue treatment as in previous paragraph. 3. Diabetes Mellitustype 2 non controlled. we will continue with Levemir 80 units SC at bedtime along with SSI , has been off GLP_1 RA ( Mounjaro) , we will continue with Metformin 1000 mg po bid and we will continue with BGM AC HS. add NovoLog 8 units before each meal plus the scale. 4. Diabetic Polyneuropathy with charcot feet. we will continue with Gabapentin 600 mg po bid 5. Hyperlipidemnia. we will continue with Atorvastatin 80 mg po daily, keep LDL- c 55-70. 6. Hypertension and hypertensive cardiovascular disease. Start the patient on metoprolol 25 mg orally twice every day. 7. Obesity with SHERI and OHS. we will continue with weight loss, never made it for a sleep study. 8. DVT prophylaxis. we will use Lovenox 40 mg SC daily. 9. GI Prophylaxis. we will continue with famotidine 40 mg at bedtime. 10. Major depressive disorder. Continue patient on duloxetine 20 mg orally once every day. 11. Admits to inpatient, estimated length of stay 2 midnights. 12. Full Code Past Medical History Past Medical History: Diabetes Mellitus Additional Past Medical History / Comment(s): neuropathy History of Any Multi-Drug Resistant Organisms: MRSA Date of last positivie culture/infection: 06/22/23 MDRO Source:: body throughout Past Surgical History: Orthopedic Surgery Additional Past Surgical History / Comment(s): 2nd and 3rd partial digit removed to right foot, Past Anesthesia/Blood Transfusion Reactions: No Reported Reaction Past Psychological History: No Psychological Hx Reported Smoking Status: Never smoker Past Alcohol Use History: None Reported Past Drug Use History: None Reported Medications and Allergies Home Medications Medication Instructions Recorded Confirmed Type Ascorbic Acid [Vitamin C] 1,000 mg PO DAILY 01/06/23 07/13/23 History Atorvastatin [Lipitor] 80 mg PO HS 01/06/23 07/13/23 History Gabapentin 600 mg PO BID 01/06/23 07/13/23 History Insulin Lispro [humaLOG Kwikpen] See Protocol SQ AC-TID 01/06/23 07/13/23 History Loratadine 20 mg PO DAILY 01/06/23 07/13/23 History Omeprazole 40 mg PO DAILY 01/06/23 07/13/23 History metFORMIN HCL ER [Glucophage XR] 1,000 mg PO HS 01/06/23 07/13/23 History Acetaminophen [Tylenol Extra 1,000 mg PO Q4H PRN 05/31/23 07/13/23 History Strength] DULoxetine HCL [Cymbalta] 20 mg PO HS 05/31/23 07/13/23 History Ibuprofen [Motrin Ib] 800 mg PO Q4H PRN 05/31/23 07/13/23 History Insulin Glargine-Yfgn [Semglee 80 unit SQ HS 05/31/23 07/13/23 History (Yfgn) Pen] Linezolid [Zyvox] 600 mg PO BID 07/01/23 07/13/23 History Tirzepatide [Mounjaro] 2.5 mg SQ WE 07/01/23 07/13/23 History Allergies Allergy/AdvReac Type Severity Reaction Status Date / Time No Known Allergies Allergy Verified 07/13/23 08:54 Physical Exam Vitals: Vital Signs Temp Pulse Resp BP Pulse Ox 07/13/23 09:06 101 H 18 146/86 94 L 07/13/23 06:44 99.4 F 07/13/23 05:52 105 H 18 148/92 97 07/13/23 05:00 101.2 F H 112 H 20 159/93 96 Intake and Output 07/12/23 07/13/23 07/13/23 22:59 06:59 14:59 Other: Weight 156.489 kg Results CBC & Chem 7: 07/13/23 05:35 07/13/23 05:35 Labs: Abnormal Lab Results - Last 24 Hours (Table) 07/13/23 07/13/23 07/13/23 Range/Units 05:35 05:35 05:35 Hgb 12.1 L (13.0-17.5) gm/dL Hct 38.1 L (39.0-53.0) % ESR 66 H (0-15) mm/Hr Carbon Dioxide 31 H (22-30) mmol/L Creatinine 0.65 L (0.66-1.25) mg/dL Glucose 179 H (74-99) mg/dL C-Reactive Protein (<1.0) mg/dL 07/13/23 Range/Units 05:35 Hgb (13.0-17.5) gm/dL Hct (39.0-53.0) % ESR (0-15) mm/Hr Carbon Dioxide (22-30) mmol/L Creatinine (0.66-1.25) mg/dL Glucose (74-99) mg/dL C-Reactive Protein 5.7 H (<1.0) mg/dL
[2023-07-13 20:06] LABS: Glucose,Whole Blood 222 mg/dL (70-110)
[2023-07-13] MEDS: ATORVASTATIN 80 MG TAB PO SCH (20:28)
[2023-07-13] MEDS: INSULIN DETEMIR (LEVEMIR) 100 UNIT/ML SYR SQ SCH (20:29)
[2023-07-13] MEDS: DULoxetine HCL 20 MG CAPSULE.DR PO SCH (20:41)
--- NOTE | 2023-07-13 23:34 | P.CONS ---
History of Present Illness - Reason for Consult Consult date: 07/13/23 - History of Present Illness Patient is a 42-year-old male with a past medical history significant for diabetes mellitus patient did have a history of diabetic foot infection to the right second toe partial amputation site and recent admission to the hospital with MRSA bacteremia there was concern for possible left foot Charcot joint and possible osteomyelitis for the patient was transferred to [facility] patient did have a drainage procedure to the left foot done details of which is currently not available however the mention they were looking for abscess and necrotizing infection which was negative however there was bony fragmentation and apparently culture positive from the left foot with MRSA as well patient was discharged on a 4-week course of oral Zyvox with the patient completed on 07/09/2023 patient now presenting to the hospital earlier this morning for evaluation of fever rigors and chills patient has not been feeling well for a day getting more weak and lethargic and did have increasing swelling and redness to the right second toe and the patient complaining of more pain to the left ankle and foot area describing the pain to be mostly dull aching to throbbing moderate intensity without radiation did have swelling to the left foot but no foul-smelling drainage from the left foot with the symptoms the patient presented to the hospital on arrival to the ER the patient did have a temperature of 101.2 F patient was tachycardic but not hypotensive or hypoxic he did have white count of 9.9 creatinine 0.65 liver isms are normal CRP is 5.7 blood and local culture has been obtained currently pending patient did have a foot x-ray bony fragmentation and disorganization involving the midfoot felt to reflect underlying Charcot to joint patient was started on vancomycin and cefepime infectious disease was consulted for further management of antibiotic therapy Past Medical History Past Medical History: Diabetes Mellitus Additional Past Medical History / Comment(s): neuropathy History of Any Multi-Drug Resistant Organisms: MRSA Year Discovered:: 06/22/23 MDRO Source:: body throughout Past Surgical History: Orthopedic Surgery Additional Past Surgical History / Comment(s): 2nd and 3rd partial digit removed to right foot, Past Anesthesia/Blood Transfusion Reactions: No Reported Reaction Past Psychological History: No Psychological Hx Reported Smoking Status: Never smoker Past Alcohol Use History: None Reported Past Drug Use History: None Reported Medications and Allergies Home Medications Medication Instructions Recorded Confirmed Type Ascorbic Acid [Vitamin C] 1,000 mg PO DAILY 01/06/23 07/13/23 History Atorvastatin [Lipitor] 80 mg PO HS 01/06/23 07/13/23 History Gabapentin 600 mg PO BID 01/06/23 07/13/23 History Insulin Lispro [humaLOG Kwikpen] See Protocol SQ AC-TID 01/06/23 07/13/23 History Loratadine 20 mg PO DAILY 01/06/23 07/13/23 History Omeprazole 40 mg PO DAILY 01/06/23 07/13/23 History metFORMIN HCL ER [Glucophage XR] 1,000 mg PO HS 01/06/23 07/13/23 History Acetaminophen [Tylenol Extra 1,000 mg PO Q4H PRN 05/31/23 07/13/23 History Strength] DULoxetine HCL [Cymbalta] 20 mg PO HS 05/31/23 07/13/23 History Ibuprofen [Motrin Ib] 800 mg PO Q4H PRN 05/31/23 07/13/23 History Insulin Glargine-Yfgn [Semglee 80 unit SQ HS 05/31/23 07/13/23 History (Yfgn) Pen] Linezolid [Zyvox] 600 mg PO BID 07/01/23 07/13/23 History Tirzepatide [Mounjaro] 2.5 mg SQ WE 07/01/23 07/13/23 History Allergies Allergy/AdvReac Type Severity Reaction Status Date / Time No Known Allergies Allergy Verified 07/13/23 08:54 Physical Exam Vitals: Vital Signs Temp Pulse Resp BP Pulse Ox 07/13/23 09:06 101 H 18 146/86 94 L 07/13/23 06:44 99.4 F 07/13/23 05:52 105 H 18 148/92 97 07/13/23 05:00 101.2 F H 112 H 20 159/93 96 Intake and Output 07/12/23 07/13/23 07/13/23 22:59 06:59 14:59 Other: Weight 156.489 kg Results CBC & Chem 7: 07/13/23 05:35 07/13/23 05:35 Labs: Abnormal Lab Results - Last 24 Hours (Table) 07/13/23 07/13/23 07/13/23 Range/Units 05:35 05:35 05:35 Hgb 12.1 L (13.0-17.5) gm/dL Hct 38.1 L (39.0-53.0) % ESR 66 H (0-15) mm/Hr Carbon Dioxide 31 H (22-30) mmol/L Creatinine 0.65 L (0.66-1.25) mg/dL Glucose 179 H (74-99) mg/dL C-Reactive Protein (<1.0) mg/dL 07/13/23 Range/Units 05:35 Hgb (13.0-17.5) gm/dL Hct (39.0-53.0) % ESR (0-15) mm/Hr Carbon Dioxide (22-30) mmol/L Creatinine (0.66-1.25) mg/dL Glucose (74-99) mg/dL C-Reactive Protein 5.7 H (<1.0) mg/dL Assessment and Plan Plan: 1patient presented hospital with sepsis in this patient who did have a fever ta chycardia source likely right second toe diabetic foot infection with significant swelling redness of the right second toe patient also having pain to the left foot and ankle area with evidence of underlying Charcot deformity a possible component of osteomyelitis but not excluded and there may be evidence of bony sequestrum which may be acting as a foreign body and because of this relapse of infection after stopping antibiotic this was explained to the patient and the in layman terms 2-blood and local culture has been obtained and results will be followed 3-check inflammatory markers 4-await podiatry evaluation for the right second toe 5-vancomycin pharmacy to dose target trough of 15 while watching kidney function and Vanco trough closely We will follow on clinical condition and cultures to further adjust medication if needed Thank you for this consultation we will follow the patient along with you Dictation was produced using [employer] dictation software. please excuse any grammatical, word or spelling errors. Time with Patient: Greater than 30
[2023-07-14 04:51] LABS: Glucose,Whole Blood 79 mg/dL (70-110)
[2023-07-14] MEDS: ONDANSETRON 4 MG/2 ML VIAL IVP PRN (04:55)
[2023-07-14 07:58] LABS: ALT 17 U/L (4-49); AST 15 U/L (17-59); African American GFR (CKD) >90 (>60 ml/min/1.73 sqM); Albumin 3.3 g/dL (3.5-5.0); Albumin/Globulin Ratio 1.1; Alkaline Phosphatase 121 U/L (38-126); Anion Gap 5 mmol/L; Blood Urea Nitrogen 14 mg/dL (9-20); Calcium 8.8 mg/dL (8.4-10.2); Carbon Dioxide 31 mmol/L (22-30); Chloride 99 mmol/L (98-107); Glucose 145 mg/dL (74-99); Non-African American GFR(CKD) >90 (>60 ml/min/1.73 sqM); Sodium 135 mmol/L (137-145); Total Bilirubin 0.8 mg/dL (0.2-1.3); Total Protein 6.3 g/dL (6.3-8.2)
[2023-07-14] MEDS: ASCORBIC ACID 500 MG TAB PO SCH (08:42)
[2023-07-14] MEDS: ENOXAPARIN 40 MG/0.4 ML SYRINGE SQ SCH (08:43)
[2023-07-14 09:14] LABS: Glucose,Whole Blood 212 mg/dL (70-110)
--- NOTE | 2023-07-14 10:03 | P.PN ---
Subjective Progress Note Date: 07/14/23 Principal diagnosis: Cellulitis, infected right second toe Patient seen and examined today as a follow-up. He states redness and swelling and discomfort to his right second toe is improved. He had mild fever through the night and this morning with a max temp of 99.6. Remains on IV antibiotics. Dr. Chelsie mcconnell manager telemarketing who has been managing his care was consulted. Patient s tates today he is scheduled to see a business employment specialist this coming 07/16/2023 with [facility]. Infectious diseases following. Objective - Vital Signs Vital signs: Vital Signs Temp 99.6 F 07/14/23 07:12 Pulse 105 H 07/14/23 07:12 Resp 18 07/14/23 07:12 BP 138/75 07/14/23 07:12 Pulse Ox 91 L 07/14/23 07:12 FiO2 Intake & Output 07/13/23 07/14/23 07/14/23 18:59 06:59 18:59 Intake Total 1060 Output Total 1100 Balance -40 Weight 156.489 kg Intake: Intake, IV Titration 700 Amount Cefepime 2 gm In Sodium 200 Chloride 0.9% 100 ml @ 25 mls/hr IVPB Q8HR PAL Rx# :[id number] Vancomycin 2,000 mg In 500 Sodium Chloride 0.9% 500 ml 500 ml @ 167 mls/hr IVPB Q8H PAL Rx#: [id number] Oral 360 Output: Urine 1100 Other: Voiding Method Toilet Toilet # Voids 1 1 - Exam General appearance: The patient is alert, oriented, appears in no acute distress. Obese. HET: Head is normocephalic and atraumatic. Pupils are equal and reactive. Neck: Supple. Heart: Regular. Lungs: Equal expansion, normal respiratory effort. Abdomen: Soft, nontender, nondistended. Extremities: Bilateral lower extremity swelling, left greater than right. Bilateral Charcot feet. Right second and third toe partial amputation. Second toe with swelling and redness, healing wound to the plantar aspect of second toe. Nontender, palpable DP pulses. Left foot dorsal aspect with incision that is healing, sutures still in place. Neurological: No focal deficits. Strength and sensation are grossly intact. - Labs CBC & Chem 7: 07/14/23 06:39 04/23/24 06:39 Labs: Abnormal Lab Results - Last 24 Hours (Table) 07/13/23 07/13/23 07/13/23 Range/Units 12:24 17:10 20:04 Sodium (137-145) mmol/L Carbon Dioxide (22-30) mmol/L Creatinine (0.66-1.25) mg/dL Glucose (74-99) mg/dL POC Glucose (mg/dL) 164 H 255 H 222 H (70-110) mg/dL AST (17-59) U/L Albumin (3.5-5.0) g/dL 07/14/23 07/14/23 Range/Units 06:39 09:10 Sodium 135 L (137-145) mmol/L Carbon Dioxide 31 H (22-30) mmol/L Creatinine 0.63 L (0.66-1.25) mg/dL Glucose 145 H (74-99) mg/dL POC Glucose (mg/dL) 212 H (70-110) mg/dL AST 15 L (17-59) U/L Albumin 3.3 L (3.5-5.0) g/dL Microbiology - Last 24 Hours (Table) 07/13/23 05:45 Gram Stain - Preliminary Foot - Left Wound Culture - Preliminary Gram Neg Bacilli Assessment and Plan Assessment: 1. Right second toe cellulitis 2. Right second toe wound, healing 3. Right second toe partial amputation 4. Diabetes mellitus 5. Charcot feet, possible osteomyelitis 6. Obesity Plan: 1. Antibiotics per recommendations from infectious disease 2. Consult to Dr. Holguin who is patient's manager telemarketing and performed the right second toe amputation. Patient following in the outpatient setting 3. Recommend patient follow-up with orthopedic surgeon as scheduled this 4. Will plan for PICC line placement tomorrow if needed 5. Vascular surgery will be on standby if further needed Thank you for this consultation. The impression and plan of care has been dictated as directed. Dr. Vaca I performed a history and examination of this patient, discussed the same with the dictator. I agree with the dictator's note ,documented as a scribe. Any additional findings or plans will be noted.
[2023-07-14 11:46] LABS: Basophils # (A) 0.06 X 10*3/uL (0.00-0.10); Basophils % (A) 0.5 %; Eosinophils # (A) 0.05 X 10*3/uL (0.04-0.35); Eosinophils % (A) 0.4 %; HGB 11.8 g/dL (13.0-17.0); Lymphocytes # (A) 0.63 X 10*3/uL (0.90-5.00); MCH 26.6 pg (27.0-32.0); MCHC 31.1 g/dL (32.0-37.0); MCV 85.6 FL (80.0-97.0); Mean Platelet Volume 10.6 FL (9.5-12.2); Monocytes # (A) 1.12 X 10*3/uL (0.20-1.00); NRBC Per 100 WBC 0 X 10*3/uL (0.00-0.01); Neutrophils % (A) 84.7 %; Platelet Count 229 X 10*3/uL (140-440); RBC 4.44 X 10*6/uL (4.40-5.60); RDW 15.1 % (11.5-14.5); WBC 12.51 X 10*3/uL (4.50-10.00)
[2023-07-14 12:06] LABS: Glucose,Whole Blood 192 mg/dL (70-110)
[2023-07-14 17:20] LABS: Glucose,Whole Blood 318 mg/dL (70-110)
--- NOTE | 2023-07-14 18:23 | P.PN ---
Subjective Progress Note Date: 07/14/23 HISTORY OF PRESENT ILLNESS: This is a 42-year-old male with a previous medical history significant for hypertension and hypertensive cardiovascular disease, hyperlipidemia, obesity with obstructive sleep apnea and obesity hypoventilation syndrome,diabetes mellitus type 2 with daibetic polyneuropathy, has been doing better with diabtes care as a matter of fact his HBA1C is down and patient has lost quite a bit of weight since the addition of Mounjaro to his medical regimen that he was out off for the past [place] due to insurance issues, patient has had diabetic foot ulcer with charcot feet, he underwent right third toe amputation by vascular surgery Dr. Hua back in December 2022, he has been following with Dr. Holguin who performed a right second toe amputation before patient also was t reated at [facility] for osteomyelitis of the left foot and he was treated with 28-day course of Zyvox 600 mg orally twice every day for MRSA bacteremia, this was done on the , and the patient had called the pharmacy to see if he can renew his Zyvox the patient developed to have an increased redness of the right second toe amputation with a sore at the bottom of the amputation site, with increased erythema and swelling in the right foot, patient ended up coming to the emergency department at [facility] today for increased pain and swelling and low-grade temperature his temperature was at 1101.2, patient did have a blood cultures drawn as well as culture from the sore from the bottom of the second toe amputation and he was started on cefepime and vancomycin, and infectious disease consultation was obtained from Dr. Armstrong, patient also was admitted to the hospital for evaluation and treatment, he was seen in consultation by vascular surgery it was recommended for the patient to follow-up with Dr. Holguin and vascular surgery to stay on standby for now. Patient will be started on IV antibiotic as stated earlier, and he will likely require to have a PICC line if the blood cultures are negative for IV antibiotic the duration of it will be decided by the infectious disease Dr. Armstrong. 07/13: Patient is laying down in bed in no apparent distress, he is feeling a lot better today than he was yesterday, he denies any chest pain, or shortness of breath, he continues to have some erythema around his right second toe amputation site not as bad as yesterday, he did not have any fever or chills at this time, his blood cultures 1 out of 2 grew Staphylococcus aureus likely methicillin-resistant Staphylococcus aureus the final result is not in yet, continue vancomycin, continue cefepime for now, infectious diseases following, patient will likely need to go for an PICC line eventually for IV antibiotic REVIEW OF SYSTEMS: Constitutional: positive for documented fever, no chills, no night sweats. No weight change. positive for weakness, fatigue or lethargy. No daytime sleepiness. HEENT: No headache. No blurred vision or double vision, no loss of vision. No loss of Hearing, no ringing in the ears, no dizziness. No nasal drainage or congestion. No epistaxis. No sore throat. Lungs: no shortness of breath, no cough, or sputum production. No wheezing. Reports no dyspnea with activity. Cardiovascular: no chest pain, positive for lower extremity edema. positive for palpitations. negative for paroxysmal nocturnal dyspnea. negative for orthopnea. No lightheadedness or dizziness. No syncopal episodes. Abdominal: Reports no abdominal pain. No nausea or vomiting. No diarrhea. No constipation. No bloody or tarry stools Genitourinary: No dysuria, increased frequency, urgency, Musculoskeletal: No myalgias, positive for weakness, bilateral charcot feet, left foot with swelling and tenderness, right foot post right second toe amputation and 3rd toe amputation with a sore at the bottom of the right second toe amputation and increased redness and swelling Integumentary: right third toe amputation, right second toe amputation with sore to the bottom of the amputation site with increased swelling and with increased erythema and tenderness No rash or pruritus. positive for unusual bruising. No change in hair or nails. Neurologic: No aphasia. No facial droop. No change in mentation. No head injury. No headache. No paralysis. No paresthesia. Psychiatric: positive for depression. No anxiety. No mood swings. Endocrine: positive for abnormal blood sugars. positive for weight change. PHYSICAL EXAMINATION: General: 42 year male sitting up in chair does appear to be in distress HEENT: Head is atraumatic, normocephalic, pupils were equal round reactive to light and recommendation, extraocular muscle movement were intact, sclera nonicteric, conjunctivae were pale, mucous membranes of the mouth are somewhat dry. Neck: Supple, no JVP, normal carotid upstroke bilaterally, no lymphadenopathy. Chest: Decreased breath sounds at the bases, few rhonchi, no expiratory wheezes or intercostal retractions Heart: First heart sound is normal, second heart sound is normal, tachycardic, there is no gallop or murmur. Abdomen: Soft, nontender, nondistended, positive bowel sounds, obese. Extremities: There is +1 edema no calf tenderness DP +2 bilaterally, positive for neuropathy and charcot feet , right third toe amputation, right second toe amputation with wound at the bottom of the second toe amputation with signi ficant erythema and tenderness. Left foot with Charcot foot and minimally dehisced sized wound at the dorsal aspect of the foot. Neurologic examination: Patient is awake alert and oriented X 3, cranial nerves II-12 appear grossly intact, muscle power were 5 out of 5 in upper extremities and 4/5 in right lower extremity ASSESSMENT AND PLAN: 1. Infected right second toe amputation site with cellulitis with a prior history of MRSA bacteremia. continue patient on vancomycin with pharmacy to do se his peak and trough, continue cefepime as well, follow-up with the patient very closely infectious disease consultation appreciated, 2. Status post amputation of the right second toe with a sore at the bottom of the amputation site with increased erythema and tenderness. Continue treatment as in previous paragraph. 3. Diabetes Mellitustype 2 non controlled. we will continue with Levemir 80 units SC at bedtime along with SSI , has been off GLP_1 RA ( Mounjaro) , we will continue with Metformin 1000 mg po bid and we will continue with BGM AC HS. add NovoLog 8 units before each meal plus the scale. 4. Diabetic Polyneuropathy with charcot feet. we will continue with Gabapentin 600 mg po bid 5. Hyperlipidemnia. we will continue with Atorvastatin 80 mg po daily, keep LDL- c 55-70. 6. Hypertension and hypertensive cardiovascular disease. Start the patient on metoprolol 25 mg orally twice every day. 7. Obesity with SHERI and OHS. we will continue with weight loss, never made it for a sleep study. 8. DVT prophylaxis. we will use Lovenox 40 mg SC daily. 9. GI Prophylaxis. we will continue with famotidine 40 mg at bedtime. 10. Major depressive disorder. Continue patient on duloxetine 20 mg orally once every day. 11. Staphylococcus aureus bacteremia 1 out of 2 continue with IV antibiotic as ordered in the first paragraph, awaiting the final result of the cultures. Patient will likely need to go for an IV antibiotic through the PICC line Objective - Vital Signs Vital signs: Vital Signs Temp 98.6 F 07/14/23 12:02 Pulse 99 07/14/23 12:02 Resp 18 07/14/23 12:02 BP 144/78 07/14/23 12:02 Pulse Ox 94 L 07/14/23 12:02 FiO2 Intake & Output 07/13/23 07/14/23 07/14/23 18:59 06:59 18:59 Intake Total 1060 Output Total 1100 1700 Balance -40 -1700 Weight 156.489 kg Intake: Intake, IV Titration 700 Amount Cefepime 2 gm In Sodium 200 Chloride 0.9% 100 ml @ 25 mls/hr IVPB Q8HR [facility] Rx# :[id number] Vancomycin 2,000 mg In 500 Sodium Chloride 0.9% 500 ml 500 ml @ 167 mls/hr IVPB Q8H [facility] Rx#: [id number] Oral 360 Output: Urine 1100 1700 Other: Voiding Method Toilet Toilet # Voids 1 1 - Labs CBC & Chem 7: 07/14/23 06:39 07/14/23 06:39 Labs: Abnormal Lab Results - Last 24 Hours (Table) 07/13/23 07/14/23 07/14/23 Range/Units 20:04 06:39 06:39 WBC 12.51 H (4.50-10.00) X 10*3/uL Hgb 11.8 L (13.0-17.0) g/dL Hct 38.0 L (39.6-50.0) % MCH 26.6 L (27.0-32.0) pg MCHC 31.1 L (32.0-37.0) g/dL RDW 15.1 H (11.5-14.5) % Immature Gran # 0.05 H (0.00-0.04) X 10*3/uL Neutrophils # 10.60 H (1.80-7.70) X 10*3/uL Lymphocytes # 0.63 L (0.90-5.00) X 10*3/uL Monocytes # 1.12 H (0.20-1.00) X 10*3/uL Sodium 135 L (137-145) mmol/L Carbon Dioxide 31 H (22-30) mmol/L Creatinine 0.63 L (0.66-1.25) mg/dL Glucose 145 H (74-99) mg/dL POC Glucose (mg/dL) 222 H (70-110) mg/dL AST 15 L (17-59) U/L Albumin 3.3 L (3.5-5.0) g/dL 07/14/23 07/14/23 07/14/23 Range/Units 09:10 12:05 17:17 WBC (4.50-10.00) X 10*3/uL Hgb (13.0-17.0) g/dL Hct (39.6-50.0) % MCH (27.0-32.0) pg MCHC (32.0-37.0) g/dL RDW (11.5-14.5) % Immature Gran # (0.00-0.04) X 10*3/uL Neutrophils # (1.80-7.70) X 10*3/uL Lymphocytes # (0.90-5.00) X 10*3/uL Monocytes # (0.20-1.00) X 10*3/uL Sodium (137-145) mmol/L Carbon Dioxide (22-30) mmol/L Creatinine (0.66-1.25) mg/dL Glucose (74-99) mg/dL POC Glucose (mg/dL) 212 H 192 H 318 H (70-110) mg/dL AST (17-59) U/L Albumin (3.5-5.0) g/dL Microbiology - Last 24 Hours (Table) 07/13/23 05:20 Blood Culture Gram Stain - Preliminary Blood Blood Culture - Preliminary Molecular ID 07/13/23 05:35 Blood Culture Gram Stain - Preliminary Blood 07/13/23 05:45 Gram Stain - Preliminary Foot - Left Wound Culture - Preliminary Gram Neg Bacilli
[2023-07-14 20:49] LABS: Glucose,Whole Blood 211 mg/dL (70-110)
[2023-07-15 07:14] LABS: Glucose,Whole Blood 237 mg/dL (70-110)
[2023-07-15 07:57] LABS: African American GFR (CKD) >90 (>60 ml/min/1.73 sqM); Non-African American GFR(CKD) >90 (>60 ml/min/1.73 sqM)
[2023-07-15] MEDS: NON FORMULARY DRUG (Tirzepatide [Mounjaro] 2.5 MG/0.5 ML Pen.Injctr) SQ SCH (08:20)
--- NOTE | 2023-07-15 09:47 | P.PN ---
Subjective Progress Note Date: 07/15/23 Principal diagnosis: Cellulitis, infected right second toe Patient was seen and examined today as a follow-up. He was seen by Dr. Holguin yesterday who has been following him in the outpatient setting. He states that Dr. Holguin is recommending amputation of the right second toe as an outpatient. Patient's blood cultures did come back positive presumptive MRSA. Infectious diseases following. He remains on IV vancomycin and cefepime. He remains afebrile. He has bilateral lower extremity Amanuel wraps to his legs for swelling. Objective - Vital Signs Vital signs: Vital Signs Temp 98.4 F 07/15/23 07:13 Pulse 74 07/15/23 07:13 Resp 18 07/15/23 07:13 BP 162/96 07/15/23 07:13 Pulse Ox 96 07/15/23 07:13 FiO2 Intake & Output 07/14/23 07/15/23 07/15/23 18:59 06:59 18:59 Intake Total 600 Output Total 1700 Balance -1700 600 Intake: Intake, IV Titration 600 Amount Cefepime 2 gm In Sodium 100 Chloride 0.9% 100 ml @ 25 mls/hr IVPB Q8HR [facility] Rx# :[id number] Vancomycin 2,000 mg In 500 Sodium Chloride 0.9% 500 ml 500 ml @ 167 mls/hr IVPB Q8H [facility] Rx#: [id number] Output: Urine 1700 Other: # Voids 1 - Exam General appearance: The patient is alert, oriented, appears in no acute distress. Obese. HET: Head is normocephalic and atraumatic. Pupils are equal and reactive. Neck: Supple. Abdomen: Soft, nondistended. Extremities: Bilateral lower extremity swelling, left greater than right. Bilateral Charcot feet. Right second and third toe partial amputation. Bilateral lower extremities wrapped with Amanuel wraps. Neurological: No focal deficits. Strength and sensation are grossly intact. - Labs CBC & Chem 7: 07/14/23 06:39 07/15/23 07:32 Labs: Abnormal Lab Results - Last 24 Hours (Table) 07/14/23 07/14/23 07/14/23 Range/Units 06:39 12:05 17:17 WBC 12.51 H (4.50-10.00) X 10*3/uL Hgb 11.8 L (13.0-17.0) g/dL Hct 38.0 L (39.6-50.0) % MCH 26.6 L (27.0-32.0) pg MCHC 31.1 L (32.0-37.0) g/dL RDW 15.1 H (11.5-14.5) % Immature Gran # 0.05 H (0.00-0.04) X 10*3/uL Neutrophils # 10.60 H (1.80-7.70) X 10*3/uL Lymphocytes # 0.63 L (0.90-5.00) X 10*3/uL Monocytes # 1.12 H (0.20-1.00) X 10*3/uL Creatinine (0.66-1.25) mg/dL POC Glucose (mg/dL) 192 H 318 H (70-110) mg/dL 07/14/23 07/15/23 07/15/23 Range/Units 20:44 07:13 07:32 WBC (4.50-10.00) X 10*3/uL Hgb (13.0-17.0) g/dL Hct (39.6-50.0) % MCH (27.0-32.0) pg MCHC (32.0-37.0) g/dL RDW (11.5-14.5) % Immature Gran # (0.00-0.04) X 10*3/uL Neutrophils # (1.80-7.70) X 10*3/uL Lymphocytes # (0.90-5.00) X 10*3/uL Monocytes # (0.20-1.00) X 10*3/uL Creatinine 0.59 L (0.66-1.25) mg/dL POC Glucose (mg/dL) 211 H 237 H (70-110) mg/dL Microbiology - Last 24 Hours (Table) 07/13/23 05:35 Blood Culture Gram Stain - Preliminary Blood Blood Culture - Preliminary Presumptive MRSA 07/13/23 05:20 Blood Culture Gram Stain - Preliminary Blood Blood Culture - Preliminary Presumptive MRSA Molecular ID 07/13/23 05:45 Gram Stain - Preliminary Foot - Left Wound Culture - Preliminary Gram Neg Bacilli Assessment and Plan Assessment: 1. Right second toe cellulitis 2. Right second toe wound, healing 3. Right second toe partial amputation 4. Diabetes mellitus, type I 5. Charcot feet, possible osteomyelitis 6. Obesity Plan: 1. Antibiotics per recommendations from infectious disease 2. Consult to Dr. Holguin appreciate his recommendations. 3. Recommend patient follow-up with orthopedic surgeon as scheduled. 4. Will plan for PICC line placement when ordered by infectious disease 5. Vascular surgery will be on standby if further needed Thank you for this consultation. The impression and plan of care has been dictated as directed. Dr. Hua I performed a history and examination of this patient, discussed the same with the dictator. I agree with the dictator's note ,documented as a scribe. Any additional findings or plans will be noted.
[2023-07-15 12:53] LABS: Glucose,Whole Blood 336 mg/dL (70-110)
[2023-07-15 13:57] VITALS: BMI 44.3
--- NOTE | 2023-07-15 15:22 | P.PN ---
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 Hua back in December 2022, he has been following with Dr. Holguin who performed a right second toe amputation before patient also was t reated at [facility] for osteomyelitis of the left foot and he was treated with 28-day course of Zyvox 600 mg orally twice every day for MRSA bacteremia, this was done on the , and the patient had called the pharmacy to see if he can renew his Zyvox the patient developed to have an increased redness of the right second toe amputation with a sore at the bottom of the amputation site, with increased erythema and swelling in the right foot, patient ended up coming to the emergency department at [facility] today for increased pain and swelling and low-grade temperature his temperature was at 1101.2, patient did have a blood cultures drawn as well as culture from the sore from the bottom of the second toe amputation and he was started on cefepime and vancomycin, and infectious disease consultation was obtained from Dr. Armstrong, patient also was admitted to the hospital for evaluation and treatment, he was seen in consultation by vascular surgery it was recommended for the patient to follow-up with Dr. Holguin and vascular surgery to stay on standby for now. Patient will be started on IV antibiotic as stated earlier, and he will likely require to have a PICC line if the blood cultures are negative for IV antibiotic the duration of it will be decided by the infectious disease Dr. Armstrong. 07/13: Patient is laying down in bed in no apparent distress, he is feeling a lot better today than he was yesterday, he denies any chest pain, or shortness of breath, he continues to have some erythema around his right second toe amputation site not as bad as yesterday, he did not have any fever or chills at this time, his blood cultures 1 out of 2 grew Staphylococcus aureus likely methicillin-resistant Staphylococcus aureus the final result is not in yet, continue vancomycin, continue cefepime for now, infectious diseases following, patient will likely need to go for an PICC line eventually for IV antibiotic 07/14: Patient is laying down in bed in no apparent distress, he is feeling a lot better today, he denies any fever or chills, he is eating and tolerating diet ve ry well, his blood glucose level is appropriate, continue current treatment plan, patient has been on cefepime and vancomycin, has been followed by infectious disease, most likely will need to have a PICC line when the blood cultures are back negative he does appear to have MRSA in his blood we will continue aggressive IV antibiotic treatment patient did finish 28-day course of Zyvox as an outpatient that did not help as much. REVIEW OF SYSTEMS: Constitutional: positive for documented fever, no chills, no night sweats. No weight change. positive for weakness, fatigue or lethargy. No daytime sleepiness. HEENT: No headache. No blurred vision or double vision, no loss of vision. No loss of Hearing, no ringing in the ears, no dizziness. No nasal drainage or congestion. No epistaxis. No sore throat. Lungs: no shortness of breath, no cough, or sputum production. No wheezing. Reports no dyspnea with activity. Cardiovascular: no chest pain, positive for lower extremity edema. positive for palpitations. negative for paroxysmal nocturnal dyspnea. negative for orthopnea. No lightheadedness or dizziness. No syncopal episodes. Abdominal: Reports no abdominal pain. No nausea or vomiting. No diarrhea. No constipation. No bloody or tarry stools Genitourinary: No dysuria, increased frequency, urgency, Musculoskeletal: No myalgias, positive for weakness, bilateral charcot feet, left foot with swelling and tenderness, right foot post right second toe amputation and 3rd toe amputation with a sore at the bottom of the right second toe amputation and increased redness and swelling Integumentary: right third toe amputation, right second toe amputation with sore to the bottom of the amputation site with increased swelling and with increased erythema and tenderness No rash or pruritus. positive for unusual bruising. No change in hair or nails. Neurologic: No aphasia. No facial droop. No change in mentation. No head injury. No headache. No paralysis. No paresthesia. Psychiatric: positive for depression. No anxiety. No mood swings. Endocrine: positive for abnormal blood sugars. positive for weight change. PHYSICAL EXAMINATION: General: 42 year male sitting up in chair does appear to be in distress HEENT: Head is atraumatic, normocephalic, pupils were equal round reactive to light and recommendation, extraocular muscle movement were intact, sclera nonicteric, conjunctivae were pale, mucous membranes of the mouth are somewhat dry. Neck: Supple, no JVP, normal carotid upstroke bilaterally, no lymphadenopathy. Chest: Decreased breath sounds at the bases, few rhonchi, no expiratory wheezes or intercostal retractions Heart: First heart sound is normal, second heart sound is normal, tachycardic, there is no gallop or murmur. Abdomen: Soft, nontender, nondistended, positive bowel sounds, obese. Extremities: There is +1 edema no calf tenderness DP +2 bilaterally, positive for neuropathy and charcot feet , right third toe amputation, right second toe amputation with wound at the bottom of the second toe amputation with significant erythema and tenderness. Left foot with Charcot foot and minimally dehisced sized wound at the dorsal aspect of the foot. Neurologic examination: Patient is awake alert and oriented X 3, cranial nerves II-12 appear grossly intact, muscle power were 5 out of 5 in upper extremities and 4/5 in right lower extremity ASSESSMENT AND PLAN: 1. Infected right second toe amputation site with cellulitis with a prior history of MRSA bacteremia. continue patient on vancomycin with pharmacy to dose his peak and trough, continue cefepime as well, follow-up with the patient very closely infectious disease consultation appreciated, 2. Status post amputation of the right second toe with a sore at the bottom of the amputation site with increased erythema and tenderness. Continue treatment as in previous paragraph. 3. Diabetes Mellitustype 2 non controlled. we will continue with Levemir 80 units SC at bedtime along with SSI , has been off GLP_1 RA ( Mounjaro) , we will continue with Metformin 1000 mg po bid and we will continue with BGM AC HS. add NovoLog 8 units before each meal plus the scale. 4. Diabetic Polyneuropathy with charcot feet. we will continue with Gabapentin 600 mg po bid 5. Hyperlipidemnia. we will continue with Atorvastatin 80 mg po daily, keep LDL- c 55-70. 6. Hypertension and hypertensive cardiovascular disease. Start the patient on metoprolol 25 mg orally twice every day. 7. Obesity with SHERI and OHS. we will continue with weight loss, never made it for a sleep study. 8. DVT prophylaxis. we will use Lovenox 40 mg SC daily. 9. GI Prophylaxis. we will continue with famotidine 40 mg at bedtime. 10. Major depressive disorder. Continue patient on duloxetine 20 mg orally once every day. 11. Staphylococcus aureus bacteremia 1 out of 2 continue with IV antibiotic as ordered in the first paragraph, awaiting the final result of the cultures. Patient will likely need to go for an IV antibiotic through the PICC line when the bacteremia is resolved 12. Guarded prognosis. Objective - Vital Signs Vital signs: Vital Signs Temp 98.2 F 07/15/23 12:54 Pulse 63 07/15/23 12:54 Resp 19 07/15/23 12:54 BP 131/74 07/15/23 12:54 Pulse Ox 94 L 07/15/23 12:54 FiO2 Intake & Output 07/14/23 07/15/23 07/15/23 18:59 06:59 18:59 Intake Total 600 Output Total 1700 Balance -1700 600 Weight 156.489 kg Intake: Intake, IV Titration 600 Amount Cefepime 2 gm In Sodium 100 Chloride 0.9% 100 ml @ 25 mls/hr IVPB Q8HR [facility] Rx# :[id number] Vancomycin 2,000 mg In 500 Sodium Chloride 0.9% 500 ml 500 ml @ 167 mls/hr IVPB Q8H [facility] Rx#: [id number] Output: Urine 1700 Other: Voiding Method Toilet # Voids 1 - Labs CBC & Chem 7: 07/14/23 06:39 07/15/23 07:32 Labs: Abnormal Lab Results - Last 24 Hours (Table) 07/14/23 07/14/23 07/15/23 Range/Units 17:17 20:44 07:13 Creatinine (0.66-1.25) mg/dL POC Glucose (mg/dL) 318 H 211 H 237 H (70-110) mg/dL 07/15/23 07/15/23 Range/Units 07:32 12:52 Creatinine 0.59 L (0.66-1.25) mg/dL POC Glucose (mg/dL) 336 H (70-110) mg/dL Microbiology - Last 24 Hours (Table) 07/13/23 05:45 Gram Stain - Final Foot - Left Wound Culture - Final Proteus mirabilis 07/13/23 05:35 Blood Culture Gram Stain - Preliminary Blood Blood Culture - Preliminary Presumptive MRSA 07/13/23 05:20 Blood Culture Gram Stain - Preliminary Blood Blood Culture - Preliminary Presumptive MRSA Molecular ID
[2023-07-15 17:15] LABS: Glucose,Whole Blood 245 mg/dL (70-110)
[2023-07-15 20:25] LABS: Glucose,Whole Blood 150 mg/dL (70-110)
[2023-07-16 05:09] LABS: Glucose,Whole Blood 390 mg/dL (70-110)
[2023-07-16 07:41] LABS: Glucose,Whole Blood 313 mg/dL (70-110)
[2023-07-16 09:43] LABS: African American GFR (CKD) >90 (>60 ml/min/1.73 sqM); C Reactive Protein 8.9 mg/dL (<1.0); Non-African American GFR(CKD) >90 (>60 ml/min/1.73 sqM)
--- NOTE | 2023-07-16 11:57 | P.PN ---
Subjective Progress Note Date: 07/16/23 Patient is seen and examined today as a follow-up. He denies any fevers or chills. He has been afebrile. He denies any pain in his feet. Final blood culture came back positive for MRSA. Right second toe wound culture positive for P. Mirabelli. He remains on IV vancomycin and cefepime. Repeat blood cultures currently pending. Objective - Vital Signs Vital signs: Vital Signs Temp 98.6 F 07/16/23 07:34 Pulse 105 H 07/16/23 07:34 Resp 18 07/16/23 07:34 BP 149/85 07/16/23 07:34 Pulse Ox 93 L 07/16/23 07:34 FiO2 Intake & Output 07/15/23 07/16/23 07/16/23 18:59 06:59 18:59 Intake Total 960 590 Balance 960 590 Weight 156.489 kg Intake: Oral 960 590 Other: Voiding Method Toilet Toilet # Voids 3 - Exam General appearance: The patient is alert, oriented, appears in no acute distress. Obese. HET: Head is normocephalic and atraumatic. Pupils are equal and reactive. Neck: Supple. Abdomen: Soft, nondistended. Extremities: Bilateral lower extremity swelling, left greater than right. Bilateral Charcot feet. Right second and third toe partial amputation. Right second toe swelling and erythema, wound without any drainage to plantar aspect. Bilateral lower extremities wrapped with Amanuel wraps. Neurological: No focal deficits. Strength and sensation are grossly intact. - Labs CBC & Chem 7: 07/14/23 06:39 07/16/23 07:19 Labs: Abnormal Lab Results - Last 24 Hours (Table) 07/15/23 07/15/23 07/15/23 Range/Units 12:52 17:10 20:22 Creatinine (0.66-1.25) mg/dL POC Glucose (mg/dL) 336 H 245 H 150 H (70-110) mg/dL C-Reactive Protein (<1.0) mg/dL 07/16/23 07/16/23 07/16/23 Range/Units 05:00 07:19 07:39 Creatinine 0.59 L (0.66-1.25) mg/dL POC Glucose (mg/dL) 390 H 313 H (70-110) mg/dL C-Reactive Protein 8.9 H (<1.0) mg/dL Microbiology - Last 24 Hours (Table) 07/13/23 05:20 Blood Culture Gram Stain - Final Blood Blood Culture - Final Methicillin resist S. aureus Molecular ID 07/13/23 05:35 Blood Culture Gram Stain - Final Blood Blood Culture - Final Methicillin resist S. aureus 07/13/23 05:45 Gram Stain - Final Foot - Left Wound Culture - Final Proteus mirabilis Assessment and Plan Assessment: 1. Right second toe cellulitis, possible osteomyelitis 2. Right second toe wound 3. Right second toe partial amputation 4. Diabetes mellitus, type I 5. Charcot feet, possible osteomyelitis 6. Obesity Plan: 1. Antibiotics per recommendations from infectious disease 2. Consult to Dr. Holguin appreciate his recommendations. 3. Recommend patient follow-up with orthopedic surgeon as scheduled. 4. Will plan for PICC line placement when bacteremia cleared. 5. Patient will likely at some time need that right second toe amputated, there is no urgency to this. Patient plans on following with Dr. Holguin for possible outpatient amputation 5. Vascular surgery will be on standby if further needed Thank you for this consultation. The impression and plan of care has been dictated as directed. Dr. Hua I performed a history and examination of this patient, discussed the same with the dictator. I agree with the dictator's note ,documented as a scribe. Any additional findings or plans will be noted.
--- NOTE | 2023-07-16 12:49 | P.PN ---
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 Hua back in December 2022, he has been following with Dr. Holguin who performed a right second toe amputation before patient also was t reated at [facility] for osteomyelitis of the left foot and he was treated with 28-day course of Zyvox 600 mg orally twice every day for MRSA bacteremia, this was done on the , and the patient had called the pharmacy to see if he can renew his Zyvox the patient developed to have an increased redness of the right second toe amputation with a sore at the bottom of the amputation site, with increased erythema and swelling in the right foot, patient ended up coming to the emergency department at [facility] today for increased pain and swelling and low-grade temperature his temperature was at 1101.2, patient did have a blood cultures drawn as well as culture from the sore from the bottom of the second toe amputation and he was started on cefepime and vancomycin, and infectious disease consultation was obtained from Dr. Armstrong, patient also was admitted to the hospital for evaluation and treatment, he was seen in consultation by vascular surgery it was recommended for the patient to follow-up with Dr. Holguin and vascular surgery to stay on standby for now. Patient will be started on IV antibiotic as stated earlier, and he will likely require to have a PICC line if the blood cultures are negative for IV antibiotic the duration of it will be decided by the infectious disease Dr. Armstrong. 07/13: Patient is laying down in bed in no apparent distress, he is feeling a lot better today than he was yesterday, he denies any chest pain, or shortness of breath, he continues to have some erythema around his right second toe amputation site not as bad as yesterday, he did not have any fever or chills at this time, his blood cultures 1 out of 2 grew Staphylococcus aureus likely methicillin-resistant Staphylococcus aureus the final result is not in yet, continue vancomycin, continue cefepime for now, infectious diseases following, patient will likely need to go for an PICC line eventually for IV antibiotic 07/14: Patient is laying down in bed in no apparent distress, he is feeling a lot better today, he denies any fever or chills, he is eating and tolerating diet ve ry well, his blood glucose level is appropriate, continue current treatment plan, patient has been on cefepime and vancomycin, has been followed by infectious disease, most likely will need to have a PICC line when the blood cultures are back negative he does appear to have MRSA in his blood we will continue aggressive IV antibiotic treatment patient did finish 28-day course of Zyvox as an outpatient that did not help as much. 07/15: Patient sitting up in the chair no apparent distress, he has no fever or chills at this time, yesterday they did not give him his low Levemir only 40 units at bedtime, his sugar was quite elevated in the morning, we will make sure the patient will receive the same dose of Levemir tonight 8 units at bedtime, as scheduled without adjustment, patient has no fever or chills, his appetite is good, awaiting the final results of the blood culture for the patient to go for PICC line, continue IV antibiotic for now. REVIEW OF SYSTEMS: Constitutional: positive for documented fever, no chills, no night sweats. No weight change. positive for weakness, fatigue or lethargy. No daytime sleepiness. HEENT: No headache. No blurred vision or double vision, no loss of vision. No loss of Hearing, no ringing in the ears, no dizziness. No nasal drainage or congestion. No epistaxis. No sore throat. Lungs: no shortness of breath, no cough, or sputum production. No wheezing. Reports no dyspnea with activity. Cardiovascular: no chest pain, positive for lower extremity edema. positive for palpitations. negative for paroxysmal nocturnal dyspnea. negative for orthopnea. No lightheadedness or dizziness. No syncopal episodes. Abdominal: Reports no abdominal pain. No nausea or vomiting. No diarrhea. No constipation. No bloody or tarry stools Genitourinary: No dysuria, increased frequency, urgency, Musculoskeletal: No myalgias, positive for weakness, bilateral charcot feet, left foot with swelling and tenderness, right foot post right second toe amputation and 3rd toe amputation with a sore at the bottom of the right second toe amputation and increased redness and swelling Integumentary: right third toe amputation, right second toe amputation with sore to the bottom of the amputation site with increased swelling and with increased erythema and tenderness No rash or pruritus. positive for unusual bruising. No change in hair or nails. Neurologic: No aphasia. No facial droop. No change in mentation. No head injury. No headache. No paralysis. No paresthesia. Psychiatric: positive for depression. No anxiety. No mood swings. Endocrine: positive for abnormal blood sugars. positive for weight change. PHYSICAL EXAMINATION: General: 42 year male sitting up in chair does appear to be in distress HEENT: Head is atraumatic, normocephalic, pupils were equal round reactive to light and recommendation, extraocular muscle movement were intact, sclera nonicteric, conjunctivae were pale, mucous membranes of the mouth are somewhat dry. Neck: Supple, no JVP, normal carotid upstroke bilaterally, no lymphadenopathy. Chest: Decreased breath sounds at the bases, few rhonchi, no expiratory wheezes or intercostal retractions Heart: First heart sound is normal, second heart sound is normal, tachycardic, there is no gallop or murmur. Abdomen: Soft, nontender, nondistended, positive bowel sounds, obese. Extremities: There is +1 edema no calf tenderness DP +2 bilaterally, positive for neuropathy and charcot feet , right third toe amputation, right second toe amputation with wound at the bottom of the second toe amputation with significant erythema and tenderness. Left foot with Charcot foot and minimally dehisced sized wound at the dorsal aspect of the foot. Neurologic examination: Patient is awake alert and oriented X 3, cranial nerves II-12 appear grossly intact, muscle power were 5 out of 5 in upper extremities and 4/5 in right lower extremity ASSESSMENT AND PLAN: 1. Infected right second toe amputation site with cellulitis with a prior history of MRSA bacteremia. continue patient on vancomycin with pharmacy to dose his peak and trough, continue cefepime as well, follow-up with the patient very closely infectious disease consultation appreciated, awaiting the final results of the culture for the patient to have a PICC line placement. 2. Status post amputation of the right second toe with a sore at the bottom of the amputation site with increased erythema and tenderness. Continue treatment as in previous paragraph. No need for immediate surgical intervention at this time. 3. Diabetes Mellitustype 2 non controlled. we will continue with Levemir 80 units SC at bedtime along with SSI , has been off GLP_1 RA ( Mounjaro) , we will continue with Metformin 1000 mg po bid and we will continue with BGM AC HS. add NovoLog 8 units before each meal plus the scale. 4. Diabetic Polyneuropathy with charcot feet. we will continue with Gabapentin 600 mg po bid 5. Hyperlipidemnia. we will continue with Atorvastatin 80 mg po daily, keep LDL- c 55-70. 6. Hypertension and hypertensive cardiovascular disease. Start the patient on metoprolol 25 mg orally twice every day. 7. Obesity with SHERI and OHS. we will continue with weight loss, never made it for a sleep study. 8. DVT prophylaxis. we will use Lovenox 40 mg SC daily. 9. GI Prophylaxis. we will continue with famotidine 40 mg at bedtime. 10. Major depressive disorder. Continue patient on duloxetine 20 mg orally once every day. 11. Staphylococcus aureus bacteremia continue IV antibiotic, await for the final result of the culture for the patient to have a PICC line placement. Patient has tried Zyvox 28 days without any improvement in the past Objective - Vital Signs Vital signs: Vital Signs Temp 98.6 F 07/16/23 07:34 Pulse 105 H 07/16/23 07:34 Resp 18 07/16/23 07:34 BP 149/85 07/16/23 07:34 Pulse Ox 93 L 07/16/23 07:34 FiO2 Intake & Output 07/15/23 07/16/23 07/16/23 18:59 06:59 18:59 Intake Total 960 590 Balance 960 590 Weight 156.489 kg Intake: Oral 960 590 Other: Voiding Method Toilet Toilet # Voids 3 - Labs CBC & Chem 7: 07/14/23 06:39 07/16/23 07:19 Labs: Abnormal Lab Results - Last 24 Hours (Table) 07/15/23 07/15/23 07/15/23 Range/Units 12:52 17:10 20:22 Creatinine (0.66-1.25) mg/dL POC Glucose (mg/dL) 336 H 245 H 150 H (70-110) mg/dL C-Reactive Protein (<1.0) mg/dL 07/16/23 07/16/23 07/16/23 Range/Units 05:00 07:19 07:39 Creatinine 0.59 L (0.66-1.25) mg/dL POC Glucose (mg/dL) 390 H 313 H (70-110) mg/dL C-Reactive Protein 8.9 H (<1.0) mg/dL Microbiology - Last 24 Hours (Table) 07/13/23 05:20 Blood Culture Gram Stain - Final Blood Blood Culture - Final Methicillin resist S. aureus Molecular ID 07/13/23 05:35 Blood Culture Gram Stain - Final Blood Blood Culture - Final Methicillin resist S. aureus 07/13/23 05:45 Gram Stain - Final Foot - Left Wound Culture - Final Proteus mirabilis
[2023-07-16 12:51] LABS: Glucose,Whole Blood 310 mg/dL (70-110)
--- NOTE | 2023-07-16 14:55 | P.PN ---
Subjective Progress Note Date: 07/14/23 Principal diagnosis: Reason for follow-up with diabetic foot infection and bacteremia Patient is a 42-year-old male with a past medical history significant for diabetes mellitus patient did have a history of diabetic foot infection to the right second toe partial amputation site and recent admission to the hospital with MRSA bacteremia there was concern for possible left foot Charcot joint and possible osteomyelitis for the patient was transferred to [facility] with the patient did have I&D done and recently completed course of oral Zyvox presenting back to the hospital with fever rigors and chills and concern for right second toe infection as well as left Charcot/osteomyelitis. On today's evaluation that is 07/14/2023, patient did have resolution of his fever and has been afebrile, patient is breathing comfortably and is currently on room air, patient denies having any significant cough no chest pain shortness of breath, patient denies nausea vomiting or diarrhea and no abdominal pain discomfort to the right second toe and ankle area has slightly decreased. Patient white count of 12.5, creatinine 0.63, cultures from the food is growing gram-negative blood culture positive for MRSA Objective - Vital Signs Vital signs: Vital Signs Temp 98.6 F 07/14/23 12:02 Pulse 99 07/14/23 12:02 Resp 18 07/14/23 12:02 BP 144/78 07/14/23 12:02 Pulse Ox 94 L 07/14/23 12:02 FiO2 Intake & Output 07/13/23 07/14/23 07/14/23 18:59 06:59 18:59 Intake Total 1060 Output Total 1100 900 Balance -40 -900 Weight 156.489 kg Intake: Intake, IV Titration 700 Amount Cefepime 2 gm In Sodium 200 Chloride 0.9% 100 ml @ 25 mls/hr IVPB Q8HR PAL Rx# :[id number] Vancomycin 2,000 mg In 500 Sodium Chloride 0.9% 500 ml 500 ml @ 167 mls/hr IVPB Q8H PAL Rx#: [id number] Oral 360 Output: Urine 1100 900 Other: Voiding Method Toilet Toilet # Voids 1 1 - Exam GENERAL DESCRIPTION: Middle-age male up in the chair in no distress RESPIRATORY SYSTEM: Unlabored breathing , decreased breath sounds at bases HEART: S1 S2 regular rate and rhythm , ABDOMEN: Soft , no tenderness EXTREMITIES: Left foot and ankle Swelling Wound on the Dorsal Aspect No Drainage Right Second Toe with Swelling and Redness No Drainage - Labs CBC & Chem 7: 07/14/23 06:39 07/16/23 07:19 Labs: Abnormal Lab Results - Last 24 Hours (Table) 07/13/23 07/13/23 07/14/23 Range/Units 17:10 20:04 06:39 WBC (4.50-10.00) X 10*3/uL Hgb (13.0-17.0) g/dL Hct (39.6-50.0) % MCH (27.0-32.0) pg MCHC (32.0-37.0) g/dL RDW (11.5-14.5) % Immature Gran # (0.00-0.04) X 10*3/uL Neutrophils # (1.80-7.70) X 10*3/uL Lymphocytes # (0.90-5.00) X 10*3/uL Monocytes # (0.20-1.00) X 10*3/uL Sodium 135 L (137-145) mmol/L Carbon Dioxide 31 H (22-30) mmol/L Creatinine 0.63 L (0.66-1.25) mg/dL Glucose 145 H (74-99) mg/dL POC Glucose (mg/dL) 255 H 222 H (70-110) mg/dL AST 15 L (17-59) U/L Albumin 3.3 L (3.5-5.0) g/dL 07/14/23 07/14/23 07/14/23 Range/Units 06:39 09:10 12:05 WBC 12.51 H (4.50-10.00) X 10*3/uL Hgb 11.8 L (13.0-17.0) g/dL Hct 38.0 L (39.6-50.0) % MCH 26.6 L (27.0-32.0) pg MCHC 31.1 L (32.0-37.0) g/dL RDW 15.1 H (11.5-14.5) % Immature Gran # 0.05 H (0.00-0.04) X 10*3/uL Neutrophils # 10.60 H (1.80-7.70) X 10*3/uL Lymphocytes # 0.63 L (0.90-5.00) X 10*3/uL Monocytes # 1.12 H (0.20-1.00) X 10*3/uL Sodium (137-145) mmol/L Carbon Dioxide (22-30) mmol/L Creatinine (0.66-1.25) mg/dL Glucose (74-99) mg/dL POC Glucose (mg/dL) 212 H 192 H (70-110) mg/dL AST (17-59) U/L Albumin (3.5-5.0) g/dL Microbiology - Last 24 Hours (Table) 07/13/23 05:20 Blood Culture Gram Stain - Preliminary Blood Blood Culture - Preliminary Molecular ID 07/13/23 05:35 Blood Culture Gram Stain - Preliminary Blood 07/13/23 05:45 Gram Stain - Preliminary Foot - Left Wound Culture - Preliminary Gram Neg Bacilli Assessment and Plan (1) Diabetic infection of right foot Current Visit: Yes Status: Acute Code(s): E11.628 - TYPE 2 DIABETES MELLITUS WITH OTHER SKIN COMPLICATIONS; L08.9 - LOCAL INFECTION OF THE SKIN AND SUBCUTANEOUS TISSUE, UNSP SNOMED Code(s): 23018115 (2) Leukocytosis Current Visit: No Status: Acute Code(s): D72.829 - ELEVATED WHITE BLOOD CELL COUNT, UNSPECIFIED SNOMED Code(s): 456018815 (3) MRSA bacteremia Current Visit: No Status: Acute Code(s): R78.81 - BACTEREMIA; B95.62 - METHICILLIN RESIS STAPH INFCT CAUSING DISEASES [facility] SNOMED Code(s): 37867961995631508 (4) Osteomyelitis Current Visit: No Status: Acute Code(s): M86.9 - OSTEOMYELITIS, UNSPECIFIED SNOMED Code(s): 06349162 Plan: 1patient presented hospital with sepsis in this patient who did have a fever tachycardia source likely right second toe diabetic foot infection with significant swelling redness of the right second toe patient also having pain to the left foot and ankle area with evidence of underlying Charcot deformity a possible component of osteomyelitis but not excluded and there may be evidence of bony sequestrum which may be acting as a foreign body and because of this relapse of infection after stopping antibiotic this was explained to the patient and the in layman terms 2-blood culture currently growing MRSA local culture growing gram-negative bacilli 3-patient to continue with vancomycin pharmacy to dose target trough of 15 along with cefepime while waiting for the culture to finalize Dictation was produced using [employer] dictation software. please excuse any grammatical, word or spelling errors. Time with Patient: Less than 30
--- NOTE | 2023-07-16 14:56 | P.PN ---
Subjective Progress Note Date: 07/15/23 Principal diagnosis: Reason for follow-up with diabetic foot infection and bacteremia Patient is a 42-year-old male with a past medical history significant for diabetes mellitus patient did have a history of diabetic foot infection to the right second toe partial amputation site and recent admission to the hospital with MRSA bacteremia there was concern for possible left foot Charcot joint and possible osteomyelitis for the patient was transferred to [facility] with the patient did have I&D done and recently completed course of oral Zyvox presenting back to the hospital with fever rigors and chills and concern for right second toe infection as well as left Charcot/osteomyelitis. On today's evaluation that is 07/15/2023,the patient denies any fever or any chills, patient is breathing comfortably on room air, the patient denies chest pain shortness of breath and no significant cough, patient denies abdominal pain, no nausea vomiting or diarrhea. Patient pain to the right second toe and the left ankle area has slightly decreased in intensity no new symptoms No CBC was done today creatinine 0.59,cultures from the food is growing gram- negative blood culture positive for MRSA Objective - Vital Signs Vital signs: Vital Signs Temp 98.4 F 07/15/23 07:13 Pulse 74 07/15/23 07:13 Resp 18 07/15/23 07:13 BP 162/96 07/15/23 07:13 Pulse Ox 96 07/15/23 07:13 FiO2 Intake & Output 07/14/23 07/15/23 07/15/23 18:59 06:59 18:59 Intake Total 600 Output Total 1700 Balance -1700 600 Intake: Intake, IV Titration 600 Amount Cefepime 2 gm In Sodium 100 Chloride 0.9% 100 ml @ 25 mls/hr IVPB Q8HR PAL Rx# :[id number] Vancomycin 2,000 mg In 500 Sodium Chloride 0.9% 500 ml 500 ml @ 167 mls/hr IVPB Q8H PAL Rx#: [id number] Output: Urine 1700 Other: # Voids 1 - Exam GENERAL DESCRIPTION: Middle-age male up in the chair in no distress RESPIRATORY SYSTEM: Unlabored breathing , decreased breath sounds at bases HEART: S1 S2 regular rate and rhythm , ABDOMEN: Soft , no tenderness EXTREMITIES: Left foot and ankle Swelling Wound on the Dorsal Aspect No Drainage Right Second Toe with Swelling and Redness No Drainage - Labs CBC & Chem 7: 07/14/23 06:39 07/16/23 07:19 Labs: Abnormal Lab Results - Last 24 Hours (Table) 07/14/23 07/14/23 07/14/23 Range/Units 06:39 12:05 17:17 WBC 12.51 H (4.50-10.00) X 10*3/uL Hgb 11.8 L (13.0-17.0) g/dL Hct 38.0 L (39.6-50.0) % MCH 26.6 L (27.0-32.0) pg MCHC 31.1 L (32.0-37.0) g/dL RDW 15.1 H (11.5-14.5) % Immature Gran # 0.05 H (0.00-0.04) X 10*3/uL Neutrophils # 10.60 H (1.80-7.70) X 10*3/uL Lymphocytes # 0.63 L (0.90-5.00) X 10*3/uL Monocytes # 1.12 H (0.20-1.00) X 10*3/uL Creatinine (0.66-1.25) mg/dL POC Glucose (mg/dL) 192 H 318 H (70-110) mg/dL 07/14/23 07/15/23 07/15/23 Range/Units 20:44 07:13 07:32 WBC (4.50-10.00) X 10*3/uL Hgb (13.0-17.0) g/dL Hct (39.6-50.0) % MCH (27.0-32.0) pg MCHC (32.0-37.0) g/dL RDW (11.5-14.5) % Immature Gran # (0.00-0.04) X 10*3/uL Neutrophils # (1.80-7.70) X 10*3/uL Lymphocytes # (0.90-5.00) X 10*3/uL Monocytes # (0.20-1.00) X 10*3/uL Creatinine 0.59 L (0.66-1.25) mg/dL POC Glucose (mg/dL) 211 H 237 H (70-110) mg/dL Microbiology - Last 24 Hours (Table) 07/13/23 05:35 Blood Culture Gram Stain - Preliminary Blood Blood Culture - Preliminary Presumptive MRSA 07/13/23 05:20 Blood Culture Gram Stain - Preliminary Blood Blood Culture - Preliminary Presumptive MRSA Molecular ID 07/13/23 05:45 Gram Stain - Preliminary Foot - Left Wound Culture - Preliminary Gram Neg Bacilli Assessment and Plan (1) Diabetic infection of right foot Current Visit: Yes Status: Acute Code(s): E11.628 - TYPE 2 DIABETES MELLITUS WITH OTHER SKIN COMPLICATIONS; L08.9 - LOCAL INFECTION OF THE SKIN AND SUBC UTANEOUS TISSUE, UNSP SNOMED Code(s): 01181378 (2) Leukocytosis Current Visit: No Status: Acute Code(s): D72.829 - ELEVATED WHITE BLOOD CELL COUNT, UNSPECIFIED SNOMED Code(s): 572100438 (3) MRSA bacteremia Current Visit: No Status: Acute Code(s): R78.81 - BACTEREMIA; B95.62 - METHICILLIN RESIS STAPH INFCT CAUSING DISEASES CLASSD [facility] SNOMED Code(s): 43764800114051057 (4) Osteomyelitis Current Visit: No Status: Acute Code(s): M86.9 - OSTEOMYELITIS, UNSPECIFIED SNOMED Code(s): 07402814 (5) Type 2 diabetes mellitus with foot ulcer Current Visit: No Status: Acute Code(s): E11.621 - TYPE 2 DIABETES MELLITUS WITH FOOT ULCER; L97.509 - NON-PRESSURE CHRONIC ULCER OTH PRT UNSP FOOT W UNSP SEVERITY SNOMED Code(s): 731512702 Plan: 1patient presented hospital with sepsis in this patient who did have a fever tachycardia source likely right second toe diabetic foot infection with significant swelling redness of the right second toe patient also having pain to the left foot and ankle area with evidence of underlying Charcot deformity a possible component of osteomyelitis but not excluded and there may be evidence of bony sequestrum which may be acting as a foreign body and because of this relapse of infection after stopping antibiotic this was explained to the patient and the in layman terms 2-blood culture currently growing MRSA, blood culture has been repeated document clearance of bacteremia local culture growing gram-negative bacilli with ID sensitivities pending 3-patient currently being treated with cefepime and vancomycin pharmacy to dose while waiting for the culture to finalize Dictation was produced using dragon dictation software. please excuse any grammatical, word or spelling errors. Time with Patient: Less than 30
--- NOTE | 2023-07-16 14:58 | P.PN ---
Subjective Progress Note Date: 07/16/23 Principal diagnosis: Reason for follow-up with diabetic foot infection and bacteremia Patient is a 42-year-old male with a past medical history significant for diabetes mellitus patient did have a history of diabetic foot infection to the right second toe partial amputation site and recent admission to the hospital with MRSA bacteremia there was concern for possible left foot Charcot joint and possible osteomyelitis for the patient was transferred to [facility] with the patient did have I&D done and recently completed course of oral Zyvox presenting back to the hospital with fever rigors and chills and concern for right second toe infection as well as left Charcot/osteomyelitis. On today's evaluation that is 07/16/2023,the patient remains to be afebrile, patient is on room air not requiring supplemental oxygen and denies any shortness of breath no chest pain or cough.Patient denies having any nausea or vomiting, no abdominal pain and no diarrhea has been reported, patient mention improvement in the pain and discomfort to the left ankle and right second toe No CBC done today creatinine 0.59,cultures from the food is growing Proteus, blood culture positive for MRSA Objective - Vital Signs Vital signs: Vital Signs Temp 98.0 F 07/16/23 12:52 Pulse 100 07/16/23 12:52 Resp 19 07/16/23 12:52 BP 157/94 07/16/23 12:52 Pulse Ox 93 L 07/16/23 12:52 FiO2 Intake & Output 07/15/23 07/16/23 07/16/23 18:59 06:59 18:59 Intake Total 960 590 Balance 960 590 Weight 156.489 kg Intake: Oral 960 590 Other: Voiding Method Toilet Toilet # Voids 3 - Exam GENERAL DESCRIPTION: Middle-age male up in the chair in no distress RESPIRATORY SYSTEM: Unlabored breathing , clear auscultation anteriorly HEART: S1 S2 regular rate and rhythm , ABDOMEN: Soft , no tenderness EXTREMITIES: Left foot and ankle Swelling slightly decreased wound with no drainage right foot is currently dressed - Labs CBC & Chem 7: 07/14/23 06:39 07/16/23 07:19 Labs: Abnormal Lab Results - Last 24 Hours (Table) 07/15/23 07/15/23 07/16/23 Range/Units 17:10 20:22 05:00 Creatinine (0.66-1.25) mg/dL POC Glucose (mg/dL) 245 H 150 H 390 H (70-110) mg/dL C-Reactive Protein (<1.0) mg/dL 07/16/23 07/16/23 07/16/23 Range/Units 07:19 07:39 12:49 Creatinine 0.59 L (0.66-1.25) mg/dL POC Glucose (mg/dL) 313 H 310 H (70-110) mg/dL C-Reactive Protein 8.9 H (<1.0) mg/dL Microbiology - Last 24 Hours (Table) 07/13/23 05:20 Blood Culture Gram Stain - Final Blood Blood Culture - Final Methicillin resist S. aureus Molecular ID 07/13/23 05:35 Blood Culture Gram Stain - Final Blood Blood Culture - Final Methicillin resist S. aureus 07/13/23 05:45 Gram Stain - Final Foot - Left Wound Culture - Final Proteus mirabilis Assessment and Plan (1) Diabetic infection of right foot Current Visit: Yes Status: Acute Code(s): E11.628 - TYPE 2 DIABETES MELLITUS WITH OTHER SKIN COMPLICATIONS; L08.9 - LOCAL INFECTION OF THE SKIN AND SUBCUTANEOUS TISSUE, UNSP SNOMED Code(s): 37642160 (2) Leukocytosis Current Visit: No Status: Acute Code(s): D72.829 - ELEVATED WHITE BLOOD CELL COUNT, UNSPECIFIED SNOMED Code(s): 671615815 (3) MRSA bacteremia Current Visit: No Status: Acute Code(s): R78.81 - BACTEREMIA; B95.62 - METHICILLIN RESIS STAPH INFCT CAUSING DISEASES [facility] SNOMED Code(s): 97035029410064537 (4) Osteomyelitis Current Visit: No Status: Acute Code(s): M86.9 - OSTEOMYELITIS, UNSPECIFIED SNOMED Code(s): 50275550 (5) Type 2 diabetes mellitus with foot ulcer Current Visit: No Status: Acute Code(s): E11.621 - TYPE 2 DIABETES MELLITUS WITH FOOT ULCER; L97.509 - NON-PRESSURE CHRONIC ULCER OTH PRT UNSP FOOT W UNSP S [facility] SNOMED Code(s): 401319666 Plan: 1patient presented hospital with sepsis in this patient who did have a fever tachycardia source likely right second toe diabetic foot infection with significant swelling redness of the right second toe patient also having pain to the left foot and ankle area with evidence of underlying Charcot deformity a possible component of osteomyelitis but not excluded and there may be evidence of bony sequestrum which may be acting as a foreign body and because of this relapse of infection after stopping antibiotic this was explained to the patient and the in layman terms 2-blood culture currently growing MRSA, blood culture has been repeated document clearance of bacteremia, patient will get a PICC line once he clear his bacteremia 3-local culture growing Proteus that is a sensitive pathogen 3-patient continue with the vancomycin however will discontinue cefepime start the patient on Unasyn to cover for the gram-negative Dictation was produced using [email or web address] dictation software. please excuse any grammatical, word or spelling errors. Time with Patient: Less than 30
[2023-07-16 17:09] LABS: Glucose,Whole Blood 192 mg/dL (70-110)
[2023-07-16] MEDS: AMPICILLIN-SULBACTAM 3 GM in SODIUM CHLORIDE 0.9% 100 ML IVPB SCH (18:08)
[2023-07-16 20:01] LABS: Glucose,Whole Blood 243 mg/dL (70-110)
[2023-07-17 07:08] LABS: Glucose,Whole Blood 263 mg/dL (70-110)
[2023-07-17 08:21] LABS: ALT 17 U/L (4-49); AST 16 U/L (17-59); African American GFR (CKD) >90 (>60 ml/min/1.73 sqM); Albumin 3.6 g/dL (3.5-5.0); Albumin/Globulin Ratio 1.2; Alkaline Phosphatase 133 U/L (38-126); Anion Gap 5 mmol/L; Blood Urea Nitrogen 16 mg/dL (9-20); Calcium 9.5 mg/dL (8.4-10.2); Carbon Dioxide 35 mmol/L (22-30); Chloride 95 mmol/L (98-107); Glucose 271 mg/dL (74-99); Non-African American GFR(CKD) >90 (>60 ml/min/1.73 sqM); Potassium 4.7 mmol/L (3.5-5.1); Sodium 135 mmol/L (137-145); Total Bilirubin 0.6 mg/dL (0.2-1.3); Total Protein 6.6 g/dL (6.3-8.2)
--- NOTE | 2023-07-17 09:45 | P.PN ---
Subjective Progress Note Date: 07/17/23 Principal diagnosis: Cellulitis, infected right second toe Patient is seen and examined today as a follow-up. He is sitting up in the chair. He denies any fevers or chills. He remains afebrile. He denies any pain in his feet. Final blood culture came back positive for MRSA. Right second toe wound culture positive for P. Mirabelli. He remains on IV vancomycin, and cefepime changed to Unasyn per infectious disease. Repeat blood cultures with no growth at 24 hours. Objective - Vital Signs Vital signs: Vital Signs Temp 98.5 F 07/17/23 08:03 Pulse 65 07/17/23 08:03 Resp 16 07/17/23 08:03 BP 125/75 07/17/23 08:03 Pulse Ox 93 L 07/17/23 08:03 FiO2 Intake & Output 07/16/23 07/17/23 07/17/23 18:59 06:59 18:59 Intake Total 1200 Balance 1200 Intake: Intake, IV Titration 1200 Amount Ampicillin-Sulbactam 3 gm 100 In Sodium Chloride 0.9% 100 ml @ 200 mls/hr IVPB Q6HR PAL Rx#:[id number] Cefepime 2 gm In Sodium 100 Chloride 0.9% 100 ml @ 25 mls/hr IVPB Q8HR PAL Rx# :[id number] Vancomycin 2,000 mg In 1000 Sodium Chloride 0.9% 500 ml 500 ml @ 167 mls/hr IVPB Q8H PAL Rx#: [id number] Other: Voiding Method Toilet - Exam General appearance: The patient is alert, oriented, appears in no acute distr ess. Obese. HET: Head is normocephalic and atraumatic. Pupils are equal and reactive. Neck: Supple. Abdomen: Soft, nondistended. Extremities: Bilateral lower extremity swelling, left greater than right. Bilateral Charcot feet. Right second and third toe partial amputation. Right second toe swelling and erythema, wound without any drainage to plantar aspect. Bilateral lower extremities wrapped with Amanuel wraps. Neurological: No focal deficits. Strength and sensation are grossly intact. - Labs CBC & Chem 7: 07/14/23 06:39 07/17/23 07:15 Labs: Abnormal Lab Results - Last 24 Hours (Table) 07/16/23 07/16/23 07/16/23 Range/Units 07:19 09:25 12:49 ESR 83 H (0-15) mm/Hr Sodium (137-145) mmol/L Chloride (98-107) mmol/L Carbon Dioxide (22-30) mmol/L Creatinine 0.59 L (0.66-1.25) mg/dL Glucose (74-99) mg/dL POC Glucose (mg/dL) 310 H (70-110) mg/dL AST (17-59) U/L Alkaline Phosphatase (38-126) U/L C-Reactive Protein 8.9 H (<1.0) mg/dL 07/16/23 07/16/23 07/17/23 Range/Units 17:08 19:59 07:06 ESR (0-15) mm/Hr Sodium (137-145) mmol/L Chloride (98-107) mmol/L Carbon Dioxide (22-30) mmol/L Creatinine (0.66-1.25) mg/dL Glucose (74-99) mg/dL POC Glucose (mg/dL) 192 H 243 H 263 H (70-110) mg/dL AST (17-59) U/L Alkaline Phosphatase (38-126) U/L C-Reactive Protein (<1.0) mg/dL 07/17/23 Range/Units 07:15 ESR (0-15) mm/Hr Sodium 135 L (137-145) mmol/L Chloride 95 L (98-107) mmol/L Carbon Dioxide 35 H (22-30) mmol/L Creatinine (0.66-1.25) mg/dL Glucose 271 H (74-99) mg/dL POC Glucose (mg/dL) (70-110) mg/dL AST 16 L (17-59) U/L Alkaline Phosphatase 133 H (38-126) U/L C-Reactive Protein (<1.0) mg/dL Microbiology - Last 24 Hours (Table) 07/15/23 12:08 Blood Culture - Preliminary Blood Assessment and Plan Assessment: 1. Right second toe cellulitis, possible osteomyelitis 2. Right second toe wound 3. Right second toe partial amputation 4. Diabetes mellitus, type I 5. Charcot feet, possible osteomyelitis 6. Obesity Plan: 1. Antibiotics per recommendations from infectious disease 2. Consult to Dr. Holguin appreciate his recommendations. 3. Recommend patient follow-up with orthopedic surgeon as scheduled. 4. Will plan for PICC line placement when bacteremia cleared. 5. Patient will likely at some time need that right second toe amputated, there is no urgency to this. Patient plans on following with Dr. Holguin for possible outpatient amputation 5. Vascular surgery will be on standby if further needed Thank you for this consultation. Patient is cleared from vascular surgery for discharge once PICC line is placed. The impression and plan of care has been dictated as directed. Dr. Hua I performed a history and examination of this patient, discussed the same with the dictator. I agree with the dictator's note ,documented as a scribe. Any additional findings or plans will be noted.
[2023-07-17 10:22] LABS: Basophils # (A) 0.05 X 10*3/uL (0.00-0.10); Basophils % (A) 0.6 %; Eosinophils # (A) 0.27 X 10*3/uL (0.04-0.35); Eosinophils % (A) 3.2 %; HCT 39.2 % (39.6-50.0); HGB 12.1 g/dL (13.0-17.0); Lymphocytes # (A) 1.59 X 10*3/uL (0.90-5.00); Lymphocytes % (A) 19.1 %; MCH 25.4 pg (27.0-32.0); MCHC 30.9 g/dL (32.0-37.0); MCV 82.2 FL (80.0-97.0); Mean Platelet Volume 9.9 FL (9.5-12.2); Monocytes # (A) 0.56 X 10*3/uL (0.20-1.00); Monocytes % (A) 6.7 %; NRBC Per 100 WBC 0 X 10*3/uL (0.00-0.01); Neutrophils # (A) 5.85 X 10*3/uL (1.80-7.70); Neutrophils % (A) 70.2 %; Platelet Count 289 X 10*3/uL (140-440); RBC 4.77 X 10*6/uL (4.40-5.60); RDW 14.7 % (11.5-14.5); WBC 8.34 X 10*3/uL (4.50-10.00)
--- NOTE | 2023-07-17 11:06 | P.GSHP ---
History of Present Illness H&P Date: 07/14/23 Chief Complaint: Infection right second toe cellulitis Patient was seen after review of patient's chart at bedside. Patient was admitted for recurrent sepsis and infection of the right second digit. Patient states he stopped his antibiotics last week was seen in the wound care clinic on Thursday His foot bilateral was stable. He states over the weekend the foot started ge tting red and swollen then he started to have systemic symptoms and presented to the ER. At this time patient was found to have recurrent sepsis and has been admitted for treatment and IV antibiotics. Patient is resting at bedside and does not appear to be in any distress. Past Medical History Past Medical History: Diabetes Mellitus Additional Past Medical History / Comment(s): neuropathy History of Any Multi-Drug Resistant Organisms: MRSA Date of last positivie culture/infection: 06/02/23 MDRO Source:: Blood Past Surgical History: Orthopedic Surgery Additional Past Surgical History / Comment(s): 2nd and 3rd partial digit removed to right foot, Past Anesthesia/Blood Transfusion Reactions: No Reported Reaction Past Psychological History: No Psychological Hx Reported Smoking Status: Never smoker Past Alcohol Use History: None Reported Past Drug Use History: None Reported Medications and Allergies Home Medications Medication Instructions Recorded Confirmed Type Ascorbic Acid [Vitamin C] 1,000 mg PO DAILY 01/06/23 07/13/23 History Atorvastatin [Lipitor] 80 mg PO HS 01/06/23 07/13/23 History Gabapentin 600 mg PO BID 01/06/23 07/13/23 History Insulin Lispro [humaLOG Kwikpen] See Protocol SQ AC-TID 01/06/23 07/13/23 History Loratadine 20 mg PO DAILY 01/06/23 07/13/23 History Omeprazole 40 mg PO DAILY 01/06/23 07/13/23 History metFORMIN HCL ER [Glucophage XR] 1,000 mg PO HS 01/06/23 07/13/23 History Acetaminophen [Tylenol Extra 1,000 mg PO Q4H PRN 05/31/23 07/13/23 History Strength] DULoxetine HCL [Cymbalta] 20 mg PO HS 05/31/23 07/13/23 History Ibuprofen [Motrin Ib] 800 mg PO Q4H PRN 05/31/23 07/13/23 History Insulin Glargine-Yfgn [Semglee 80 unit SQ HS 05/31/23 07/13/23 History (Yfgn) Pen] Linezolid [Zyvox] 600 mg PO BID 07/01/23 07/13/23 History Tirzepatide [Mounjaro] 2.5 mg SQ WE 07/01/23 07/13/23 History Allergies Allergy/AdvReac Type Severity Reaction Status Date / Time No Known Allergies Allergy Verified 07/13/23 08:54 Surgical - Exam Vital Signs Temp Pulse Resp BP Pulse Ox 101.2 F H 112 H 20 159/93 96 07/13/23 05:00 07/13/23 05:00 07/13/23 05:00 07/13/23 05:00 07/13/23 05:00 - Cardiovascular Pedal pulses are patent palpable symmetric bilateral there is no atrophic changes - Integumentary Patient has a full-thickness wound in the plantar flap area of the right second digit. Extending from this to the metatarsophalangeal joint is localized erythema and edema. There is no increasing erythema edema or on bilateral feet there are no other lesions noted. The ulcer is covered with a fibrin and necrotic tissue and is limited to breakdown of the skin. - Neurologic Patient has loss of protective sensation to an SWM 5.07 mg wire up to including the lower leg bilateral vibratory 2 point tactile is diminished at the medial malleolus bilateral patient has neuropathy up to including lower leg bilateral. - Musculoskeletal All inverters everters plantarflex dorsiflex grossly intact bilateral. There is contracted Achilles tendon bilateral range of motion subtalar joint midtarsal joint of the feet is decreased bilateral there appears to be a clinical Charcot joint with edema no erythema of the left foot and ankle. The Charcot joint is not in a rocker-bottom attitude at this time. There is amputated digits partial of the second and third digit of the right foot review of radiographs show erosive changes distal aspect of the amputated proximal phalanx of the second digit. Results - Labs 07/17/23 07:15 07/17/23 07:15 Abnormal Lab Results - Last 24 Hours (Table) 07/16/23 07/16/23 07/16/23 Range/Units 09:25 12:49 17:08 Hgb (13.0-17.0) g/dL Hct (39.6-50.0) % MCH (27.0-32.0) pg MCHC (32.0-37.0) g/dL RDW (11.5-14.5) % ESR 83 H (0-15) mm/Hr Sodium (137-145) mmol/L Chloride (98-107) mmol/L Carbon Dioxide (22-30) mmol/L Glucose (74-99) mg/dL POC Glucose (mg/dL) 310 H 192 H (70-110) mg/dL AST (17-59) U/L Alkaline Phosphatase (38-126) U/L 07/16/23 07/17/23 07/17/23 Range/Units 19:59 07:06 07:15 Hgb (13.0-17.0) g/dL Hct (39.6-50.0) % MCH (27.0-32.0) pg MCHC (32.0-37.0) g/dL RDW (11.5-14.5) % ESR (0-15) mm/Hr Sodium 135 L (137-145) mmol/L Chloride 95 L (98-107) mmol/L Carbon Dioxide 35 H (22-30) mmol/L Glucose 271 H (74-99) mg/dL POC Glucose (mg/dL) 243 H 263 H (70-110) mg/dL AST 16 L (17-59) U/L Alkaline Phosphatase 133 H (38-126) U/L 07/17/23 Range/Units 07:15 Hgb 12.1 L (13.0-17.0) g/dL Hct 39.2 L (39.6-50.0) % MCH 25.4 L (27.0-32.0) pg MCHC 30.9 L (32.0-37.0) g/dL RDW 14.7 H (11.5-14.5) % ESR (0-15) mm/Hr Sodium (137-145) mmol/L Chloride (98-107) mmol/L Carbon Dioxide (22-30) mmol/L Glucose (74-99) mg/dL POC Glucose (mg/dL) (70-110) mg/dL AST (17-59) U/L Alkaline Phosphatase (38-126) U/L Microbiology - Last 24 Hours (Table) 07/15/23 12:08 Blood Culture - Preliminary Blood Diabetes panel 07/17/23 Range/Units 07:15 Sodium 135 L (137-145) mmol/L Potassium 4.7 (3.5-5.1) mmol/L Chloride 95 L (98-107) mmol/L Carbon Dioxide 35 H (22-30) mmol/L BUN 16 (9-20) mg/dL Creatinine 0.69 (0.66-1.25) mg/dL Glucose 271 H (74-99) mg/dL Calcium 9.5 (8.4-10.2) mg/dL AST 16 L (17-59) U/L ALT 17 (4-49) U/L Alkaline Phosphatase 133 H (38-126) U/L Total Protein 6.6 (6.3-8.2) g/dL Albumin 3.6 (3.5-5.0) g/dL Calcium panel 07/17/23 Range/Units 07:15 Calcium 9.5 (8.4-10.2) mg/dL Albumin 3.6 (3.5-5.0) g/dL Pituitary panel 07/17/23 Range/Units 07:15 Sodium 135 L (137-145) mmol/L Potassium 4.7 (3.5-5.1) mmol/L Chloride 95 L (98-107) mmol/L Carbon Dioxide 35 H (22-30) mmol/L BUN 16 (9-20) mg/dL Creatinine 0.69 (0.66-1.25) mg/dL Glucose 271 H (74-99) mg/dL Calcium 9.5 (8.4-10.2) mg/dL Adrenal panel 07/17/23 Range/Units 07:15 Sodium 135 L (137-145) mmol/L Potassium 4.7 (3.5-5.1) mmol/L Chloride 95 L (98-107) mmol/L Carbon Dioxide 35 H (22-30) mmol/L BUN 16 (9-20) mg/dL Creatinine 0.69 (0.66-1.25) mg/dL Glucose 271 H (74-99) mg/dL Calcium 9.5 (8.4-10.2) mg/dL Total Bilirubin 0.6 (0.2-1.3) mg/dL AST 16 L (17-59) U/L ALT 17 (4-49) U/L Alkaline Phosphatase 133 H (38-126) U/L Total Protein 6.6 (6.3-8.2) g/dL Albumin 3.6 (3.5-5.0) g/dL Assessment and Plan Assessment: Infection right foot with possible osteomyelitis sepsis. Diabetic peripheral neuropathy with Charcot joint disease left foot Plan: Exam discussed with patient findings and treatment. Discussed with patient if he does get his PICC line placed today or tomorrow to continue with the consultation on as scheduled. We would see him back on Thursday. Discussed with patient that the second digit made to have to have further surgery with amputation to remove the osteomyelitic bone that may be present causing the recurrent infection. As for the Charcot joint of the left foot patient is continue to be nonweightbearing. Discussed with patient that with the sepsis there is a possible seeding of the infection into that foot which would require possible B-K amputation. We will see the patient in the wound care clinic and schedule definitive amputation of the right second digit. We will consult with patient's primary care doctor who is managing patient's care.
--- NOTE | 2023-07-17 11:14 | P.GSHP ---
History of Present Illness H&P Date: 07/17/23 Chief Complaint: Infection of the right foot Patient was seen at bedside after reviewing patient's chart. He states he is feeling better patient states the redness of the digit has decreased as well as the swelling. Patient is awaiting possible PICC line placement after he has no sign of bacteria within his blood work. Past Medical History Past Medical History: Diabetes Mellitus Additional Past Medical History / Comment(s): neuropathy History of Any Multi-Drug Resistant Organisms: MRSA Date of last positivie culture/infection: 06/02/23 MDRO Source:: Blood Past Surgical History: Orthopedic Surgery Additional Past Surgical History / Comment(s): 2nd and 3rd partial digit removed to right foot, Past Anesthesia/Blood Transfusion Reactions: No Reported Reaction Past Psychological History: No Psychological Hx Reported Smoking Status: Never smoker Past Alcohol Use History: None Reported Past Drug Use History: None Reported Medications and Allergies Home Medications Medication Instructions Recorded Confirmed Type Ascorbic Acid [Vitamin C] 1,000 mg PO DAILY 01/06/23 07/13/23 History Atorvastatin [Lipitor] 80 mg PO HS 01/06/23 07/13/23 History Gabapentin 600 mg PO BID 01/06/23 07/13/23 History Insulin Lispro [humaLOG Kwikpen] See Protocol SQ AC-TID 01/06/23 07/13/23 History Loratadine 20 mg PO DAILY 01/06/23 07/13/23 History Omeprazole 40 mg PO DAILY 01/06/23 07/13/23 History metFORMIN HCL ER [Glucophage XR] 1,000 mg PO HS 01/06/23 07/13/23 History Acetaminophen [Tylenol Extra 1,000 mg PO Q4H PRN 05/31/23 07/13/23 History Strength] DULoxetine HCL [Cymbalta] 20 mg PO HS 05/31/23 07/13/23 History Ibuprofen [Motrin Ib] 800 mg PO Q4H PRN 05/31/23 07/13/23 History Insulin Glargine-Yfgn [Semglee 80 unit SQ HS 05/31/23 07/13/23 History (Yfgn) Pen] Linezolid [Zyvox] 600 mg PO BID 07/01/23 07/13/23 History Tirzepatide [Mounjaro] 2.5 mg SQ WE 07/01/23 07/13/23 History Allergies Allergy/AdvReac Type Severity Reaction Status Date / Time No Known Allergies Allergy Verified 07/13/23 08:54 Surgical - Exam Vital Signs Temp Pulse Resp BP Pulse Ox 101.2 F H 112 H 20 159/93 96 07/13/23 05:00 07/13/23 05:00 07/13/23 05:00 07/13/23 05:00 07/13/23 05:00 - Integumentary Patient has decreased erythema decreased edema of the right second digit with ulceration on the plantar aspect of the foot second digit secondary to he is a surgical there is minimal necrotic tissue. Neurovascular status unchanged Results - Labs 07/17/23 07:15 07/17/23 07:15 Abnormal Lab Results - Last 24 Hours (Table) 07/16/23 07/16/23 07/16/23 Range/Units 09:25 12:49 17:08 Hgb (13.0-17.0) g/dL Hct (39.6-50.0) % MCH (27.0-32.0) pg MCHC (32.0-37.0) g/dL RDW (11.5-14.5) % ESR 83 H (0-15) mm/Hr Sodium (137-145) mmol/L Chloride (98-107) mmol/L Carbon Dioxide (22-30) mmol/L Glucose (74-99) mg/dL POC Glucose (mg/dL) 310 H 192 H (70-110) mg/dL AST (17-59) U/L Alkaline Phosphatase (38-126) U/L 07/16/23 07/17/23 07/17/23 Range/Units 19:59 07:06 07:15 Hgb (13.0-17.0) g/dL Hct (39.6-50.0) % MCH (27.0-32.0) pg MCHC (32.0-37.0) g/dL RDW (11.5-14.5) % ESR (0-15) mm/Hr Sodium 135 L (137-145) mmol/L Chloride 95 L (98-107) mmol/L Carbon Dioxide 35 H (22-30) mmol/L Glucose 271 H (74-99) mg/dL POC Glucose (mg/dL) 243 H 263 H (70-110) mg/dL AST 16 L (17-59) U/L Alkaline Phosphatase 133 H (38-126) U/L 07/17/23 Range/Units 07:15 Hgb 12.1 L (13.0-17.0) g/dL Hct 39.2 L (39.6-50.0) % MCH 25.4 L (27.0-32.0) pg MCHC 30.9 L (32.0-37.0) g/dL RDW 14.7 H (11.5-14.5) % ESR (0-15) mm/Hr Sodium (137-145) mmol/L Chloride (98-107) mmol/L Carbon Dioxide (22-30) mmol/L Glucose (74-99) mg/dL POC Glucose (mg/dL) (70-110) mg/dL AST (17-59) U/L Alkaline Phosphatase (38-126) U/L Microbiology - Last 24 Hours (Table) 07/15/23 12:08 Blood Culture - Preliminary Blood Diabetes panel 07/17/23 Range/Units 07:15 Sodium 135 L (137-145) mmol/L Potassium 4.7 (3.5-5.1) mmol/L Chloride 95 L (98-107) mmol/L Carbon Dioxide 35 H (22-30) mmol/L BUN 16 (9-20) mg/dL Creatinine 0.69 (0.66-1.25) mg/dL Glucose 271 H (74-99) mg/dL Calcium 9.5 (8.4-10.2) mg/dL AST 16 L (17-59) U/L ALT 17 (4-49) U/L Alkaline Phosphatase 133 H (38-126) U/L Total Protein 6.6 (6.3-8.2) g/dL Albumin 3.6 (3.5-5.0) g/dL Calcium panel 07/17/23 Range/Units 07:15 Calcium 9.5 (8.4-10.2) mg/dL Albumin 3.6 (3.5-5.0) g/dL Pituitary panel 07/17/23 Range/Units 07:15 Sodium 135 L (137-145) mmol/L Potassium 4.7 (3.5-5.1) mmol/L Chloride 95 L (98-107) mmol/L Carbon Dioxide 35 H (22-30) mmol/L BUN 16 (9-20) mg/dL Creatinine 0.69 (0.66-1.25) mg/dL Glucose 271 H (74-99) mg/dL Calcium 9.5 (8.4-10.2) mg/dL Adrenal panel 07/17/23 Range/Units 07:15 Sodium 135 L (137-145) mmol/L Potassium 4.7 (3.5-5.1) mmol/L Chloride 95 L (98-107) mmol/L Carbon Dioxide 35 H (22-30) mmol/L BUN 16 (9-20) mg/dL Creatinine 0.69 (0.66-1.25) mg/dL Glucose 271 H (74-99) mg/dL Calcium 9.5 (8.4-10.2) mg/dL Total Bilirubin 0.6 (0.2-1.3) mg/dL AST 16 L (17-59) U/L ALT 17 (4-49) U/L Alkaline Phosphatase 133 H (38-126) U/L Total Protein 6.6 (6.3-8.2) g/dL Albumin 3.6 (3.5-5.0) g/dL Assessment and Plan Assessment: Infection right foot with possible osteomyelitis sepsis. Diabetic peripheral neuropathy with Charcot joint disease left foot Plan: Discussed with patient plan at this time. We discussed with patient that we did talk to patient's primary care doctor Yusef and discussed treatment plan with him. At this time the medical team would like to first get a clean PICC line in after they have blood cultures that are negative. Once patient is stable patient will be placed on long-term antibiotics and when cleared consider amputation of the second digit of the right foot. We did review the radiographs on the right second digit and there is minimal erosive changes for osteomyelitis of this area. Patient is to continue to be nonweightbearing on the left foot to avoid further breakdown of the midfoot. We discussed with patient once he is discharged to get a consultation with the foot and ankle specialist for treatment of the left foot. We will see the patient in wound care clinic and or office once patient is discharged and will formulate treatment plan possible amputation once approved by primary care doctor and patient has surgical clearance for sign Time with Patient: Greater than 30
[2023-07-17] MEDS ORDERED: LIDOCAINE 1% INJ 10MG/ML (20 ML MDV) ONE (11:19)
[2023-07-17] MEDS: LIDOCAINE 1% INJ 10MG/ML (20 ML MDV) SQ ONE (11:35)
--- NOTE | 2023-07-17 11:47 | P.OP ---
Date of Procedure: 07/17/23 Description of Procedure: Date of Procedure: Preoperative Diagnosis: Need for long-term IV antibiotic access. Postoperative Diagnosis: Same. Procedure(s) Performed: Ultrasound-guided cannulation left cephalic vein. Insertion of peripherally inserted central catheter under fluoroscopic guidance. Anesthesia: local (1% Xylocaine.) Surgeon: Javid Estimated Blood Loss (ml): 5 IV fluids (ml): 0 Urine output (ml): 0 Pathology: none sent Condition: stable Disposition: no change Indications for Procedure: Patient is a 42-year-old male with diabetic foot infections and bacteremia. Patient will require long-term IV antibiotics as an outpatient patient is offered a PICC line to allow for intravenous administration of antibiotics. Description of Procedure: Patient was brought to the special procedure suite. The left upper extremity sterilely prepped and draped in usual manner. Ultrasound was utilized to identify the cephalic vein which was normally compressible free of visible thrombus. Permenant image was stored. 1% Xylocaine was utilized for local anesthesia tissues overlying the vein. Through this anesthetized area and with the aid of ultrasound a micropuncture needle was utilized to cannulate the vein. Once cannulated, Softip guidewire was advanced into the vein. The needle was withdrawn and a micropuncture sheath and dilator advanced over the guidewire. The guidewire was withdrawn and exchanged for the PICC guidewire and measured to the cavoatrial junction. The catheter was cut to size and advanced into the cavoatrial junction without resistance. The sheath was peeled away. Blood was easily withdrawn through the catheter and the catheter was then flushed with heparinized saline solution and secured to the skin. Patient tolerated procedure well and was returned to their room in satisfactory and stable condition.
[2023-07-17 11:51] LABS: Glucose,Whole Blood 318 mg/dL (70-110)
[2023-07-17 13:30] VITALS: BP 146/88; PULSE 100; RESP 17; TEMP 98.6
[2023-07-17] MEDS ORDERED: VANCOMYCIN TROUGH DUE 1 EACH MISC MISCELLANE ONE (16:00)
--- NOTE | 2023-07-17 16:15 | P.PN ---
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 Hua back in December 2022, he has been following with Dr. Holguin who performed a right second toe amputation before patient also was t reated at [facility] for osteomyelitis of the left foot and he was treated with 28-day course of Zyvox 600 mg orally twice every day for MRSA bacteremia, this was done on the , and the patient had called the pharmacy to see if he can renew his Zyvox the patient developed to have an increased redness of the right second toe amputation with a sore at the bottom of the amputation site, with increased erythema and swelling in the right foot, patient ended up coming to the emergency department at [facility] today for increased pain and swelling and low-grade temperature his temperature was at 1101.2, patient did have a blood cultures drawn as well as culture from the sore from the bottom of the second toe amputation and he was started on cefepime and vancomycin, and infectious disease consultation was obtained from Dr. Armstrong, patient also was admitted to the hospital for evaluation and treatment, he was seen in consultation by vascular surgery it was recommended for the patient to follow-up with Dr. Holguin and vascular surgery to stay on standby for now. Patient will be started on IV antibiotic as stated earlier, and he will likely require to have a PICC line if the blood cultures are negative for IV antibiotic the duration of it will be decided by the infectious disease Dr. Armstrong. 07/13: Patient is laying down in bed in no apparent distress, he is feeling a lot better today than he was yesterday, he denies any chest pain, or shortness of breath, he continues to have some erythema around his right second toe amputation site not as bad as yesterday, he did not have any fever or chills at this time, his blood cultures 1 out of 2 grew Staphylococcus aureus likely methicillin-resistant Staphylococcus aureus the final result is not in yet, continue vancomycin, continue cefepime for now, infectious diseases following, patient will likely need to go for an PICC line eventually for IV antibiotic 07/14: Patient is laying down in bed in no apparent distress, he is feeling a lot better today, he denies any fever or chills, he is eating and tolerating diet ve ry well, his blood glucose level is appropriate, continue current treatment plan, patient has been on cefepime and vancomycin, has been followed by infectious disease, most likely will need to have a PICC line when the blood cultures are back negative he does appear to have MRSA in his blood we will continue aggressive IV antibiotic treatment patient did finish 28-day course of Zyvox as an outpatient that did not help as much. 07/15: Patient sitting up in the chair no apparent distress, he has no fever or chills at this time, yesterday they did not give him his low Levemir only 40 units at bedtime, his sugar was quite elevated in the morning, we will make sure the patient will receive the same dose of Levemir tonight 8 units at bedtime, as scheduled without adjustment, patient has no fever or chills, his appetite is good, awaiting the final results of the blood culture for the patient to go for PICC line, continue IV antibiotic for now. 07/16: Patient did have his PICC line placed today, he denies any fever or chills, he has no chest pain shortness breath, he has no abdominal pain, nausea vomiting or diarrhea, his antibiotic were adjusted to vancomycin to cover MRSA in the blood, Unasyn to cover Proteus Mirabella's, await final decision by infectious disease for the IV antibiotic patient is possibly ready to get discharged out of the hospital if not today maybe tomorrow morning. REVIEW OF SYSTEMS: Constitutional: positive for documented fever, no chills, no night sweats. No weight change. positive for weakness, fatigue or lethargy. No daytime sleepiness. HEENT: No headache. No blurred vision or double vision, no loss of vision. No loss of Hearing, no ringing in the ears, no dizziness. No nasal drainage or congestion. No epistaxis. No sore throat. Lungs: no shortness of breath, no cough, or sputum production. No wheezing. Reports no dyspnea with activity. Cardiovascular: no chest pain, positive for lower extremity edema. positive for palpitations. negative for paroxysmal nocturnal dyspnea. negative for orthopnea. No lightheadedness or dizziness. No syncopal episodes. Abdominal: Reports no abdominal pain. No nausea or vomiting. No diarrhea. No constipation. No bloody or tarry stools Genitourinary: No dysuria, increased frequency, urgency, Musculoskeletal: No myalgias, positive for weakness, bilateral charcot feet, left foot with swelling and tenderness, right foot post right second toe amputation and 3rd toe amputation with a sore at the bottom of the right second toe amputation and increased redness and swelling Integumentary: right third toe amputation, right second toe amputation with sore to the bottom of the amputation site with increased swelling and with increased erythema and tenderness No rash or pruritus. positive for unusual bruising. No change in hair or nails. Neurologic: No aphasia. No facial droop. No change in mentation. No head injury. No headache. No paralysis. No paresthesia. Psychiatric: positive for depression. No anxiety. No mood swings. Endocrine: positive for abnormal blood sugars. positive for weight change. PHYSICAL EXAMINATION: General: 42 year male sitting up in chair does appear to be in distress HEENT: Head is atraumatic, normocephalic, pupils were equal round reactive to light and recommendation, extraocular muscle movement were intact, sclera nonicteric, conjunctivae were pale, mucous membranes of the mouth are somewhat dry. Neck: Supple, no JVP, normal carotid upstroke bilaterally, no lymphadenopathy. Chest: Decreased breath sounds at the bases, few rhonchi, no expiratory wheezes or intercostal retractions Heart: First heart sound is normal, second heart sound is normal, tachycardic, there is no gallop or murmur. Abdomen: Soft, nontender, nondistended, positive bowel sounds, obese. Extremities: There is +1 edema no calf tenderness DP +2 bilaterally, positive for neuropathy and charcot feet , right third toe amputation, right second toe amputation with wound at the bottom of the second toe amputation with significant erythema and tenderness. Left foot with Charcot foot and minimally dehisced sized wound at the dorsal aspect of the foot. Neurologic examination: Patient is awake alert and oriented X 3, cranial nerves II-12 appear grossly intact, muscle power were 5 out of 5 in upper extremities and 4/5 in right lower extremity ASSESSMENT AND PLAN: 1. Infected right second toe amputation site with cellulitis with Proteus Mirabilis and bacteremia with MRSA. Continue patient on vancomycin with pharmacy to dose his peak and trough, continue Unasyn as well, follow-up with the patient very closely infectious disease consultation appreciated, PICC line is in. 2. Status post amputation of the right second toe with a sore at the bottom of the amputation site with increased erythema and tenderness. Continue treatment as in previous paragraph. No need for immediate surgical intervention at this time. 3. Diabetes Mellitustype 2 non controlled. we will continue with Levemir 80 units SC at bedtime along with SSI , has been off GLP_1 RA ( Mounjaro) , we will continue with Metformin 1000 mg po bid and we will continue with BGM AC HS. add NovoLog 8 units before each meal plus the scale. 4. Diabetic Polyneuropathy with charcot feet. we will continue with Gabapentin 600 mg po bid 5. Hyperlipidemnia. we will continue with Atorvastatin 80 mg po daily, keep LDL- c 55-70. 6. Hypertension and hypertensive cardiovascular disease. Start the patient on metoprolol 25 mg orally twice every day. 7. Obesity with SHERI and OHS. we will continue with weight loss, never made it for a sleep study. 8. DVT prophylaxis. we will use Lovenox 40 mg SC daily. 9. GI Prophylaxis. we will continue with famotidine 40 mg at bedtime. 10. Major depressive disorder. Continue patient on duloxetine 20 mg orally once every day. 11. MRSA bacteremia that is sensitive to vancomycin. Will continue with that, patient did have a PICC line placed today, patient is ready to be discharged home if okay with ID. 12. Patient is medically stable for discharge. Objective - Vital Signs Vital signs: Vital Signs Temp 98.6 F 07/17/23 12:16 Pulse 100 07/17/23 12:16 Resp 17 07/17/23 12:16 BP 146/88 07/17/23 12:16 Pulse Ox 92 L 07/17/23 12:16 FiO2 Intake & Output 07/16/23 07/17/23 07/17/23 18:59 06:59 18:59 Intake Total 1200 Balance 1200 Intake: Intake, IV Titration 1200 Amount Ampicillin-Sulbactam 3 gm 100 In Sodium Chloride 0.9% 100 ml @ 200 mls/hr IVPB Q6HR PAL Rx#:[id number] Cefepime 2 gm In Sodium 100 Chloride 0.9% 100 ml @ 25 mls/hr IVPB Q8HR PAL Rx# :[id number] Vancomycin 2,000 mg In 1000 Sodium Chloride 0.9% 500 ml 500 ml @ 167 mls/hr IVPB Q8H PAL Rx#: [id number] Other: Voiding Method Toilet - Labs CBC & Chem 7: 07/17/23 07:15 07/17/23 07:15 Labs: Abnormal Lab Results - Last 24 Hours (Table) 07/16/23 07/16/23 07/16/23 Range/Units 09:25 17:08 19:59 Hgb (13.0-17.0) g/dL Hct (39.6-50.0) % MCH (27.0-32.0) pg MCHC (32.0-37.0) g/dL RDW (11.5-14.5) % ESR 83 H (0-15) mm/Hr Sodium (137-145) mmol/L Chloride (98-107) mmol/L Carbon Dioxide (22-30) mmol/L Glucose (74-99) mg/dL POC Glucose (mg/dL) 192 H 243 H (70-110) mg/dL AST (17-59) U/L Alkaline Phosphatase (38-126) U/L 07/17/23 07/17/23 07/17/23 Range/Units 07:06 07:15 07:15 Hgb 12.1 L (13.0-17.0) g/dL Hct 39.2 L (39.6-50.0) % MCH 25.4 L (27.0-32.0) pg MCHC 30.9 L (32.0-37.0) g/dL RDW 14.7 H (11.5-14.5) % ESR (0-15) mm/Hr Sodium 135 L (137-145) mmol/L Chloride 95 L (98-107) mmol/L Carbon Dioxide 35 H (22-30) mmol/L Glucose 271 H (74-99) mg/dL POC Glucose (mg/dL) 263 H (70-110) mg/dL AST 16 L (17-59) U/L Alkaline Phosphatase 133 H (38-126) U/L 07/17/23 Range/Units 11:50 Hgb (13.0-17.0) g/dL Hct (39.6-50.0) % MCH (27.0-32.0) pg MCHC (32.0-37.0) g/dL RDW (11.5-14.5) % ESR (0-15) mm/Hr Sodium (137-145) mmol/L Chloride (98-107) mmol/L Carbon Dioxide (22-30) mmol/L Glucose (74-99) mg/dL POC Glucose (mg/dL) 318 H (70-110) mg/dL AST (17-59) U/L Alkaline Phosphatase (38-126) U/L Microbiology - Last 24 Hours (Table) 07/13/23 05:45 Anaerobic Culture - Final Foot - Left Beta Hemolytic Strep Group G 07/16/23 07:19 Blood Culture - Preliminary Blood 07/15/23 12:08 Blood Culture - Preliminary Blood
--- NOTE | 2023-07-17 16:17 | P.DS ---
Providers Date of admission: 07/13/23 08:04 Expected date of discharge: 07/17/23 Attending physician: Siri Holbrook Consults: 07/13/23 08:06 Consult Physician Urgent Consulting Provider: Maine Hua Consult Reason/Comments: Diabetic foot infection, prior toe amputation Do you want consulting provider notified?: Yes 07/13/23 08:11 Consult Physician Urgent Consulting Provider: Zuleyma Armstrong Consult Reason/Comments: Diabetic foot infection Do you want consulting provider notified?: Yes 07/13/23 09:06 Consult Physician Routine Consulting Provider: Abebe Holguin Consult Reason/Comments: Infected right second toe, s/p amputation Do you want consulting provider notified?: Yes Primary care physician: Siri Holbrook [facility] Course: HISTORY OF PRESENT ILLNESS: This is a 42-year-old male with a previous medical history significant for hypertension and hypertensive cardiovascular disease, hyperlipidemia, obesity with obstructive sleep apnea and obesity hypoventilation syndrome,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 Hua back in December 2022, he has been following with Dr. Holguin who performed a right second toe amputation before patient also was treated at [facility] for osteomyelitis of the left foot and he was treated with 28-day course of Zyvox 600 mg orally twice every day for MRSA bacteremia, this was done on the , and the patient had called the pharmacy to see if he can renew his Zyvox the patient developed to have an increased redness of the right second toe amputation with a sore at the bottom of the amputation site, with increased erythema and swelling in the right foot, patient ended up coming to the emergency department at [facility] today for increased pain and swelling and low-grade temperature his temperature was at 1101.2, patient did have a blood cultures drawn as well as culture from the sore from the bottom of the second toe amputation and he was started on cefepime and vancomycin, and infectious disease consultation was obtained from Dr. Armstrong, patient also was admitted to the hospital for evaluation and treatment, he was seen in consultation by vascular surgery it was recommended for the patient to follow-up with Dr. Holguin and vascular surgery to stay on standby for now. Patient will be started on IV antibiotic as stated earlier, and he will likely require to have a PICC line if the blood cultures are negative for IV antibiotic the duration of it will be decided by the infectious disease Dr. Armstrong. 07/13: Patient is laying down in bed in no apparent distress, he is feeling a lot better today than he was yesterday, he denies any chest pain, or shortness of breath, he continues to have some erythema around his right second toe amputation site not as bad as yesterday, he did not have any fever or chills at this time, his blood cultures 1 out of 2 grew Staphylococcus aureus likely methicillin-resistant Staphylococcus aureus the final result is not in yet, continue vancomycin, continue cefepime for now, infectious diseases following, patient will likely need to go for an PICC line eventually for IV antibiotic 07/14: Patient is laying down in bed in no apparent distress, he is feeling a lot better today, he denies any fever or chills, he is eating and tolerating diet very well, his blood glucose level is appropriate, continue current treatment plan, patient has been on cefepime and vancomycin, has been followed by infectious disease, most likely will need to have a PICC line when the blood cultures are back negative he does appear to have MRSA in his blood we will continue aggressive IV antibiotic treatment patient did finish 28-day course of Zyvox as an outpatient that did not help as much. 07/15: Patient sitting up in the chair no apparent distress, he has no fever or chills at this time, yesterday they did not give him his low Levemir only 40 units at bedtime, his sugar was quite elevated in the morning, we will make sure the patient will receive the same dose of Levemir tonight 8 units at bedtime, as scheduled without adjustment, patient has no fever or chills, his appetite is good, awaiting the final results of the blood culture for the patient to go for PICC line, continue IV antibiotic for now. 07/16: Patient did have his PICC line placed today, he denies any fever or chills, he has no chest pain shortness breath, he has no abdominal pain, nausea vomiting or diarrhea, his antibiotic were adjusted to vancomycin to cover MRSA in the blood, Unasyn to cover Proteus Mirabella's, await final decision by infectious disease for the IV antibiotic patient is possibly ready to get discharged out of the hospital if not today maybe tomorrow morning. Discharge diagnoses: 1. Infected right second toe amputation site with cellulitis with Proteus Mirabilis and bacteremia with MRSA. 2. Status post amputation of the right second toe 3. Diabetes Mellitustype 2 non controlled. 4. Diabetic Polyneuropathy with charcot feet. 5. Hyperlipidemnia. 6. Hypertension and hypertensive cardiovascular disease. 7. Obesity with SHERI and OHS. we will continue with weight loss, never made it for a sleep study. 8. Major depressive disorder. Continue patient on duloxetine 20 mg orally once every day. 9. MRSA bacteremia that is sensitive to vancomycin. Patient Condition at Discharge: Fair Plan - Discharge Summary Discharge Rx Participant: No New Discharge Prescriptions: New metroNIDAZOLE [Flagyl] 500 mg PO TID #90 tab Discontinued Linezolid [Zyvox] 600 mg PO BID No Action Insulin Lispro [humaLOG Kwikpen] See Protocol SQ AC-TID metFORMIN HCL ER [Glucophage XR] 1,000 mg PO HS Omeprazole 40 mg PO DAILY Insulin Glargine-Yfgn [Semglee (Yfgn) Pen] 80 unit SQ HS Atorvastatin [Lipitor] 80 mg PO HS Ascorbic Acid [Vitamin C] 1,000 mg PO DAILY Gabapentin 600 mg PO BID Loratadine 20 mg PO DAILY DULoxetine HCL [Cymbalta] 20 mg PO HS Ibuprofen [Motrin Ib] 800 mg PO Q4H PRN PRN Reason: Fever And/ Or Pain Acetaminophen [Tylenol Extra Strength] 1,000 mg PO Q4H PRN PRN Reason: Fever And/ Or Pain Tirzepatide [Mounjaro] 2.5 mg SQ WE Discharge Medication List Ascorbic Acid [Vitamin C] 1,000 mg PO DAILY 01/06/23 [History] Atorvastatin [Lipitor] 80 mg PO HS 01/06/23 [History] Gabapentin 600 mg PO BID 01/06/23 [History] Insulin Lispro [humaLOG Kwikpen] See Protocol SQ AC-TID 01/06/23 [History] Loratadine 20 mg PO DAILY 01/06/23 [History] Omeprazole 40 mg PO DAILY 01/06/23 [History] metFORMIN HCL ER [Glucophage XR] 1,000 mg PO HS 01/06/23 [History] Acetaminophen [Tylenol Extra Strength] 1,000 mg PO Q4H PRN 05/31/23 [History] DULoxetine HCL [Cymbalta] 20 mg PO HS 05/31/23 [History] Ibuprofen [Motrin Ib] 800 mg PO Q4H PRN 05/31/23 [History] Insulin Glargine-Yfgn [Semglee (Yfgn) Pen] 80 unit SQ HS 05/31/23 [History] Tirzepatide [Mounjaro] 2.5 mg SQ WE 07/01/23 [History] metroNIDAZOLE [Flagyl] 500 mg PO TID #90 tab 07/17/23 [Rx] Follow up Appointment(s)/Referral(s): Siri Holbrook MD [Primary Care Provider] - 1-2 days (Please call the office to schedule a follow up appointment) Abebe Holguin DPM [STAFF PHYSICIAN] - 1 Week (Dr. Holguin wants to see wound center) Maine Hua DO [STAFF PHYSICIAN] - As Needed [facility], [NON-STAFF] - 07/18/23 9:00 am [facility], [REFERRING] - 07/17/23 6:00 pm (DELIVER OF MEDICATION/SUPPLIES BETWEEN 6PM AND 8PM) Zuleyma Armstrong MD [STAFF PHYSICIAN] - 2 Weeks (Please call the office to schedule a follow up appointment)
[2023-07-17] MEDS ORDERED: VANCOMYCIN 2,000 MG in SODIUM CHLORIDE 0.9% 500 ML 500 ML IVPB SCH (20:00)
--- NOTE | 2023-07-17 20:52 | P.PN ---
Subjective Progress Note Date: 07/17/23 Principal diagnosis: Reason for follow-up with diabetic foot infection and bacteremia Patient is a 42-year-old male with a past medical history significant for diabetes mellitus patient did have a history of diabetic foot infection to the right second toe partial amputation site and recent admission to the hospital with MRSA bacteremia there was concern for possible left foot Charcot joint and possible osteomyelitis for the patient was transferred to [facility] with the patient did have I&D done and recently completed course of oral Zyvox presenting back to the hospital with fever rigors and chills and concern for right second toe infection as well as left Charcot/osteomyelitis. On today's evaluation that is 07/17/2023, the patient continues to be afebrile, the patient is on room air and breathing comfortably, the Pt denies having any chest pain or cough, the patient denies having any abdominal pain no vomiting or any diarrhea, patient mention improvement in pain to the left ankle as well as right second toe area and no drainage patient did get his PICC line. Patient white count is 8.34, creatinine 0.6 Blood culture repeat has been negative Objective - Vital Signs Vital signs: Vital Signs Temp 98.5 F 07/17/23 08:03 Pulse 65 07/17/23 08:03 Resp 16 07/17/23 08:03 BP 125/75 07/17/23 08:03 Pulse Ox 93 L 07/17/23 08:03 FiO2 Intake & Output 07/16/23 07/17/23 07/17/23 18:59 06:59 18:59 Intake Total 1200 Balance 1200 Intake: Intake, IV Titration 1200 Amount Ampicillin-Sulbactam 3 gm 100 In Sodium Chloride 0.9% 100 ml @ 200 mls/hr IVPB Q6HR PAL Rx#:[id number] Cefepime 2 gm In Sodium 100 Chloride 0.9% 100 ml @ 25 mls/hr IVPB Q8HR PLA Rx# :[id number] Vancomycin 2,000 mg In 1000 Sodium Chloride 0.9% 500 ml 500 ml @ 167 mls/hr IVPB Q8H PAL Rx#: [id number] Other: Voiding Method Toilet - Exam GENERAL DESCRIPTION: Middle-age male up in the chair in no distress RESPIRATORY SYSTEM: Unlabored breathing , clear auscultation anteriorly HEART: S1 S2 regular rate and rhythm , ABDOMEN: Soft , no tenderness EXTREMITIES: Left foot and ankle Swelling slightly decreased wound with no drainage right foot is currently dressed - Labs CBC & Chem 7: 07/17/23 07:15 07/17/23 07:15 Labs: Abnormal Lab Results - Last 24 Hours (Table) 07/16/23 07/16/23 07/16/23 Range/Units 09:25 17:08 19:59 Hgb (13.0-17.0) g/dL Hct (39.6-50.0) % MCH (27.0-32.0) pg MCHC (32.0-37.0) g/dL RDW (11.5-14.5) % ESR 83 H (0-15) mm/Hr Sodium (137-145) mmol/L Chloride (98-107) mmol/L Carbon Dioxide (22-30) mmol/L Glucose (74-99) mg/dL POC Glucose (mg/dL) 192 H 243 H (70-110) mg/dL AST (17-59) U/L Alkaline Phosphatase (38-126) U/L 07/17/23 07/17/23 07/17/23 Range/Units 07:06 07:15 07:15 Hgb 12.1 L (13.0-17.0) g/dL Hct 39.2 L (39.6-50.0) % MCH 25.4 L (27.0-32.0) pg MCHC 30.9 L (32.0-37.0) g/dL RDW 14.7 H (11.5-14.5) % ESR (0-15) mm/Hr Sodium 135 L (137-145) mmol/L Chloride 95 L (98-107) mmol/L Carbon Dioxide 35 H (22-30) mmol/L Glucose 271 H (74-99) mg/dL POC Glucose (mg/dL) 263 H (70-110) mg/dL AST 16 L (17-59) U/L Alkaline Phosphatase 133 H (38-126) U/L 07/17/23 Range/Units 11:50 Hgb (13.0-17.0) g/dL Hct (39.6-50.0) % MCH (27.0-32.0) pg MCHC (32.0-37.0) g/dL RDW (11.5-14.5) % ESR (0-15) mm/Hr Sodium (137-145) mmol/L Chloride (98-107) mmol/L Carbon Dioxide (22-30) mmol/L Glucose (74-99) mg/dL POC Glucose (mg/dL) 318 H (70-110) mg/dL AST (17-59) U/L Alkaline Phosphatase (38-126) U/L Microbiology - Last 24 Hours (Table) 07/16/23 07:19 Blood Culture - Preliminary Blood 07/15/23 12:08 Blood Culture - Preliminary Blood Assessment and Plan (1) Diabetic infection of right foot Status: Acute Code(s): E11.628 - TYPE 2 DIABETES MELLITUS WITH OTHER SKIN COMPLICATIONS; L08.9 - LOCAL INFECTION OF THE SKIN AND SUBCUTANEOUS TISSUE, UNSP SNOMED Code(s): 31902947 (2) Leukocytosis Status: Acute Code(s): D72.829 - ELEVATED WHITE BLOOD CELL COUNT, UNSPECIFIED SNOMED Code(s): 464748499 (3) MRSA bacteremia Status: Acute Code(s): R78.81 - BACTEREMIA; B95.62 - METHICILLIN RESIS STAPH INFCT CAUSING DISEASES CLASSD ELSR SNOMED Code(s): 26681217646952309 (4) Osteomyelitis Status: Acute Code(s): M86.9 - OSTEOMYELITIS, UNSPECIFIED SNOMED Code(s): 13499977 (5) Type 2 diabetes mellitus with foot ulcer Status: Acute Code(s): E11.621 - TYPE 2 DIABETES MELLITUS WITH FOOT ULCER; L97.509 - NON-PRESSURE CHRONIC ULCER OTH PRT UNSP FOOT W UNSP SEVERITY SNOMED Code(s): 599392668 Plan: 1patient presented hospital with sepsis in this patient who did have a fever tachycardia source likely right second toe diabetic foot infection with significant swelling redness of the right second toe patient also having pain to the left foot and ankle area with evidence of underlying Charcot deformity a possible component of osteomyelitis but not excluded and there may be evidence of bony sequestrum which may be acting as a foreign body and because of this relapse of infection after stopping antibiotic this was explained to the patient and the in layman terms 2-blood culture currently growing MRSA, blood culture repeat has been negative patient did have a PICC line this morning 3-local culture growing Proteus that is a sensitive pathogen 3-plan is for vancomycin pharmacy to dose target trough 15 Rocephin 2 g daily along with oral Flagyl 500 mg 3 times a day for 6 weeks and the patient will follow-up with his orthopedic foot and ankle surgeon in the outpatient setting for further workup for the left foot and ankle area multiple question concern answered prescription provided to the wrapper caser and sent to the pharmacy will need weekly CRP sed rate and close outpatient follow-up Dictation was produced using [employer] software. please excuse any grammatical, word or spelling errors. Time with Patient: Less than 30
[2023-07-18] MEDS ORDERED: VANCOMYCIN TROUGH DUE 1 EACH MISC MISCELLANE ONE (11:00)
--- NOTE | 2023-07-19 10:57 | IR ---
EXAMINATION TYPE: IR cvc insert >=5 years Intraoperative/procedural fluoroscopic services were provid ed. CLINICAL INDICATION:Male, 42 years old with history of ANTIBIOTICS; , [facility] Total fluoroscopy time is 2.8 min. DAP: 2.12 Gycm2 uGym2 Please see the operative/procedural note for further details.
== END 2023-07-17 17:40 | disposition home health service (06) | DRG 862 ==
LOC: EC 04:58 → 5NMEDONC 08:03 → OBSVTOIN 08:04 → 5NMEDONC 15:29
PROVIDERS: ADMIT Internal Medicine; ATTEND Internal Medicine
PROC: B5181ZA Fluoroscopy of Superior Vena Cava using Low Osmolar Contrast, Guidance (ICD-10-PCS; 2023-07-17)
PROC: B548ZZA Ultrasonography of Superior Vena Cava, Guidance (ICD-10-PCS; 2023-07-17)
PROC: 02HV33Z Insertion of Infusion Device into Superior Vena Cava, Percutaneous Approach (ICD-10-PCS; principal; 2023-07-17 19:10)
DX: T81.40XA Infection following a procedure, unspecified, initial encounter (principal); A41.9 Sepsis, unspecified organism; E66.2 Morbid (severe) obesity with alveolar hypoventilation; L03.115 Cellulitis of right lower limb; M86.8X7 Other osteomyelitis, ankle and foot; Z68.41 Body mass index [BMI] 40.0-44.9, adult; E11.42 Type 2 diabetes mellitus with diabetic polyneuropathy; E11.621 Type 2 diabetes mellitus with foot ulcer; E11.69 Type 2 diabetes mellitus with other specified complication; E11.622 Type 2 diabetes mellitus with other skin ulcer; E78.5 Hyperlipidemia, unspecified; M14.671 Charcot's joint, right ankle and foot; M14.672 Charcot's joint, left ankle and foot; B96.4 Proteus (mirabilis) (morganii) as the cause of diseases classified elsewhere; B95.62 Methicillin resistant Staphylococcus aureus infection as the cause of diseases classified elsewhere; F32.9 Major depressive disorder, single episode, unspecified; L03.031 Cellulitis of right toe; Z79.4 Long term (current) use of insulin; Z79.84 Long term (current) use of oral hypoglycemic drugs; Z86.14 Personal history of Methicillin resistant Staphylococcus aureus infection; Z89.421 Acquired absence of other right toe(s); Z79.2 Long term (current) use of antibiotics; Z79.899 Other long term (current) drug therapy
CPT/HCPCS: 36415; 36573; 80053; 80202; 82565; 83605; 85025; 85652; 86140; 87040; 87070; 87075; 87077; 87186; 87205; 96361; 96365; 96366; 96367; 96368; 96375; 99285

== ENCOUNTER → 2023-07-24 | Outpatient (CLI) | payer MEDICAID ==
--- NOTE | 2023-07-24 12:35 | XR ---
EXAMINATION TYPE: XR foot complete RT DATE OF EXAM: 07/24/2023 COMPARISON: 07/13/2023 HISTORY: Soft tissue ulcer TECHNIQUE: Three views are submitted. FINDINGS: There is a periosteal reaction and fragmentation proximal phalanx second digit. Knee without fracture or fragmentation of the distal margin of the proximal phalanx is new from prior exam. Could be postt raumatic or osteomyelitis. Postsurgical changes involving the second and third digits are stable. Erosive and fragmentation and arthritic changes involving the tarsal bones are stable correlate for C harcot joint. Stable erosive changes at the cuboid navicular joint. Underlying chronic osteomyelitis also differential diagnosis. Large calcaneal spurs are seen and there is a bony density along the navdeep sum of the foot on the lateral view which appears chronic. Diffuse soft tissue edema. No definite pascale tructive change of the third digit. IMPRESSION: 1. There is a new fracture or fragmentation proximal phalanx second digit could be in the basis of fr acture or osteomyelitis. 2. No new destructive changes involving the remaining portion of the third digit. 3. Soft tissue edema most marked around the second and third digits correlate for cellulitis. 4. No erosive change, sclerosis and chronic bony changes of the tarsal bones correlate for Charcot yoshi int.
== END | disposition home or self-care (01) ==
LOC: RADXRMAIN 11:42
PROVIDERS: ATTEND Podiatrist
DX: L97.514 Non-pressure chronic ulcer of other part of right foot with necrosis of bone (principal); R60.0 Localized edema; E11.621 Type 2 diabetes mellitus with foot ulcer

== ENCOUNTER 2023-09-22 06:21 | Inpatient (IN) | payer MEDICAID ==
--- NOTE | 2023-09-22 07:03 | ED ---
General Adult HPI - General Chief complaint: Extremity Problem,Nontraumatic Stated complaint: foot infection Time Seen by Provider: 09/22/23 06:40 Source: patient, RN notes reviewed Mode of arrival: wheelchair Limitations: no limitations - History of Present Illness Initial comments: 43-year-old male presents emergency department chief complaint of bodyaches, left foot pain, vomiting. 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 He does go to hyperbaric treatment. Patient states that he has noticed increasing pain, swelling to the left foot again. Patient has been on and off antibiotics in which she did have a PICC line, states that shortly after stopping antibiotics he has a recurrent infection. He states his blood sugars have been very labile. - Related Data Home Medications Medication Instructions Recorded Confirmed Atorvastatin [Lipitor] 80 mg PO HS 01/06/23 09/22/23 Insulin Lispro [humaLOG Kwikpen] See Protocol SQ AC-TID 01/06/23 09/22/23 Loratadine 20 mg PO DAILY 01/06/23 09/22/23 Omeprazole 40 mg PO DAILY 01/06/23 09/22/23 metFORMIN HCL ER [Glucophage XR] 1,000 mg PO W/SUPPER 01/06/23 09/22/23 Ibuprofen [Motrin Ib] 800 mg PO Q4H PRN 05/31/23 09/22/23 DULoxetine HCL [Cymbalta] 30 mg PO HS 09/22/23 09/22/23 Gabapentin [Neurontin] 800 mg PO BID 09/22/23 09/22/23 Insulin Glargine,Hum.rec.anlog 70 units SQ HS 09/22/23 09/22/23 [Lantus Solostar Pen] Allergies Allergy/AdvReac Type Severity Reaction Status Date / Time No Known Allergies Allergy Verified 09/22/23 08:40 Review of Systems ROS Statement: Those systems with pertinent positive or pertinent negative responses have been documented in the HPI. ROS Other: All systems not noted in ROS Statement are negative. Past Medical History Past Medical History: Diabetes Mellitus Additional Past Medical History / Comment(s): neuropathy History of Any Multi-Drug Resistant Organisms: MRSA Date of last positivie culture/infection: 07/13/23 MDRO Source:: Blood Past Surgical History: Orthopedic Surgery Additional Past Surgical History / Comment(s): 2nd and 3rd partial digit removed to right foot, Past Anesthesia/Blood Transfusion Reactions: No Reported Reaction Past Psychological History: No Psychological Hx Reported Smoking Status: Never smoker Past Alcohol Use History: None Reported Past Drug Use History: None Reported General Exam Limitations: no limitations General appearance: alert, in no apparent distress Head exam: Present: atraumatic, normocephalic, normal inspection Neck exam: Present: normal inspection, full ROM. Absent: tenderness, meningismus, lymphadenopathy Respiratory exam: Present: normal lung sounds bilaterally. Absent: respiratory distress, wheezes, rales, rhonchi, stridor Cardiovascular Exam: Present: normal rhythm, tachycardia, normal heart sounds. Absent: systolic murmur, diastolic murmur, rubs, gallop, clicks GI/Abdominal exam: Present: soft, normal bowel sounds. Absent: distended, te nderness, guarding, rebound, rigid Extremities exam: Present: other (Old surgical scar noted on the left foot pulses are palpable there is diffuse swelling and erythema noted on the mid to lateral portion) Back exam: Present: full ROM, tenderness Neurological exam: Present: alert, oriented X3 Skin exam: Present: warm, dry, intact, normal color. Absent: rash Course Vital Signs 09/22/23 09/22/23 06:24 08:27 Temperature 99.3 F Pulse Rate 115 H 91 Respiratory 20 20 Rate Blood Pressure 98/57 120/65 O2 Sat by Pulse 95 93 L Oximetry Medical Decision Making - Medical Decision Making Was pt. sent in by a medical professional or institution (, PA, [employer], urgent care, hospital, or correction...) When possible be specific @ -No Did you speak to anyone other than the patient for history (EMS, parent, family, police, friend...)? What history was obtained from this source @ -No Did you review nursing and triage notes (agree or disagree)? Why? @ -I reviewed and agree with nursing and triage notes Were old charts reviewed (outside hosp., previous admission, EMS record, old EKG, old radiological studies, urgent care reports/EKG's, correction records)? Report findings @ -No old charts were reviewed Differential Diagnosis (chest pain, altered mental status, abdominal pain women, abdominal pain men, vaginal bleeding, weakness, fever, dyspnea, syncope, headache, dizziness, GI bleed, back pain, seizure, CVA, palpatations, mental health, musculoskeletal)? @ -Osteomyelitis, septic arthritis, viral infection, sepsis, gastroenteritis, EKG interpreted by me (3pts min.). @ -None X-rays interpreted by me (1pt min.). @ -X-ray left foot showing destructive erosion osseous abnormality noted CT interpreted by me (1pt min.). @ -None done U/S interpreted by me (1pt. min.). @ -None done What testing was considered but not performed or refused? (CT, X-rays, U/S, labs)? Why? @ -None What meds were considered but not given or refused? Why? @ -None Did you discuss the management of the patient with other professionals (professionals i.e. , PA, [employer], lab, RT, psych nurse, professor of social work, senior ui designer, teacher, community services officer, onsite case manager)? Give summary @ -Dr. Holbrook for admission recommends psych consult with IV antibiotics Was smoking cessation discussed for >3mins.? @ -No Was critical care preformed (if so, how long)? @ -No Were there social determinants of health that impacted care today? How? (Homelessness, low income, unemployed, alcoholism, drug addiction, transporta tion, low edu. Level, literacy, decrease access to med. care, usp, rehab)? @ -No Was there de-escalation of care discussed even if they declined (Discuss DNR or withdrawal of care, Hospice)? DNR status @ -No What co-morbidities impacted this encounter? (DM, HTN, Smoking, COPD, CAD, Cancer, CVA, ARF, Chemo, Hep., AIDS, mental health diagnosis, sleep apnea, morbid obesity)? @ -Diabetes Was patient admitted / discharged? Hospital course, mention meds given and route, prescriptions, significant lab abnormalities, going to OR and other pertinent info. @ -Admitted patient was found to have progression on x-ray of osteomyelitis, septic arthritis. I discussed case with PCP who recommended cefepime, vancomycin I did consult Dr. Armstrong. Patient was brought analgesics. Patient moderate leukocytosis. He has no open lesions or sores at this time. Undiagnosed new problem with uncertain prognosis? @ -No Drug Therapy requiring intensive monitoring for toxicity (Heparin, Nitro, Insulin, Cardizem)? @ -No Were any procedures done? @ -No Diagnosis/symptom? @ -Left foot cellulitis, osteomyelitis Acute, or Chronic, or Acute on Chronic? @ -Acute Uncomplicated (without systemic symptoms) or Complicated (systemic symptoms)? @ -Complicated Side effects of treatment? @ -No Exacerbation, Progression, or Severe Exacerbation? @ -No Poses a threat to life or bodily function? How? (Chest pain, USA, NM, pneumonia, PE, COPD, DKA, ARF, appy, cholecystitis, CVA, Diverticulitis, Homicidal, Suicidal, threat to staff... and all critical care pts) @ -Yes 6, osteomyelitis possible sepsis, surgical risk - Lab Data Result diagrams: 09/22/23 06:36 09/22/23 06:36 Lab Results 09/22/23 09/22/23 09/22/23 Range/Units 06:36 06:36 06:36 WBC 13.8 H (3.8-10.6) k/uL RBC 5.56 (4.30-5.90) m/uL Hgb 14.1 (13.0-17.5) gm/dL Hct 45.6 (39.0-53.0) % MCV 82.2 (80.0-100.0) fL MCH 25.4 (25.0-35.0) pg MCHC 31.0 (31.0-37.0) g/dL RDW 14.5 (11.5-15.5) % Plt Count 323 (150-450) k/uL MPV 7.7 Neutrophils % 82 % Lymphocytes % 9 % Monocytes % 8 % Eosinophils % 0 % Basophils % 0 % Neutrophils # 11.3 H (1.3-7.7) k/uL Lymphocytes # 1.3 (1.0-4.8) k/uL Monocytes # 1.1 H (0-1.0) k/uL Eosinophils # 0.0 (0-0.7) k/uL Basophils # 0.0 (0-0.2) k/uL Sodium 134 L (137-145) mmol/L Potassium 4.3 (3.5-5.1) mmol/L Chloride 100 (98-107) mmol/L Carbon Dioxide 27 (22-30) mmol/L Anion Gap 7 mmol/L BUN 19 (9-20) mg/dL Creatinine 0.62 L (0.66-1.25) mg/dL Est GFR (CKD-EPI)AfAm >90 (>60 ml/min/1.73 sqM) Est GFR (CKD-EPI)NonAf >90 (>60 ml/min/1.73 sqM) Glucose 169 H (74-99) mg/dL Plasma Lactic Acid Jesus 1.2 (0.7-2.0) mmol/L Calcium 9.1 (8.4-10.2) mg/dL Total Bilirubin 0.7 (0.2-1.3) mg/dL AST 41 (17-59) U/L ALT 64 H (4-49) U/L Alkaline Phosphatase 88 (38-126) U/L C-Reactive Protein 7.9 H (<1.0) mg/dL Total Protein 6.1 L (6.3-8.2) g/dL Albumin 3.6 (3.5-5.0) g/dL Acetone, Qual Negative (Negative) Influenza Type A (PCR) (Not Detectd) Influenza Type B (PCR) (Not Detectd) RSV (PCR) (Not Detectd) SARS-CoV-2 (PCR) (Not Detectd) 09/22/23 Range/Units 07:15 WBC (3.8-10.6) k/uL RBC (4.30-5.90) m/uL Hgb (13.0-17.5) gm/dL Hct (39.0-53.0) % MCV (80.0-100.0) fL MCH (25.0-35.0) pg MCHC (31.0-37.0) g/dL RDW (11.5-15.5) % Plt Count (150-450) k/uL MPV Neutrophils % % Lymphocytes % % Monocytes % % Eosinophils % % Basophils % % Neutrophils # (1.3-7.7) k/uL Lymphocytes # (1.0-4.8) k/uL Monocytes # (0-1.0) k/uL Eosinophils # (0-0.7) k/uL Basophils # (0-0.2) k/uL Sodium (137-145) mmol/L Potassium (3.5-5.1) mmol/L Chloride (98-107) mmol/L Carbon Dioxide (22-30) mmol/L Anion Gap mmol/L BUN (9-20) mg/dL Creatinine (0.66-1.25) mg/dL Est GFR (CKD-EPI)AfAm (>60 ml/min/1.73 sqM) Est GFR (CKD-EPI)NonAf (>60 ml/min/1.73 sqM) Glucose (74-99) mg/dL Plasma Lactic Acid Jesus (0.7-2.0) mmol/L Calcium (8.4-10.2) mg/dL Total Bilirubin (0.2-1.3) mg/dL AST (17-59) U/L ALT (4-49) U/L Alkaline Phosphatase (38-126) U/L C-Reactive Protein (<1.0) mg/dL Total Protein (6.3-8.2) g/dL Albumin (3.5-5.0) g/dL Acetone, Qual (Negative) Influenza Type A (PCR) Not Detected (Not Detectd) Influenza Type B (PCR) Not Detected (Not Detectd) RSV (PCR) Not Detected (Not Detectd) SARS-CoV-2 (PCR) Not Detected (Not Detectd) Disposition Clinical Impression: Osteomyelitis, Leukocytosis, Cellulitis of left foot Disposition: ADMITTED IP TO THIS HOSP Condition: Fair Referrals: Siri Holbrook MD [Primary Care Provider] - 1-2 days Time of Disposition: 08:31
[2023-09-22 07:08] LABS: Basophils % (A) 0 %; Eosinophils % (A) 0 %; HCT 45.6 % (39.0-53.0); HGB 14.1 gm/dL (13.0-17.5); Lymphocytes # (A) 1.3 k/uL (1.0-4.8); Lymphocytes % (A) 9 %; MCH 25.4 pg (25.0-35.0); MCV 82.2 fL (80.0-100.0); Mean Platelet Volume 7.7; Monocytes # (A) 1.1 k/uL (0-1.0); Monocytes % (A) 8 %; Neutrophils # (A) 11.3 k/uL (1.3-7.7); Neutrophils % (A) 82 %; Platelet Count 323 k/uL (150-450); RBC 5.56 m/uL (4.30-5.90); RDW 14.5 % (11.5-15.5); WBC 13.8 k/uL (3.8-10.6)
[2023-09-22] MEDS: HYDROmorphone 1 MG/ML 1 ML SYRINGE IVP STA (07:08)
[2023-09-22] MEDS: ONDANSETRON 4 MG/2 ML VIAL IVP STA (07:08)
[2023-09-22] MEDS: SODIUM CHLORIDE 0.9% 1,000 ML IV ONE (07:09)
[2023-09-22] MEDS: SODIUM CHLORIDE 0.9% 500 ML 500 ML IV ONE (07:09)
[2023-09-22 07:16] LABS: ALT 64 U/L (4-49); African American GFR (CKD) >90 (>60 ml/min/1.73 sqM); Albumin 3.6 g/dL (3.5-5.0); Alkaline Phosphatase 88 U/L (38-126); Anion Gap 7 mmol/L; Blood Urea Nitrogen 19 mg/dL (9-20); C Reactive Protein 7.9 mg/dL (<1.0); Calcium 9.1 mg/dL (8.4-10.2); Carbon Dioxide 27 mmol/L (22-30); Chloride 100 mmol/L (98-107); Glucose 169 mg/dL (74-99); Non-African American GFR(CKD) >90 (>60 ml/min/1.73 sqM); Potassium 4.3 mmol/L (3.5-5.1); Sodium 134 mmol/L (137-145); Total Bilirubin 0.7 mg/dL (0.2-1.3); Total Protein 6.1 g/dL (6.3-8.2)
--- NOTE | 2023-09-22 07:20 | XR ---
EXAMINATION TYPE: XR foot complete 3 views LT DATE OF EXAM: 09/22/2023 Comparison: 09/03/2023 Clinical History: 43-year-old male pain, prior infection Findings: Marked soft tissue swelling. There is end-stage degenerative changes throughout the midfoot articulat ions. As compared to 09/03/2023, there is been progressive bony destruction along the calcaneal cuboid al joint and patellofemoral cuneiform articulation with diminishing mineralization and slightly great er degree of fragmentation on both AP and oblique views. The lateral view with superior midfoot sublu xation appears similar. Impression: Progressive osseous erosion and mid foot destruction suggested on both the AP and oblique views. Give n the short interval change, correlate for septic arthritis.
[2023-09-22 07:29] LABS: AST 41 U/L (17-59)
[2023-09-22] MEDS ORDERED: NALOXONE 0.4 MG/ML 1 ML VIAL IV PRN (08:28)
[2023-09-22] MEDS ORDERED: VANCOMYCIN IV PER PHARMACY 1 EACH MISC MISCELLANE PRN (08:30)
[2023-09-22] MEDS: SODIUM CHLORIDE 0.9% 1,000 ML IV SCH (08:49)
[2023-09-22] MEDS: CEFEPIME 2 GM in SODIUM CHLORIDE 0.9% 100 ML IVPB SCH (08:49)
[2023-09-22] MEDS: VANCOMYCIN 2,000 MG in SODIUM CHLORIDE 0.9% 500 ML 500 ML IVPB STA (09:23)
[2023-09-22] MEDS: HYDROmorphone 1 MG/ML 1 ML SYRINGE IVP PRN (11:22)
[2023-09-22 16:59] LABS: Glucose,Whole Blood 160 mg/dL (70-110)
[2023-09-22] MEDS: VANCOMYCIN 2,000 MG in SODIUM CHLORIDE 0.9% 500 ML 500 ML IVPB SCH (17:04)
[2023-09-22] MEDS: INSULIN ASPART (NovoLOG) 100 UNIT/ML VIAL SQ SCH (17:09)
[2023-09-22] MEDS: metFORMIN 500 MG TAB PO SCH (17:15)
[2023-09-22 17:44] LABS: Appearance,Urine Clear (Clear); Bilirubin,Urine Negative (Negative); Blood,Urine Negative (Negative); Color,Urine Yellow; Glucose,Urine (UA) 3+ (Negative); Ketones,Urine Trace (Negative); Leukocyte Esterase,Urine Negative (Negative); Nitrite,Urine Negative (Negative); Protein,Urine Trace (Negative); Specific Gravity,Urine 1.024 (1.001-1.035); Urobilinogen,Urine <2.0 mg/dL (<2.0)
--- NOTE | 2023-09-22 19:59 | P.HPIM ---
History of Present Illness H&P Date: 09/22/23 Chief Complaint: Left foot celllulitis/Osteomyelitis HISTORY OF PRESENT ILLNESS: This is a 43-year-old male with a previous medical history significant for hypertension and hypertensive cardiovascular disease, hyperlipidemia, obesity with obstructive sleep apnea and obesity hypoventilation syndrome,diabetes mellitus type 2 with daibetic polyneuropathy, has been doing better with diabtes care as a matter of fact his HBA1C is down and patient has lost quite a bit of weight since the addition of Mounjaro to his medical regimen that he was out [place] for the past [place] due to insurance issues, patient has had diabetic foot ulcer with charcot feet, he underwent right third toe amputation by vascular surgery Dr. Hua back in December 2022, he has been following with Dr. Holguin who performed a right second toe amputation before patient also was treated at [facility] for osteomyelitis of the left foot and he was treated with 28-day course of Zyvox 600 mg orally twice every day for MRSA bacteremia, since then the patient was hospitalized at [facility] for a similar MRSA bacteremia and he was treated with IV antibiotic in the form of vancomycin for 6 weeks through a PICC line in the left upper extremity that was discontinued not long ago, apparently the patient was going to the bathroom and he felt a popping sensation in the left foot, and he was not able to bear any pressure on the left foot, he went outside yesterday and try to mow the lawn, and he was his birthday yesterday as matter fact, he went back home and he was started feeling dizzy lightheaded not feeling well, low-grade temperature, so he ended up coming to the emergency department at [facility] today in the morning for further evaluation patient was found to have a significant erythema and edema in the left foot with significant tenderness to the side of the foot, was severe tenderness, x-ray did show evidence of possible osteomyelitis, patient was started on IV antibiotic in the form of cefepime and vancomycin, infectious disease consultation was obtained, blood cultures was obtained as well, patient will be admitted to hospital for further evaluation recommendation. REVIEW OF SYSTEMS: Constitutional: positive for documented fever, no chills, no night sweats. No weight change. positive for weakness, fatigue or lethargy. No daytime sleepiness. HEENT: No headache. No blurred vision or double vision, no loss of vision. No loss of Hearing, no ringing in the ears, no dizziness. No nasal drainage or congestion. No epistaxis. No sore throat. Lungs: no shortness of breath, no cough, or sputum production. No wheezing. Reports no dyspnea with activity. Cardiovascular: no chest pain, positive for lower extremity edema. positive for palpitations. negative for paroxysmal nocturnal dyspnea. negative for orthopnea. No lightheadedness or dizziness. No syncopal episodes. Abdominal: Reports no abdominal pain. No nausea or vomiting. No diarrhea. No constipation. No bloody or tarry stools Genitourinary: No dysuria, increased frequency, urgency, Musculoskeletal: No myalgias, positive for weakness, bilateral charcot feet, left foot with swelling and tenderness, right foot post right second toe amputation and 3rd toe amputation Integumentary: right third toe amputation, right second toe amputation, there is increased edema and erythema to the left foot with significant tenderness to the side of the foot. Neurologic: No aphasia. No facial droop. No change in mentation. No head injury. No headache. No paralysis. No paresthesia. Psychiatric: positive for depression. No anxiety. No mood swings. Endocrine: positive for abnormal blood sugars. positive for weight change. PAST MEDICAL HISTORY: Hypertension and hypertensive cardiovascular disease. Hyperlipidemia. Diabetes Mellitus type 2. Uncontrolled Diabetic Polyneuropathy Obesity with SHERI and OHS. Bilateral charcot feet. PAST SURGICAL HISTORY: Right knee surgery 1999 Right Knee Meniscal tear repair 05/2020 Right second toe tendon surgery 10/27/2022 Right third toe amputation Right second toe amputation SOCIAL HISTORY: She used to smoke about pack every day he smoked for many years and quit years ago, he denies any alcohol ingestion, no drug use or abuse. FAMILY HISTORY: Father at age of 62 from PAD and had amputations, Mother is 62 with breast cancer, patient has one brother alive and well,2 sisters one with DM2, patient has 2 daughters ok PHYSICAL EXAMINATION: General: 43 year male sitting up in chair does appear to be in dis tress HEENT: Head is atraumatic, normocephalic, pupils were equal round reactive to light and recommendation, extraocular muscle movement were intact, sclera nonicteric, conjunctivae were pale, mucous membranes of the mouth are somewhat dry. Neck: Supple, no JVP, normal carotid upstroke bilaterally, no lymphadenopathy. Chest: Decreased breath sounds at the bases, few rhonchi, no expiratory wheezes or intercostal retractions Heart: First heart sound is normal, second heart sound is normal, tachycardic, there is no gallop or murmur. Abdomen: Soft, nontender, nondistended, positive bowel sounds, obese. Extremities: There is +1 edema no calf tenderness DP +2 bilaterally, positive for neuropathy and charcot feet , right third toe amputation, right second toe amputation with significant erythema and tenderness. Left foot with Charcot foot Neurologic examination: Patient is awake alert and oriented X 3, cranial nerves II-12 appear grossly intact, muscle power were 5 out of 5 in upper extremities and 4/5 in right lower extremity ASSESSMENT AND PLAN: 1. Left foot cellulitis and possible osteomyelitis. Blood cultures x 2, started the patient on vancomycin pharmacy to dose its peak and trough, start cefepime 2 g every back every 12 hours, infectious disease consultation, keep the leg elevated, follow-up with the patient very closely, monitor the patient CBC CMP and sed rate. 2. Recurrent osteomyelitis of the left foot status post 6-week treatment of IV antibiotic in the form of vancomycin. Continue IV antibiotic for now, blood culture, patient will need to follow-up with an orthopedic surgeon as an outpatient. 3. Diabetes Mellitustype 2 non controlled. we will continue with Levemir 75 units SC at bedtime along with SSI , has been off GLP_1 RA ( Mounjaro) , we will continue with Metformin 1000 mg po bid and we will continue with BGM AC HS. add NovoLog 8 units before each meal plus the scale. 4. Diabetic Polyneuropathy with charcot feet. we will continue gabapentin 800 mg orally twice every day. 5. Hyperlipidemnia. we will continue with Atorvastatin 80 mg po daily, keep LDL- c 55-70. 6. Hypertension and hypertensive cardiovascular disease. Start the patient on metoprolol 25 mg orally twice every day. 7. Obesity with SHERI and OHS. we will continue with weight loss, never made it for a sleep study. 8. DVT prophylaxis. we will use Lovenox 40 mg SC daily. 9. GI Prophylaxis. we will continue with Protonix 40 mg once every day. 10. Major depressive disorder. Continue patient on duloxetine 30 mg orally once every day. 11. Admits to inpatient, estimated length of stay 2 midnights. 12. Full Code Past Medical History Past Medical History: Diabetes Mellitus Additional Past Medical History / Comment(s): neuropathy History of Any Multi-Drug Resistant Organisms: MRSA Date of last positivie culture/infection: 07/13/23 MDRO Source:: Blood Past Surgical History: Orthopedic Surgery Additional Past Surgical History / Comment(s): 2nd and 3rd partial digit removed to right foot, Past Anesthesia/Blood Transfusion Reactions: No Reported Reaction Past Psychological History: No Psychological Hx Reported Smoking Status: Never smoker Past Alcohol Use History: None Reported Past Drug Use History: None Reported Medications and Allergies Home Medications Medication Instructions Recorded Confirmed Type Atorvastatin [Lipitor] 80 mg PO HS 01/06/23 09/22/23 History Insulin Lispro [humaLOG Kwikpen] See Protocol SQ AC-TID 01/06/23 09/22/23 History Loratadine 20 mg PO DAILY 01/06/23 09/22/23 History Omeprazole 40 mg PO DAILY 01/06/23 09/22/23 History metFORMIN HCL ER [Glucophage XR] 1,000 mg PO W/SUPPER 01/06/23 09/22/23 History Ibuprofen [Motrin Ib] 800 mg PO Q4H PRN 05/31/23 09/22/23 History DULoxetine HCL [Cymbalta] 30 mg PO HS 09/22/23 09/22/23 History Gabapentin [Neurontin] 800 mg PO BID 09/22/23 09/22/23 History Insulin Glargine,Hum.rec.anlog 70 units SQ HS 09/22/23 09/22/23 History [Lantus Solostar Pen] Allergies Allergy/AdvReac Type Severity Reaction Status Date / Time No Known Allergies Allergy Verified 09/22/23 08:40 Physical Exam Vitals: Vital Signs Temp Pulse Resp BP Pulse Ox 09/22/23 08:27 91 20 120/65 93 L 09/22/23 06:24 99.3 F 115 H 20 98/57 95 Intake and Output 09/21/23 09/22/23 09/22/23 22:59 06:59 14:59 Other: Weight 156.489 kg Results CBC & Chem 7: 09/22/23 06:36 09/22/23 06:36 Labs: Abnormal Lab Results - Last 24 Hours (Table) 09/22/23 09/22/23 Range/Units 06:36 06:36 WBC 13.8 H (3.8-10.6) k/uL Neutrophils # 11.3 H (1.3-7.7) k/uL Monocytes # 1.1 H (0-1.0) k/uL Sodium 134 L (137-145) mmol/L Creatinine 0.62 L (0.66-1.25) mg/dL Glucose 169 H (74-99) mg/dL ALT 64 H (4-49) U/L C-Reactive Protein 7.9 H (<1.0) mg/dL Total Protein 6.1 L (6.3-8.2) g/dL
[2023-09-22 21:02] LABS: Glucose,Whole Blood 237 mg/dL (70-110)
[2023-09-22] MEDS: ATORVASTATIN 80 MG TAB PO SCH (21:03)
[2023-09-22] MEDS: DULoxetine HCL 30 MG CAPSULE.DR PO SCH (21:04)
[2023-09-22] MEDS: GABAPENTIN 400 MG CAP PO SCH (21:04)
[2023-09-22] MEDS: INSULIN DETEMIR (LEVEMIR) 100 UNIT/ML SYR SQ SCH (21:04)
--- NOTE | 2023-09-22 22:51 | P.CONS ---
History of Present Illness - Reason for Consult Consult date: 09/22/23 Left foot infection Requesting physician: Anshul Scruggs - Chief Complaint Left foot swelling redness and pain x days - History of Present Illness Patient is a 43-year-old male with a past medical history significant for diabetes mellitus patient did have a history of diabetic foot infection especially involving the left foot with evidence of Charcot deformity osteomyelitis and MRSA bacteremia for the patient was recently evaluated at [facility] by foot and ankle orthopedics patient received extensive IV antibiotic course and he was evaluated and the office about a month ago and was transition to oral antibiotics patient was supposed to follow-up on 09/05/2023 however he was a no-show patient mention he was doing okay until about 2 weeks ago when he was trying to lean into the bed stopped on his left foot and ankle area and which has twisted subsequently the patient has been evaluated by his hand compositor with the x-rays was done and noted to have a new fracture patient apparently was doing okay until last night when he started having increasing swelling redness to the left foot area started having the pain describing to be sharp almost 9 out of 10 by the time he presented to hospital without any radiation and did have some chills patient now presented hospital to have low- grade fever of 99.3 F patient was tachycardic but not hypotensive or hypoxic and no need for supplemental oxygen he did have white count 13.8 with a left shift creatinine was 0.62 influenza RSV COVID testing negative urine is negative blood cultures are currently pending patient did have a foot x-ray progressive bony erosion and midfoot destruction suggestive of septic arthritis patient was started on cefepime and vancomycin infectious was consulted for further management of antibiotic therapy Review of Systems Positive point and negatives has been mentioned in the HPI, complete review of systems was performed and all other systems are negative Past Medical History Past Medical History: Diabetes Mellitus Additional Past Medical History / Comment(s): neuropathy History of Any Multi-Drug Resistant Organisms: MRSA Year Discovered:: 07/13/23 MDRO Source:: Blood Past Surgical History: Orthopedic Surgery Additional Past Surgical History / Comment(s): 2nd and 3rd partial digit removed to right foot, Past Anesthesia/Blood Transfusion Reactions: No Reported Reaction Past Psychological History: No Psychological Hx Reported Smoking Status: Never smoker Past Alcohol Use History: None Reported Past Drug Use History: None Reported Medications and Allergies Home Medications Medication Instructions Recorded Confirmed Type Atorvastatin [Lipitor] 80 mg PO HS 01/06/23 09/22/23 History Loratadine 20 mg PO DAILY 01/06/23 09/22/23 History Omeprazole 40 mg PO DAILY 01/06/23 09/22/23 History metFORMIN HCL ER [Glucophage XR] 1,000 mg PO W/SUPPER 01/06/23 09/22/23 History Ibuprofen [Motrin Ib] 800 mg PO Q4H PRN 05/31/23 09/22/23 History DULoxetine HCL [Cymbalta] 30 mg PO HS 09/22/23 09/22/23 History Gabapentin [Neurontin] 800 mg PO BID 09/22/23 09/22/23 History Docusate [Colace] 100 mg PO BID cap 09/29/23 Rx Insulin Glargine,Hum.rec.anlog 80 units SQ HS #0 09/29/23 09/22/23 Rx [Lantus Solostar Pen] Melatonin 6 mg PO HS tab 09/29/23 Rx Vancomycin 2,250 mg IVPB Q12HR each 09/29/23 Rx Allergies Allergy/AdvReac Type Severity Reaction Status Date / Time No Known Allergies Allergy Verified 09/22/23 08:40 Physical Exam Vitals: Vital Signs Temp Pulse Resp BP Pulse Ox 09/22/23 08:27 91 20 120/65 93 L 09/22/23 06:24 99.3 F 115 H 20 98/57 95 Intake and Output 09/21/23 09/22/23 09/22/23 22:59 06:59 14:59 Other: Weight 156.489 kg GENERAL DESCRIPTION: Middle-aged male lying in bed, no distress. No tachypnea or accessory muscle of respiration use. HEENT: Shows Pallor , no scleral icterus. Oral mucous membrane is dry. No pharyngeal erythema or thrush NECK: Trachea central, no thyromegaly. LUNGS: Unlabored breathing. Clear to auscultation anteriorly. No wheeze or crackle. HEART: S1, S2, regular rate and rhythm. No loud murmur ABDOMEN: Soft, no tenderness , guarding or rigidity, no organomegaly EXTREMITIES: Left foot and ankle needed to have diffuse swelling redness no open wound or any drainage SKIN: No rash, no masses palpable. NEUROLOGICAL: The patient is awake, alert, oriented x3, mood and affect normal. Results CBC & Chem 7: 09/28/23 03:51 09/28/23 03:51 Labs: Abnormal Lab Results - Last 24 Hours (Table) 09/22/23 09/22/23 Range/Units 06:36 06:36 WBC 13.8 H (3.8-10.6) k/uL Neutrophils # 11.3 H (1.3-7.7) k/uL Monocytes # 1.1 H (0-1.0) k/uL Sodium 134 L (137-145) mmol/L Creatinine 0.62 L (0.66-1.25) mg/dL Glucose 169 H (74-99) mg/dL ALT 64 H (4-49) U/L C-Reactive Protein 7.9 H (<1.0) mg/dL Total Protein 6.1 L (6.3-8.2) g/dL Assessment and Plan (1) Cellulitis of left foot Status: Acute Code(s): L03.116 - CELLULITIS OF LEFT LOWER LIMB SNOMED Code(s): 28596510907576421 (2) Osteomyelitis Status: Acute Code(s): M86.9 - OSTEOMYELITIS, UNSPECIFIED SNOMED Code(s): 58397022 (3) Sepsis Status: Acute Code(s): A41.9 - SEPSIS, UNSPECIFIED ORGANISM SNOMED Code(s): 03426175 Plan: 1patient [facility] with sepsis in this patient who did have a fever elevated white count source is likely left diabetic foot infection concerning for underlying septic arthritis/Charcot deformity versus abscess likely from MRSA and this patient has previously grown same pathogen 2-blood culture has been obtained we will check inflammatory markers 3-we will check MRI of the left foot with contrast to rule out any abscess 4-May need evaluation by foot and ankle specialist depending upon the MRI 5-for now continue with the vancomycin add cefepime for gram-negative coverage while waiting for the culture to finalize Multiple question Answered We will follow on clinical condition and cultures to further adjust medication if needed Thank you for this consultation we will follow the patient along with you Dictation was produced using [employer] dictation software. please excuse any grammatical, word or spelling errors. Time with Patient: Greater than 30
[2023-09-23] MEDS: ONDANSETRON 4 MG/2 ML VIAL IVP PRN (00:15)
[2023-09-23] MEDS: PANTOPRAZOLE 40 MG TABLET PO SCH (08:17)
[2023-09-23] MEDS: LORATADINE 10 MG TAB PO SCH (08:17)
[2023-09-23] MEDS: ENOXAPARIN 40 MG/0.4 ML SYRINGE SQ SCH (08:18)
[2023-09-23 08:50] LABS: ALT 56 U/L (4-49); AST 36 U/L (17-59); African American GFR (CKD) >90 (>60 ml/min/1.73 sqM); Albumin 3.2 g/dL (3.5-5.0); Albumin/Globulin Ratio 1.2; Alkaline Phosphatase 87 U/L (38-126); Anion Gap 6 mmol/L; Blood Urea Nitrogen 18 mg/dL (9-20); Calcium 8.8 mg/dL (8.4-10.2); Carbon Dioxide 31 mmol/L (22-30); Chloride 99 mmol/L (98-107); Globulin 2.7 g/dL; Glucose 165 mg/dL (74-99); Non-African American GFR(CKD) >90 (>60 ml/min/1.73 sqM); Potassium 4.3 mmol/L (3.5-5.1); Sodium 136 mmol/L (137-145); Total Bilirubin 0.7 mg/dL (0.2-1.3); Total Protein 5.9 g/dL (6.3-8.2)
[2023-09-23 10:42] LABS: Basophils # (A) 0.04 X 10*3/uL (0.00-0.10); Basophils % (A) 0.5 %; Eosinophils # (A) 0.12 X 10*3/uL (0.04-0.35); Eosinophils % (A) 1.4 %; HGB 13.7 g/dL (13.0-17.0); Lymphocytes # (A) 1.08 X 10*3/uL (0.90-5.00); Lymphocytes % (A) 12.2 %; MCH 25.8 pg (27.0-32.0); MCHC 31.1 g/dL (32.0-37.0); MCV 82.9 FL (80.0-97.0); Mean Platelet Volume 10.6 FL (9.5-12.2); NRBC Per 100 WBC 0 X 10*3/uL (0.00-0.01); Neutrophils # (A) 6.78 X 10*3/uL (1.80-7.70); Neutrophils % (A) 76.4 %; Platelet Count 283 X 10*3/uL (140-440); RBC 5.31 X 10*6/uL (4.40-5.60); RDW 14.1 % (11.5-14.5); WBC 8.86 X 10*3/uL (4.50-10.00)
[2023-09-23 14:19] LABS: Glucose,Whole Blood 184 mg/dL (70-110)
--- NOTE | 2023-09-23 15:23 | P.PN ---
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 Hua back in December 2022, he has been following with Dr. Holguin who performed a right second toe amputation before patient also was t reated at [facility] for osteomyelitis of the left foot and he was treated with 28-day course of Zyvox 600 mg orally twice every day for MRSA bacteremia, since then the patient was hospitalized at [facility] for a similar MRSA bacteremia and he was treated with IV antibiotic in the form of vancomycin for 6 weeks through a PICC line in the left upper extremity that was discontinued not long ago, apparently the patient was going to the bathroom and he felt a popping sensation in the left foot, and he was not able to bear any pressure on the left foot, he went outside yesterday and try to mow the lawn, and he was his birthday yesterday as matter fact, he went back home and he was started feeling dizzy lightheaded not feeling well, low-grade temperature, so he ended up coming to the emergency department at [facility] today in the morning for further evaluation patient was found to have a significant erythema and edema in the left foot with significant tenderness to the side of the foot, was severe tenderness, x-ray did show evidence of possible osteomyelitis, pat ient was started on IV antibiotic in the form of cefepime and vancomycin, infectious disease consultation was obtained, blood cultures was obtained as well, patient will be admitted to hospital for further evaluation recommendation. 09/22: Patient is laying down in bed in no apparent distress, his blood cultures are positive for gram-positive cocci in clusters likely Staphylococcus aureus, patient has been on vancomycin and cefepime for now, patient has been followed by infectious disease, will continue to follow-up with the patient very closely, patient denies any chest pain at this time, he has no shortness of breath, he has no abdominal pain, nausea vomiting or diarrhea, his pain is well-controlled at this point in time, we will continue to monitor the patient very closely, follow-up on his left foot progress and awaiting for the bacteremia to be cleared prior to the patient having any PICC line placement. REVIEW OF SYSTEMS: Constitutional: positive for documented fever, no chills, no night sweats. No weight change. positive for weakness, fatigue or lethargy. No daytime sleepi ness. HEENT: No headache. No blurred vision or double vision, no loss of vision. No loss of Hearing, no ringing in the ears, no dizziness. No nasal drainage or congestion. No epistaxis. No sore throat. Lungs: no shortness of breath, no cough, or sputum production. No wheezing. Reports no dyspnea with activity. Cardiovascular: no chest pain, positive for lower extremity edema. positive fo r palpitations. negative for paroxysmal nocturnal dyspnea. negative for orthopnea. No lightheadedness or dizziness. No syncopal episodes. Abdominal: Reports no abdominal pain. No nausea or vomiting. No diarrhea. No constipation. No bloody or tarry stools Genitourinary: No dysuria, increased frequency, urgency, Musculoskeletal: No myalgias, positive for weakness, bilateral charcot feet, left foot with swelling and tenderness, right foot post right second toe amputation and 3rd toe amputation Integumentary: right third toe amputation, right second toe amputation, there is increased edema and erythema to the left foot with significant tenderness to the side of the foot. Neurologic: No aphasia. No facial droop. No change in mentation. No head injury. No headache. No paralysis. No paresthesia. Psychiatric: positive for depression. No anxiety. No mood swings. Endocrine: positive for abnormal blood sugars. positive for weight change. PHYSICAL EXAMINATION: General: 43 year male sitting up in chair does appear to be in distress HEENT: Head is atraumatic, normocephalic, pupils were equal round reactive to light and recommendation, extraocular muscle movement were intact, sclera nonicteric, conjunctivae were pale, mucous membranes of the mouth are somewhat dry. Neck: Supple, no JVP, normal carotid upstroke bilaterally, no lymphadenopathy. Chest: Decreased breath sounds at the bases, few rhonchi, no expiratory wheezes or intercostal retractions Heart: First heart sound is normal, second heart sound is normal, tachycardic, there is no gallop or murmur. Abdomen: Soft, nontender, nondistended, positive bowel sounds, obese. Extremities: There is +1 edema no calf tenderness DP +2 bilaterally, positive for neuropathy and charcot feet , right third toe amputation, right second toe amputation with significant erythema and tenderness. Left foot with Charcot foot Neurologic examination: Patient is awake alert and oriented X 3, cranial nerves II-12 appear grossly intact, muscle power were 5 out of 5 in upper extremities and 4/5 in right lower extremity ASSESSMENT AND PLAN: 1. Left foot cellulitis and possible osteomyelitis with Staphylococcus aureus bacteremia. Continue vancomycin, continue cefepime, monitor the patient symptoms very closely, continue leg elevation, infectious disease is following. 2. Recurrent osteomyelitis of the left foot status post 6-week treatment of IV antibiotic in the form of vancomycin. Continue IV antibiotic for now, blood culture, patient will need to follow-up with an orthopedic surgeon as an outpatient. 3. Diabetes Mellitustype 2 non controlled. we will continue with Levemir 75 units SC at bedtime along with SSI , has been off GLP_1 RA ( Mounjaro) , we will continue with Metformin 1000 mg po bid and we will continue with BGM AC HS. add NovoLog 8 units before each meal plus the scale. 4. Diabetic Polyneuropathy with charcot feet. we will continue gabapentin 800 mg orally twice every day. 5. Hyperlipidemnia. we will continue with Atorvastatin 80 mg po daily, keep LDL- c 55-70. 6. Hypertension and hypertensive cardiovascular disease. Start the patient on metoprolol 25 mg orally twice every day. 7. Obesity with SHERI and OHS. we will continue with weight loss, never made it for a sleep study. 8. DVT prophylaxis. we will use Lovenox 40 mg SC daily. 9. GI Prophylaxis. we will continue with Protonix 40 mg once every day. 10. Major depressive disorder. Continue patient on duloxetine 30 mg orally once every day. 11. Prognosis is guarded. 12. Disposition is home with home health care for IV antibiotic. Objective - Vital Signs Vital signs: Vital Signs Temp 98.3 F 09/23/23 06:50 Pulse 107 H 07/03/24 06:50 Resp 16 09/23/23 06:50 BP 118/77 09/23/23 06:50 Pulse Ox 95 09/23/23 06:50 FiO2 Intake & Output 09/22/23 09/23/23 09/23/23 18:59 06:59 18:59 Intake Total 222 240 Output Total 350 650 Balance -128 -410 Weight 156.489 kg Intake: Oral 222 240 Output: Urine 350 650 Other: # Voids 1 1 - Labs CBC & Chem 7: 09/23/23 07:37 09/23/23 07:37 Labs: Abnormal Lab Results - Last 24 Hours (Table) 09/22/23 09/22/23 09/22/23 Range/Units 16:58 17:18 21:01 MCH (27.0-32.0) pg MCHC (32.0-37.0) g/dL Sodium (137-145) mmol/L Carbon Dioxide (22-30) mmol/L Creatinine (0.66-1.25) mg/dL Glucose (74-99) mg/dL POC Glucose (mg/dL) 160 H 237 H (70-110) mg/dL ALT (4-49) U/L Total Protein (6.3-8.2) g/dL Albumin (3.5-5.0) g/dL Urine Protein Trace H (Negative) Urine Glucose (UA) 3+ H (Negative) Urine Ketones Trace H (Negative) 09/23/23 09/23/23 09/23/23 Range/Units 07:37 07:37 14:18 MCH 25.8 L (27.0-32.0) pg MCHC 31.1 L (32.0-37.0) g/dL Sodium 136 L (137-145) mmol/L Carbon Dioxide 31 H (22-30) mmol/L Creatinine 0.56 L (0.66-1.25) mg/dL Glucose 165 H (74-99) mg/dL POC Glucose (mg/dL) 184 H (70-110) mg/dL ALT 56 H (4-49) U/L Total Protein 5.9 L (6.3-8.2) g/dL Albumin 3.2 L (3.5-5.0) g/dL Urine Protein (Negative) Urine Glucose (UA) (Negative) Urine Ketones (Negative) Microbiology - Last 24 Hours (Table) 09/22/23 06:51 Blood Culture Gram Stain - Preliminary Blood Blood Culture - Preliminary 09/22/23 06:36 Blood Culture Gram Stain - Preliminary Blood Blood Culture - Preliminary Molecular ID
--- NOTE | 2023-09-23 16:46 | MR ---
EXAMINATION TYPE: MR foot LT wo/w con DATE OF EXAM: 09/23/2023 1:37 PM CLINICAL INDICATION:Male, 43 years old with history of abscess, charcot, osteo, Left foot abscess. COMPARISON: 06/05/2023 TECHNIQUE: Multiplanar, multisequence MR imaging of the left forefoot was performed administration o f IV gadolinium contrast. MR contrast: IV Contrast: 15 cc Gadavist FINDINGS: Diffuse abnormality of the osseous structures and soft tissues throughout the patient's foot. This is slightly progressed from prior. There is collapse of the mid foot tarsals likely from Charcot arthro freida with deformity to all of the tarsals. A fluid collection around the ankle communicates with the joint space. No definitive enhancing fluid collection visualized besides disc fluid collection. Diff use soft tissue edema throughout the foot with swelling. IMPRESSION: 1. Progression of suspected Charcot arthropathy. 2. Fluid collection that communicates with the joint on postcontrast imaging possibly representing l arge joint effusion. Superimposed infection is not excluded. Consider arthrocentesis. 3. Diffuse osseous abnormalities possibly with underlying osteomyelitis remain present.
[2023-09-23 17:13] LABS: Glucose,Whole Blood 281 mg/dL (70-110)
[2023-09-23] MEDS: VANCOMYCIN TROUGH DUE 1 EACH MISC MISCELLANE ONE (17:57)
[2023-09-23 19:52] LABS: Glucose,Whole Blood 304 mg/dL (70-110)
[2023-09-24 07:18] LABS: Glucose,Whole Blood 119 mg/dL (70-110)
[2023-09-24 07:53] LABS: ALT 48 U/L (4-49); AST 29 U/L (17-59); African American GFR (CKD) >90 (>60 ml/min/1.73 sqM); Albumin 2.9 g/dL (3.5-5.0); Albumin/Globulin Ratio 1.2; Alkaline Phosphatase 75 U/L (38-126); Anion Gap 7 mmol/L; Blood Urea Nitrogen 18 mg/dL (9-20); Calcium 8.5 mg/dL (8.4-10.2); Carbon Dioxide 30 mmol/L (22-30); Chloride 98 mmol/L (98-107); Globulin 2.4 g/dL; Glucose 132 mg/dL (74-99); Non-African American GFR(CKD) >90 (>60 ml/min/1.73 sqM); Potassium 3.8 mmol/L (3.5-5.1); Sodium 135 mmol/L (137-145); Total Bilirubin 0.4 mg/dL (0.2-1.3); Total Protein 5.3 g/dL (6.3-8.2)
[2023-09-24 11:04] LABS: Basophils # (A) 0.04 X 10*3/uL (0.00-0.10); Basophils % (A) 0.6 %; Eosinophils # (A) 0.48 X 10*3/uL (0.04-0.35); Eosinophils % (A) 6.6 %; HCT 41.4 % (39.6-50.0); Lymphocytes # (A) 1.04 X 10*3/uL (0.90-5.00); Lymphocytes % (A) 14.4 %; MCH 26.1 pg (27.0-32.0); MCHC 31.4 g/dL (32.0-37.0); MCV 83.1 FL (80.0-97.0); Mean Platelet Volume 10.7 FL (9.5-12.2); Monocytes % (A) 12.5 %; NRBC Per 100 WBC 0 X 10*3/uL (0.00-0.01); Neutrophils # (A) 4.73 X 10*3/uL (1.80-7.70); Neutrophils % (A) 65.5 %; Platelet Count 254 X 10*3/uL (140-440); RBC 4.98 X 10*6/uL (4.40-5.60); RDW 14.1 % (11.5-14.5); WBC 7.22 X 10*3/uL (4.50-10.00)
[2023-09-24] MEDS: HYDROmorphone 0.5 MG/0.5 ML SYRINGE IVP PRN (11:15)
--- NOTE | 2023-09-24 11:48 | P.PN ---
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 Hua back in December 2022, he has been following with Dr. Holguin who performed a right second toe amputation before patient also was t reated at [facility] for osteomyelitis of the left foot and he was treated with 28-day course of Zyvox 600 mg orally twice every day for MRSA bacteremia, since then the patient was hospitalized at [facility] for a similar MRSA bacteremia and he was treated with IV antibiotic in the form of vancomycin for 6 weeks through a PICC line in the left upper extremity that was discontinued not long ago, apparently the patient was going to the bathroom and he felt a popping sensation in the left foot, and he was not able to bear any pressure on the left foot, he went outside yesterday and try to mow the lawn, and he was his birthday yesterday as matter fact, he went back home and he was started feeling dizzy lightheaded not feeling well, low-grade temperature, so he ended up coming to the emergency department at [facility] today in the morning for further evaluation patient was found to have a significant erythema and edema in the left foot with significant tenderness to the side of the foot, was severe tenderness, x-ray did show evidence of possible osteomyelitis, pat ient was started on IV antibiotic in the form of cefepime and vancomycin, infectious disease consultation was obtained, blood cultures was obtained as well, patient will be admitted to hospital for further evaluation recommendation. 09/22: Patient is laying down in bed in no apparent distress, his blood cultures are positive for gram-positive cocci in clusters likely Staphylococcus aureus, patient has been on vancomycin and cefepime for now, patient has been followed by infectious disease, will continue to follow-up with the patient very closely, patient denies any chest pain at this time, he has no shortness of breath, he has no abdominal pain, nausea vomiting or diarrhea, his pain is well-controlled at this point in time, we will continue to monitor the patient very closely, follow-up on his left foot progress and awaiting for the bacteremia to be cleared prior to the patient having any PICC line placement. 09/23: Patient is sitting up on edge of bed in no distress. Patient reports that pain is well-controlled, denies chest pain or shortness of breath. Blood cultures were positive for gram-positive cocci, presumptive MRSA. Continue current antibiotics and pain management. MRI of the left foot shows progression of suspected Charcot arthropathy, large joint effusion, and diffuse osseous abnormalities with underlying osteomyelitis. Infectious diseases following. We will continue to monitor patient closely. REVIEW OF SYSTEMS: Constitutional: positive for documented fever, no chills, no night sweats. No weight change. positive for weakness, fatigue or lethargy. No daytime sleepiness. HEENT: No headache. No blurred vision or double vision, no loss of vision. No loss of Hearing, no ringing in the ears, no dizziness. No nasal drainage or congestion. No epistaxis. No sore throat. Lungs: no shortness of breath, no cough, or sputum production. No wheezing. Reports no dyspnea with activity. Cardiovascular: no chest pain, positive for lower extremity edema. positive for palpitations. negative for paroxysmal nocturnal dyspnea. negative for orthopnea. No lightheadedness or dizziness. No syncopal episodes. Abdominal: Reports no abdominal pain. No nausea or vomiting. No diarrhea. No constipation. No bloody or tarry stools Genitourinary: No dysuria, increased frequency, urgency, Musculoskeletal: No myalgias, positive for weakness, bilateral charcot feet, left foot with swelling and tenderness, right foot post right second toe amputation and 3rd toe amputation Integumentary: right third toe amputation, right second toe amputation, there is increased edema and erythema to the left foot with significant tenderness to the side of the foot. Neurologic: No aphasia. No facial droop. No change in mentation. No head injury. No headache. No paralysis. No paresthesia. Psychiatric: positive for depression. No anxiety. No mood swings. Endocrine: positive for abnormal blood sugars. positive for weight change. PHYSICAL EXAMINATION: General: 43 year male sitting up in chair does appear to be in distress HEENT: Head is atraumatic, normocephalic, pupils were equal round reactive to light and recommendation, extraocular muscle movement were intact, sclera nonicteric, conjunctivae were pale, mucous membranes of the mouth are somewhat dry. Neck: Supple, no JVP, normal carotid upstroke bilaterally, no lymphadenopathy. Chest: Decreased breath sounds at the bases, few rhonchi, no expiratory wheezes or intercostal retractions Heart: First heart sound is normal, second heart sound is normal, tachycardic, there is no gallop or murmur. Abdomen: Soft, nontender, nondistended, positive bowel sounds, obese. Extremities: There is +1 edema no calf tenderness DP +2 bilaterally, positive for neuropathy and charcot feet , right third toe amputation, right second toe amputation with significant erythema and tenderness. Left foot with Charcot foot. Neurologic examination: Patient is awake alert and oriented X 3, cranial nerves II-12 appear grossly intact, muscle power were 5 out of 5 in upper extremities and 4/5 in right lower extremity ASSESSMENT AND PLAN: 1. Left foot cellulitis and possible osteomyelitis with Staphylococcus aureus bacteremia. Continue vancomycin, continue cefepime, monitor the patient symptoms very closely, continue leg elevation, infectious disease is following. 2. Recurrent osteomyelitis of the left foot status post 6-week treatment of IV antibiotic in the form of vancomycin. Continue IV antibiotic for now, blood culture, patient will need to follow-up with an orthopedic surgeon as an o utpatient. 3. Diabetes Mellitustype 2 non controlled. we will continue with Levemir 75 units SC at bedtime along with SSI , has been off GLP_1 RA ( Mounjaro) , we will continue with Metformin 1000 mg po bid and we will continue with BGM AC HS. add NovoLog 8 units before each meal plus the scale. 4. Diabetic Polyneuropathy with charcot feet. we will continue gabapentin 800 mg orally twice every day. 5. Hyperlipidemnia. we will continue with Atorvastatin 80 mg po daily, keep LDL- c 55-70. 6. Hypertension and hypertensive cardiovascular disease. Start the patient on metoprolol 25 mg orally twice every day. 7. Obesity with SHERI and OHS. we will continue with weight loss, never made it for a sleep study. 8. DVT prophylaxis. we will use Lovenox 40 mg SC daily. 9. GI Prophylaxis. we will continue with Protonix 40 mg once every day. 10. Major depressive disorder. Continue patient on duloxetine 30 mg orally once every day. 11. Prognosis is guarded. 12. Disposition is home with home health care for IV antibiotic. Impression and plan of care have been directed as dictated by the signing physician. Mónica Granados, nurse practitioner acting as scribe for signing physician. Objective - Vital Signs Vital signs: Vital Signs Temp 98.2 F 09/24/23 08:00 Pulse 106 H 09/24/23 08:00 Resp 16 09/24/23 08:00 BP 120/78 09/24/23 08:00 Pulse Ox 99 09/24/23 08:00 FiO2 Intake & Output 09/23/23 09/24/23 09/24/23 18:59 06:59 18:59 Intake Total 960 Output Total 1250 1000 Balance -290 -1000 Intake: Oral 960 Output: Urine 1250 1000 Other: Voiding Method Toilet # Voids 1 2 - Labs CBC & Chem 7: 09/24/23 06:02 09/24/23 06:02 Labs: Abnormal Lab Results - Last 24 Hours (Table) 09/23/23 09/23/23 09/23/23 Range/Units 14:18 17:11 19:45 MCH (27.0-32.0) pg MCHC (32.0-37.0) g/dL Eosinophils # (0.04-0.35) X 10*3/uL Sodium (137-145) mmol/L Creatinine (0.66-1.25) mg/dL Glucose (74-99) mg/dL POC Glucose (mg/dL) 184 H 281 H 304 H (70-110) mg/dL Total Protein (6.3-8.2) g/dL Albumin (3.5-5.0) g/dL 09/24/23 09/24/23 09/24/23 Range/Units 06:02 06:02 07:16 MCH 26.1 L (27.0-32.0) pg MCHC 31.4 L (32.0-37.0) g/dL Eosinophils # 0.48 H (0.04-0.35) X 10*3/uL Sodium 135 L (137-145) mmol/L Creatinine 0.61 L (0.66-1.25) mg/dL Glucose 132 H (74-99) mg/dL POC Glucose (mg/dL) 119 H (70-110) mg/dL Total Protein 5.3 L (6.3-8.2) g/dL Albumin 2.9 L (3.5-5.0) g/dL Microbiology - Last 24 Hours (Table) 09/22/23 06:51 Blood Culture Gram Stain - Preliminary Blood Blood Culture - Preliminary Presumptive MRSA 09/22/23 06:36 Blood Culture Gram Stain - Preliminary Blood Blood Culture - Preliminary Presumptive MRSA Molecular ID
[2023-09-24 12:13] LABS: Glucose,Whole Blood 159 mg/dL (70-110)
--- NOTE | 2023-09-24 14:16 | P.PN ---
Subjective Progress Note Date: 09/23/23 Principal diagnosis: Reason for follow-up is left diabetic foot infection and bacteremia Patient is a 43-year-old male with a past medical history significant for diabetes mellitus patient did have a history of diabetic foot infection especially involving the left foot with evidence of Charcot deformity osteomyelitis and MRSA bacteremia recently completed an extensive course of IV antibiotic therapy and was on oral suppressive antibiotics, recently did have twisting of his left ankle about 2 weeks ago and diagnosed with a new fracture now presenting with increasing swelling redness to the left foot and ankle area concerning for osteomyelitis. On today's evaluation that is 09/23/2023,the patient denies any fever or any chills, patient is breathing comfortably on room air, the patient denies chest pain shortness of breath and no significant cough, patient denies abdominal pain, no nausea vomiting or diarrhea. Denies any worsening pain to the left foot and ankle area. Patient white count is normalized to 8.86 creatinine 0.56 blood culture with MRSA Objective - Vital Signs Vital signs: Vital Signs Temp 98.3 F 09/23/23 06:50 Pulse 107 H 09/23/23 06:50 Resp 16 09/23/23 06:50 BP 118/77 09/23/23 06:50 Pulse Ox 95 09/23/23 06:50 FiO2 Intake & Output 09/22/23 09/23/23 09/23/23 18:59 06:59 18:59 Intake Total 222 240 Output Total 350 650 Balance -128 -410 Weight 156.489 kg Intake: Oral 222 240 Output: Urine 350 650 Other: # Voids 1 1 - Exam GENERAL DESCRIPTION: Middle-age male lying in bed in no distress RESPIRATORY SYSTEM: Unlabored breathing , decreased breath sounds at bases HEART: S1 S2 regular rate and rhythm , ABDOMEN: Soft , no tenderness EXTREMITIES: Left foot and ankle area did have some swelling and redness - Labs CBC & Chem 7: 09/23/23 07:37 09/23/23 07:37 Labs: Abnormal Lab Results - Last 24 Hours (Table) 09/22/23 09/22/23 09/22/23 Range/Units 16:58 17:18 21:01 MCH (27.0-32.0) pg MCHC (32.0-37.0) g/dL Sodium (137-145) mmol/L Carbon Dioxide (22-30) mmol/L Creatinine (0.66-1.25) mg/dL Glucose (74-99) mg/dL POC Glucose (mg/dL) 160 H 237 H (70-110) mg/dL ALT (4-49) U/L Total Protein (6.3-8.2) g/dL Albumin (3.5-5.0) g/dL Urine Protein Trace H (Negative) Urine Glucose (UA) 3+ H (Negative) Urine Ketones Trace H (Negative) 09/23/23 09/23/23 Range/Units 07:37 07:37 MCH 25.8 L (27.0-32.0) pg MCHC 31.1 L (32.0-37.0) g/dL Sodium 136 L (137-145) mmol/L Carbon Dioxide 31 H (22-30) mmol/L Creatinine 0.56 L (0.66-1.25) mg/dL Glucose 165 H (74-99) mg/dL POC Glucose (mg/dL) (70-110) mg/dL ALT 56 H (4-49) U/L Total Protein 5.9 L (6.3-8.2) g/dL Albumin 3.2 L (3.5-5.0) g/dL Urine Protein (Negative) Urine Glucose (UA) (Negative) Urine Ketones (Negative) Assessment and Plan (1) Cellulitis of left foot Current Visit: Yes Status: Acute Code(s): L03.116 - CELLULITIS OF LEFT LOWER LIMB SNOMED Code(s): 51799657962275677 (2) Leukocytosis Current Visit: Yes Status: Acute Code(s): D72.829 - ELEVATED WHITE BLOOD CELL COUNT, UNSPECIFIED SNOMED Code(s): 455389593 (3) Osteomyelitis Current Visit: Yes Status: Acute Code(s): M86.9 - OSTEOMYELITIS, UNSPECIFIED SNOMED Code(s): 79699675 (4) MRSA bacteremia Current Visit: No Status: Acute Code(s): R78.81 - BACTEREMIA; B95.62 - METHICILLIN RESIS STAPH INFCT CAUSING DISEASES CLASSD [facility] SNOMED Code(s): 49158896452338338 Plan: 1patient presented hospital with sepsis in this patient who did have a fever e levated white count source is likely left diabetic foot infection concerning for underlying septic arthritis/Charcot deformity versus abscess likely from MRSA and this patient has previously grown same pathogen 2-blood culture coming back positive for MRSA likely infected pathogen blood culture will be repeated document clearance of bacteremia 3-patient did have MRI of the left foot completed this morning results are currently pending 4-patient to continue vancomycin while watching his kidney function closely if no gram-negative therapy will be discontinued Dictation was produced using [employer] dictation software. please excuse any grammatical, word or spelling errors. Time with Patient: Greater than 30
[2023-09-24 17:21] LABS: Glucose,Whole Blood 267 mg/dL (70-110)
[2023-09-24 19:59] LABS: Glucose,Whole Blood 309 mg/dL (70-110)
[2023-09-25 06:26] LABS: Glucose,Whole Blood 256 mg/dL (70-110)
--- NOTE | 2023-09-25 07:08 | P.PN ---
Subjective Progress Note Date: 09/24/23 Principal diagnosis: Reason for follow-up is left diabetic foot infection and bacteremia Patient is a 43-year-old male with a past medical history significant for diabetes mellitus patient did have a history of diabetic foot infection especially involving the left foot with evidence of Charcot deformity osteomyelitis and MRSA bacteremia recently completed an extensive course of IV antibiotic therapy and was on oral suppressive antibiotics, recently did have twisting of his left ankle about 2 weeks ago and diagnosed with a new fracture now presenting with increasing swelling redness to the left foot and ankle area concerning for osteomyelitis. On today's evaluation that is 09/24/2023,the patient remains to be afebrile, patient is on room air not requiring supplemental oxygen and denies any shortness of breath no chest pain or cough.Patient denies having any nausea or vomiting, no abdominal pain and no diarrhea or any worsening pain to the left foot and ankle area. Patient did have a white count of 7.22 creatinine 0.61 blood culture with MRSA MRI of the foot did shows progression of the suspected Charcot arthropathy fluid accumulation that communicates with the joint on the post contrasted imaging Objective - Vital Signs Vital signs: Vital Signs Temp 98.4 F 09/24/23 14:00 Pulse 101 H 09/24/23 14:00 Resp 16 09/24/23 14:00 BP 118/76 09/24/23 14:00 Pulse Ox 100 09/24/23 14:00 FiO2 Intake & Output 09/23/23 09/24/23 09/24/23 18:59 06:59 18:59 Intake Total 960 Output Total 1250 1000 Balance -290 -1000 Intake: Oral 960 Output: Urine 1250 1000 Other: Voiding Method Toilet # Voids 1 2 - Exam GENERAL DESCRIPTION: Middle-age male lying in bed in no distress RESPIRATORY SYSTEM: Unlabored breathing , decreased breath sounds at bases HEART: S1 S2 regular rate and rhythm , ABDOMEN: Soft , no tenderness EXTREMITIES: Left foot and ankle area did have some swelling and redness - Labs CBC & Chem 7: 09/24/23 06:02 09/24/23 06:02 Labs: Abnormal Lab Results - Last 24 Hours (Table) 09/23/23 09/23/23 09/23/23 Range/Units 14:18 17:11 19:45 MCH (27.0-32.0) pg MCHC (32.0-37.0) g/dL Eosinophils # (0.04-0.35) X 10*3/uL Sodium (137-145) mmol/L Creatinine (0.66-1.25) mg/dL Glucose (74-99) mg/dL POC Glucose (mg/dL) 184 H 281 H 304 H (70-110) mg/dL Total Protein (6.3-8.2) g/dL Albumin (3.5-5.0) g/dL 09/24/23 09/24/23 09/24/23 Range/Units 06:02 06:02 07:16 MCH 26.1 L (27.0-32.0) pg MCHC 31.4 L (32.0-37.0) g/dL Eosinophils # 0.48 H (0.04-0.35) X 10*3/uL Sodium 135 L (137-145) mmol/L Creatinine 0.61 L (0.66-1.25) mg/dL Glucose 132 H (74-99) mg/dL POC Glucose (mg/dL) 119 H (70-110) mg/dL Total Protein 5.3 L (6.3-8.2) g/dL Albumin 2.9 L (3.5-5.0) g/dL 09/24/23 Range/Units 12:12 MCH (27.0-32.0) pg MCHC (32.0-37.0) g/dL Eosinophils # (0.04-0.35) X 10*3/uL Sodium (137-145) mmol/L Creatinine (0.66-1.25) mg/dL Glucose (74-99) mg/dL POC Glucose (mg/dL) 159 H (70-110) mg/dL Total Protein (6.3-8.2) g/dL Albumin (3.5-5.0) g/dL Microbiology - Last 24 Hours (Table) 09/22/23 06:51 Blood Culture Gram Stain - Preliminary Blood Blood Culture - Preliminary Presumptive MRSA 09/22/23 06:36 Blood Culture Gram Stain - Preliminary Blood Blood Culture - Preliminary Presumptive MRSA Molecular ID Assessment and Plan (1) Cellulitis of left foot Current Visit: Yes Status: Acute Code(s): L03.116 - CELLULITIS OF LEFT LOWER LIMB SNOMED Code(s): 39504423948347343 (2) Leukocytosis Current Visit: Yes Status: Acute Code(s): D72.829 - ELEVATED WHITE BLOOD CELL COUNT, UNSPECIFIED SNOMED Code(s): 835192500 (3) Osteomyelitis Current Visit: Yes Status: Acute Code(s): M86.9 - OSTEOMYELITIS, UNSPECIFIED SNOMED Code(s): 63372801 (4) MRSA bacteremia Current Visit: No Status: Acute Code(s): R78.81 - BACTEREMIA; B95.62 - METHICILLIN RESIS STAPH INFCT CAUSING DISEASES CLASSD [facility] SNOMED Code(s): 02952938622606964 Plan: 1patient presented hospital with sepsis in this patient who did have a fever elevated white count source is likely left diabetic foot infection concerning for underlying septic arthritis/Charcot deformity versus abscess likely from MRSA and this patient has previously grown same pathogen 2-blood culture coming back positive for MRSA likely infected pathogen blood culture has been repeated document clearance of bacteremia 3-patient did have MRI of the left foot that has been suggestive of progression of his Charcot foot arthropathy with also evidence of fluid collection question of septic joint versus abscess 4-patient to continue vancomycin, however recommending patient to be transferred to [place] to be evaluated by his foot and ankle specialist for consideration of any surgical treatment including drainage of the fluid this has been discussed in detail with the at the bedside Dictation was produced using [employer] dictation software. please excuse any grammatical, word or spelling errors. Time with Patient: Greater than 30
[2023-09-25 07:44] LABS: ALT 43 U/L (4-49); AST 24 U/L (17-59); African American GFR (CKD) >90 (>60 ml/min/1.73 sqM); Albumin/Globulin Ratio 1.2; Alkaline Phosphatase 86 U/L (38-126); Anion Gap 4 mmol/L; Blood Urea Nitrogen 13 mg/dL (9-20); Calcium 8.6 mg/dL (8.4-10.2); Carbon Dioxide 35 mmol/L (22-30); Chloride 96 mmol/L (98-107); Globulin 2.5 g/dL; Glucose 253 mg/dL (74-99); Non-African American GFR(CKD) >90 (>60 ml/min/1.73 sqM); Sodium 135 mmol/L (137-145); Total Bilirubin 0.5 mg/dL (0.2-1.3); Total Protein 5.5 g/dL (6.3-8.2)
[2023-09-25 10:17] LABS: HCT 41.1 % (39.6-50.0); HGB 12.8 g/dL (13.0-17.0); MCH 25.2 pg (27.0-32.0); MCHC 31.1 g/dL (32.0-37.0); MCV 81.1 FL (80.0-97.0); Mean Platelet Volume 10.2 FL (9.5-12.2); NRBC Per 100 WBC 0 X 10*3/uL (0.00-0.01); Platelet Count 283 X 10*3/uL (140-440); RBC 5.07 X 10*6/uL (4.40-5.60); RDW 13.6 % (11.5-14.5); WBC 5.25 X 10*3/uL (4.50-10.00)
[2023-09-25 10:18] LABS: Basophils # (A) 0.04 X 10*3/uL (0.00-0.10); Basophils % (A) 0.8 %; Eosinophils # (A) 0.37 X 10*3/uL (0.04-0.35); Lymphocytes # (A) 1.18 X 10*3/uL (0.90-5.00); Lymphocytes % (A) 22.5 %; Monocytes # (A) 0.58 X 10*3/uL (0.20-1.00); Neutrophils # (A) 3.07 X 10*3/uL (1.80-7.70); Neutrophils % (A) 58.5 %
--- NOTE | 2023-09-25 10:53 | P.PN ---
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 Hua back in December 2022, he has been following with Dr. Holguin who performed a right second toe amputation before patient also was t reated at [facility] for osteomyelitis of the left foot and he was treated with 28-day course of Zyvox 600 mg orally twice every day for MRSA bacteremia, since then the patient was hospitalized at [facility] for a similar MRSA bacteremia and he was treated with IV antibiotic in the form of vancomycin for 6 weeks through a PICC line in the left upper extremity that was discontinued not long ago, apparently the patient was going to the bathroom and he felt a popping sensation in the left foot, and he was not able to bear any pressure on the left foot, he went outside yesterday and try to mow the lawn, and he was his birthday yesterday as matter fact, he went back home and he was started feeling dizzy lightheaded not feeling well, low-grade temperature, so he ended up coming to the emergency department at [facility] today in the morning for further evaluation patient was found to have a significant erythema and edema in the left foot with significant tenderness to the side of the foot, was severe tenderness, x-ray did show evidence of possible osteomyelitis, pat ient was started on IV antibiotic in the form of cefepime and vancomycin, infectious disease consultation was obtained, blood cultures was obtained as well, patient will be admitted to hospital for further evaluation recommendation. 09/22: Patient is laying down in bed in no apparent distress, his blood cultures are positive for gram-positive cocci in clusters likely Staphylococcus aureus, patient has been on vancomycin and cefepime for now, patient has been followed by infectious disease, will continue to follow-up with the patient very closely, patient denies any chest pain at this time, he has no shortness of breath, he has no abdominal pain, nausea vomiting or diarrhea, his pain is well-controlled at this point in time, we will continue to monitor the patient very closely, follow-up on his left foot progress and awaiting for the bacteremia to be cleared prior to the patient having any PICC line placement. 09/23: Patient is sitting up on edge of bed in no distress. Patient reports that pain is well-controlled, denies chest pain or shortness of breath. Blood cultures were positive for gram-positive cocci, presumptive MRSA. Continue current antibiotics and pain management. MRI of the left foot shows progression of suspected Charcot arthropathy, large joint effusion, and diffuse osseous abnormalities with underlying osteomyelitis. Infectious diseases following. We will continue to monitor patient closely. 09/24: Patient sitting up in bed with family at bedside. Infectious diseases recommending transfer to [facility] to see a foot and ankle specialist. Patient evidently was evaluated by Dr. Prather in the past. Vital signs stable. Patient denies chest pain or shortness of breath. Patient states he had a normal bowel movement yesterday. Left foot remains erythemic and edematous. Patient rates his pain 7 out of 10 however has just received pain medication. Continue current medications. Will start arranging for transfer. REVIEW OF SYSTEMS: Constitutional: positive for documented fever, no chills, no night sweats. No weight change. positive for weakness, fatigue or lethargy. No daytime sleepiness. HEENT: No headache. No blurred vision or double vision, no loss of vision. No loss of Hearing, no ringing in the ears, no dizziness. No nasal drainage or congestion. No epistaxis. No sore throat. Lungs: no shortness of breath, no cough, or sputum production. No wheezing. Reports no dyspnea with activity. Cardiovascular: no chest pain, positive for lower extremity edema. positive for palpitations. negative for paroxysmal nocturnal dyspnea. negative for orthopnea. No lightheadedness or dizziness. No syncopal episodes. Abdominal: Reports no abdominal pain. No nausea or vomiting. No diarrhea. No constipation. No bloody or tarry stools Genitourinary: No dysuria, increased frequency, urgency, Musculoskeletal: No myalgias, positive for weakness, bilateral charcot feet, left foot with swelling and tenderness, right foot post right second toe amputation and 3rd toe amputation Integumentary: right third toe amputation, right second toe amputation, there is increased edema and erythema to the left foot with significant tenderness to the side of the foot. Neurologic: No aphasia. No facial droop. No change in mentation. No head injury. No headache. No paralysis. No paresthesia. Psychiatric: positive for depression. No anxiety. No mood swings. Endocrine: positive for abnormal blood sugars. positive for weight change. PHYSICAL EXAMINATION: General: 43 year male sitting up in chair does appear to be in distress HEENT: Head is atraumatic, normocephalic, pupils were equal round reactive to light and recommendation, extraocular muscle movement were intact, sclera nonicteric, conjunctivae were pale, mucous membranes of the mouth are somewhat dry. Neck: Supple, no JVP, normal carotid upstroke bilaterally, no lymphadenopathy. Chest: Decreased breath sounds at the bases, few rhonchi, no expiratory wheezes or intercostal retractions Heart: First heart sound is normal, second heart sound is normal, tachycardic, there is no gallop or murmur. Abdomen: Soft, nontender, nondistended, positive bowel sounds, obese. Extremities: There is +1 edema no calf tenderness DP +2 bilaterally, positive for neuropathy and charcot feet , right third toe amputation, right second toe amputation with significant erythema and tenderness. Left foot with Charcot foot. Neurologic examination: Patient is awake alert and oriented X 3, cranial nerves II-12 appear grossly intact, muscle power were 5 out of 5 in upper extremities and 4/5 in right lower extremity ASSESSMENT AND PLAN: 1. Left foot cellulitis and possible osteomyelitis with Staphylococcus aureus bacteremia. Continue vancomycin, continue cefepime, monitor the patient symptoms very closely, continue leg elevation, infectious disease is following. 2. Recurrent osteomyelitis of the left foot status post 6-week treatment of IV antibiotic in the form of vancomycin. Continue IV antibiotic for now, blood culture, patient will need to follow-up with an orthopedic surgeon as an outpatient. 3. Diabetes Mellitustype 2 non controlled. we will continue with Levemir 75 units SC at bedtime along with SSI , has been off GLP_1 RA ( Mounjaro) , we will continue with Metformin 1000 mg po bid and we will continue with BGM AC HS. add NovoLog 8 units before each meal plus the scale. 4. Diabetic Polyneuropathy with charcot feet. we will continue gabapentin 800 mg orally twice every day. 5. Hyperlipidemnia. we will continue with Atorvastatin 80 mg po daily, keep LDL- c 55-70. 6. Hypertension and hypertensive cardiovascular disease. Start the patient on metoprolol 25 mg orally twice every day. 7. Obesity with SHERI and OHS. we will continue with weight loss, never made it for a sleep study. 8. DVT prophylaxis. we will use Lovenox 40 mg SC daily. 9. GI Prophylaxis. we will continue with Protonix 40 mg once every day. 10. Major depressive disorder. Continue patient on duloxetine 30 mg orally once every day. 11. Prognosis is guarded. 12. Disposition is likely to [facility] for evaluation by foot and ankle specialist. Impression and plan of care have been directed as dictated by the signing physician. Mónica Granados, nurse practitioner acting as scribe for signing physician. Objective - Vital Signs Vital signs: Vital Signs Temp 98.0 F 09/25/23 08:03 Pulse 95 09/25/23 08:03 Resp 17 09/25/23 08:03 BP 126/85 09/25/23 08:03 Pulse Ox 96 09/25/23 08:03 FiO2 Intake & Output 09/24/23 09/25/23 09/25/23 18:59 06:59 18:59 Output Total 800 Balance -800 Output: Urine 800 Other: Voiding Method Toilet Urinal # Voids 2 - Labs CBC & Chem 7: 09/25/23 06:56 09/25/23 06:56 Labs: Abnormal Lab Results - Last 24 Hours (Table) 09/24/23 09/24/23 09/24/23 Range/Units 06:02 12:12 17:18 Hgb (13.0-17.0) g/dL MCH 26.1 L (27.0-32.0) pg MCHC 31.4 L (32.0-37.0) g/dL Eosinophils # 0.48 H (0.04-0.35) X 10*3/uL Sodium (137-145) mmol/L Chloride (98-107) mmol/L Carbon Dioxide (22-30) mmol/L Creatinine (0.66-1.25) mg/dL Glucose (74-99) mg/dL POC Glucose (mg/dL) 159 H 267 H (70-110) mg/dL Total Protein (6.3-8.2) g/dL Albumin (3.5-5.0) g/dL 09/24/23 09/25/23 09/25/23 Range/Units 19:57 06:25 06:56 Hgb (13.0-17.0) g/dL MCH (27.0-32.0) pg MCHC (32.0-37.0) g/dL Eosinophils # (0.04-0.35) X 10*3/uL Sodium 135 L (137-145) mmol/L Chloride 96 L (98-107) mmol/L Carbon Dioxide 35 H (22-30) mmol/L Creatinine 0.58 L (0.66-1.25) mg/dL Glucose 253 H (74-99) mg/dL POC Glucose (mg/dL) 309 H 256 H (70-110) mg/dL Total Protein 5.5 L (6.3-8.2) g/dL Albumin 3.0 L (3.5-5.0) g/dL 09/25/23 Range/Units 06:56 Hgb 12.8 L (13.0-17.0) g/dL MCH 25.2 L (27.0-32.0) pg MCHC 31.1 L (32.0-37.0) g/dL Eosinophils # 0.37 H (0.04-0.35) X 10*3/uL Sodium (137-145) mmol/L Chloride (98-107) mmol/L Carbon Dioxide (22-30) mmol/L Creatinine (0.66-1.25) mg/dL Glucose (74-99) mg/dL POC Glucose (mg/dL) (70-110) mg/dL Total Protein (6.3-8.2) g/dL Albumin (3.5-5.0) g/dL Microbiology - Last 24 Hours (Table) 09/22/23 06:51 Blood Culture Gram Stain - Final Blood Blood Culture - Final Methicillin resist S. aureus 09/22/23 06:36 Blood Culture Gram Stain - Final Blood Blood Culture - Final Methicillin resist S. aureus Molecular ID
[2023-09-25 12:19] LABS: Glucose,Whole Blood 270 mg/dL (70-110)
--- NOTE | 2023-09-25 14:20 | CDI ---
Documentation Clarification Form Date: 09/25/2023 01:56:59 PM From: Shilpi Erwin RN, CCDS Phone: [phone] Admit Date: 09/22/2023 10:16:00 AM Patient Name: David Stern Visit Number: [id number] Discharge Date: ATTENTION: The Clinical Documentation Specialists (CDI) and [facility] Coding Staff appreciate your assistance in clarifying documentation. Please respond to the clarification below the line at the bottom and electronically sign. The CDI & [facility] Coding staff will review the response and follow-up if needed. Please note: Queries are made part of the Legal Health Record. If you have any questions, please contact the author of this message via ITS. Dr. Siri Holbrook The patient has Sepsis documentation in the ID Consult and subsequent progress notes. Based on this information and the findings below, is there an additional diagnosis that is clinically appropriate for this patient? History/Risk Factors: Diabetes Mellitus, Hypertensive cardiovascular disease, Hyperlipidemia, obesity Clinical Indicators: 43-year-old male diabetic foot ulcer with Charcot feet, previous amputation to right second and third toe. He presents with left foot diabetic foot ulcer with osteomyelitis. 7/2 WBC 13.8 7/2 Lactic acid: 1.2 7/2 Blood cultures: Methicillin resist S. aureus 7/ Vital signs: 98/57 115 20 99.3 95% RA 7/2 ID Consult: patient presented hospital with sepsis in this patient who did have a fever elevated white count source is likely left diabetic foot infection concerning for underlying septic arthritis/Charcot deformity versus abscess likely from MRSA and this patient has previously grown same pathogen Treatment: Vancomycin HCL 2,000 MG IVPB Q 8 HRS (PD) Cefepime HCL 2 GM IVPB Q 12 HRS .9 NS 1,000 ML Bolus Is there an additional diagnosis that is clinically appropriate for this patient? [ X ] Sepsis, present on admission [ ] No additional diagnosis/not clinically significant [ ] Other, please specify [ ] Unable to determine SIRS Criteria: 2 or more of the following may indicate SIRS Temperature < 96.8F (36C) or > 101.0F (38.3C) Heart Rate > 90 bpm Respiratory Rate > 20 breaths/min or PaCO2 < 32 mmHg White Blood Cell Count > 12,000 or < 4,000 cells/mm3 or > 10% bands (Template Last Reviewed: March 2022) MTDD
--- NOTE | 2023-09-25 15:06 | P.PN ---
Subjective Progress Note Date: 09/25/23 Principal diagnosis: Reason for follow-up is left diabetic foot infection and bacteremia Patient is a 43-year-old male with a past medical history significant for diabetes mellitus patient did have a history of diabetic foot infection especially involving the left foot with evidence of Charcot deformity osteomyelitis and MRSA bacteremia recently completed an extensive course of IV antibiotic therapy and was on oral suppressive antibiotics, recently did have twisting of his left ankle about 2 weeks ago and diagnosed with a new fracture now presenting with increasing swelling redness to the left foot and ankle area concerning for osteomyelitis. On today's evaluation that is 09/25/2023, the patient continues to be afebrile, the patient is on room air and breathing comfortably, the Pt denies having any chest pain or cough, the patient denies having any abdominal pain no vomiting or any diarrhea, overall discomfort and swelling to the left ankle has decreased in intensity. Patient white count is 5.25, creatinine 0.5. Blood culture repeated and so far pending Objective - Vital Signs Vital signs: Vital Signs Temp 98.0 F 09/25/23 08:03 Pulse 95 09/25/23 08:03 Resp 17 09/25/23 08:03 BP 126/85 09/25/23 08:03 Pulse Ox 96 09/25/23 08:03 FiO2 Intake & Output 09/24/23 09/25/23 09/25/23 18:59 06:59 18:59 Output Total 800 Balance -800 Output: Urine 800 Other: Voiding Method Toilet Urinal # Voids 2 - Exam GENERAL DESCRIPTION: Middle-age male lying in bed in no distress RESPIRATORY SYSTEM: Unlabored breathing , decreased breath sounds at bases HEART: S1 S2 regular rate and rhythm , ABDOMEN: Soft , no tenderness EXTREMITIES: Left foot and ankle area did have some swelling and redness - Labs CBC & Chem 7: 09/25/23 06:56 09/25/23 06:56 Labs: Abnormal Lab Results - Last 24 Hours (Table) 09/24/23 09/24/23 09/25/23 Range/Units 17:18 19:57 06:25 Hgb (13.0-17.0) g/dL MCH (27.0-32.0) pg MCHC (32.0-37.0) g/dL Eosinophils # (0.04-0.35) X 10*3/uL Sodium (137-145) mmol/L Chloride (98-107) mmol/L Carbon Dioxide (22-30) mmol/L Creatinine (0.66-1.25) mg/dL Glucose (74-99) mg/dL POC Glucose (mg/dL) 267 H 309 H 256 H (70-110) mg/dL Total Protein (6.3-8.2) g/dL Albumin (3.5-5.0) g/dL 09/25/23 09/25/23 09/25/23 Range/Units 06:56 06:56 12:16 Hgb 12.8 L (13.0-17.0) g/dL MCH 25.2 L (27.0-32.0) pg MCHC 31.1 L (32.0-37.0) g/dL Eosinophils # 0.37 H (0.04-0.35) X 10*3/uL Sodium 135 L (137-145) mmol/L Chloride 96 L (98-107) mmol/L Carbon Dioxide 35 H (22-30) mmol/L Creatinine 0.58 L (0.66-1.25) mg/dL Glucose 253 H (74-99) mg/dL POC Glucose (mg/dL) 270 H (70-110) mg/dL Total Protein 5.5 L (6.3-8.2) g/dL Albumin 3.0 L (3.5-5.0) g/dL Microbiology - Last 24 Hours (Table) 09/22/23 06:51 Blood Culture Gram Stain - Final Blood Blood Culture - Final Methicillin resist S. aureus 09/22/23 06:36 Blood Culture Gram Stain - Final Blood Blood Culture - Final Methicillin resist S. aureus Molecular ID Assessment and Plan (1) Cellulitis of left foot Current Visit: Yes Status: Acute Code(s): L03.116 - CELLULITIS OF LEFT LOWER LIMB SNOMED Code(s): 34672030341745260 (2) Leukocytosis Current Visit: Yes Status: Acute Code(s): D72.829 - ELEVATED WHITE BLOOD CELL COUNT, UNSPECIFIED SNOMED Code(s): 870274171 (3) Osteomyelitis Current Visit: Yes Status: Acute Code(s): M86.9 - OSTEOMYELITIS, UNSPECIFIED SNOMED Code(s): 40718371 (4) MRSA bacteremia Current Visit: No Status: Acute Code(s): R78.81 - BACTEREMIA; B95.62 - METHICILLIN RESIS STAPH INFCT CAUSING DISEASES CLASSD [id number] SNOMED Code(s): 49717910969386175 Plan: 1patient presented hospital with sepsis in this patient who did have a fever elevated white count source is likely left diabetic foot infection concerning for underlying septic arthritis/Charcot deformity versus abscess likely from MRSA and this patient has previously grown same pathogen 2-blood culture coming back positive for MRSA likely infected pathogen blood culture has been repeated document clearance of bacteremia 3-patient did have MRI of the left foot that has been suggestive of progression of his Charcot foot arthropathy with also evidence of fluid collection question of septic joint versus abscess 4-patient to continue vancomycin while watching his kidney function closely admitting team working on possible transfer to [facility] at the bedside questions were answered Dictation was produced using Unified dictation software. please excuse any grammatical, word or spelling errors. Time with Patient: Less than 30
[2023-09-25 16:31] LABS: Glucose,Whole Blood 385 mg/dL (70-110)
[2023-09-25 17:08] LABS: Glucose,Whole Blood 310 mg/dL (70-110)
[2023-09-25] MEDS: DOCUSATE 100 MG CAP PO SCH (17:18)
[2023-09-25] MEDS: INSULIN ASPART (NovoLOG) 100 UNIT/ML VIAL SQ SCH (17:20)
[2023-09-25 21:11] LABS: Glucose,Whole Blood 258 mg/dL (70-110)
[2023-09-25] MEDS: INSULIN DETEMIR (LEVEMIR) 100 UNIT/ML SYR SQ SCH (21:50)
[2023-09-26 06:23] LABS: Glucose,Whole Blood 239 mg/dL (70-110)
[2023-09-26] MEDS: CEFEPIME 2 GM in SODIUM CHLORIDE 0.9% 100 ML IVPB SCH (10:53)
[2023-09-26 11:18] LABS: Glucose,Whole Blood 231 mg/dL (70-110)
--- NOTE | 2023-09-26 14:11 | P.PN ---
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 Hua back in December 2022, he has been following with Dr. Holguin who performed a right second toe amputation before patient also was t reated at [facility] for osteomyelitis of the left foot and he was treated with 28-day course of Zyvox 600 mg orally twice every day for MRSA bacteremia, since then the patient was hospitalized at [facility] for a similar MRSA bacteremia and he was treated with IV antibiotic in the form of vancomycin for 6 weeks through a PICC line in the left upper extremity that was discontinued not long ago, apparently the patient was going to the bathroom and he felt a popping sensation in the left foot, and he was not able to bear any pressure on the left foot, he went outside yesterday and try to mow the lawn, and he was his birthday yesterday as matter fact, he went back home and he was started feeling dizzy lightheaded not feeling well, low-grade temperature, so he ended up coming to the emergency department at [facility] today in the morning for further evaluation patient was found to have a significant erythema and edema in the left foot with significant tenderness to the side of the foot, was severe tenderness, x-ray did show evidence of possible osteomyelitis, pat ient was started on IV antibiotic in the form of cefepime and vancomycin, infectious disease consultation was obtained, blood cultures was obtained as well, patient will be admitted to hospital for further evaluation recommendation. 09/22: Patient is laying down in bed in no apparent distress, his blood cultures are positive for gram-positive cocci in clusters likely Staphylococcus aureus, patient has been on vancomycin and cefepime for now, patient has been followed by infectious disease, will continue to follow-up with the patient very closely, patient denies any chest pain at this time, he has no shortness of breath, he has no abdominal pain, nausea vomiting or diarrhea, his pain is well-controlled at this point in time, we will continue to monitor the patient very closely, follow-up on his left foot progress and awaiting for the bacteremia to be cleared prior to the patient having any PICC line placement. 09/23: Patient is sitting up on edge of bed in no distress. Patient reports that pain is well-controlled, denies chest pain or shortness of breath. Blood cultures were positive for gram-positive cocci, presumptive MRSA. Continue current antibiotics and pain management. MRI of the left foot shows progression of suspected Charcot arthropathy, large joint effusion, and diffuse osseous abnormalities with underlying osteomyelitis. Infectious diseases following. We will continue to monitor patient closely. 09/24: Patient sitting up in bed with family at bedside. Infectious disease recommending transfer to [facility] to see a foot and ankle specialist. Patient evidently was evaluated by Dr. Prather in the past. Vital signs stable. Patient denies chest pain or shortness of breath. Patient states he had a normal bowel movement yesterday. Left foot remains erythemic and edematous. Patient rates his pain 7 out of 10 however has just received pain medication. Continue current medications. Will start arranging for transfer. 09/25: Patient sitting up in chair at this time without signs of acute distress. Patient states his pain is more controlled today. Patient denies chest pain or shortness of breath. We are attempting to transfer to [facility] so the patient could be evaluated by a foot and ankle specialist; however, unsure if insurance authorization will be obtained in a timely manner. Alternatively, patient may receive PICC line hopefully Thursday and can follow-up as an outpatient with podiatry. Continue current antibiotics and pain medication. Will continue to follow closely. REVIEW OF SYSTEMS: Constitutional: positive for documented fever, no chills, no night sweats. No weight change. positive for weakness, fatigue or lethargy. No daytime sleepiness. HEENT: No headache. No blurred vision or double vision, no loss of vision. No loss of Hearing, no ringing in the ears, no dizziness. No nasal drainage or congestion. No epistaxis. No sore throat. Lungs: no shortness of breath, no cough, or sputum production. No wheezing. Reports no dyspnea with activity. Cardiovascular: no chest pain, positive for lower extremity edema. positive for palpitations. negative for paroxysmal nocturnal dyspnea. negative for orthopnea. No lightheadedness or dizziness. No syncopal episodes. Abdominal: Reports no abdominal pain. No nausea or vomiting. No diarrhea. No constipation. No bloody or tarry stools Genitourinary: No dysuria, increased frequency, urgency, Musculoskeletal: No myalgias, positive for weakness, bilateral charcot feet, left foot with swelling and tenderness, right foot post right second toe amputat ion and 3rd toe amputation Integumentary: right third toe amputation, right second toe amputation, there is increased edema and erythema to the left foot with significant tenderness to the side of the foot. Neurologic: No aphasia. No facial droop. No change in mentation. No head injury. No headache. No paralysis. No paresthesia. Psychiatric: positive for depression. No anxiety. No mood swings. Endocrine: positive for abnormal blood sugars. positive for weight change. PHYSICAL EXAMINATION: General: 43 year male sitting up in chair does appear to be in distress HEENT: Head is atraumatic, normocephalic, pupils were equal round reactive to light and recommendation, extraocular muscle movement were intact, sclera nonicteric, conjunctivae were pale, mucous membranes of the mouth are somewhat dry. Neck: Supple, no JVP, normal carotid upstroke bilaterally, no lymphadenopathy. Chest: Decreased breath sounds at the bases, few rhonchi, no expiratory wheezes or intercostal retractions Heart: First heart sound is normal, second heart sound is normal, tachycardic, there is no gallop or murmur. Abdomen: Soft, nontender, nondistended, positive bowel sounds, obese. Extremities: There is +1 edema no calf tenderness DP +2 bilaterally, positive for neuropathy and charcot feet , right third toe amputation, right second toe amputation with significant erythema and tenderness. Left foot with Charcot foot. Neurologic examination: Patient is awake alert and oriented X 3, cranial nerves II-12 appear grossly intact, muscle power were 5 out of 5 in upper extremities and 4/5 in right lower extremity ASSESSMENT AND PLAN: 1. Left foot cellulitis and possible osteomyelitis with Staphylococcus aureus bacteremia. Continue vancomycin, continue cefepime, monitor the patient sym ptoms very closely, continue leg elevation, infectious disease is following. 2. Recurrent osteomyelitis of the left foot status post 6-week treatment of IV antibiotic in the form of vancomycin. Continue IV antibiotic for now, blood culture, patient will need to follow-up with an orthopedic surgeon as an outpatient. 3. Diabetes Mellitustype 2 non controlled. we will continue with Levemir 75 uni ts SC at bedtime along with SSI , has been off GLP_1 RA ( Mounjaro) , we will continue with Metformin 1000 mg po bid and we will continue with BGM AC HS. add NovoLog 8 units before each meal plus the scale. 4. Diabetic Polyneuropathy with charcot feet. we will continue gabapentin 800 mg orally twice every day. 5. Hyperlipidemnia. we will continue with Atorvastatin 80 mg po daily, keep LDL- c 55-70. 6. Hypertension and hypertensive cardiovascular disease. Start the patient on metoprolol 25 mg orally twice every day. 7. Obesity with SHERI and OHS. we will continue with weight loss, never made it for a sleep study. 8. DVT prophylaxis. we will use Lovenox 40 mg SC daily. 9. GI Prophylaxis. we will continue with Protonix 40 mg once every day. 10. Major depressive disorder. Continue patient on duloxetine 30 mg orally once every day. 11. Prognosis is guarded. 12. Disposition is likely to [facility] for evaluation by foot and ankle specialist. Impression and plan of care have been directed as dictated by the signing physician. Mónica Granados, nurse practitioner acting as scribe for signing physician. Objective - Vital Signs Vital signs: Vital Signs Temp 98.0 F 09/26/23 07:46 Pulse 100 09/26/23 07:46 Resp 18 09/26/23 07:46 BP 118/81 09/26/23 07:46 Pulse Ox 91 L 09/26/23 07:46 FiO2 Intake & Output 09/25/23 09/26/23 09/26/23 18:59 06:59 18:59 Intake Total 1999 Balance 1999 Intake: Intake, IV Titration 1999 Amount Cefepime 2 gm In Sodium 100 Chloride 0.9% 100 ml @ 25 mls/hr IVPB Q12HR [facility] Rx #:[id number] Sodium Chloride 0.9% 1, 900 000 ml @ 75 mls/hr IV . [id number] [facility] Rx#:[id number] Vancomycin 2,000 mg In 1000 Sodium Chloride 0.9% 500 ml 500 ml @ 167 mls/hr IVPB Q8H [facility] Rx#: [id number] Other: Voiding Method Toilet Urinal # Voids 2 2 - Labs CBC & Chem 7: 09/25/23 06:56 09/25/23 06:56 Labs: Abnormal Lab Results - Last 24 Hours (Table) 09/25/23 09/25/23 09/25/23 Range/Units 16:29 17:08 21:09 POC Glucose (mg/dL) 385 H 310 H 258 H (70-110) mg/dL 09/26/23 09/26/23 Range/Units 06:21 11:16 POC Glucose (mg/dL) 239 H 231 H (70-110) mg/dL Microbiology - Last 24 Hours (Table) 09/25/23 06:56 Blood Culture - Preliminary Blood 09/24/23 06:02 Blood Culture - Preliminary Blood
--- NOTE | 2023-09-26 15:26 | P.PN ---
Subjective Progress Note Date: 09/26/23 Principal diagnosis: Reason for follow-up is left diabetic foot infection and bacteremia Patient is a 43-year-old male with a past medical history significant for diabetes mellitus patient did have a history of diabetic foot infection especially involving the left foot with evidence of Charcot deformity osteomyelitis and MRSA bacteremia recently completed an extensive course of IV antibiotic therapy and was on oral suppressive antibiotics, recently did have twisting of his left ankle about 2 weeks ago and diagnosed with a new fracture now presenting with increasing swelling redness to the left foot and ankle area concerning for osteomyelitis. On today's evaluation that is09/26/2023, Patient is afebrile patient is currently on room air and denies having any shortness of breath, the patient denies any chest pain or cough, the patient denies any nausea vomiting did not have any abdominal pain and no diarrhea denies any worsening pain to the left foot and ankle area. No labs obtained today blood culture repeat has been negative so far Objective - Vital Signs Vital signs: Vital Signs Temp 98.0 F 09/26/23 07:46 Pulse 100 09/26/23 07:46 Resp 18 09/26/23 07:46 BP 118/81 09/26/23 07:46 Pulse Ox 91 L 09/26/23 07:46 FiO2 Intake & Output 09/25/23 09/26/23 09/26/23 18:59 06:59 18:59 Intake Total 1999 Balance 1999 Intake: Intake, IV Titration 2000 Amount Cefepime 2 gm In Sodium 100 Chloride 0.9% 100 ml @ 25 mls/hr IVPB Q12HR [facility] Rx #:[id number] Sodium Chloride 0.9% 1, 900 000 ml @ 75 mls/hr IV . [id number] [facility] Rx#:[id number] Vancomycin 2,000 mg In 1000 Sodium Chloride 0.9% 500 ml 500 ml @ 167 mls/hr IVPB Q8H [facility] Rx#: [id number] Other: Voiding Method Toilet Urinal # Voids 2 2 - Exam GENERAL DESCRIPTION: Middle-age male lying in bed in no distress RESPIRATORY SYSTEM: Unlabored breathing , decreased breath sounds at bases HEART: S1 S2 regular rate and rhythm , ABDOMEN: Soft , no tenderness EXTREMITIES: Left foot and ankle area did have some swelling and redness - Labs CBC & Chem 7: 07/05/24 06:56 09/25/23 06:56 Labs: Abnormal Lab Results - Last 24 Hours (Table) 09/25/23 09/25/23 09/25/23 Range/Units 12:16 16:29 17:08 POC Glucose (mg/dL) 270 H 385 H 310 H (70-110) mg/dL 09/25/23 09/26/23 Range/Units 21:09 06:21 POC Glucose (mg/dL) 258 H 239 H (70-110) mg/dL Microbiology - Last 24 Hours (Table) 09/24/23 06:02 Blood Culture - Preliminary Blood Assessment and Plan (1) Cellulitis of left foot Current Visit: Yes Status: Acute Code(s): L03.116 - CELLULITIS OF LEFT LOWER LIMB SNOMED Code(s): 59902072632751737 (2) Leukocytosis Current Visit: Yes Status: Acute Code(s): D72.829 - ELEVATED WHITE BLOOD CELL COUNT, UNSPECIFIED SNOMED Code(s): 785411014 (3) Osteomyelitis Current Visit: Yes Status: Acute Code(s): M86.9 - OSTEOMYELITIS, UNSPECIFIED SNOMED Code(s): 93650448 (4) MRSA bacteremia Current Visit: No Status: Acute Code(s): R78.81 - BACTEREMIA; B95.62 - METHICILLIN RESIS [facility] Code[facility]s): 18301454940781777 Plan: 1patient presented hospital with sepsis in this patient who did have a fever elevated white count source is likely left diabetic foot infection concerning for underlying septic arthritis/Charcot deformity versus abscess likely from MRSA and this patient has previously grown same pathogen 2-blood culture coming back positive for MRSA likely infected pathogen blood culture has been repeated document clearance of bacteremia 3-patient did have MRI of the left foot that has been suggestive of progression of his Charcot foot arthropathy with also evidence of fluid collection question of septic joint versus abscess 4-patient to continue vancomycin, discontinue cefepime patient seem to have cleared his bacteremia as the foot and ankle specialist the patient has seen on vacation and patient cannot be transferred to him we will get a PICC line on Thursday and continue with IV vancomycin with instruction to follow-up with the o rthopedic foot and ankle as soon as possible, this has been discussed with admitting physician Dictation was produced using dragon dictation software. please excuse any grammatical, word or spelling errors. Time with Patient: Less than 30
[2023-09-26 17:01] LABS: Glucose,Whole Blood 333 mg/dL (70-110)
[2023-09-26] MEDS: INSULIN ASPART (NovoLOG) 100 UNIT/ML VIAL SQ SCH (17:56)
[2023-09-26 19:47] LABS: Glucose,Whole Blood 351 mg/dL (70-110)
[2023-09-26] MEDS: MELATONIN 3 MG TABLET PO SCH (23:28)
[2023-09-27 05:37] LABS: Glucose,Whole Blood 266 mg/dL (70-110)
[2023-09-27 07:41] LABS: ALT 106 U/L (4-49); AST 98 U/L (17-59); African American GFR (CKD) >90 (>60 ml/min/1.73 sqM); Albumin 3.2 g/dL (3.5-5.0); Albumin/Globulin Ratio 1.2; Alkaline Phosphatase 91 U/L (38-126); Anion Gap 3 mmol/L; Blood Urea Nitrogen 14 mg/dL (9-20); Calcium 8.9 mg/dL (8.4-10.2); Carbon Dioxide 35 mmol/L (22-30); Chloride 98 mmol/L (98-107); Globulin 2.6 g/dL; Glucose 256 mg/dL (74-99); Non-African American GFR(CKD) >90 (>60 ml/min/1.73 sqM); Sodium 136 mmol/L (137-145); Total Bilirubin 0.4 mg/dL (0.2-1.3); Total Protein 5.8 g/dL (6.3-8.2)
[2023-09-27] MEDS: VANCOMYCIN TROUGH DUE 1 EACH MISC MISCELLANE ONE (08:52)
[2023-09-27 09:56] LABS: Basophils # (A) 0.05 X 10*3/uL (0.00-0.10); Basophils % (A) 0.8 %; Eosinophils # (A) 0.36 X 10*3/uL (0.04-0.35); Eosinophils % (A) 5.9 %; HCT 40.4 % (39.6-50.0); HGB 12.7 g/dL (13.0-17.0); Lymphocytes # (A) 1.39 X 10*3/uL (0.90-5.00); Lymphocytes % (A) 22.9 %; MCH 25.3 pg (27.0-32.0); MCHC 31.4 g/dL (32.0-37.0); MCV 80.5 FL (80.0-97.0); Mean Platelet Volume 10.1 FL (9.5-12.2); Monocytes # (A) 0.64 X 10*3/uL (0.20-1.00); Monocytes % (A) 10.5 %; NRBC Per 100 WBC 0 X 10*3/uL (0.00-0.01); Neutrophils % (A) 59.4 %; Platelet Count 299 X 10*3/uL (140-440); RBC 5.02 X 10*6/uL (4.40-5.60); RDW 13.5 % (11.5-14.5); WBC 6.07 X 10*3/uL (4.50-10.00)
[2023-09-27 11:44] LABS: Glucose,Whole Blood 268 mg/dL (70-110)
[2023-09-27] MEDS: INSULIN ASPART (NovoLOG) 100 UNIT/ML VIAL SQ SCH (12:27)
--- NOTE | 2023-09-27 15:25 | P.PN ---
Subjective Progress Note Date: 09/27/23 Principal diagnosis: Reason for follow-up is left diabetic foot infection and bacteremia Patient is a 43-year-old male with a past medical history significant for diabetes mellitus patient did have a history of diabetic foot infection especially involving the left foot with evidence of Charcot deformity osteomyelitis and MRSA bacteremia recently completed an extensive course of IV antibiotic therapy and was on oral suppressive antibiotics, recently did have twisting of his left ankle about 2 weeks ago and diagnosed with a new fracture now presenting with increasing swelling redness to the left foot and ankle area concerning for osteomyelitis. On today's evaluation that is 09/27/2023, patient has been afebrile, patient is breathing comfortably and is currently on room air, patient denies having any significant cough no chest pain shortness of breath, patient denies nausea vomiting or diarrhea and no abdominal pain denies any worsening pain to the left foot or ankle area. Patient did have a white count of 6.07 creatinine 0.57 Vanco trough was 24.1 blood culture repeat has been negative Objective - Vital Signs Vital signs: Vital Signs Temp 97.8 F 09/27/23 14:03 Pulse 91 09/27/23 14:03 Resp 18 09/27/23 14:03 BP 130/84 09/27/23 14:03 Pulse Ox 97 09/27/23 14:03 FiO2 Intake & Output 09/26/23 09/27/23 09/27/23 18:59 06:59 18:59 Intake Total 740 Balance 740 Intake: Intake, IV Titration 740 Amount Sodium Chloride 0.9% 1, 240 000 ml @ 20 mls/hr IV . Q24H [facility] Rx#:[id number] Vancomycin 2,000 mg In 500 Sodium Chloride 0.9% 500 ml 500 ml @ 167 mls/hr IVPB Q8H [facility] Rx#: [id number] Other: Voiding Method Toilet Urinal # Voids 2 4 - Exam GENERAL DESCRIPTION: Middle-age male lying in bed in no distress RESPIRATORY SYSTEM: Unlabored breathing , decreased breath sounds at bases HEART: S1 S2 regular rate and rhythm , ABDOMEN: Soft , no tenderness EXTREMITIES: Left foot and ankle area did have some swelling and redness - Labs CBC & Chem 7: 09/27/23 03:28 09/27/23 07:15 Labs: Abnormal Lab Results - Last 24 Hours (Table) 09/26/23 09/26/23 09/27/23 Range/Units 16:59 19:37 03:28 Hgb 12.7 L (13.0-17.0) g/dL MCH 25.3 L (27.0-32.0) pg MCHC 31.4 L (32.0-37.0) g/dL Eosinophils # 0.36 H (0.04-0.35) X 10*3/uL Sodium (137-145) mmol/L Carbon Dioxide (22-30) mmol/L Creatinine (0.66-1.25) mg/dL Glucose (74-99) mg/dL POC Glucose (mg/dL) 333 H 351 H (70-110) mg/dL AST (17-59) U/L ALT (4-49) U/L Total Protein (6.3-8.2) g/dL Albumin (3.5-5.0) g/dL 09/27/23 09/27/23 09/27/23 Range/Units 05:34 07:15 11:41 Hgb (13.0-17.0) g/dL MCH (27.0-32.0) pg MCHC (32.0-37.0) g/dL Eosinophils # (0.04-0.35) X 10*3/uL Sodium 136 L (137-145) mmol/L Carbon Dioxide 35 H (22-30) mmol/L Creatinine 0.57 L (0.66-1.25) mg/dL Glucose 256 H (74-99) mg/dL POC Glucose (mg/dL) 266 H 268 H (70-110) mg/dL AST 98 H (17-59) U/L ALT 106 H (4-49) U/L Total Protein 5.8 L (6.3-8.2) g/dL Albumin 3.2 L (3.5-5.0) g/dL Microbiology - Last 24 Hours (Table) 09/25/23 06:56 Blood Culture - Preliminary Blood 09/24/23 06:02 Blood Culture - Preliminary Blood Assessment and Plan (1) Cellulitis of left foot Current Visit: Yes Status: Acute Code(s): L03.116 - CELLULITIS OF LEFT LOWER LIMB SNOMED Code(s): 61246834086488374 (2) Leukocytosis Current Visit: Yes Status: Acute Code(s): D72.829 - ELEVATED WHITE BLOOD CELL COUNT, UNSPECIFIED SNOMED Code(s): 186451383 (3) Osteomyelitis Current Visit: Yes Status: Acute Code(s): M86.9 - OSTEOMYELITIS, UNSPECIFIED SNOMED Code(s): 24429316 (4) MRSA bacteremia Current Visit: No Status: Acute Code(s): R78.81 - BACTEREMIA; B95.62 - METHICILLIN RESIS STAPH INFCT CAUSING DISEASES [facility] SNOMED Code(s): 79669822170167930 Plan: 1patient presented hospital with sepsis in this patient who did have a fever elevated white count source is likely left diabetic foot infection concerning for underlying septic arthritis/Charcot deformity versus abscess likely from MRSA and this patient has previously grown same pathogen 2-blood culture coming back positive for MRSA likely infected pathogen blood culture has been repeated document clearance of bacteremia 3-patient did have MRI of the left foot that has been suggestive of progression of his Charcot foot arthropathy with also evidence of fluid collection question of septic joint versus abscess 4-patient to continue vancomycin, as he has cleared his bacteremia will get a PICC line tomorrow and plan for 6-week course of IV vancomycin patient has been started he needs to follow-up with his foot and ankle specialist as soon as he is back from vacation as likely need surgical drainage Dictation was produced using [employer] dictation software. please excuse any grammatical, word or spelling errors. Time with Patient: Less than 30
[2023-09-27 16:42] LABS: Glucose,Whole Blood 359 mg/dL (70-110)
[2023-09-27 18:11] LABS: Prothrombin Time 11.4 sec (10.0-12.5)
[2023-09-27 20:54] LABS: Glucose,Whole Blood 267 mg/dL (70-110)
[2023-09-27] MEDS: INSULIN DETEMIR (LEVEMIR) 100 UNIT/ML SYR SQ SCH (21:19)
[2023-09-27] MEDS: VANCOMYCIN 2,000 MG in SODIUM CHLORIDE 0.9% 500 ML 500 ML IVPB SCH (21:19)
[2023-09-28 06:16] LABS: Glucose,Whole Blood 242 mg/dL (70-110)
[2023-09-28 08:39] LABS: Basophils # (A) 0.06 X 10*3/uL (0.00-0.10); Basophils % (A) 0.9 %; Eosinophils # (A) 0.33 X 10*3/uL (0.04-0.35); Eosinophils % (A) 4.7 %; HCT 43.5 % (39.6-50.0); HGB 13.8 g/dL (13.0-17.0); Lymphocytes # (A) 1.61 X 10*3/uL (0.90-5.00); Lymphocytes % (A) 23.2 %; MCH 25.1 pg (27.0-32.0); MCHC 31.7 g/dL (32.0-37.0); MCV 79.1 FL (80.0-97.0); Mean Platelet Volume 10.2 FL (9.5-12.2); Monocytes % (A) 7.2 %; NRBC Per 100 WBC 0 X 10*3/uL (0.00-0.01); Neutrophils # (A) 4.42 X 10*3/uL (1.80-7.70); Neutrophils % (A) 63.6 %; Platelet Count 317 X 10*3/uL (140-440); RDW 13.6 % (11.5-14.5); WBC 6.95 X 10*3/uL (4.50-10.00)
[2023-09-28 08:49] LABS: ALT 178 U/L (10-49); AST 132 U/L (14-35); Albumin 3.6 g/dL (3.8-4.9); Alkaline Phosphatase 111 U/L (41-126); BUN/Creat Ratio 19.71 Ratio (12.00-20.00); Blood Urea Nitrogen 13.8 mg/dL (9.0-27.0); Calcium 8.9 mg/dL (8.7-10.3); Carbon Dioxide 29.9 mmol/L (21.6-31.8); Chloride 97 mmol/L (96-109); Globulin 2.4 g/dL (1.6-3.3); Glucose 284 mg/dL (70-110); Potassium 4.3 mmol/L (3.5-5.5); Sodium 137 mmol/L (135-145); Total Bilirubin <0.2 mg/dL (0.3-1.2)
[2023-09-28 11:55] LABS: Glucose,Whole Blood 252 mg/dL (70-110)
--- NOTE | 2023-09-28 12:25 | P.PN ---
Subjective Progress Note Date: 09/28/23 Principal diagnosis: Reason for follow-up is left diabetic foot infection and bacteremia Patient is a 43-year-old male with a past medical history significant for diabetes mellitus patient did have a history of diabetic foot infection especially involving the left foot with evidence of Charcot deformity osteomyelitis and MRSA bacteremia recently completed an extensive course of IV antibiotic therapy and was on oral suppressive antibiotics, recently did have twisting of his left ankle about 2 weeks ago and diagnosed with a new fracture now presenting with increasing swelling redness to the left foot and ankle area concerning for osteomyelitis. On today's evaluation that is 09/28/2023, Patient is afebrile this morning and denies any chills, patient mention breathing comfortably and is currently on room air, patient denies any chest pain occasional cough patient denies any abdominal pain no diarrhea no nausea no vomiting denies any worsening pain to the left foot and ankle area. Patient white count 6.95, creatinine 0.7 blood culture repeat has been negative Objective - Vital Signs Vital signs: Vital Signs Temp 98.0 F 09/28/23 07:31 Pulse 98 09/28/23 07:31 Resp 18 09/28/23 07:31 BP 127/88 09/28/23 07:31 Pulse Ox 94 L 09/28/23 07:31 FiO2 Intake & Output 09/27/23 09/28/23 09/28/23 18:59 06:59 18:59 Other: Voiding Method Toilet Urinal # Voids 3 2 - Exam GENERAL DESCRIPTION: Middle-age male lying in bed in no distress RESPIRATORY SYSTEM: Unlabored breathing , decreased breath sounds at bases HEART: S1 S2 regular rate and rhythm , ABDOMEN: Soft , no tenderness EXTREMITIES: Left foot and ankle area did have some swelling and redness - Labs CBC & Chem 7: 09/28/23 03:51 09/28/23 03:51 Labs: Abnormal Lab Results - Last 24 Hours (Table) 09/27/23 09/27/23 09/27/23 Range/Units 11:41 16:40 20:39 MCV (80.0-97.0) FL MCH (27.0-32.0) pg MCHC (32.0-37.0) g/dL Glucose (70-110) mg/dL POC Glucose (mg/dL) 268 H 359 H 267 H (70-110) mg/dL Total Bilirubin (0.3-1.2) mg/dL AST (14-35) U/L ALT (10-49) U/L Total Protein (6.2-8.2) g/dL Albumin (3.8-4.9) g/dL Albumin/Globulin Ratio (1.60-3.17) Ratio 09/28/23 09/28/23 09/28/23 Range/Units 03:51 03:51 06:14 MCV 79.1 L (80.0-97.0) FL MCH 25.1 L (27.0-32.0) pg MCHC 31.7 L (32.0-37.0) g/dL Glucose 284 H (70-110) mg/dL POC Glucose (mg/dL) 242 H (70-110) mg/dL Total Bilirubin <0.2 L (0.3-1.2) mg/dL AST 132 H (14-35) U/L ALT 178 H (10-49) U/L Total Protein 6.0 L (6.2-8.2) g/dL Albumin 3.6 L (3.8-4.9) g/dL Albumin/Globulin Ratio 1.50 L (1.60-3.17) Ratio Microbiology - Last 24 Hours (Table) 09/25/23 06:56 Blood Culture - Preliminary Blood 09/24/23 06:02 Blood Culture - Preliminary Blood Assessment and Plan (1) Cellulitis of left foot Current Visit: Yes Status: Acute Code(s): L03.116 - CELLULITIS OF LEFT LOWER LIMB SNOMED Code(s): 97138724520709656 (2) Leukocytosis Current Visit: Yes Status: Acute Code(s): D72.829 - ELEVATED WHITE BLOOD CELL COUNT, UNSPECIFIED SNOMED Code(s): 573544910 (3) Osteomyelitis Current Visit: Yes Status: Acute Code(s): M86.9 - OSTEOMYELITIS, UNSPECIFIED SNOMED Code(s): 14220035 (4) MRSA bacteremia Current Visit: No Status: Acute Code(s): R78.81 - BACTEREMIA; B95.62 - METHICILLIN RESIS STAPH INFCT CAUSING DISEASES [facility] SNOMED Code(s): 26691943653500638 Plan: 1patient presented hospital with sepsis in this patient who did have a fever elevated white count source is likely left diabetic foot infection concerning for underlying septic arthritis/Charcot deformity versus abscess likely from MRSA and this patient has previously grown same pathogen 2-blood culture coming back positive for MRSA likely infected pathogen blood culture has been repeated document clearance of bacteremia 3-patient did have MRI of the left foot that has been suggestive of progression of his Charcot foot arthropathy with also evidence of fluid collection question of septic joint versus abscess 4-patient to continue vancomycin, as he has cleared his bacteremia currently waiting for PICC line placement prescription for outpatient IV vancomycin has been provided to the trimming caser, patient has been advised again he needs to follow-up with his foot and ankle specialist as soon as he is back from vacation as likely need surgical drainage Dictation was produced using [employer] dictation software. please excuse any grammatical, word or spelling errors. Time with Patient: Less than 30
--- NOTE | 2023-09-28 12:28 | P.PN ---
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 Hua back in December 2022, he has been following with Dr. Holguin who performed a right second toe amputation before patient also was t reated at [facility] for osteomyelitis of the left foot and he was treated with 28-day course of Zyvox 600 mg orally twice every day for MRSA bacteremia, since then the patient was hospitalized at [facility] for a similar MRSA bacteremia and he was treated with IV antibiotic in the form of vancomycin for 6 weeks through a PICC line in the left upper extremity that was discontinued not long ago, apparently the patient was going to the bathroom and he felt a popping sensation in the left foot, and he was not able to bear any pressure on the left foot, he went outside yesterday and try to mow the lawn, and he was his birthday yesterday as matter fact, he went back home and he was started feeling dizzy lightheaded not feeling well, low-grade temperature, so he ended up coming to the emergency department at [facility] today in the morning for further evaluation patient was found to have a significant erythema and edema in the left foot with significant tenderness to the side of the foot, was severe tenderness, x-ray did show evidence of possible osteomyelitis, pat ient was started on IV antibiotic in the form of cefepime and vancomycin, infectious disease consultation was obtained, blood cultures was obtained as well, patient will be admitted to hospital for further evaluation recommendation. 09/22: Patient is laying down in bed in no apparent distress, his blood cultures are positive for gram-positive cocci in clusters likely Staphylococcus aureus, patient has been on vancomycin and cefepime for now, patient has been followed by infectious disease, will continue to follow-up with the patient very closely, patient denies any chest pain at this time, he has no shortness of breath, he has no abdominal pain, nausea vomiting or diarrhea, his pain is well-controlled at this point in time, we will continue to monitor the patient very closely, follow-up on his left foot progress and awaiting for the bacteremia to be cleared prior to the patient having any PICC line placement. 09/23: Patient is sitting up on edge of bed in no distress. Patient reports that pain is well-controlled, denies chest pain or shortness of breath. Blood cultures were positive for gram-positive cocci, presumptive MRSA. Continue current antibiotics and pain management. MRI of the left foot shows progression of suspected Charcot arthropathy, large joint effusion, and diffuse osseous abnormalities with underlying osteomyelitis. Infectious diseases following. We will continue to monitor patient closely. 09/24: Patient sitting up in bed with family at bedside. Infectious disease recommending transfer to [facility] to see a foot and ankle specialist. Patient evidently was evaluated by Dr. Prather in the past. Vital signs stable. Patient denies chest pain or shortness of breath. Patient states he had a normal bowel movement yesterday. Left foot remains erythemic and edematous. Patient rates his pain 7 out of 10 however has just received pain medication. Continue current medications. Will start arranging for transfer. 09/25: Patient sitting up in chair at this time without signs of acute distress. Patient states his pain is more controlled today. Patient denies chest pain or shortness of breath. We are attempting to transfer to [facility] so the patient could be evaluated by a foot and ankle specialist; however, unsure if insurance authorization will be obtained in a timely manner. Alternatively, patient may receive PICC line hopefully Thursday and can follow-up as an outpatient with podiatry. Continue current antibiotics and pain medication. Will continue to follow closely. 09/26: Patient remained stable, sitting up in chair at this time without any distress. Mother at bedside. Patient denies chest pain or shortness of breath. Patient states the left foot pain is controlled at this time. Plan now is for PICC line placement tomorrow and likely discharge. We will arrange for podiatry consult outpatient. Continue current medical management. We will continue to follow closely. REVIEW OF SYSTEMS: Constitutional: positive for documented fever, no chills, no night sweats. No weight change. positive for weakness, fatigue or lethargy. No daytime sleepiness. HEENT: No headache. No blurred vision or double vision, no loss of vision. No loss of Hearing, no ringing in the ears, no dizziness. No nasal drainage or congestion. No epistaxis. No sore throat. Lungs: no shortness of breath, no cough, or sputum production. No wheezing. Reports no dyspnea with activity. Cardiovascular: no chest pain, positive for lower extremity edema. positive for palpitations. negative for paroxysmal nocturnal dyspnea. negative for orthopnea. No lightheadedness or dizziness. No syncopal episodes. Abdominal: Reports no abdominal pain. No nausea or vomiting. No diarrhea. No constipation. No bloody or tarry stools Genitourinary: No dysuria, increased frequency, urgency, Musculoskeletal: No myalgias, positive for weakness, bilateral charcot feet, left foot with swelling and tenderness, right foot post right second toe amputation and 3rd toe amputation Integumentary: right third toe amputation, right second toe amputation, there is increased edema and erythema to the left foot with significant tenderness to the side of the foot. Neurologic: No aphasia. No facial droop. No change in mentation. No head injury. No headache. No paralysis. No paresthesia. Psychiatric: positive for depression. No anxiety. No mood swings. Endocrine: positive for abnormal blood sugars. positive for weight change. PHYSICAL EXAMINATION: General: 43 year male sitting up in chair does appear to be in distress HEENT: Head is atraumatic, normocephalic, pupils were equal round reactive to light and recommendation, extraocular muscle movement were intact, sclera nonicteric, conjunctivae were pale, mucous membranes of the mouth are somewhat dry. Neck: Supple, no JVP, normal carotid upstroke bilaterally, no lymphadenopathy. Chest: Decreased breath sounds at the bases, few rhonchi, no expiratory wheezes or intercostal retractions Heart: First heart sound is normal, second heart sound is normal, tachycardic, there is no gallop or murmur. Abdomen: Soft, nontender, nondistended, positive bowel sounds, obese. Extremities: There is +1 edema no calf tenderness DP +2 bilaterally, positive for neuropathy and charcot feet , right third toe amputation, right second toe amputation with significant erythema and tenderness. Left foot with Charcot foot. Neurologic examination: Patient is awake alert and oriented X 3, cranial nerves II-12 appear grossly intact, muscle power were 5 out of 5 in upper extremities and 4/5 in right lower extremity ASSESSMENT AND PLAN: 1. Left foot cellulitis and possible osteomyelitis with Staphylococcus aureus bacteremia. Continue vancomycin, continue cefepime, monitor the patient symptoms very closely, continue leg elevation, infectious disease is following. 2. Recurrent osteomyelitis of the left foot status post 6-week treatment of IV antibiotic in the form of vancomycin. Continue IV antibiotic for now, blood culture, patient will need to follow-up with an orthopedic surgeon as an outpatient. 3. Diabetes Mellitustype 2 non controlled. we will continue with Levemir 75 units SC at bedtime along with SSI , has been off GLP_1 RA ( Mounjaro) , we will continue with Metformin 1000 mg po bid and we will continue with BGM AC HS. add NovoLog 8 units before each meal plus the scale. 4. Diabetic Polyneuropathy with charcot feet. we will continue gabapentin 800 mg orally twice every day. 5. Hyperlipidemnia. we will continue with Atorvastatin 80 mg po daily, keep LDL- c 55-70. 6. Hypertension and hypertensive cardiovascular disease. Start the patient on metoprolol 25 mg orally twice every day. 7. Obesity with SHERI and OHS. we will continue with weight loss, never made it for a sleep study. 8. DVT prophylaxis. we will use Lovenox 40 mg SC daily. 9. GI Prophylaxis. we will continue with Protonix 40 mg once every day. 10. Major depressive disorder. Continue patient on duloxetine 30 mg orally once every day. 11. Prognosis is guarded. 12. Disposition is likely PICC line tomorrow, discharge home, and follow-up with podiatry outpatient. Impression and plan of care have been directed as dictated by the signing physician. Mónica Granados, nurse practitioner acting as scribe for signing physician. Objective - Vital Signs Vital signs: Vital Signs Temp 97.8 F 09/27/23 14:03 Pulse 91 09/27/23 14:03 Resp 18 09/27/23 14:03 BP 130/84 09/27/23 14:03 Pulse Ox 97 09/27/23 14:03 FiO2 Intake & Output 09/26/23 09/27/23 09/27/23 18:59 06:59 18:59 Intake Total 740 Balance 740 Intake: Intake, IV Titration 740 Amount Sodium Chloride 0.9% 1, 240 000 ml @ 20 mls/hr IV . Q24H PAL Rx#:[id number] Vancomycin 2,000 mg In 500 Sodium Chloride 0.9% 500 ml 500 ml @ 167 mls/hr IVPB Q8H PAL Rx#: [id number] Other: Voiding Method Toilet Urinal # Voids 2 4 - Labs CBC & Chem 7: 09/28/23 03:51 09/28/23 03:51 Labs: Abnormal Lab Results - Last 24 Hours (Table) 09/26/23 09/26/23 09/27/23 Range/Units 16:59 19:37 03:28 Hgb 12.7 L (13.0-17.0) g/dL MCH 25.3 L (27.0-32.0) pg MCHC 31.4 L (32.0-37.0) g/dL Eosinophils # 0.36 H (0.04-0.35) X 10*3/uL Sodium (137-145) mmol/L Carbon Dioxide (22-30) mmol/L Creatinine (0.66-1.25) mg/dL Glucose (74-99) mg/dL POC Glucose (mg/dL) 333 H 351 H (70-110) mg/dL AST (17-59) U/L ALT (4-49) U/L Total Protein (6.3-8.2) g/dL Albumin (3.5-5.0) g/dL 09/27/23 09/27/23 09/27/23 Range/Units 05:34 07:15 11:41 Hgb (13.0-17.0) g/dL MCH (27.0-32.0) pg MCHC (32.0-37.0) g/dL Eosinophils # (0.04-0.35) X 10*3/uL Sodium 136 L (137-145) mmol/L Carbon Dioxide 35 H (22-30) mmol/L Creatinine 0.57 L (0.66-1.25) mg/dL Glucose 256 H (74-99) mg/dL POC Glucose (mg/dL) 266 H 268 H (70-110) mg/dL AST 98 H (17-59) U/L ALT 106 H (4-49) U/L Total Protein 5.8 L (6.3-8.2) g/dL Albumin 3.2 L (3.5-5.0) g/dL Microbiology - Last 24 Hours (Table) 09/25/23 06:56 Blood Culture - Preliminary Blood 09/24/23 06:02 Blood Culture - Preliminary Blood
--- NOTE | 2023-09-28 16:25 | CDI ---
Documentation Clarification Form Date: 09/28/2023 04:19:36 PM From: Shilpi Erwin RN, CCD Phone: [phone] Admit Date: 09/22/2023 10:16:00 AM Patient Name: David Stern Visit Number: [id number] Discharge Date: ATTENTION: The Clinical Documentation Specialists (CDI) and [facility] Coding Staff appreciate your assistance in clarifying documentation. Please respond to the clarification below the line at the bottom and electronically sign. The CDI & [facility] Coding staff will review the response and follow-up if needed. Please note: Queries are made part of the Legal Health Record. If you have any questions, please contact the author of this message via ITS. Mónica RUBIO Diabetes type 2 uncontrolled is documented in the H/P and subsequent progress notes. Additional specificity regarding the diabetes diagnosis is requested. History/Risk Factors: Diabetes Mellitus, Hypertension, Hyperlipidemia, Obesity with obstructive sleep apnea, MRSA, Clinical Indicators: 43-year-old male presents to ED with chief complaint of bodyaches, left foot pain, vomiting. He states his blood sugars have been very labile. 7/2 Labs: Glucose 169, 7/2 Labs POC Glucose (md/dl) 160, 237 7/3 Labs: Glucose 165 7/3 Labs: POC Glucose (mg/dl) 304, Treatment: Levemir 80 units SC at bedtime along with SSI Metformin 1000 MG PO W/Supper PAL Blood Glucose monitoring AC HS Novolog 8 Units before each meal plus the scale Please further specify diabetes mellitus type 2 uncontrolled: [ ] Diabetes Mellitus Type 2 with Hyperglycemia [ ] Diabetes Mellitus Type 2 with Hypoglycemia [ ] Other, please specify [ ] Unable to Determine (Template Last Revised: May 2020) MTDD
[2023-09-28 17:08] LABS: Glucose,Whole Blood 267 mg/dL (70-110)
--- NOTE | 2023-09-28 18:49 | P.PN ---
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 Hua back in December 2022, he has been following with Dr. Holguin who performed a right second toe amputation before patient also was t reated at [facility] for osteomyelitis of the left foot and he was treated with 28-day course of Zyvox 600 mg orally twice every day for MRSA bacteremia, since then the patient was hospitalized at [facility] for a similar MRSA bacteremia and he was treated with IV antibiotic in the form of vancomycin for 6 weeks through a PICC line in the left upper extremity that was discontinued not long ago, apparently the patient was going to the bathroom and he felt a popping sensation in the left foot, and he was not able to bear any pressure on the left foot, he went outside yesterday and try to mow the lawn, and he was his birthday yesterday as matter fact, he went back home and he was started feeling dizzy lightheaded not feeling well, low-grade temperature, so he ended up coming to the emergency department at [facility] today in the morning for further evaluation patient was found to have a significant erythema and edema in the left foot with significant tenderness to the side of the foot, was severe tenderness, x-ray did show evidence of possible osteomyelitis, pat ient was started on IV antibiotic in the form of cefepime and vancomycin, infectious disease consultation was obtained, blood cultures was obtained as well, patient will be admitted to hospital for further evaluation recommendation. 09/22: Patient is laying down in bed in no apparent distress, his blood cultures are positive for gram-positive cocci in clusters likely Staphylococcus aureus, patient has been on vancomycin and cefepime for now, patient has been followed by infectious disease, will continue to follow-up with the patient very closely, patient denies any chest pain at this time, he has no shortness of breath, he has no abdominal pain, nausea vomiting or diarrhea, his pain is well-controlled at this point in time, we will continue to monitor the patient very closely, follow-up on his left foot progress and awaiting for the bacteremia to be cleared prior to the patient having any PICC line placement. 09/23: Patient is sitting up on edge of bed in no distress. Patient reports that pain is well-controlled, denies chest pain or shortness of breath. Blood cultures were positive for gram-positive cocci, presumptive MRSA. Continue current antibiotics and pain management. MRI of the left foot shows progression of suspected Charcot arthropathy, large joint effusion, and diffuse osseous abnormalities with underlying osteomyelitis. Infectious diseases following. We will continue to monitor patient closely. 09/24: Patient sitting up in bed with family at bedside. Infectious disease recommending [place] [facility] [place] and ankle specialist. Patient evidently was evaluated by Dr. Prather in the past. Vital signs stable. Patient denies chest pain or shortness of breath. Patient states he had a normal bowel movement yesterday. Left foot remains erythemic and edematous. Patient rates his pain 7 out of 10 however has just received pain medication. Continue current medications. Will start arranging for transfer. 09/25: Patient sitting up in chair at this time without signs of acute distress. Patient states his pain is more controlled today. Patient denies chest pain or shortness of breath. We are attempting to [place] [facility] so the patient could be evaluated by a foot and ankle specialist; however, unsure if insurance authorization will be obtained in a timely manner. Alternatively, patient may receive PICC line hopefully Thursday and can follow-up as an outpatient with podiatry. Continue current antibiotics and pain medication. Will continue to follow closely. 09/26: Patient remained stable, sitting up in chair at this time without any distress. Mother at bedside. Patient denies chest pain or shortness of breath. Patient states the left foot pain is controlled at this time. Plan now is for PICC line placement tomorrow and likely discharge. We will arrange for podiatry consult outpatient. Continue current medical management. We will continue to follow closely. 09/27: Patient is sitting at the edge of the bed await his PICC line placement, apparently the patient is not going to get his PICC line until later on today, therefore the patient will be spending the night in the hospital he will be discharged home tomorrow morning because the dependency case manager did not send the IV antibiotic to the infusion company at this time, patient will spend the night in the hospital he will be discharged home tomorrow morning with IV antibiotic in the form of vancomycin, he will follow-up with me as an outpatient in about 1 week, he will follow-up with Dr. Holland as well and will make an arrangement for the patient to see Dr. Russell as an outpatient for further evaluation recommendation of his left Charcot foot with fracture. REVIEW OF SYSTEMS: Constitutional: positive for documented fever, no chills, no night sweats. No weight change. positive for weakness, fatigue or lethargy. No daytime sleepiness. HEENT: No headache. No blurred vision or double vision, no loss of vision. No loss of Hearing, no ringing in the ears, no dizziness. No nasal drainage or congestion. No epistaxis. No sore throat. Lungs: no shortness of breath, no cough, or sputum production. No wheezing. Reports no dyspnea with activity. Cardiovascular: no chest pain, positive for lower extremity edema. positive for palpitations. negative for paroxysmal nocturnal dyspnea. negative for orthopnea. No lightheadedness or dizziness. No syncopal episodes. Abdominal: Reports no abdominal pain. No nausea or vomiting. No diarrhea. No constipation. No bloody or tarry stools Genitourinary: No dysuria, increased frequency, urgency, Musculoskeletal: No myalgias, positive for weakness, bilateral charcot feet, left foot with swelling and tenderness, right foot post right second toe amputation and 3rd toe amputation Integumentary: right third toe amputation, right second toe amputation, there is increased edema and erythema to the left foot with significant tenderness to the side of the foot. Neurologic: No aphasia. No facial droop. No change in mentation. No head injury. No headache. No paralysis. No paresthesia. Psychiatric: positive for depression. No anxiety. No mood swings. Endocrine: positive for abnormal blood sugars. positive for weight change. PHYSICAL EXAMINATION: General: 43 year male sitting up in chair does appear to be in distress HEENT: Head is atraumatic, normocephalic, pupils were equal round reactive to light and recommendation, extraocular muscle movement were intact, sclera nonicteric, conjunctivae were pale, mucous membranes of the mouth are somewhat dry. Neck: Supple, no JVP, normal carotid upstroke bilaterally, no lymphadenopathy. Chest: Decreased breath sounds at the bases, few rhonchi, no expiratory wheezes or intercostal retractions Heart: First heart sound is normal, second heart sound is normal, tachycardic, there is no gallop or murmur. Abdomen: Soft, nontender, nondistended, positive bowel sounds, obese. Extremities: There is +1 edema no calf tenderness DP +2 bilaterally, positive for neuropathy and charcot feet , right third toe amputation, right second toe amputation with significant erythema and tenderness. Left foot with Charcot foot Neurologic examination: Patient is awake alert and oriented X 3, cranial nerves II-12 appear grossly intact, muscle power were 5 out of 5 in upper extremities and 4/5 in right lower extremity ASSESSMENT AND PLAN: 1. Left foot cellulitis and possible osteomyelitis with Staphylococcus aureus bacteremia. Continue vancomycin, continue cefepime, monitor the patient symptoms very closely, continue leg elevation, infectious disease is following. 2. Recurrent osteomyelitis of the left foot status post 6-week treatment of IV antibiotic in the form of vancomycin. Continue IV antibiotic for now, blood culture, patient will need to follow-up with an orthopedic surgeon as an outpatient. 3. Diabetes Mellitustype 2 non controlled. we will continue with Levemir 75 units SC at bedtime along with SSI , has been off GLP_1 RA ( Mounjaro) , we will continue with Metformin 1000 mg po bid and we will continue with BGM AC HS. add NovoLog 8 units before each meal plus the scale. 4. Diabetic Polyneuropathy with charcot feet. we will continue gabapentin 800 mg orally twice every day. 5. Hyperlipidemnia. we will continue with Atorvastatin 80 mg po daily, keep LDL- c 55-70. 6. Hypertension and hypertensive cardiovascular disease. Start the patient on metoprolol 25 mg orally twice every day. 7. Obesity with SHERI and OHS. we will continue with weight loss, never made it for a sleep study. 8. DVT prophylaxis. we will use Lovenox 40 mg SC daily. 9. GI Prophylaxis. we will continue with Protonix 40 mg once every day. 10. Major depressive disorder. Continue patient on duloxetine 30 mg orally once every day. 11. Prognosis is guarded. 12. Disposition is home with home health care for IV antibiotic 13. PICC line today Home tomorrow morning. Objective - Vital Signs Vital signs: Vital Signs Temp 98.2 F 09/28/23 13:55 Pulse 93 09/28/23 13:55 Resp 17 09/28/23 13:55 BP 108/65 09/28/23 13:55 Pulse Ox 96 09/28/23 13:55 FiO2 Intake & Output 09/27/23 09/28/23 09/28/23 18:59 06:59 18:59 Other: Voiding Method Toilet Urinal # Voids 3 2 3 - Labs CBC & Chem 7: 09/28/23 03:51 09/28/23 03:51 Labs: Abnormal Lab Results - Last 24 Hours (Table) 09/27/23 09/28/23 09/28/23 Range/Units 20:39 03:51 03:51 MCV 79.1 L (80.0-97.0) FL MCH 25.1 L (27.0-32.0) pg MCHC 31.7 L (32.0-37.0) g/dL Glucose 284 H (70-110) mg/dL POC Glucose (mg/dL) 267 H (70-110) mg/dL Total Bilirubin <0.2 L (0.3-1.2) mg/dL AST 132 H (14-35) U/L ALT 178 H (10-49) U/L Total Protein 6.0 L (6.2-8.2) g/dL Albumin 3.6 L (3.8-4.9) g/dL Albumin/Globulin Ratio 1.50 L (1.60-3.17) Ratio 09/28/23 09/28/23 09/28/23 Range/Units 06:14 11:54 17:07 MCV (80.0-97.0) FL MCH (27.0-32.0) pg MCHC (32.0-37.0) g/dL Glucose (70-110) mg/dL POC Glucose (mg/dL) 242 H 252 H 267 H (70-110) mg/dL Total Bilirubin (0.3-1.2) mg/dL AST (14-35) U/L ALT (10-49) U/L Total Protein (6.2-8.2) g/dL Albumin (3.8-4.9) g/dL Albumin/Globulin Ratio (1.60-3.17) Ratio Microbiology - Last 24 Hours (Table) 09/25/23 06:56 Blood Culture - Preliminary Blood
[2023-09-28 21:18] LABS: Glucose,Whole Blood 296 mg/dL (70-110)
[2023-09-29 06:16] LABS: Glucose,Whole Blood 234 mg/dL (70-110)
[2023-09-29 07:49] VITALS: BMI 44.3
[2023-09-29 08:18] VITALS: BP 131/75; PULSE 91; RESP 16; TEMP 98.7
[2023-09-29] MEDS: VANCOMYCIN TROUGH DUE 1 EACH MISC MISCELLANE ONE (09:15)
[2023-09-29 11:37] LABS: Glucose,Whole Blood 233 mg/dL (70-110)
--- NOTE | 2023-09-29 12:33 | P.DS ---
Providers Date of admission: 09/22/23 10:16 Expected date of discharge: 09/28/23 Attending physician: Siri Holbrook Consults: 09/22/23 08:28 Consult Physician Urgent Consulting Provider: Zuleyma Armstrong Consult Reason/Comments: Left foot infection Do you want consulting provider notified?: Yes Primary care physician: Siri Holbrook [facility] Course: HISTORY OF PRESENT ILLNESS: This is a 43-year-old male with a previous medical history significant for hypertension and hypertensive cardiovascular disease, hyperlipidemia, obesity with obstructive sleep apnea and obesity hypoventilation syndrome,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 Hua back in December 2022, he has been following with Dr. Holguin who performed a right second toe amputation before patient also was treated at [facility] for osteomyelitis of the left foot and he was treated with 28-day course of Zyvox 600 mg orally twice every day for MRSA bacteremia, since then the patient was hospitalized at [facility] for a similar MRSA bacteremia and he was treated with IV antibiotic in the form of vancomycin for 6 weeks through a PICC line in the left upper extremity that was discontinued not long ago, apparently the patient was going to the bathroom and he felt a popping sensation in the left foot, and he was not able to bear any pressure on the left foot, he went outside yesterday and try to mow the lawn, and he was his birthday yesterday as matter fact, he went back home and he was started feeling dizzy lightheaded not feeling well, low-grade temperature, so he ended up coming to the emergency department at [facility] today in the morning for further evaluation patient was found to have a significant erythema and edema in the left foot with significant tenderness to the side of the foot, was severe tenderness, x-ray did show evidence of possible osteomyelitis, patient was started on IV antibiotic in the form of cefepime and vancomycin, infectious disease consultation was obtained, blood cultures was obtained as well, patient will be admitted to hospital for further evaluation recommendation. 09/22: Patient is laying down in bed in no apparent distress, his blood cultures are positive for gram-positive cocci in clusters likely Staphylococcus aureus, patient has been on vancomycin and cefepime for now, patient has been followed by infectious disease, will continue to follow-up with the patient very closely, patient denies any chest pain at this time, he has no shortness of breath, he has no abdominal pain, nausea vomiting or diarrhea, his pain is well-controlled at this point in time, we will continue to monitor the patient very closely, follow-up on his left foot progress and awaiting for the bacteremia to be cleared prior to the patient having any PICC line placement. 09/23: Patient is sitting up on edge of bed in no distress. Patient reports that pain is well-controlled, denies chest pain or shortness of breath. Blood cultures were positive for gram-positive cocci, presumptive MRSA. Continue current antibiotics and pain management. MRI of the left foot shows progression of suspected Charcot arthropathy, large joint effusion, and diffuse osseous abnormalities with underlying osteomyelitis. Infectious diseases following. We will continue to monitor patient closely. 09/24: Patient sitting up in bed with family at bedside. Infectious disease recommending transfer to [facility] to see a foot and ankle specialist. Patient evidently was evaluated by Dr. Prather in the past. Vital signs stable. Patient denies chest pain or shortness of breath. Patient states he had a normal bowel movement yesterday. Left foot remains erythemic and edematous. Patient rates his pain 7 out of 10 however has just received pain medication. Continue current medications. Will start arranging for transfer. 09/25: Patient sitting up in chair at this time without signs of acute distress. Patient states his pain is more controlled today. Patient denies chest pain or shortness of breath. We are attempting to transfer to [facility] so the patient could be evaluated by a foot and ankle specialist; however, unsure if insurance authorization will be obtained in a timely manner. Alternatively, patient may receive PICC line hopefully Thursday and can follow-up as an outpatient with podiatry. Continue current antibiotics and pain medication. Will continue to follow closely. 09/26: Patient remained stable, sitting up in chair at this time without any distress. Mother at bedside. Patient denies chest pain or shortness of breath. Patient states the left foot pain is controlled at this time. Plan now is for PICC line placement tomorrow and likely discharge. We will arrange for podiatry consult outpatient. Continue current medical management. We will continue to follow closely. 09/27: Patient is sitting at the edge of the bed, he denies any chest pain, shortness of breath, he has no fever or chills, his blood cultures are negative, patient scheduled to go for PICC line placement later on tonight, then after the PICC line placement he can be discharged home and follow-up with us as an outpatient, patient will follow-up with Dr. Russell as an outpatient for a foot and ankle specialist for possible surgical intervention down the line. 09/28: Patient did have his PICC line placed last night, arrangement for the IV antibiotic was done through the high risk case manager, patient can be discharged home today and follow-up with me as an outpatient next week, we will make arrangement for the patient to see Dr. Russell at [facility] as a foot and ankle surgeon for further evaluation of his left Charcot foot. Discharge diagnoses: 1. Left foot cellulitis and possible osteomyelitis with Staphylococcus aureus bacteremia. 2. Recurrent osteomyelitis of the left foot status post 6-week treatment of IV antibiotic in the form of vancomycin. 3. Diabetes Mellitustype 2 non controlled. 4. Diabetic Polyneuropathy with charcot feet. 5. Hyperlipidemnia. 6. Hypertension and hypertensive cardiovascular disease. 7. Obesity with SHERI and OHS. 8. Major depressive disorder. Continue patient on duloxetine 30 mg orally once every day. Patient Condition at Discharge: Fair Plan - Discharge Summary Discharge Rx Participant: Yes New Discharge Prescriptions: No Action Insulin Lispro [humaLOG Kwikpen] See Protocol SQ AC-TID metFORMIN HCL ER [Glucophage XR] 1,000 mg PO W/SUPPER Omeprazole 40 mg PO DAILY Gabapentin [Neurontin] 800 mg PO BID Atorvastatin [Lipitor] 80 mg PO HS Loratadine 20 mg PO DAILY Ibuprofen [Motrin Ib] 800 mg PO Q4H PRN PRN Reason: Fever And/ Or Pain DULoxetine HCL [Cymbalta] 30 mg PO HS Insulin Glargine,Hum.rec.anlog [Lantus Solostar Pen] 70 units SQ HS Discharge Medication List Atorvastatin [Lipitor] 80 mg PO HS 01/06/23 [History] Insulin Lispro [humaLOG Kwikpen] See Protocol SQ AC-TID 01/06/23 [History] Loratadine 20 mg PO DAILY 01/06/23 [History] Omeprazole 40 mg PO DAILY 01/06/23 [History] metFORMIN HCL ER [Glucophage XR] 1,000 mg PO W/SUPPER 01/06/23 [History] Ibuprofen [Motrin Ib] 800 mg PO Q4H PRN 05/31/23 [History] DULoxetine HCL [Cymbalta] 30 mg PO HS 09/22/23 [History] Gabapentin [Neurontin] 800 mg PO BID 09/22/23 [History] Insulin Glargine,Hum.rec.anlog [Lantus Solostar Pen] 70 units SQ HS 09/22/23 [History] Follow up Appointment(s)/Referral(s): Siri Holbrook MD [Primary Care Provider] - 1-2 days [facility], [[facility]STAFF] - As Needed [facility], [REFERRING] - As Needed (Will deliver IV antibiotic today between 6-8p)
--- NOTE | 2023-09-29 12:52 | P.PN ---
Subjective Progress Note Date: 09/29/23 Principal diagnosis: Reason for follow-up is left diabetic foot infection and bacteremia Patient is a 43-year-old male with a past medical history significant for diabetes mellitus patient did have a history of diabetic foot infection especially involving the left foot with evidence of Charcot deformity osteomyelitis and MRSA bacteremia recently completed an extensive course of IV antibiotic therapy and was on oral suppressive antibiotics, recently did have twisting of his left ankle about 2 weeks ago and diagnosed with a new fracture now presenting with increasing swelling redness to the left foot and ankle area concerning for osteomyelitis. On today's evaluation that is 09/29/2023,the patient denies any fever or any chills, patient is breathing comfortably on room air, the patient denies chest pain shortness of breath and no significant cough, patient denies abdominal pain, no nausea vomiting or diarrhea. Denies pain to the left foot and ankle area patient did get a PICC line currently waiting for outpatient IV antibiotic delivery. Patient vancomycin trough is 14.8 blood culture repeat on 09/24/2023 as well as 09/25/2023 has been negative Objective - Vital Signs Vital signs: Vital Signs Temp 98.7 F 09/29/23 08:00 Pulse 91 09/29/23 08:00 Resp 16 09/29/23 08:00 BP 131/75 09/29/23 08:00 Pulse Ox 95 09/29/23 02:21 FiO2 Intake & Output 09/28/23 09/29/23 09/29/23 18:59 06:59 18:59 Weight 156.489 kg Other: Voiding Method Toilet Toilet # Voids 3 3 - Exam GENERAL DESCRIPTION: Middle-age male lying in bed in no distress RESPIRATORY SYSTEM: Unlabored breathing , decreased breath sounds at bases HEART: S1 S2 regular rate and rhythm , ABDOMEN: Soft , no tenderness EXTREMITIES: Left foot and ankle area did have some swelling and redness - Labs CBC & Chem 7: 09/28/23 03:51 09/28/23 03:51 Labs: Abnormal Lab Results - Last 24 Hours (Table) 09/28/23 09/28/23 09/29/23 Range/Units 17:07 21:16 06:15 POC Glucose (mg/dL) 267 H 296 H 234 H (70-110) mg/dL 09/29/23 Range/Units 11:35 POC Glucose (mg/dL) 233 H (70-110) mg/dL Microbiology - Last 24 Hours (Table) 09/25/23 06:56 Blood Culture - Preliminary Blood Assessment and Plan (1) Cellulitis of left foot Current Visit: Yes Status: Acute Code(s): L03.116 - CELLULITIS OF LEFT LOWER LIMB SNOMED Code(s): 54667240489539316 (2) Leukocytosis Current Visit: Yes Status: Acute Code(s): D72.829 - ELEVATED WHITE BLOOD CELL COUNT, UNSPECIFIED SNOMED Code(s): 035411668 (3) Osteomyelitis Current Visit: Yes Status: Acute Code(s): M86.9 - OSTEOMYELITIS, UNSPECIFIED SNOMED Code(s): 74410107 (4) MRSA bacteremia Current Visit: No Status: Acute Code(s): R78.81 - BACTEREMIA; B95.62 - METHICILLIN RESIS STAPH INFCT CAUSING DISEASES CLASSD ELSWHR SNOMED Code(s): 49405520185537885 Plan: 1patient presented hospital with sepsis in this patient who did have a fever elevated white count source is likely left diabetic foot infection concerning for underlying septic arthritis/Charcot deformity versus abscess likely from MRSA and this patient has previously grown same pathogen 2-blood culture coming back positive for MRSA likely infected pathogen blood culture has been repeated document clearance of bacteremia 3-patient did have MRI of the left foot that has been suggestive of progression of his Charcot foot arthropathy with also evidence of fluid collection question of septic joint versus abscess 4-patient has cleared his bacteremia, PICC line outpatient antibiotic arranged to continue vancomycin pharmacy to dose need to follow-up with the foot and ankle specialist as soon as possible was discharged from the hospital and has been told in layman terms he cannot stop the antibiotic until he talks to me Dictation was produced using [employer] dictation software. please excuse any grammatical, word or spelling errors. Time with Patient: Less than 30
[2023-09-29] MEDS ORDERED: VANCOMYCIN 2,250 MG in SODIUM CHLORIDE 0.9% 500 ML 500 ML IVPB SCH (21:00)
--- NOTE | 2023-09-30 22:09 | CDI ---
Documentation Clarification Form Date: 09/30/2023 09:58:58 PM From: Raina Lang Phone: Admit Date: 09/22/2023 10:16:00 AM Patient Name: David Stern Visit Number: [id number] Discharge Date: 09/29/2023 02:14:00 PM ATTENTION: The Clinical Documentation Specialists (CDI) and [facility] Coding Staff appreciate your assistance in clarifying documentation. Please respond to the clarification below the line at the bottom and electronically sign. The CDI & [facility] Coding staff will review the response and follow-up if needed. Please note: Queries are made part of the Legal Health Record. If you have any questions, please contact the author of this message via ITS. Dr. Siri Holbrook Cellulitis is documented per ED Note and throughout the Progress Notes. Additional clarification regarding the type of cellulitis is requested. History/risk factors: 43yo M, MRSA sepsis, HTND, HLD, obesity w OHSS, , recurrentosteomyelitis, MDD, IDDMII wpolyneuropathy, Charcotfeet Clinical Indicators: Blood cultures x 2, started the patient on vancomycin pharmacy to dose its peak and trough, start cefepime 2 g every back every 12 hours,infectious diseaseconsultation, keep the legelevated,follow-upwith the patient very closely, monitor the patient CBC CMP and sed rate. Treatment: PICC placed, arrangement for the IV abx was done through the window caser, patient can be d/c home today andfuwith me as an OP next week, we will make arrangement for the patient to see Dr. Russell at [facility] as a foot and ankle surgeon for furtherevaluationof his leftCharcotfoot. Please clarify the type of cellulitis, if known: [X ] Cellulitis due to DMII [ ] Other, please specify: [ ] Unable to determine (Template Last Revised: March 2022) MTDD
== END 2023-09-29 14:14 | disposition home health service (06) | DRG 872 ==
LOC: EC 06:21 → 5NMEDONC 10:16 → 4SSUR 09-24 17:42
PROVIDERS: ADMIT Internal Medicine; ATTEND Internal Medicine
PROC: 02HV33Z Insertion of Infusion Device into Superior Vena Cava, Percutaneous Approach (ICD-10-PCS; principal; 2023-09-28 15:10)
DX: A41.02 Sepsis due to Methicillin resistant Staphylococcus aureus (principal); E66.2 Morbid (severe) obesity with alveolar hypoventilation; Z68.44 Body mass index [BMI] 60.0-69.9, adult; M86.8X7 Other osteomyelitis, ankle and foot; L03.116 Cellulitis of left lower limb; E11.610 Type 2 diabetes mellitus with diabetic neuropathic arthropathy; E11.42 Type 2 diabetes mellitus with diabetic polyneuropathy; E11.69 Type 2 diabetes mellitus with other specified complication; E11.628 Type 2 diabetes mellitus with other skin complications; Z89.421 Acquired absence of other right toe(s); Z79.4 Long term (current) use of insulin; F32.9 Major depressive disorder, single episode, unspecified; I11.9 Hypertensive heart disease without heart failure; B95.62 Methicillin resistant Staphylococcus aureus infection as the cause of diseases classified elsewhere; E78.5 Hyperlipidemia, unspecified; Z79.84 Long term (current) use of oral hypoglycemic drugs; Z79.891 Long term (current) use of opiate analgesic; Z79.899 Other long term (current) drug therapy; Z87.891 Personal history of nicotine dependence
CPT/HCPCS: 36415; 36573; 80053; 80202; 81003; 82009; 83605; 85025; 85610; 86140; 87040; 87077; 87186; 87636; 96361; 96374; 96375; 96376; 99285

== ENCOUNTER → 2023-10-27 | Outpatient (CLI) | payer MEDICAID | END | disposition home or self-care (01) | LOC: LABPRL 09:10 | PROVIDERS: ATTEND Internal Medicine Infectious Disease | DX: L03.116 Cellulitis of left lower limb (principal); M86.172 Other acute osteomyelitis, left ankle and foot | CPT/HCPCS: 80048; 80202; 85025; 85652; 86140 ==

== ENCOUNTER 2023-11-13 12:30 | Inpatient (IN) | payer MEDICAID ==
[~2023-11-13 12:30] MED LIST changes: -DEXAMETHASONE SOD PHOSPHATE 4 MG/ML 1 ML VIAL ONE; -FAMOTIDINE 20 MG/2 ML VIAL ONE; +GLYCOPYRROLATE 0.2 MG/ML 2 ML VIAL ONE; +LIDOCAINE 1% INJ 10MG/ML (20 ML MDV) ONE; +MEPERIDINE 50 MG/ML SYRINGE ONE; +NEOSTIGMINE 1 MG/ML 10 ML VIAL ONE; -ONDANSETRON 4 MG/2 ML VIAL ONE; +PROPOFOL 10 MG/ML 20 ML VIAL IV ONE; +ROCURONIUM 10 MG/ML (5 ML VIAL) IV ONE; -SCOPOLAMINE 1 MG/72 HR PATCH TRANSDERM ONE; +SUCCINYLCHOLINE CHLORIDE 200 MG/10 ML VIAL IV ONE; +fentaNYL (PF) 50 MCG/ML 2 ML AMP ONE
[2023-11-13] MEDS ORDERED: HYDROmorphone 1 MG/ML 1 ML SYRINGE ONE ×3 (15:22→22:13)
[2023-11-13] MEDS ORDERED: INSULIN ASPART (NovoLOG) 100 UNIT/ML VIAL SQ ONE ×2 (17:08→21:22)
[2023-11-13] MEDS ORDERED: HYDROcodone/APAP 5-325MG 1 EACH TAB ONE (21:21)
[2023-11-13] MEDS ORDERED: FAMOTIDINE 20 MG TAB ONE (21:21)
[2023-11-13] MEDS ORDERED: SODIUM CHLORIDE 0.9% 100 ML BAG IV ONE (23:59)
[2023-11-13] MEDS ORDERED: LACTATED RINGERS 1,000 ML BAG ONE (23:59)
[2023-11-13] MEDS ORDERED: ceFAZolin 1,000 MG VIAL ONE (23:59)
[2023-11-14] MEDS ORDERED: HYDROmorphone 1 MG/ML 1 ML SYRINGE ONE ×7 (01:16→22:16)
[2023-11-14] MEDS ORDERED: HYDROcodone/APAP 5-325MG 1 EACH TAB ONE ×5 (02:53→23:16)
[2023-11-14] MEDS ORDERED: INSULIN ASPART (NovoLOG) 100 UNIT/ML VIAL SQ ONE ×2 (06:25→12:07)
[2023-11-14] MEDS ORDERED: FAMOTIDINE 20 MG TAB ONE ×2 (08:32→19:51)
[2023-11-14] MEDS ORDERED: ENOXAPARIN 40 MG/0.4 ML SYRINGE SQ ONE (08:32)
[2023-11-14] MEDS ORDERED: GABAPENTIN 400 MG CAP ONE (11:39)
[2023-11-14] MEDS ORDERED: metFORMIN 500 MG TAB ONE (12:35)
[2023-11-14] MEDS ORDERED: DULoxetine HCL 30 MG CAPSULE.DR PO ONE (12:35)
[2023-11-14] MEDS ORDERED: METOPROLOL SUCCINATE (ER) 25 MG TAB.ER.24H PO ONE (12:35)
[2023-11-14] MEDS ORDERED: ATORVASTATIN 80 MG TAB ONE (19:51)
[2023-11-14] MEDS ORDERED: VANCOMYCIN 1,000 MG VIAL ONE (23:59)
[2023-11-14] MEDS ORDERED: INSULIN DETEMIR (LEVEMIR) 100 UNIT/ML SYR SQ ONE (23:59)
[2023-11-14] MEDS ORDERED: SODIUM CHLORIDE 0.9% 250 ML BAG ONE (23:59)
[2023-11-14] MEDS ORDERED: VANCOMYCIN 500 MG VIAL ONE (23:59)
[2023-11-15] MEDS ORDERED: VANCOMYCIN IV PER PHARMACY 1 EACH MISC MISCELLANE PRN
[2023-11-15] MEDS ORDERED: HYDROmorphone 0.5 MG/0.5 ML SYRINGE IVP PRN
[2023-11-15] MEDS ORDERED: HYDROmorphone 1 MG/ML 1 ML SYRINGE IM PRN
[2023-11-15] MEDS: LACTATED RINGERS 1,000 ML IV SCH (04:36)
[2023-11-15] MEDS: VANCOMYCIN 2,250 MG in SODIUM CHLORIDE 0.9% 500 ML 500 ML IVPB SCH (04:36)
[2023-11-15 04:37] LABS: Basophils % (A) 1 %; Eosinophils # (A) 0.2 k/uL (0-0.7); Eosinophils % (A) 3 %; HCT 37.1 % (39.0-53.0); HGB 12.2 gm/dL (13.0-17.5); Hypochromasia Slight; Lymphocytes # (A) 1.1 k/uL (1.0-4.8); Lymphocytes % (A) 19 %; MCH 25.9 pg (25.0-35.0); MCHC 32.9 g/dL (31.0-37.0); MCV 78.5 fL (80.0-100.0); Mean Platelet Volume 7.8; Monocytes # (A) 0.5 k/uL (0-1.0); Monocytes % (A) 9 %; Neutrophils % (A) 69 %; Platelet Count 184 k/uL (150-450); RBC 4.72 m/uL (4.30-5.90); RDW 14.9 % (11.5-15.5); WBC 5.9 k/uL (3.8-10.6)
[2023-11-15] MEDS ORDERED: DEXTROSE 50% SYRINGE 50 ML IVP PRN ×2 (04:59)
[2023-11-15 05:20] LABS: ALT 21 U/L (4-49); AST 19 U/L (17-59); African American GFR (CKD) >90 (>60 ml/min/1.73 sqM); Alkaline Phosphatase 110 U/L (38-126); Anion Gap 5 mmol/L; Blood Urea Nitrogen 16 mg/dL (9-20); Calcium 8.3 mg/dL (8.4-10.2); Carbon Dioxide 29 mmol/L (22-30); Chloride 97 mmol/L (98-107); Glucose 215 mg/dL (74-99); Magnesium 1.6 mg/dL (1.6-2.3); Non-African American GFR(CKD) >90 (>60 ml/min/1.73 sqM); Potassium 3.8 mmol/L (3.5-5.1); Sodium 131 mmol/L (137-145); Total Bilirubin 0.9 mg/dL (0.2-1.3); Total Protein 5.3 g/dL (6.3-8.2)
[2023-11-15] MEDS: HYDROmorphone 1 MG/ML 1 ML SYRINGE IVP PRN (05:27)
[2023-11-15 05:55] LABS: Glucose,Whole Blood 184 mg/dL (70-110)
[2023-11-15] MEDS: metFORMIN 500 MG TAB PO SCH (06:33)
[2023-11-15] MEDS: INSULIN ASPART (NovoLOG) 100 UNIT/ML VIAL SQ SCH (06:33)
[2023-11-15] MEDS: DILTIAZEM CD 120 MG CAP.ER.24H PO SCH (08:14)
[2023-11-15] MEDS: ENOXAPARIN 40 MG/0.4 ML SYRINGE SQ SCH (08:14)
[2023-11-15] MEDS: GABAPENTIN 400 MG CAP PO SCH (08:14)
[2023-11-15] MEDS: DULoxetine HCL 30 MG CAPSULE.DR PO SCH (08:14)
[2023-11-15] MEDS: FAMOTIDINE 20 MG TAB PO SCH (08:14)
[2023-11-15] MEDS ORDERED: METOPROLOL SUCCINATE (ER) 25 MG TAB.ER.24H PO SCH (09:00)
--- NOTE | 2023-11-15 11:21 | P.PN ---
Subjective Progress Note Date: 11/15/23 HPI: 43-year-old presented to the hospital because of an elective outpatient left lower extremity BKA surgery for his Charcot joint. He has prior history of hypertension diabetes morbid obesity and frequent PVCs in the past. SUBJECTIVE: No further chest pain chest pressure shortness of breath. No chest pain or shortness of breath. PVC burden is less since started on Cardizem. PHYSICAL EXAMINATION Vital signs reviewed. Head: Normocephalic. Eyes: Sclerae nonicteric. Neck: Brisk carotid upstroke, no jugular venous distention. Lungs: Clear to auscultation. Heart: Irregular pulse due to PVCs, S1-S2, no S3, no murmur or rub. Abdomen: Soft nontender, bowel sounds present, Extremities: No edema, surgical dressing in place in left lower extremity Neuro: Alert, oriented, no focal neurological deficits. Detailed neuro exam was not performed. ASSESSMENT Status post left lower extremity BKA because of a Charcot joint 11/13/23 Frequent PVCs, asymptomatic Essential hypertension Type 2 diabetes Morbid obesity PLAN Patient is tolerating Cardizem CD 120 mg better with lesser frequency use of PVC s then when compared to be on metoprolol. HR 90s, SBP 130s, therefore will increase dose to cardizem CD 180 mg daily. Give magnesium sulfate 2 g daily Monitor electrolytes, keep potassium at 4, magnesium at 2 Recommend outpatient extended Holter monitor to quantify for PVCs. Outpatient sleep apnea evaluation as I feel that PVCs are of RVOT origin, and could be related to pulmo HTN from untreated sleep apnea Obtain medical records from the clinic and see what all cardiac workup he has had in the past. Patient reports that he has had a stress test and echocardiogram which were nonrevealing. If no recent echocardiogram would recommend outpatient echocardiogram to look for any structural abnormalities that might be contributing to his frequent PVCs Mikhail Wang MD, FACC, RPVI Thank you for allowing [facility] to participate in this patient's care. Please contact us in case of any followup questions. Objective - Vital Signs Vital signs: Vital Signs Temp 98.0 F 11/15/23 08:01 Pulse 95 11/15/23 08:02 Resp 19 11/15/23 08:02 BP 138/76 11/15/23 08:01 Pulse Ox 96 11/15/23 08:01 FiO2 Intake & Output 11/14/23 11/15/23 11/15/23 18:59 06:59 18:59 Intake Total 240 Balance 240 Weight 158 kg Intake: Oral 240 Other: Voiding Method Indwelling Catheter - Labs CBC & Chem 7: 11/15/23 03:15 11/15/23 03:15 Labs: Abnormal Lab Results - Last 24 Hours (Table) 11/15/23 11/15/23 11/15/23 Range/Units 03:15 03:15 05:53 Hgb 12.2 L (13.0-17.5) gm/dL Hct 37.1 L (39.0-53.0) % MCV 78.5 L (80.0-100.0) fL Sodium 131 L (137-145) mmol/L Chloride 97 L (98-107) mmol/L Glucose 215 H (74-99) mg/dL POC Glucose (mg/dL) 184 H (70-110) mg/dL Calcium 8.3 L (8.4-10.2) mg/dL Total Protein 5.3 L (6.3-8.2) g/dL Albumin 3.0 L (3.5-5.0) g/dL
[2023-11-15 11:45] LABS: Glucose,Whole Blood 167 mg/dL (70-110)
[2023-11-15] MEDS: MAGNESIUM SULFATE-D5W PMX 1 GM in DEXTROSE/WATER 1 100ML.BAG IVPB SCH (12:01)
--- NOTE | 2023-11-15 12:03 | P.PN ---
Subjective Progress Note Date: 11/15/23 Principal diagnosis: Left BKA Patient seen and examined. Doing well. Pain medication needed to be increased for better control. No other complaints. Objective - Vital Signs Vital signs: Vital Signs Temp 98.0 F 11/15/23 08:01 Pulse 95 11/15/23 08:02 Resp 19 11/15/23 08:02 BP 138/76 11/15/23 08:01 Pulse Ox 96 11/15/23 08:01 FiO2 Intake & Output 11/14/23 11/15/23 11/15/23 18:59 06:59 18:59 Intake Total 240 Balance 240 Weight 158 kg Intake: Oral 240 Other: Voiding Method Indwelling Catheter - Exam Left below-knee amputation site dressing is clean, dry and intact. - Constitutional General appearance: Present: morbidly obese - EENT Eyes: Present: PERRLA - Respiratory Respiratory: bilateral: CTA - Labs CBC & Chem 7: 11/15/23 03:15 11/15/23 03:15 Labs: Abnormal Lab Results - Last 24 Hours (Table) 11/15/23 11/15/23 11/15/23 Range/Units 03:15 03:15 05:53 Hgb 12.2 L (13.0-17.5) gm/dL Hct 37.1 L (39.0-53.0) % MCV 78.5 L (80.0-100.0) fL Sodium 131 L (137-145) mmol/L Chloride 97 L (98-107) mmol/L Glucose 215 H (74-99) mg/dL POC Glucose (mg/dL) 184 H (70-110) mg/dL Calcium 8.3 L (8.4-10.2) mg/dL Total Protein 5.3 L (6.3-8.2) g/dL Albumin 3.0 L (3.5-5.0) g/dL 11/15/23 Range/Units 11:43 Hgb (13.0-17.5) gm/dL Hct (39.0-53.0) % MCV (80.0-100.0) fL Sodium (137-145) mmol/L Chloride (98-107) mmol/L Glucose (74-99) mg/dL POC Glucose (mg/dL) 167 H (70-110) mg/dL Calcium (8.4-10.2) mg/dL Total Protein (6.3-8.2) g/dL Albumin (3.5-5.0) g/dL Assessment and Plan Assessment: #1 postop day 2 left below-knee amputation #2 Charcot joint left foot #3 diabetes #4 morbid obesity Plan: Protective dressing to be placed per [facility] PT, OT for continued treatment. Will need rehab placement
[2023-11-15] MEDS: HYDROcodone/APAP 5-325MG 1 EACH TAB PO PRN (15:22)
[2023-11-15 16:52] LABS: Glucose,Whole Blood 277 mg/dL (70-110)
[2023-11-15 20:37] LABS: Glucose,Whole Blood 325 mg/dL (70-110)
[2023-11-15] MEDS: INSULIN DETEMIR (LEVEMIR) 100 UNIT/ML SYR SQ SCH (20:42)
[2023-11-15] MEDS: ATORVASTATIN 80 MG TAB PO SCH (20:42)
[2023-11-15] MEDS: HYDROcodone/APAP 10-325MG 1 EACH TAB PO PRN (20:42)
[2023-11-15] MEDS: LACTULOSE 20 GM/30 ML CUP PO SCH (20:42)
--- NOTE | 2023-11-15 20:51 | P.PN ---
Subjective Progress Note Date: 11/15/23 Principal diagnosis: Reason for follow up visit right second toe ulcer Patient is a 43-year-old male past medical history significant for diabetes mellitus did have a history of recurrent MRSA infections secondary to left diabetic foot infection with a Charcot joint in this patient admitted the hospital electively for left below the knee amputation patient also have a right second toe partial debilitation side wound prompting this consultation. On today's evaluation the days 11/15/2023,the patient denies any fever or any chills, patient is breathing comfortably on room air, the patient denies chest pain shortness of breath and no significant cough, patient denies abdominal pain, no nausea vomiting or diarrhea. Pain to the left BKA stump is currently controlled. Patient white count is 5.9 creatinine 0.68 Objective - Vital Signs Vital signs: Vital Signs Temp 98.0 F 11/15/23 08:01 Pulse 106 H 11/15/23 13:28 Resp 19 11/15/23 13:28 BP 128/71 11/15/23 11:05 Pulse Ox 94 L 11/15/23 11:05 FiO2 Intake & Output 11/14/23 11/15/23 11/15/23 18:59 06:59 18:59 Intake Total 240 Balance 240 Weight 158 kg Intake: Oral 240 Other: Voiding Method Indwelling Catheter - Exam GENERAL DESCRIPTION: Middle-age male lying in bed in no distress RESPIRATORY SYSTEM: Unlabored breathing , decreased breath sounds at bases HEART: S1 S2 regular rate and rhythm , ABDOMEN: Soft , no tenderness EXTREMITIES: Right second toe wound is currently dressed - Labs CBC & Chem 7: 11/15/23 03:15 11/15/23 03:15 Labs: Abnormal Lab Results - Last 24 Hours (Table) 11/15/23 11/15/23 11/15/23 Range/Units 03:15 03:15 05:53 Hgb 12.2 L (13.0-17.5) gm/dL Hct 37.1 L (39.0-53.0) % MCV 78.5 L (80.0-100.0) fL Sodium 131 L (137-145) mmol/L Chloride 97 L (98-107) mmol/L Glucose 215 H (74-99) mg/dL POC Glucose (mg/dL) 184 H (70-110) mg/dL Calcium 8.3 L (8.4-10.2) mg/dL Total Protein 5.3 L (6.3-8.2) g/dL Albumin 3.0 L (3.5-5.0) g/dL 11/15/23 Range/Units 11:43 Hgb (13.0-17.5) gm/dL Hct (39.0-53.0) % MCV (80.0-100.0) fL Sodium (137-145) mmol/L Chloride (98-107) mmol/L Glucose (74-99) mg/dL POC Glucose (mg/dL) 167 H (70-110) mg/dL Calcium (8.4-10.2) mg/dL Total Protein (6.3-8.2) g/dL Albumin (3.5-5.0) g/dL Assessment and Plan (1) Ulcer of right foot due to type 2 diabetes mellitus Current Visit: Yes Status: Acute Code(s): E11.621 - TYPE 2 DIABETES MELLITUS WITH FOOT ULCER; L97.519 - NON-PRS CHRONIC ULCER OTH PRT RIGHT FOOT W UNSP SEVERITY SNOMED Code(s): 94462908499459796 Plan: 1patient with a history of recurrent MRSA bacteremia secondary to left Charcot foot/osteomyelitis in this patient who is status post left below the knee amput ation 2-patient did have right second toe ulcer but no definite cellulitis 3-to continue with vancomycin pharmacy to dose while inpatient however recommend to discontinue vancomycin as well as PICC line at the time of discharge, will recommend local wound care with dry Aquacel dressing change every 48 hours Dictation was produced using [employer] dictation software. please excuse any grammatical, word or spelling errors. Time with Patient: Greater than 30
[2023-11-15] MEDS: ONDANSETRON 4 MG/2 ML VIAL IVP PRN (21:14)
[2023-11-16 06:21] LABS: Glucose,Whole Blood 205 mg/dL (70-110)
[2023-11-16 08:42] LABS: African American GFR (CKD) >90 (>60 ml/min/1.73 sqM); Anion Gap 5 mmol/L; Blood Urea Nitrogen 13 mg/dL (9-20); Calcium 8.8 mg/dL (8.4-10.2); Carbon Dioxide 30 mmol/L (22-30); Chloride 99 mmol/L (98-107); Glucose 221 mg/dL (74-99); Non-African American GFR(CKD) >90 (>60 ml/min/1.73 sqM); Potassium 4.2 mmol/L (3.5-5.1); Sodium 134 mmol/L (137-145)
[2023-11-16] MEDS: SENNOSIDES 8.6 MG TAB PO SCH (08:43)
[2023-11-16] MEDS: VANCOMYCIN TROUGH DUE 1 EACH MISC MISCELLANE ONE (09:45)
[2023-11-16] MEDS: DILTIAZEM CD 180 MG CAP.ER.24H PO SCH (10:47)
[2023-11-16] MEDS: VANCOMYCIN 2,000 MG in SODIUM CHLORIDE 0.9% 500 ML 500 ML IVPB SCH (10:47)
[2023-11-16 11:34] LABS: Glucose,Whole Blood 282 mg/dL (70-110)
[2023-11-16] MEDS: HYDROmorphone 1 MG/ML 1 ML SYRINGE ONE ×8 (11:34→11:36)
[2023-11-16] MEDS: HYDROcodone/APAP 5-325MG 1 EACH TAB ONE ×3 (11:34→11:35)
[2023-11-16] MEDS: FAMOTIDINE 20 MG TAB ONE ×3 (11:34→11:36)
[2023-11-16] MEDS: ATORVASTATIN 80 MG TAB ONE (11:35)
[2023-11-16] MEDS: LACTULOSE 20 GM/30 ML CUP ONE ×2 (11:35→11:36)
[2023-11-16] MEDS: HYDROcodone/APAP 10-325MG 1 EACH TAB ONE ×3 (11:35→11:36)
[2023-11-16] MEDS: ONDANSETRON 4 MG/2 ML VIAL ONE (11:36)
[2023-11-16 16:53] LABS: Glucose,Whole Blood 288 mg/dL (70-110)
[2023-11-16 20:34] LABS: Glucose,Whole Blood 364 mg/dL (70-110)
[2023-11-17 06:07] LABS: Glucose,Whole Blood 242 mg/dL (70-110)
[2023-11-17 10:07] LABS: African American GFR (CKD) >90 (>60 ml/min/1.73 sqM); Anion Gap 6 mmol/L; Blood Urea Nitrogen 13 mg/dL (9-20); Calcium 8.9 mg/dL (8.4-10.2); Carbon Dioxide 31 mmol/L (22-30); Chloride 98 mmol/L (98-107); Glucose 233 mg/dL (74-99); Magnesium 1.7 mg/dL (1.6-2.3); Non-African American GFR(CKD) >90 (>60 ml/min/1.73 sqM); Potassium 4.4 mmol/L (3.5-5.1); Sodium 135 mmol/L (137-145)
[2023-11-17 11:51] LABS: Glucose,Whole Blood 266 mg/dL (70-110)
--- NOTE | 2023-11-17 11:53 | P.CONS ---
History of Present Illness - Reason for Consult Consult date: 11/17/23 rehab recommendations - Chief Complaint Left BKA - History of Present Illness Mr Stern is a 43 y/o male who lives with his in a single story home with 5 MARCIO. Prior to admission, patient was independent with mobility and ADLs. Has a supportive . Patient presented to the hospital for elective left BKA due to recurrent MRSA bacteremia and left charcot foot osteomyelitis. Patient underwent left BKA. Post operatively patient had pain management. Patient seen by ID and cardiology. Patient on Vanco but per ID note patient can be off Vanco at time of discharge. Chart Review was completed after referral sent to PMR for review and possible IPR admission. Patient has been evaluated by therapies, Min assist with transfers, gait 6 ft with RW, and bathing, Supervision with UB dressing, mod assist with LB dressing. Discussed with docent coordinator at [facility], willing to accept patient to IPR with ELOS 10-14 days with plan to discharge home with after. Patient will need authorization from insurance. Past Medical History Past Medical History: Diabetes Mellitus Additional Past Medical History / Comment(s): neuropathy History of Any Multi-Drug Resistant Organisms: MRSA Year Discovered:: 09/22/23 MDRO Source:: Blood Past Surgical History: Orthopedic Surgery Additional Past Surgical History / Comment(s): 2nd and 3rd partial digit removed to right foot, Past Anesthesia/Blood Transfusion Reactions: No Reported Reaction Past Psychological History: No Psychological Hx Reported Smoking Status: Never smoker Past Alcohol Use History: None Reported Past Drug Use History: None Reported Medications and Allergies Home Medications Medication Instructions Recorded Confirmed Type Atorvastatin [Lipitor] 80 mg PO HS 01/06/23 09/22/23 History Loratadine 20 mg PO DAILY 01/06/23 09/22/23 History Omeprazole 40 mg PO DAILY 01/06/23 09/22/23 History metFORMIN HCL ER [Glucophage XR] 1,000 mg PO W/SUPPER 01/06/23 09/22/23 History Ibuprofen [Motrin Ib] 800 mg PO Q4H PRN 05/31/23 09/22/23 History DULoxetine HCL [Cymbalta] 30 mg PO HS 09/22/23 09/22/23 History Gabapentin [Neurontin] 800 mg PO BID 09/22/23 09/22/23 History Docusate [Colace] 100 mg PO BID cap 09/29/23 Rx Insulin Glargine,Hum.rec.anlog 80 units SQ HS #0 09/29/23 09/22/23 Rx [Lantus Solostar Pen] Melatonin 6 mg PO HS tab 09/29/23 Rx Vancomycin 2,250 mg IVPB Q12HR each 09/29/23 Rx Allergies Allergy/AdvReac Type Severity Reaction Status Date / Time No Known Allergies Allergy Verified 09/22/23 08:40 Physical Exam Vitals: Vital Signs Temp Pulse Resp BP Pulse Ox 11/17/23 11:19 108 H 18 119/73 97 11/17/23 08:00 98.2 F 102 H 20 123/78 92 L 11/17/23 04:00 98.1 F 107 H 19 118/72 92 L 11/16/23 23:34 98.0 F 99 18 116/73 98 11/16/23 20:00 98.1 F 97 19 124/76 93 L 11/16/23 15:24 98.2 F 94 18 120/73 92 L 11/16/23 11:51 98.5 F 101 H 17 119/77 96 Intake and Output 11/16/23 11/17/23 11/17/23 22:59 06:59 14:59 Intake Total 240 Output Total 1500 Balance -1500 240 Intake: Oral 240 Output: Urine 1500 Other: Voiding Method Urinal Urinal Urinal Weight 147.2 kg Chart review was performed Results CBC & Chem 7: 11/15/23 03:15 11/17/23 08:43 Labs: Abnormal Lab Results - Last 24 Hours (Table) 11/16/23 11/16/23 11/17/23 Range/Units 16:51 20:32 06:05 Sodium (137-145) mmol/L Carbon Dioxide (22-30) mmol/L Creatinine (0.66-1.25) mg/dL Glucose (74-99) mg/dL POC Glucose (mg/dL) 288 H 364 H 242 H (70-110) mg/dL 11/17/23 Range/Units 08:43 Sodium 135 L (137-145) mmol/L Carbon Dioxide 31 H (22-30) mmol/L Creatinine 0.65 L (0.66-1.25) mg/dL Glucose 233 H (74-99) mg/dL POC Glucose (mg/dL) (70-110) mg/dL Assessment and Plan Assessment: # Elective left BKA 2/2 left charcot joint with osteomyelitis -wound care, ID following -therapies # Recurrent MRSA bacteremia -on Vanco # Right second toe ulcer #Pain Management -Cymbalta 30 mg QD, [place] 5/325 mg Q 4 hrs prn moderate pain, 10/325 mg Q 4 hrs prn severe pain, dilaudid prn 11/16 patient will need to be off IV pain medications prior to discharge # DVT proph -Lovenox #Comorbidities: DM, morbid obesity BMI 41.7, HTN # Your medical dx and management Dispo: Patient was independent [employer], is motivated and has good social support. Recommending IPR for continued rehab, patient will need prior authorization from insurance. Patient was not physically seen for this encounter,chart reviewed was performed. Patrica Monroe PA-C
--- NOTE | 2023-11-17 12:45 | P.PN ---
Subjective Progress Note Date: 11/16/23 Principal diagnosis: Reason for follow up visit right second toe ulcer Patient is a 43-year-old male past medical history significant for diabetes mellitus did have a history of recurrent MRSA infections secondary to left diabetic foot infection with a Charcot joint in this patient admitted the hospital electively for left below the knee amputation patient also have a right second toe partial debilitation side wound prompting this consultation. On today's evaluation that is 11/16/2023,the patient remains to be afebrile, patient is on room air not requiring supplemental oxygen and denies any shortness of breath no chest pain or cough.Patient denies having any nausea or vomiting, no abdominal pain and no diarrhea has been reported, pain to the left AKA stump is currently controlled. Patient did have creatinine 0.69 no CBC was done today Objective - Vital Signs Vital signs: Vital Signs Temp 98.5 F 11/16/23 11:51 Pulse 101 H 11/16/23 11:51 Resp 17 11/16/23 11:51 BP 119/77 11/16/23 11:51 Pulse Ox 96 11/16/23 11:51 FiO2 Intake & Output 11/15/23 11/16/23 11/16/23 18:59 06:59 18:59 Intake Total 240 780 Output Total 4000 2800 300 Balance -3760 -2800 480 Weight 135 kg Intake: Oral 240 780 Output: Urine 4000 2800 300 Other: Voiding Method Indwelling Catheter Indwelling Catheter Urinal # Voids 1 - Exam GENERAL DESCRIPTION: Middle-age male lying in bed in no distress RESPIRATORY SYSTEM: Unlabored breathing , decreased breath sounds at bases HEART: S1 S2 regular rate and rhythm , ABDOMEN: Soft , no tenderness EXTREMITIES: Right second toe wound with postop pressure no surrounding redness or drainage - Labs CBC & Chem 7: 11/15/23 03:15 11/17/23 08:43 Labs: Abnormal Lab Results - Last 24 Hours (Table) 11/15/23 11/15/23 11/16/23 Range/Units 16:50 20:35 06:19 Sodium (137-145) mmol/L Glucose (74-99) mg/dL POC Glucose (mg/dL) 277 H 325 H 205 H (70-110) mg/dL 11/16/23 11/16/23 Range/Units 07:22 11:32 Sodium 134 L (137-145) mmol/L Glucose 221 H (74-99) mg/dL POC Glucose (mg/dL) 282 H (70-110) mg/dL Assessment and Plan (1) Ulcer of right foot due to type 2 diabetes mellitus Current Visit: Yes Status: Acute Code(s): E11.621 - TYPE 2 DIABETES MELLITUS WITH FOOT ULCER; L97.519 - NON-PRS CHRONIC ULCER OTH PRT RIGHT FOOT W UNSP SE VERITY SNOMED Code(s): 45634321342037613 Plan: 1patient with a history of recurrent MRSA bacteremia secondary to left Charcot foot/osteomyelitis in this patient who is status post left below the knee amputation 2-patient did have right second toe ulcer but no definite cellulitis 3-to continue with vancomycin pharmacy to dose while inpatient, we will discontinue his PICC line to decrease risk of line related sepsis and no need for any IV antibiotics on discharge Dictation was produced using [employer] dictation software. please excuse any grammatical, word or spelling errors. Time with Patient: Less than 30
--- NOTE | 2023-11-17 12:46 | P.PN ---
Subjective Progress Note Date: 11/17/23 Principal diagnosis: Reason for follow up visit right second toe ulcer Patient is a 43-year-old male past medical history significant for diabetes mellitus did have a history of recurrent MRSA infections secondary to left diabetic foot infection with a Charcot joint in this patient admitted the hospital electively for left below the knee amputation patient also have a right second toe partial debilitation side wound prompting this consultation. 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 The patient creatinine 0.65 Objective - Vital Signs Vital signs: Vital Signs Temp 98.2 F 11/17/23 08:00 Pulse 108 H 11/17/23 11:19 Resp 18 11/17/23 11:19 BP 119/73 11/17/23 11:19 Pulse Ox 97 11/17/23 11:19 FiO2 Intake & Output 11/16/23 11/17/23 11/17/23 18:59 06:59 18:59 Intake Total 780 240 Output Total 725 1500 Balance 55 -1500 240 Weight 147.2 kg Intake: Oral 780 240 Output: Urine 725 1500 Other: Voiding Method Urinal Urinal Urinal # Voids 1 - Exam GENERAL DESCRIPTION: Middle-age male lying in bed in no distress RESPIRATORY SYSTEM: Unlabored breathing , decreased breath sounds at bases HEART: S1 S2 regular rate and rhythm , ABDOMEN: Soft , no tenderness EXTREMITIES: Right second toe wound currently dressed - Labs CBC & Chem 7: 11/15/23 03:15 11/17/23 08:43 Labs: Abnormal Lab Results - Last 24 Hours (Table) 11/16/23 11/16/23 11/17/23 Range/Units 16:51 20:32 06:05 Sodium (137-145) mmol/L Carbon Dioxide (22-30) mmol/L Creatinine (0.66-1.25) mg/dL Glucose (74-99) mg/dL POC Glucose (mg/dL) 288 H 364 H 242 H (70-110) mg/dL 11/17/23 11/17/23 Range/Units 08:43 11:50 Sodium 135 L (137-145) mmol/L Carbon Dioxide 31 H (22-30) mmol/L Creatinine 0.65 L (0.66-1.25) mg/dL Glucose 233 H (74-99) mg/dL POC Glucose (mg/dL) 266 H (70-110) mg/dL Assessment and Plan (1) Ulcer of right foot due to type 2 diabetes mellitus Current Visit: Yes Status: Acute Code(s): E11.621 - TYPE 2 DIABETES MELLITUS WITH FOOT ULCER; L97.519 - NON-PRS CHRONIC ULCER OTH PRT RIGHT FOOT W UNSP SEVERITY SNOMED Code(s): 99331252492403415 Plan: 1patient with a history of recurrent MRSA bacteremia secondary to left Charcot foot/osteomyelitis in this patient who is status post left below the knee amputation 2-patient did have right second toe ulcer but no definite cellulitis 3-PICC line has been discontinued continue vancomycin while inpatient while Watching his kidney function closely creatinine is currently normal no plan for IV antibiotic on discharge Dictation was produced using [employer] dictation software. please excuse any grammatical, word or spelling errors. Time with Patient: Less than 30
--- NOTE | 2023-11-17 12:47 | P.PN ---
Subjective Progress Note Date: 11/15/23 HISTORY OF PRESENT ILLNESS: This is a 43-year-old male with a previous medical history significant for diabetes mellitus type 2 with diabetic polyneuropathy, hypertension and hypertensive cardiovascular disease, hyperlipidemia, obesity with obstructive sleep apnea, significant Charcot feet developed to have a significant osteomyelitis that was treated twice with IV antibiotic in the form of v ancomycin through a PICC line, without any benefit, he has a matter fact went and saw foot and ankle surgeon at [facility] to try to help save his leg but he was recommended by his surgeon to go back and see his vascular surgeon to have a below-knee amputation as the patient will recover faster this way, because there was not much room to work with in his bones of his foot, patient underwent left below knee amputation that was done successfully by Dr. Hua on 11/13/2023 patient is being seen in consultation for postoperative medical management and his medication was adjusted, patient developed to have a significant bigeminy on the monitor and he was started on metoprolol ER 25 mg orally once every day, and cardiology consultation was obtained. 11/14: Patient is laying down in bed is complaining of more pain in the left below-knee amputation site, we will increase his pain management to hydrocodone 10/325 mg orally every 4 hours as needed, continue to encourage the use of incentive spirometer, continue current treatment plan, restart the patient back on his Lantus, restart the patient back and sliding scale insulin, continue the patient on metformin as well, will follow-up with the patient very closely. REVIEW OF SYSTEMS: Constitutional: No documented fever, no chills, no night sweats. No weight change. No weakness, fatigue or lethargy. No daytime sleepiness. EENT: No headache. No blurred vision or double vision, no loss of vision. No loss of Hearing, no ringing in the ears, no dizziness. No nasal drainage or congestion. No epistaxis. No sore throat. Lungs: No shortness of breath, no cough, no sputum production. No wheezing. Reports dyspnea with activity. Cardiovascular: No chest pain, no lower extremity edema. No palpitations. No paroxysmal nocturnal dyspnea. No orthopnea. No lightheadedness or dizziness. No syncopal episodes. Abdominal: Reports no abdominal pain. No nausea, vomiting. No diarrhea. positive for constipation. No bloody or tarry stools reports loss of appetite. Genitourinary: No dysuria, increased frequency, urgency. No urinary retention. Musculoskeletal: No myalgias. No muscle weakness, no gait dysfunction, no frequent falls. No back pain. No neck pain. Integumentary: left BKA with dressing , no lesions. No rash or pruritus. No unusual bruising. No change in hair or nails. Neurologic: No aphasia. No facial droop. No change in mentation. No head injury. No headache. No paralysis. No paresthesia. Psychiatric: positive for depression. No anxiety. No mood swings. Endocrine:positive for abnormal blood sugars. No weight change. PHYSICAL EXAMINATION: General: 43-year-old male laying in bed in no apparent distress. HEENT: Head is atraumatic, normocephalic, pupils were equal round reactive to light and recommendation, extraocular muscle movement were intact, sclera nonicteric, conjunctivae were pale, mucous membranes of the mouth are somewhat dry. Neck: Supple, no JVP, normal carotid upstroke bilaterally, no lymphadenopathy. Chest: Decreased breath sounds at the bases, few rhonchi, no extremity wheezes, no chest wall tenderness, no intercostal retractions. Heart: First heart sound is normal, second heart sounds normal there is no gallop or murmur no rubs or heaves. Abdomen: Soft, nontender, nondistended, positive bowel sounds. Extremities: Left below-knee amputation, right lower extremity with a wound to the right second toe dorsalis pedis +1 on the right side. Neurologic examination: Patient is awake alert and oriented X3 , cranial nerves II-12 appear grossly intact, muscle power were 5 out of 5 in upper extremities and 5 out of 5 in right lower extremity. ASSESSMENT AND PLAN: 1. Postoperative day #2 status post left below-knee amputation. Continue current pain management as outlined by vascular surgery, monitor the patient symptoms very closely, patient instructed to use incentive spirometer to reduce the incidence of atelectasis and healthcare associated pneumonia, continue vancomycin 225 mg IV piggyback every 8 hours, pharmacy to dose its peak and trough, consultation was placed for infectious disease Dr. Holland yesterday. 2. Diabetes mellitus type 2 insulin requiring. Continue patient on Lantus 64 units at bedtime, continue with a sliding scale insulin, continue patient on metformin ER 500 mg orally twice every day, monitor the patient blood glucose level before each meal and at bedtime. 3. Bigeminy patient was started on Cardizem CD 120 mg orally once every day, patient was seen in consultation by cardiology. 4. Mixed hyperlipidemia. Continue patient on atorvastatin 80 mg once a day, monitor per lipid panel, keep LDL 55-70. 5. Diabetic polyneuropathy. Continue gabapentin 800 mg orally twice every day. 6. Depression. Continue patient on duloxetine 30 mg orally once every day. 7. DVT prophylaxis. Continue patient on Lovenox 40 mg subcutaneous every 24 hours. 8. GI prophylaxis. Continue famotidine 20 mg orally once every day. 9. We will continue to follow the patient with you. Objective - Vital Signs Vital signs: Vital Signs Temp 98.0 F 11/15/23 08:01 Pulse 95 11/15/23 08:01 Resp 19 11/15/23 08:01 BP 138/76 11/15/23 08:01 Pulse Ox 96 11/15/23 08:01 FiO2 Intake & Output 11/14/23 11/15/23 11/15/23 18:59 06:59 18:59 Intake Total 240 Balance 240 Weight 158 kg Intake: Oral 240 - Labs CBC & Chem 7: 11/15/23 03:15 11/17/23 08:43 Labs: Abnormal Lab Results - Last 24 Hours (Table) 11/15/23 11/15/23 11/15/23 Range/Units 03:15 03:15 05:53 Hgb 12.2 L (13.0-17.5) gm/dL Hct 37.1 L (39.0-53.0) % MCV 78.5 L (80.0-100.0) fL Sodium 131 L (137-145) mmol/L Chloride 97 L (98-107) mmol/L Glucose 215 H (74-99) mg/dL POC Glucose (mg/dL) 184 H (70-110) mg/dL Calcium 8.3 L (8.4-10.2) mg/dL Total Protein 5.3 L (6.3-8.2) g/dL Albumin 3.0 L (3.5-5.0) g/dL
--- NOTE | 2023-11-17 12:48 | P.PN ---
Subjective Progress Note Date: 11/16/23 HISTORY OF PRESENT ILLNESS: This is a 43-year-old male with a previous medical history significant for diabetes mellitus type 2 with diabetic polyneuropathy, hypertension and hypertensive cardiovascular disease, hyperlipidemia, obesity with obstructive sleep apnea, significant Charcot feet developed to have a significant osteomyelitis that was treated twice with IV antibiotic in the form of v ancomycin through a PICC line, without any benefit, he has a matter fact went and saw foot and ankle surgeon at [facility] to try to help save his leg but he was recommended by his surgeon to go back and see his vascular surgeon to have a below-knee amputation as the patient will recover faster this way, because there was not much room to work with in his bones of his foot, patient underwent left below knee amputation that was done successfully by Dr. Hua on 11/13/2023 patient is being seen in consultation for postoperative medical management and his medication was adjusted, patient developed to have a significant bigeminy on the monitor and he was started on metoprolol ER 25 mg orally once every day, and cardiology consultation was obtained. 11/14: Patient is laying down in bed is complaining of more pain in the left below-knee amputation site, we will increase his pain management to hydrocodone 10/325 mg orally every 4 hours as needed, continue to encourage the use of incentive spirometer, continue current treatment plan, restart the patient back on his Lantus, restart the patient back and sliding scale insulin, continue the patient on metformin as well, will follow-up with the patient very closely. 11/15: Patient is doing a lot better today, his pain is well-controlled, patient is discussing the fact that he may want to go to [facility] for inpatient rehabilitation with insurance coverage otherwise he has to go to subacute rehabilitation at [facility], his blood glucose levels are acceptable, continue current treatment plan, continue patient on Lantus 64 units at bedtime along with sliding scale insulin, continue metformin, monitor the patient very closely, continue current bowel regimen. REVIEW OF SYSTEMS: Constitutional: No documented fever, no chills, no night sweats. No weight change. No weakness, fatigue or lethargy. No daytime sleepiness. EENT: No headache. No blurred vision or double vision, no loss of vision. No loss of Hearing, no ringing in the ears, no dizziness. No nasal drainage or congestion. No epistaxis. No sore throat. Lungs: No shortness of breath, no cough, no sputum production. No wheezing. Reports dyspnea with activity. Cardiovascular: No chest pain, no lower extremity edema. No palpitations. No paroxysmal nocturnal dyspnea. No orthopnea. No lightheadedness or dizziness. No syncopal episodes. Abdominal: Reports no abdominal pain. No nausea, vomiting. No diarrhea. positive for constipation. No bloody or tarry stools reports loss of appetite. Genitourinary: No dysuria, increased frequency, urgency. No urinary retention. Musculoskeletal: No myalgias. No muscle weakness, no gait dysfunction, no frequent falls. No back pain. No neck pain. Integumentary: left BKA with dressing , no lesions. No rash or pruritus. No unusual bruising. No change in hair or nails. Neurologic: No aphasia. No facial droop. No change in mentation. No head injury. No headache. No paralysis. No paresthesia. Psychiatric: positive for depression. No anxiety. No mood swings. Endocrine:positive for abnormal blood sugars. No weight change. PHYSICAL EXAMINATION: General: 43-year-old male laying in bed in no apparent distress. HEENT: Head is atraumatic, normocephalic, pupils were equal round reactive to light and recommendation, extraocular muscle movement were intact, sclera n onicteric, conjunctivae were pale, mucous membranes of the mouth are somewhat dry. Neck: Supple, no JVP, normal carotid upstroke bilaterally, no lymphadenopathy. Chest: Decreased breath sounds at the bases, few rhonchi, no extremity wheezes, no chest wall tenderness, no intercostal retractions. Heart: First heart sound is normal, second heart sounds normal there is no gallop or murmur no rubs or heaves. Abdomen: Soft, nontender, nondistended, positive bowel sounds. Extremities: Left below-knee amputation, right lower extremity with a wound to the right second toe dorsalis pedis +1 on the right side. Neurologic examination: Patient is awake alert and oriented X3 , cranial nerves II-12 appear grossly intact, muscle power were 5 out of 5 in upper extremities and 5 out of 5 in right lower extremity. ASSESSMENT AND PLAN: 1. Postoperative day #3 status post left below-knee amputation. Continue current pain management as outlined by vascular surgery, monitor the patient symptoms very closely, patient instructed to use incentive spirometer to reduce the incidence of atelectasis and healthcare associated pneumonia, continue vancomycin 225 mg IV piggyback every 8 hours, pharmacy to dose its peak and trough, consultation was placed for infectious disease 2. Diabetes mellitus type 2 insulin requiring. Continue patient on Lantus 64 units at bedtime, continue with a sliding scale insulin, continue patient on metformin ER 500 mg orally twice every day, monitor the patient blood glucose level before each meal and at bedtime. 3. Bigeminy patient was started on Cardizem CD 120 mg orally once every day, patient was seen in consultation by cardiology. 4. Mixed hyperlipidemia. Continue patient on atorvastatin 80 mg once a day, monitor per lipid panel, keep LDL 55-70. 5. Diabetic polyneuropathy. Continue gabapentin 800 mg orally twice every day. 6. Depression. Continue patient on duloxetine 30 mg orally once every day. 7. DVT prophylaxis. Continue patient on Lovenox 40 mg subcutaneous every 24 hours. 8. GI prophylaxis. Continue famotidine 20 mg orally once every day. 9. We will continue to follow the patient with you. 10. Likely subacute rehabilitation versus inpatient rehabilitation Objective - Vital Signs Vital signs: Vital Signs Temp 98.2 F 11/17/23 08:00 Pulse 108 H 11/17/23 11:19 Resp 18 11/17/23 11:19 BP 119/73 11/17/23 11:19 Pulse Ox 97 11/17/23 11:19 FiO2 Intake & Output 11/16/23 11/17/23 11/17/23 18:59 06:59 18:59 Intake Total 780 240 Output Total 725 1500 Balance 55 -1500 240 Weight 147.2 kg Intake: Oral 780 240 Output: Urine 725 1500 Other: Voiding Method Urinal Urinal Urinal # Voids 1 - Labs CBC & Chem 7: 11/15/23 03:15 11/17/23 08:43 Labs: Abnormal Lab Results - Last 24 Hours (Table) 11/16/23 11/16/23 11/17/23 Range/Units 16:51 20:32 06:05 Sodium (137-145) mmol/L Carbon Dioxide (22-30) mmol/L Creatinine (0.66-1.25) mg/dL Glucose (74-99) mg/dL POC Glucose (mg/dL) 288 H 364 H 242 H (70-110) mg/dL 11/17/23 11/17/23 Range/Units 08:43 11:50 Sodium 135 L (137-145) mmol/L Carbon Dioxide 31 H (22-30) mmol/L Creatinine 0.65 L (0.66-1.25) mg/dL Glucose 233 H (74-99) mg/dL POC Glucose (mg/dL) 266 H (70-110) mg/dL
--- NOTE | 2023-11-17 13:00 | P.PN ---
Subjective Progress Note Date: 11/17/23 (\) Principal diagnosis: Left BKA Patient seen and examined. Doing well. Hard dressing placed last night. No other complaints. Objective - Vital Signs Vital signs: Vital Signs Temp 98.2 F 11/17/23 08:00 Pulse 108 H 11/17/23 11:19 Resp 18 11/17/23 11:19 BP 119/73 11/17/23 11:19 Pulse Ox 97 11/17/23 11:19 FiO2 Intake & Output 11/16/23 11/17/23 11/17/23 18:59 06:59 18:59 Intake Total 780 240 Output Total 725 1500 Balance 55 -1500 240 Weight 147.2 kg Intake: Oral 780 240 Output: Urine 725 1500 Other: Voiding Method Urinal Urinal Urinal # Voids 1 - Exam Left below-knee amputation site dressing is clean, dry and intact. - Labs CBC & Chem 7: 11/15/23 03:15 11/17/23 08:43 Labs: Abnormal Lab Results - Last 24 Hours (Table) 11/16/23 11/16/23 11/17/23 Range/Units 16:51 20:32 06:05 Sodium (137-145) mmol/L Carbon Dioxide (22-30) mmol/L Creatinine (0.66-1.25) mg/dL Glucose (74-99) mg/dL POC Glucose (mg/dL) 288 H 364 H 242 H (70-110) mg/dL 11/17/23 11/17/23 Range/Units 08:43 11:50 Sodium 135 L (137-145) mmol/L Carbon Dioxide 31 H (22-30) mmol/L Creatinine 0.65 L (0.66-1.25) mg/dL Glucose 233 H (74-99) mg/dL POC Glucose (mg/dL) 266 H (70-110) mg/dL Assessment and Plan Assessment: #1 postop day 4 left below-knee amputation #2 Charcot joint left foot #3 diabetes #4 morbid obesity Plan: Awaiting inpatient rehab placement.
[2023-11-17 16:27] LABS: Glucose,Whole Blood 317 mg/dL (70-110)
--- NOTE | 2023-11-17 16:55 | P.PN ---
Subjective Progress Note Date: 11/17/23 HISTORY OF PRESENT ILLNESS: This is a 43-year-old male with a previous medical history significant for diabetes mellitus type 2 with diabetic polyneuropathy, hypertension and hypertensive cardiovascular disease, hyperlipidemia, obesity with obstructive sleep apnea, significant Charcot feet developed to have a significant osteomyelitis that was treated twice with IV antibiotic in the form of v ancomycin through a PICC line, without any benefit, he has a matter fact went and saw foot and ankle surgeon at [facility] to try to help save his leg but he was recommended by his surgeon to go back and see his vascular surgeon to have a below-knee amputation as the patient will recover faster this way, because there was not much room to work with in his bones of his foot, patient underwent left below knee amputation that was done successfully by Dr. Hua on 11/13/2023 patient is being seen in consultation for postoperative medical management and his medication was adjusted, patient developed to have a significant bigeminy on the monitor and he was started on metoprolol ER 25 mg orally once every day, and cardiology consultation was obtained. 11/14: Patient is laying down in bed is complaining of more pain in the left below-knee amputation site, we will increase his pain management to hydrocodone 10/325 mg orally every 4 hours as needed, continue to encourage the use of incentive spirometer, continue current treatment plan, restart the patient back on his Lantus, restart the patient back and sliding scale insulin, continue the patient on metformin as well, will follow-up with the patient very closely. 11/15: Patient is doing a lot better today, his pain is well-controlled, patient is discussing the fact that he may want to go to [facility] for inpatient rehabilitation with insurance coverage otherwise he has to go to subacute rehabilitation at [facility] on [facility], his blood glucose levels are acceptable, continue current treatment plan, continue patient on Lantus 64 units at bedtime along with sliding scale insulin, continue metformin, monitor the patient very closely, continue current bowel regimen. 11/16: Patient is sitting up in the recliner chair, his pain is well-controlled, on hydrocodone 10/325 mg 1 tablet every 4 hours as needed, he is feeling that he is going to have a bowel movement today, he denies any chest pain, shortness of breath, he denies any palpitation, he denies any unusual symptom he does not appear to be any acute anxiety or depression at this time, he seems to be doing well, his blood glucose level a bit higher today, we will increase his Lantus from 64 to 74 units at bedtime, since the patient started to eat better now patient was seen in consultation by the physical therapy and rehabilitation medicine and he will likely end up going to [facility] for physical therapy and rehabilitation and if the insurance does not authorize it the patient will go to [facility] on the [place]. REVIEW OF SYSTEMS: Constitutional: No documented fever, no chills, no night sweats. No weight change. No weakness, fatigue or lethargy. No daytime sleepiness. EENT: No headache. No blurred vision or double vision, no loss of vision. No loss of Hearing, no ringing in the ears, no dizziness. No nasal drainage or con gestion. No epistaxis. No sore throat. Lungs: No shortness of breath, no cough, no sputum production. No wheezing. Reports dyspnea with activity. Cardiovascular: No chest pain, no lower extremity edema. No palpitations. No paroxysmal nocturnal dyspnea. No orthopnea. No lightheadedness or dizziness. No syncopal episodes. Abdominal: Reports no abdominal pain. No nausea, vomiting. No diarrhea. positive for constipation. No bloody or tarry stools reports loss of appetite. Genitourinary: No dysuria, increased frequency, urgency. No urinary retention. Musculoskeletal: No myalgias. No muscle weakness, no gait dysfunction, no frequent falls. No back pain. No neck pain. Integumentary: left BKA with dressing , no lesions. No rash or pruritus. No unusual bruising. No change in hair or nails. Neurologic: No aphasia. No facial droop. No change in mentation. No head injury. No headache. No paralysis. No paresthesia. Psychiatric: positive for depression. No anxiety. No mood swings. Endocrine:positive for abnormal blood sugars. No weight change. PHYSICAL EXAMINATION: General: 43-year-old male laying in bed in no apparent distress. HEENT: Head is atraumatic, normocephalic, pupils were equal round reactive to light and recommendation, extraocular muscle movement were intact, sclera nonicteric, conjunctivae were pale, mucous membranes of the mouth are somewhat dry. Neck: Supple, no JVP, normal carotid upstroke bilaterally, no lymphadenopathy. Chest: Decreased breath sounds at the bases, few rhonchi, no extremity wheezes, no chest wall tenderness, no intercostal retractions. Heart: First heart sound is normal, second heart sounds normal there is no gal lop or murmur no rubs or heaves. Abdomen: Soft, nontender, nondistended, positive bowel sounds. Extremities: Left below-knee amputation, right lower extremity with a wound to the right second toe dorsalis pedis +1 on the right side. Neurologic examination: Patient is awake alert and oriented X3 , cranial nerves II-12 appear grossly intact, muscle power were 5 out of 5 in upper extremities and 5 out of 5 in right lower extremity. ASSESSMENT AND PLAN: 1. Postoperative day #4 status post left below-knee amputation. Continue current pain management as outlined by vascular surgery, monitor the patient symptoms very closely, patient instructed to use incentive spirometer to reduce the incidence of atelectasis and healthcare associated pneumonia, continue vancomycin 225 mg IV piggyback every 8 hours, pharmacy to dose its peak and trough, patient is being followed by infectious disease as well as vascular surgery patient has a string clear placed on. 2. Diabetes mellitus type 2 insulin requiring. Continue patient on Lantus and increase the dose to 74 units at bedtime, continue with a sliding scale insulin, continue patient on metformin ER 500 mg orally twice every day, monitor the patient blood glucose level before each meal and at bedtime. 3. Bigeminy patient was started on Cardizem CD 180 mg orally once every day, patient was seen in consultation by cardiology. 4. Mixed hyperlipidemia. Continue patient on atorvastatin 80 mg once a day, monitor per lipid panel, keep LDL 55-70. 5. Diabetic polyneuropathy. Continue gabapentin 800 mg orally twice every day. 6. Depression. Continue patient on duloxetine 30 mg orally once every day. 7. DVT prophylaxis. Continue patient on Lovenox 40 mg subcutaneous every 24 hours. 8. GI prophylaxis. Continue famotidine 20 mg orally once every day. 9. We will continue to follow the patient with you. 10. Likely subacute rehabilitation versus inpatient rehabilitation Objective - Vital Signs Vital signs: Vital Signs Temp 98.4 F 11/17/23 15:58 Pulse 100 11/17/23 15:58 Resp 18 11/17/23 15:58 BP 121/78 08/27/24 15:58 Pulse Ox 95 11/17/23 15:58 FiO2 Intake & Output 11/16/23 11/17/23 11/17/23 18:59 06:59 18:59 Intake Total 780 780 Output Total 725 1500 Balance 55 -1500 780 Weight 147.2 kg Intake: Oral 780 780 Output: Urine 725 1500 Other: Voiding Method Urinal Urinal Urinal # Voids 1 2 # Bowel Movements 1 - Labs CBC & Chem 7: 11/15/23 03:15 11/17/23 08:43 Labs: Abnormal Lab Results - Last 24 Hours (Table) 11/16/23 11/16/23 11/17/23 Range/Units 16:51 20:32 06:05 Sodium (137-145) mmol/L Carbon Dioxide (22-30) mmol/L Creatinine (0.66-1.25) mg/dL Glucose (74-99) mg/dL POC Glucose (mg/dL) 288 H 364 H 242 H (70-110) mg/dL 11/17/23 11/17/23 11/17/23 Range/Units 08:43 11:50 16:26 Sodium 135 L (137-145) mmol/L Carbon Dioxide 31 H (22-30) mmol/L Creatinine 0.65 L (0.66-1.25) mg/dL Glucose 233 H (74-99) mg/dL POC Glucose (mg/dL) 266 H 317 H (70-110) mg/dL
[2023-11-17 20:00] LABS: Glucose,Whole Blood 312 mg/dL (70-110)
[2023-11-17] MEDS: INSULIN DETEMIR (LEVEMIR) 100 UNIT/ML SYR SQ SCH (21:35)
[2023-11-18 03:04] VITALS: TEMP 98.2
[2023-11-18 06:05] LABS: Glucose,Whole Blood 265 mg/dL (70-110)
[2023-11-18 10:07] LABS: Basophils % (A) 1 %; Eosinophils # (A) 0.2 k/uL (0-0.7); Eosinophils % (A) 4 %; HCT 38.2 % (39.0-53.0); HGB 12.2 gm/dL (13.0-17.5); Hypochromasia Moderate; Lymphocytes # (A) 0.8 k/uL (1.0-4.8); Lymphocytes % (A) 17 %; MCH 25.7 pg (25.0-35.0); MCV 80.2 fL (80.0-100.0); Mean Platelet Volume 7.5; Monocytes # (A) 0.3 k/uL (0-1.0); Monocytes % (A) 7 %; Neutrophils # (A) 3.2 k/uL (1.3-7.7); Neutrophils % (A) 69 %; Platelet Count 197 k/uL (150-450); RBC 4.77 m/uL (4.30-5.90); RDW 15.6 % (11.5-15.5); WBC 4.7 k/uL (3.8-10.6)
[2023-11-18 10:13] LABS: ALT 85 U/L (4-49); AST 68 U/L (17-59); African American GFR (CKD) >90 (>60 ml/min/1.73 sqM); Albumin 3.3 g/dL (3.5-5.0); Alkaline Phosphatase 119 U/L (38-126); Anion Gap 6 mmol/L; Blood Urea Nitrogen 13 mg/dL (9-20); Calcium 8.9 mg/dL (8.4-10.2); Carbon Dioxide 33 mmol/L (22-30); Chloride 97 mmol/L (98-107); Glucose 225 mg/dL (74-99); Non-African American GFR(CKD) >90 (>60 ml/min/1.73 sqM); Potassium 4.2 mmol/L (3.5-5.1); Sodium 136 mmol/L (137-145); Total Bilirubin 0.6 mg/dL (0.2-1.3); Total Protein 5.6 g/dL (6.3-8.2)
--- NOTE | 2023-11-18 10:32 | P.PN ---
Subjective Progress Note Date: 11/18/23 Principal diagnosis: Left BKA Patient seen and examined. Doing well. Hard dressing in place without issues. Awaiting rehab. Objective - Vital Signs Vital signs: Vital Signs Temp 98.2 F 11/18/23 03:03 Pulse 96 11/18/23 03:03 Resp 18 11/18/23 03:03 BP 110/72 11/18/23 03:03 Pulse Ox 93 L 11/18/23 03:03 FiO2 Intake & Output 11/17/23 11/18/23 11/18/23 18:59 06:59 18:59 Intake Total 780 Output Total 1750 Balance 780 -1750 Weight 146.7 kg Intake: Oral 780 Output: Urine 1750 Other: Voiding Method Urinal Urinal # Voids 2 3 # Bowel Movements 1 - Exam Left below-knee amputation site dressing is clean, dry and intact. - Labs CBC & Chem 7: 11/18/23 09:30 11/18/23 09:30 Labs: Abnormal Lab Results - Last 24 Hours (Table) 11/17/23 11/17/23 11/17/23 Range/Units 11:50 16:26 19:59 Hgb (13.0-17.5) gm/dL Hct (39.0-53.0) % RDW (11.5-15.5) % Lymphocytes # (1.0-4.8) k/uL Sodium (137-145) mmol/L Chloride (98-107) mmol/L Carbon Dioxide (22-30) mmol/L Creatinine (0.66-1.25) mg/dL Glucose (74-99) mg/dL POC Glucose (mg/dL) 266 H 317 H 312 H (70-110) mg/dL AST (17-59) U/L ALT (4-49) U/L Total Protein (6.3-8.2) g/dL Albumin (3.5-5.0) g/dL 11/18/23 11/18/23 11/18/23 Range/Units 06:03 09:30 09:30 Hgb 12.2 L (13.0-17.5) gm/dL Hct 38.2 L (39.0-53.0) % RDW 15.6 H (11.5-15.5) % Lymphocytes # 0.8 L (1.0-4.8) k/uL Sodium 136 L (137-145) mmol/L Chloride 97 L (98-107) mmol/L Carbon Dioxide 33 H (22-30) mmol/L Creatinine 0.64 L (0.66-1.25) mg/dL Glucose 225 H (74-99) mg/dL POC Glucose (mg/dL) 265 H (70-110) mg/dL AST 68 H (17-59) U/L ALT 85 H (4-49) U/L Total Protein 5.6 L (6.3-8.2) g/dL Albumin 3.3 L (3.5-5.0) g/dL Assessment and Plan Assessment: #1 postop day 5 left below-knee amputation #2 Charcot joint left foot #3 diabetes #4 morbid obesity Plan: Stable for discharge once rehab bed available.
[2023-11-18 11:28] VITALS: RESP 16
[2023-11-18] MEDS: VANCOMYCIN TROUGH DUE 1 EACH MISC MISCELLANE ONE (11:28)
[2023-11-18 12:01] LABS: Glucose,Whole Blood 303 mg/dL (70-110)
--- NOTE | 2023-11-18 12:22 | P.PN ---
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 On today's evaluation that is 11/18/2023, Patient is afebrile patient is currently on room air and denies having any shortness of breath, the patient denies any chest pain or cough, the patient denies any nausea vomiting did not have any abdominal pain and no diarrhea pain to the left BKA stump is currently controlled currently waiting for placement. Patient output is 4.7, creatinine 0.64 Vanco trough was 22.4 Objective - Vital Signs Vital signs: Vital Signs Temp 98.2 F 11/18/23 09:10 Pulse 99 11/18/23 09:10 Resp 16 11/18/23 09:10 BP 124/75 11/18/23 09:10 Pulse Ox 95 11/18/23 09:10 FiO2 Intake & Output 11/17/23 11/18/23 11/18/23 18:59 06:59 18:59 Intake Total 780 Output Total 1750 Balance 780 -1750 Weight 146.7 kg Intake: Oral 780 Output: Urine 1750 Other: Voiding Method Urinal Urinal Urinal # Voids 2 3 # Bowel Movements 1 - Exam GENERAL DESCRIPTION: Middle-age male lying in bed in no distress RESPIRATORY SYSTEM: Unlabored breathing , decreased breath sounds at bases HEART: S1 S2 regular rate and rhythm , ABDOMEN: Soft , no tenderness EXTREMITIES: Right second toe wound currently dressed, no drainage - Labs CBC & Chem 7: 11/18/23 09:30 11/18/23 09:30 Labs: Abnormal Lab Results - Last 24 Hours (Table) 11/17/23 11/17/23 11/18/23 Range/Units 16:26 19:59 06:03 Hgb (13.0-17.5) gm/dL Hct (39.0-53.0) % RDW (11.5-15.5) % Lymphocytes # (1.0-4.8) k/uL Sodium (137-145) mmol/L Chloride (98-107) mmol/L Carbon Dioxide (22-30) mmol/L Creatinine (0.66-1.25) mg/dL Glucose (74-99) mg/dL POC Glucose (mg/dL) 317 H 312 H 265 H (70-110) mg/dL AST (17-59) U/L ALT (4-49) U/L Total Protein (6.3-8.2) g/dL Albumin (3.5-5.0) g/dL 11/18/23 11/18/23 11/18/23 Range/Units 09:30 09:30 11:59 Hgb 12.2 L (13.0-17.5) gm/dL Hct 38.2 L (39.0-53.0) % RDW 15.6 H (11.5-15.5) % Lymphocytes # 0.8 L (1.0-4.8) k/uL Sodium 136 L (137-145) mmol/L Chloride 97 L (98-107) mmol/L Carbon Dioxide 33 H (22-30) mmol/L Creatinine 0.64 L (0.66-1.25) mg/dL Glucose 225 H (74-99) mg/dL POC Glucose (mg/dL) 303 H (70-110) mg/dL AST 68 H (17-59) U/L ALT 85 H (4-49) U/L Total Protein 5.6 L (6.3-8.2) g/dL Albumin 3.3 L (3.5-5.0) g/dL Assessment and Plan (1) Ulcer of right foot due to type 2 diabetes mellitus Current Visit: Yes Status: Acute Code(s): E11.621 - TYPE 2 DIABETES MELLITUS WITH FOOT ULCER; L97.519 - NON-PRS CHRONIC ULCER OTH PRT RIGHT FOOT W UNSP SEVERITY SNOMED Code(s): 27235857063619439 Plan: 1patient with a history of recurrent MRSA bacteremia secondary to left Charcot foot/osteomyelitis in this patient who is status post left below the knee amputation 2-patient did have right second toe ulcer but no definite cellulitis 3-patient to continue vancomycin while inpatient while Watching his kidney function closely creatinine remains to be normal however antibiotics can be safely discontinued discharge antibiotic regimen 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 please excuse any grammatical, word or spelling errors. Time with Patient: Less than 30
[2023-11-18 12:59] VITALS: BP 134/79; PULSE 94
--- NOTE | 2023-11-18 13:12 | P.DS ---
Providers Date of admission: 11/13/23 13:25 Expected date of discharge: 11/18/23 Attending physician: Maine Hua DO Consults: 11/13/23 12:32 Consult Physician Routine Consulting Provider: Zuleyma Armstrong Consult Reason/Comments: osteomyelitis Do you want consulting provider notified?: Already Contacted 11/13/23 13:01 Consult Physician Routine Consulting Provider: Ayad Donald Consult Reason/Comments: medical management Do you want consulting provider notified?: Already Contacted 11/16/23 10:25 Consult Physician Routine Consulting Provider: Davy Sears Consult Reason/Comments: Eval for IPR Do you want consulting provider notified?: Yes Primary care physician: Stated None - Discharge Diagnosis(es) (1) Charcot ankle Current Visit: No Status: Acute Hospital Course: 43 year old with charcot foot and diabetic wounds presented for elective left BKA. He did well after surgery and was appropriate for inpt rehab. Procedures: left bka Patient Condition at Discharge: Stable Plan - Discharge Summary New Discharge Prescriptions: No Action metFORMIN HCL ER [Glucophage XR] 1,000 mg PO W/SUPPER Omeprazole 40 mg PO DAILY Gabapentin [Neurontin] 800 mg PO BID Insulin Glargine,Hum.rec.anlog [Lantus Solostar Pen] 80 units SQ HS #0 Atorvastatin [Lipitor] 80 mg PO HS Loratadine 20 mg PO DAILY Ibuprofen [Motrin Ib] 800 mg PO Q4H PRN PRN Reason: Fever And/ Or Pain DULoxetine HCL [Cymbalta] 30 mg PO HS Docusate [Colace] 100 mg PO BID cap Melatonin 6 mg PO HS tab Vancomycin 2,250 mg IVPB Q12HR each Discharge Medication List Atorvastatin [Lipitor] 80 mg PO HS 01/06/23 [History] Loratadine 20 mg PO DAILY 01/06/23 [History] Omeprazole 40 mg PO DAILY 01/06/23 [History] metFORMIN HCL ER [Glucophage XR] 1,000 mg PO W/SUPPER 01/06/23 [History] Ibuprofen [Motrin Ib] 800 mg PO Q4H PRN 05/31/23 [History] DULoxetine HCL [Cymbalta] 30 mg PO HS 09/22/23 [History] Gabapentin [Neurontin] 800 mg PO BID 09/22/23 [History] Docusate [Colace] 100 mg PO BID cap 09/29/23 [Rx] Insulin Glargine,Hum.rec.anlog [Lantus Solostar Pen] 80 units SQ HS #0 09/29/23 [Rx] Melatonin 6 mg PO HS tab 09/29/23 [Rx] Vancomycin 2,250 mg IVPB Q12HR each 09/29/23 [Rx] Follow up Appointment(s)/Referral(s): [facility], [NON-STAFF] - Maine Hua DO [STAFF PHYSICIAN] - 2 Weeks
[2023-11-18] MEDS ORDERED: VANCOMYCIN 2,000 MG in SODIUM CHLORIDE 0.9% 500 ML 500 ML IVPB SCH (14:00)
--- NOTE | 2023-11-18 14:49 | P.PN ---
Subjective Progress Note Date: 11/18/23 HISTORY OF PRESENT ILLNESS: This is a 43-year-old male with a previous medical history significant for diabetes mellitus type 2 with diabetic polyneuropathy, hypertension and hypertensive cardiovascular disease, hyperlipidemia, obesity with obstructive sleep apnea, significant Charcot feet developed to have a significant osteomyelitis that was treated twice with IV antibiotic in the form of v ancomycin through a PICC line, without any benefit, he has a matter fact went and saw foot and ankle surgeon at [place] to try to help save his leg but he was recommended by his surgeon to go back and see his vascular surgeon to have a below-knee amputation as the patient will recover faster this way, because there was not much room to work with in his bones of his foot, patient underwent left below knee amputation that was done successfully by Dr. Hua on 11/13/2023 patient is being seen in consultation for postoperative medical management and his medication was adjusted, patient developed to have a significant bigeminy on the monitor and he was started on metoprolol ER 25 mg orally once every day, and cardiology consultation was obtained. 11/14: Patient is laying down in bed is complaining of more pain in the left below-knee amputation site, we will increase his pain management to hydrocodone 10/325 mg orally every 4 hours as needed, continue to encourage the use of incentive spirometer, continue current treatment plan, restart the patient back on his Lantus, restart the patient back and sliding scale insulin, continue the patient on metformin as well, will follow-up with the patient very closely. 11/15: Patient is doing a lot better today, his pain is well-controlled, patient is discussing the fact that he may want to go to [facility] for inpatient rehabilitation with insurance coverage otherwise he has to go to subacute rehabilitation at [facility] on [facility], his blood glucose levels are acceptable, continue current treatment plan, continue patient on Lantus 64 units at bedtime along with sliding scale insulin, continue metformin, monitor the patient very closely, continue current bowel regimen. 11/16: Patient is sitting up in the recliner chair, his pain is well-controlled, on hydrocodone 10/325 mg 1 tablet every 4 hours as needed, he is feeling that he is going to have a bowel movement today, he denies any chest pain, shortness of breath, he denies any palpitation, he denies any unusual symptom he does not appear to be any acute anxiety or depression at this time, he seems to be doing well, his blood glucose level a bit higher today, we will increase his Lantus from 64 to 74 units at bedtime, since the patient started to eat better now patient was seen in consultation by the physical therapy and rehabilitation medicine and he will likely end up going to [facility] for physical therapy and rehabilitation and if the insurance does not authorize it the patient will go to [facility] on the [address]. 11/17: Patient is sitting up in the recliner no apparent distress, he denies any chest pain, shortness of breath, he is approved to go to [facility] for physical therapy as an inpatient rehabilitation, we will continue current treatment plan, monitor the patient very closely, I will follow-up with the patient over there, patient will follow-up with vascular surgery per the recommendation. Patient is medically stable for discharge. REVIEW OF SYSTEMS: Constitutional: No documented fever, no chills, no night sweats. No weight change. No weakness, fatigue or lethargy. No daytime sleepiness. EENT: No headache. No blurred vision or double vision, no loss of vision. No loss of Hearing, no ringing in the ears, no dizziness. No nasal drainage or congestion. No epistaxis. No sore throat. Lungs: No shortness of breath, no cough, no sputum production. No wheezing. Reports dyspnea with activity. Cardiovascular: No chest pain, no lower extremity edema. No palpitations. No paroxysmal nocturnal dyspnea. No orthopnea. No lightheadedness or dizziness. No syncopal episodes. Abdominal: Reports no abdominal pain. No nausea, vomiting. No diarrhea. positive for constipation. No bloody or tarry stools reports loss of appetite. Genitourinary: No dysuria, increased frequency, urgency. No urinary retention. Musculoskeletal: No myalgias. No muscle weakness, no gait dysfunction, no frequent falls. No back pain. No neck pain. Integumentary: left BKA with dressing , no lesions. No rash or pruritus. No unusual bruising. No change in hair or nails. Neurologic: No aphasia. No facial droop. No change in mentation. No head injury. No headache. No paralysis. No paresthesia. Psychiatric: positive for depression. No anxiety. No mood swings. Endocrine:positive for abnormal blood sugars. No weight change. PHYSICAL EXAMINATION: General: 43-year-old male laying in bed in no apparent distress. HEENT: Head is atraumatic, normocephalic, pupils were equal round reactive to light and recommendation, extraocular muscle movement were intact, sclera nonicteric, conjunctivae were pale, mucous membranes of the mouth are somewhat dry. Neck: Supple, no JVP, normal carotid upstroke bilaterally, no lymphadenopathy. Chest: Decreased breath sounds at the bases, few rhonchi, no extremity wheezes, no chest wall tenderness, no intercostal retractions. Heart: First heart sound is normal, second heart sounds normal there is no gallop or murmur no rubs or heaves. Abdomen: Soft, nontender, nondistended, positive bowel sounds. Extremities: Left below-knee amputation, right lower extremity with a wound to the right second toe dorsalis pedis +1 on the right side. Neurologic examination: Patient is awake alert and oriented X3 , cranial nerves II-12 appear grossly intact, muscle power were 5 out of 5 in upper extremities and 5 out of 5 in right lower extremity. ASSESSMENT AND PLAN: 1. Postoperative day #5 status post left below-knee amputation. Continue current pain management as outlined by vascular surgery, monitor the patient symptoms very closely, patient instructed to use incentive spirometer to reduce the incidence of atelectasis and healthcare associated pneumonia, continue vancomycin 225 mg IV piggyback every 8 hours, pharmacy to dose its peak and trough, patient is being followed by infectious disease as well as vascular surgery patient has a string clear placed on. 2. Diabetes mellitus type 2 insulin requiring. Continue patient on Lantus 80 units at bedtime, continue with a sliding scale insulin, I will add NovoLog 6 units before each meal plus the sliding scale continue patient on metformin ER 500 mg orally twice every day, monitor the patient blood glucose level before each meal and at bedtime. 3. Bigeminy patient was started on Cardizem CD 180 mg orally once every day, patient was seen in consultation by cardiology. 4. Mixed hyperlipidemia. Continue patient on atorvastatin 80 mg once a day, monitor per lipid panel, keep LDL 55-70. 5. Diabetic polyneuropathy. Continue gabapentin 800 mg orally twice every day. 6. Depression. Continue patient on duloxetine 30 mg orally once every day. 7. DVT prophylaxis. Continue patient on Lovenox 40 mg subcutaneous every 24 hours. 8. GI prophylaxis. Continue famotidine 20 mg orally once every day. 9. Patient is medically stable for discharge to [facility] for i npatient rehabilitation . Objective - Vital Signs Vital signs: Vital Signs Temp 98.2 F 11/18/23 09:10 Pulse 94 11/18/23 12:00 Resp 16 11/18/23 12:00 BP 134/79 11/18/23 12:00 Pulse Ox 94 L 11/18/23 12:00 FiO2 Intake & Output 11/17/23 11/18/23 11/18/23 18:59 06:59 18:59 Intake Total 780 Output Total 1750 Balance 780 -1750 Weight 146.7 kg Intake: Oral 780 Output: Urine 1750 Other: Voiding Method Urinal Urinal Urinal # Voids 2 3 # Bowel Movements 1 - Labs CBC & Chem 7: 11/18/23 09:30 11/18/23 09:30 Labs: Abnormal Lab Results - Last 24 Hours (Table) 11/17/23 11/17/23 11/18/23 Range/Units 16:26 19:59 06:03 Hgb (13.0-17.5) gm/dL Hct (39.0-53.0) % RDW (11.5-15.5) % Lymphocytes # (1.0-4.8) k/uL Sodium (137-145) mmol/L Chloride (98-107) mmol/L Carbon Dioxide (22-30) mmol/L Creatinine (0.66-1.25) mg/dL Glucose (74-99) mg/dL POC Glucose (mg/dL) 317 H 312 H 265 H (70-110) mg/dL AST (17-59) U/L ALT (4-49) U/L Total Protein (6.3-8.2) g/dL Albumin (3.5-5.0) g/dL 11/18/23 11/18/23 11/18/23 Range/Units 09:30 09:30 11:59 Hgb 12.2 L (13.0-17.5) gm/dL Hct 38.2 L (39.0-53.0) % RDW 15.6 H (11.5-15.5) % Lymphocytes # 0.8 L (1.0-4.8) k/uL Sodium 136 L (137-145) mmol/L Chloride 97 L (98-107) mmol/L Carbon Dioxide 33 H (22-30) mmol/L Creatinine 0.64 L (0.66-1.25) mg/dL Glucose 225 H (74-99) mg/dL POC Glucose (mg/dL) 303 H (70-110) mg/dL AST 68 H (17-59) U/L ALT 85 H (4-49) U/L Total Protein 5.6 L (6.3-8.2) g/dL Albumin 3.3 L (3.5-5.0) g/dL
[2023-11-18] MEDS ORDERED: INSULIN ASPART (NovoLOG) 100 UNIT/ML VIAL SQ SCH (17:30)
[2023-11-18] MEDS ORDERED: INSULIN DETEMIR (LEVEMIR) 100 UNIT/ML SYR SQ SCH (21:00)
--- NOTE | 2023-12-17 14:46 | OP ---
OPERATIVE REPORT DATE OF SERVICE : PREOPERATIVE DIAGNOSES: 1. Recurrent bacteremia. 2. Left Charcot foot. 3. Left foot osteomyelitis, nonhealing. 4. Diabetes. POSTOPERATIVE DIAGNOSES: 1. Recurrent bacteremia. 2. Left Charcot foot. 3. Left foot osteomyelitis, nonhealing. 4. Diabetes. PROCEDURE: Left below-knee amputation. SPECIMEN: None, left below-knee for disposal. EBL: 350 mL. COMPLICATIONS: None. CONDITION: Stable to Recovery. CLINICAL NOTE AND INDICATION: The patient is a diabetic male with recurrent osteomyelitis and bacteremia due to Charcot foot of his left lower extremity. After multiple discussions with Podiatry and Infectious Disease, they decided that going forward with a below-knee amputation was in his best interest. He seemingly agreed. He and I discussed the risks and benefits of intervention including, but not limited to bleeding, infection, injury to the surrounding tissue and nonhealing. We also discussed the risk of cardio and pulmonary concerns. He seemingly understood and was willing to proceed. PROCEDURE IN DETAIL: The patient was taken to the operative suite and placed in supine position. The left lower extremity was prepped and draped in usual sterile fashion. A preprocedural time- out was performed. All parties were in agreement. About 12 cm distal to the tibial plateau, the circumference was measured, and utilizing this measurement in two-third and one-third fashion, the incision was marked as well as planned flap. Incision was then made and continued down through the level of the fascia with electrocautery throughout. The anterior compartment of muscles were divided using electrocautery. He had a lot of edema and serous drainage in the tissues. The tibia and fibula were cleared. The neurovascular bundle was doubly ligated and transected. The tibia was then transected with the reciprocating saw. The fibula was transected 1 cm proximal to this. The amputation was completed with the amputation knife. Hemostasis was controlled with 0 silk sutures. The bone was then assessed and angulated at the level of the tibia. The rasp was utilized for any sharp edges, as well as the rongeur at the fibula. The areas were then copiously irrigated. The nerve was placed on traction and ligated sharply to allow to retract. The wound was then closed using interrupted 2-0 Vicryl sutures as well as 3-0 in a subcuticular fashion. Skin kush were placed. Upon closure, the wound was cleansed and dressings were placed along with a knee immobilizer. The patient tolerated the procedure and was brought to Recovery in stable condition. MMODL / IJN: [id number] /
--- NOTE | 2023-12-17 14:47 | CONS ---
Date of service is 11/14/2023 CONSULTATION REASON FOR CONSULTATION: Right second toe ulcer. HISTORY OF PRESENT ILLNESS: The patient is a 43-year-old male with past medical history significant for diabetes mellitus. The patient did have a history of left Charcot foot with history of recurrent MRSA sepsis related to the left Charcot foot. He has been evaluated by foot and ankle specialist, who recommended left [id number] amputation. The patient did have left gpgnq-[id number] amputation completed on 11/13/2023. He has received vancomycin, however, the patient was on vancomycin in the outpatient setting. The patient also has a wound on the right second toe partial amputation site. Antibiotic was switched to vancomycin by admitting physician. Infection team was consulted for further management. The patient denies having any fever or any chills. Pain to the left BKA stump is currently controlled. Denies having headache or URI symptoms. No chest pain, shortness of breath, or cough. No nausea, vomiting. No abdominal pain or pain to the right second toe. Did have minimal blood-stained drainage. REVIEW OF SYSTEMS: Positive points have been mentioned in HPI. Rest of systems are negative. PAST MEDICAL HISTORY: Significant for diabetes mellitus, diabetic foot infection, osteomyelitis, hyperlipidemia, neuropathy, depression. PAST SURGICAL HISTORY: Left [id number] amputation. He did have a debridement to the left foot and partial amputation on right second toe. SOCIAL HISTORY: Reviewed. FAMILY HISTORY: Reviewed. ALLERGIES: No known drug allergies. MEDICATIONS: The patient is on: 1. Lipitor. 2. Sliding scale insulin. 3. Duloxetine. 4. Metformin. 5. Metoprolol. 6. Gabapentin. 7. Vancomycin. 8. . 9. Famotidine. PHYSICAL EXAMINATION: VITAL SIGNS: Blood pressure 136/62 with pulse of 55, temperature 97.4, O2 saturation 97% on room air. GENERAL: The patient is a middle-aged male, lying in bed, in no distress. No tachypnea or accessory muscle of respiration use. HEENT: Shows no pallor or scleral icterus. Oral mucous membranes moist. NECK: Trachea central. No thyromegaly. LUNGS: Unlabored breathing. Clear to auscultation anteriorly. No wheeze or crackle. HEART: S1, S2. Regular rate and rhythm. ABDOMEN: Soft. No tenderness. No guarding. No rigidity. EXTREMITIES: Left BKA stump is currently dressed. Right second toe did have a small wound on the plantar aspect with minimal blood-stained drainage. No redness noted. NEUROLOGIC: The patient is awake, alert, oriented. Mood and affect normal. LABORATORY DATA: Magnesium is 1.7, BUN is 31, creatinine 0.71. Electrolytes are normal. Sugar was 247. DIAGNOSTIC IMPRESSION/PLAN: 1. The patient with chronic left diabetic foot infection with underlying Charcot foot, septic arthritis, and osteomyelitis in this patient who is status post left below the knee amputation with infected part removed, He will not need to be on long-term antibiotic therapy for the left diabetic foot infection. 2. The patient is noted to have a small wound to the right second toe previous amputation site. No definite cellulitis was noticed. Recommend local wound care with dry Aquacel Silver dressing. For now, continue with vancomycin hopefully with [facility] coming back. We will be able to see the sensitivity and consider short course of oral antibiotic on discharge. PICC line can be discontinued on discharge. Family at the bedside. Multiple questions were answered. Thank you for this consultation. We will follow this patient along with you. MMODL / IJN: [id number] / MATT
== END 2023-11-18 15:15 | disposition home or self-care (01) | DRG 617 ==
LOC: DISRECOVER 12:30 → UNDOADMIN 13:25 → DISRECOVER 13:25 → 3SCARD 11-14 18:50 → DISRECOVER 11-14 18:50 → UNDODISIN 11-18 15:15
PROVIDERS: ADMIT Surgery; ATTEND Surgery
PROC: 0Y6J0Z3 Detachment at Left Lower Leg, Low, Open Approach (ICD-10-PCS; principal; 2023-11-13)
DX: E11.69 Type 2 diabetes mellitus with other specified complication (principal); A52.16 Charcot's arthropathy (tabetic); R78.81 Bacteremia; Z68.41 Body mass index [BMI] 40.0-44.9, adult; M86.8X6 Other osteomyelitis, lower leg; E11.610 Type 2 diabetes mellitus with diabetic neuropathic arthropathy; E11.621 Type 2 diabetes mellitus with foot ulcer; E66.01 Morbid (severe) obesity due to excess calories; I10 Essential (primary) hypertension; I49.3 Ventricular premature depolarization; L97.519 Non-pressure chronic ulcer of other part of right foot with unspecified severity; Z89.512 Acquired absence of left leg below knee; E11.42 Type 2 diabetes mellitus with diabetic polyneuropathy; E78.2 Mixed hyperlipidemia; F32.A Depression, unspecified; Z79.4 Long term (current) use of insulin; Z79.84 Long term (current) use of oral hypoglycemic drugs; Z79.899 Other long term (current) drug therapy; Z86.14 Personal history of Methicillin resistant Staphylococcus aureus infection
CPT/HCPCS: 80048; 80053; 80202; 83735; 85025; 86850; 86900; 86901

== ENCOUNTER → 2023-11-13 | Day surgery (SDC) | payer MEDICAID ==
[~2023-11-13] MED LIST: DEXAMETHASONE SOD PHOSPHATE 4 MG/ML 1 ML VIAL ONE; FAMOTIDINE 20 MG/2 ML VIAL ONE; MIDAZOLAM 2 MG/2 ML VIAL ONE; ONDANSETRON 4 MG/2 ML VIAL ONE; SCOPOLAMINE 1 MG/72 HR PATCH TRANSDERM ONE
== END ==
LOC: OR 10:00
PROVIDERS: ATTEND Surgery
DX: A41.9 Sepsis, unspecified organism

== ENCOUNTER → 2024-01-25 | Outpatient (CLI) | payer MEDICAID ==
--- NOTE | 2024-01-25 10:33 | XR ---
EXAMINATION TYPE: XR foot complete RT DATE OF EXAM: 01/25/2024 COMPARISON: NONE CLINICAL INDICATION: Male, 43 years old with history of M14.60 Charcot Jt Disease; TECHNIQUE: Three views are submitted. FINDINGS: The osseous structures are intact. Moderate first MTP joint arthropathy. Postsurgical change with res ection of the second and third digits. Soft tissue edema noted. There is erosive change of the tarsal navicular and increased distance between the base of the second metatarsal and medial cuneiform bone could be associated with a Lisfranc fracture dislocation. There is arthropathy of the tarsometatarsal junction and intertarsal bones with particular attention to th e most medial and the medial cuneiform bones and cuneiform tarsal articulation. Bony fragmentation no pilar. Pes planus deformity with a large calcaneal spurs. IMPRESSION: 1. Marked arthropathy involving the tarsal bones particularly along the medial margin would be compat ible with Charcot joint. Osteomyelitis not excluded. 2. Mild subluxation of the articulation of the second metatarsal and cuneiform bone can be associated with Lisfranc injury. Consider correlation with MRI as clinically warranted. [facility], , 01/25/2024 10:31 AM
--- NOTE | 2024-01-25 10:37 | XR ---
EXAMINATION TYPE: XR ankle complete RT DATE OF EXAM: 01/25/2024 COMPARISON: 09/22/2023 HISTORY: Pain FINDINGS: Three views of the ankle demonstrate the ankle mortise to be intact and symmetric. The joint spaces are preserved. The osseous structures are intact. Tiny spurring along the medial malleolus. Large s purs of the calcaneus. Chronic appearing deformities along the dorsum of foot near the tarsal navicul ar and cuneiform bones. IMPRESSION: 1. No acute fracture. There is a large calcaneal spurs. 2. Hypertrophic changes along the dorsum of the foot in the tarsal bones may be posttraumatic or post arthritic including Charcot joint. [facility], , 01/25/2024 10:35 AM
== END | disposition home or self-care (01) ==
LOC: RADXRMAIN 09:30
PROVIDERS: ATTEND Podiatrist
DX: S93.301A Unspecified subluxation of right foot, initial encounter (principal); M14.671 Charcot's joint, right ankle and foot; M77.31 Calcaneal spur, right foot; M12.871 Other specific arthropathies, not elsewhere classified, right ankle and foot

== ENCOUNTER → 2024-06-09 | Outpatient (CLI) | payer MEDICAID ==
--- NOTE | 2024-06-09 09:55 | MR ---
EXAMINATION TYPE: MR knee RT wo con DATE OF EXAM: 06/09/2024 9:25 AM COMPARISON: None. CLINICAL INDICATION: Male, 43 years old with history of M23.8X1 OTHER INTERNAL DERANGEMENTS OF RIGHT KNEE, Right knee pain and swelling, Hx RT meniscus repair, growth plate/flip IV Contrast: cc (None if empty) TECHNIQUE: Multiplanar, multisequence imaging of the right knee is performed without IV contrast. FINDINGS: MEDIAL MENISCUS: Tear posterior horn of medial meniscus. Anterior horn is intact. LATERAL MENISCUS: Anterior and posterior horns are intact without tear. CRUCIATE LIGAMENTS: The anterior and posterior cruciate ligaments are intact and unremarkable. COLLATERAL LIGAMENTS: The medial collateral ligament and lateral collateral ligament complex are inta ct and unremarkable. EXTENSOR MECHANISM: Visualized quadriceps and patellar tendons are intact. EFFUSION: Small joint effusion noted. POPLITEAL CYST: No popliteal/street cyst. TRICOMPARTMENT SPACES: Moderate narrowing medial tibiofemoral joint space. CARTILAGE: Cartilaginous thinning without defect. BONE MARROW SIGNAL: No focal abnormal marrow signal is appreciated. OTHER: No additional significant abnormality is appreciated. IMPRESSION: 1. Oblique tear posterior horn medial meniscus. 2. Changes of osteoarthritis [facility], , 06/09/2024 9:52 AM
== END | disposition home or self-care (01) ==
LOC: RADMRIMAIN 07:47
PROVIDERS: ATTEND Orthopaedic Surgery
DX: S83.241A Other tear of medial meniscus, current injury, right knee, initial encounter (principal); M17.11 Unilateral primary osteoarthritis, right knee